=== PATIENT | female | born 1955 | race Caucasian/White ===

== ENCOUNTER 2018-09-25 21:30 | Inpatient (IN) | payer OTHER ==
[2018-09-25 22:28] LABS: Absolute Lymphocytes (CBC) 0.1 K/uL (0.7-4.9); Absolute Neutrophil 13.1 K/uL (1.8-8.0); Basophils % 0.1 % (0-1.3); Eosinophils % 0.2 % (0-4.4); Lymphocytes % 0.7 % (15.3-44.8); MPV 10.3 fL (7.6-11.3); Monocytes % 0.2 % (3.3-12.3); RBC Red Blood Cell Count 3.67 M/uL (3.86-4.86)
[2018-09-25 22:30] LABS: Protime INR 1.5
[2018-09-25] MEDS ORDERED: FAMOTIDINE 20 MG/2 ML VIAL IV ONE (22:47)
[2018-09-25] MEDS ORDERED: ONDANSETRON 4 MG/2 ML VIAL ONE (22:47)
[2018-09-25] MEDS ORDERED: NA CHLORIDE 0.9% 1,000 ML ONE (22:47)
[2018-09-25 23:00] LABS: ALT/SGPT 226 U/L (12-78); Albumin 2.1 g/dL (3.4-5.0); Alkaline Phosphatase 246 U/L (45-117); BUN Blood Urea Nitrogen 133 mg/dL (7-18); Bicarbonate 18 mmol/L (21-32); Bilirubin Direct 1.1 mg/dL (0-0.2); Bilirubin Total 1.4 mg/dL (0.2-1.0); Glucose Level 57 mg/dL (74-106); Magnesium 2.5 mg/dL (1.8-2.4); NT PRO-BNP 1977 pg/mL (<125); Potassium 4.8 mmol/L (3.5-5.1); Protein, Total 7.3 g/dL (6.4-8.2); Sodium Level 127 mmol/L (136-145); Troponin (Emerg Dept Use Only) < 0.02 ng/mL (0.0-0.045)
[2018-09-25 23:13] LABS: AST/SGOT 817 U/L (15-37)
[2018-09-25 23:30] LABS: Blood Morphology Comment NOT SEEN (NOT SEEN); Platelet Estimate ADEQ; Toxic Granulation 2+; Urine White Blood Cell Casts OK
[2018-09-26 00:26] LABS: Urine Blood 2+ (NEG); Urine Glucose NEGATIVE (NEG); Urine Protein 3+ (NEG); Urine Specific Gravity 1.025 (1.005-1.030)
[2018-09-26 01:18] LABS: Urine Amorphous Sediment 2+ /HPF (NONE SEEN); Urine Bacteria LOADED /HPF (<20); Urine Culture Reflex Order NOT NEEDED; Urine RBC <5 /HPF (NONE SEEN)
[2018-09-26] MEDS ORDERED: CEFTRIAXONE 1000 MG/VIAL ONE (01:35)
[2018-09-26] MEDS ORDERED: NA CHLORIDE 0.9% 50 ML IV ONE (01:35)
--- NOTE | 2018-09-26 01:58 | EDPHYS ---
Physician Documentation [facility] Name: Veronica Mendoza Age: 63 yrs Sex: Female : 1955 Arrival Date: 09/25/2018 Time: 21:36 Bed 27 Private MD: ED Physician Jose Quijano HPI: 09/25 22:57 This 63 yrs old Female presents to ER via EMS with complaints of vomiting, wa diarrhea. SOB. 22:57 The patient presents to the emergency department with nausea, vomiting, diarrhea. wa Onset: The symptoms/episode began/occurred 5 day(s) ago. Possible causes: unknown. The symptoms are aggravated by nothing. The symptoms are alleviated by nothing. Associated signs and symptoms: Pertinent positives: diarrhea, fever, nausea, vomiting. Severity of symptoms: At their worst the symptoms were moderate in the emergency department the symptoms are unchanged. The patient has not experienced similar symptoms in the past. The patient has not recently seen a physician. c/o weakness. N/V/D. also SOB with exertion. Chest pain. Historical: - Allergies: 21:45 No Known Allergies; mg2 - Home Meds: 21:45 carvedilol 3.125 mg oral tab 1 tab 2 times per day [Active]; metformin 500 mg Oral tab mg2 1 tab 2 times per day [Active]; Tradjenta 5 mg oral tab 1 tab once daily [Active]; ferrous sulfate 325 mg (65 mg iron) Oral tab [Active]; clonidine HCl 0.2 mg Oral tab 1 tab 3 times per day [Active]; gemfibrozil 600 mg Oral tab 1 tab 2 times per day [Active]; rosuvastatin 10 mg oral tab 1 tab once daily [Active]; aspirin 81 mg Oral chew 1 tab once daily [Active]; fluticasone 50 mcg twice a day [Active]; vit d3 5000 units od [Active]; vit b-12 1000 mcg tab 1 tab od [Active]; - PMHx: 21:45 Hypertension; Hyperlipidemia; Diabetes - NIDDM; mg2 - PSHx: 21:45 partial thyroidectomy; mg2 - Immunization history:: Flu vaccine is not up to date. - Social history:: Smoking status: Patient uses tobacco products, electronic cigars 2/day, Patient uses alcohol, but reports only rare drinking. Patient/guardian denies using street drugs, IV drugs. - Ebola Screening: : No symptoms or risks identified at this time. - Family history:: not pertinent. - Hospitalizations: : No recent hospitalization is reported. ROS: 22:59 Eyes: Negative for injury, pain, redness, and discharge, ENT: Negative for injury, wa pain, and discharge, Neck: Negative for injury, pain, and swelling, Back: Negative for injury and pain, : Negative for injury, bleeding, discharge, and swelling, MS/Extremity: Negative for injury and deformity, Skin: Negative for injury, rash, and discoloration, Neuro: Negative for headache, weakness, numbness, tingling, and seizure, Psych: Negative for depression, anxiety, suicide ideation, homicidal ideation, and hallucinations. 22:59 Constitutional: Positive for body aches, fatigue, fever, malaise. 22:59 Cardiovascular: Positive for chest pain, Negative for edema, orthopnea, palpitations. 22:59 Respiratory: Positive for shortness of breath, on exertion. Negative for cough. 23:03 All other systems are negative. wa Exam: 23:03 Constitutional: This is a well developed, well nourished patient who is awake, alert, wa and in no acute distress. Head/Face: Normocephalic, atraumatic. Eyes: Pupils equal round and reactive to light, extra-ocular motions intact. Lids and lashes normal. Conjunctiva and sclera are non-icteric and not injected. Cornea within normal limits. Periorbital areas with no swelling, redness, or edema. ENT: Nares patent. No nasal discharge, no septal abnormalities noted. Tympanic membranes are normal and external auditory canals are clear. Oropharynx with no redness, swelling, or masses, exudates, or evidence of obstruction, uvula midline. Mucous membranes moist. Neck: Trachea midline, no thyromegaly or masses palpated, and no cervical lymphadenopathy. Supple, full range of motion without nuchal rigidity, or vertebral point tenderness. No Meningismus. Chest/axilla: Normal chest wall appearance and motion. Nontender with no deformity. No lesions are appreciated. Cardiovascular: Regular rate and rhythm with a normal S1 and S2. No gallops, murmurs, or rubs. Normal PMI, no JVD. No pulse deficits. Respiratory: Lungs have equal breath sounds bilaterally, clear to auscultation and percussion. No rales, rhonchi or wheezes noted. No increased work of breathing, no retractions or nasal flaring. Back: No spinal tenderness. No costovertebral tenderness. Full range of motion. Skin: Warm, dry with normal turgor. Normal color with no rashes, no lesions, and no evidence of cellulitis. MS/ Extremity: Pulses equal, no cyanosis. Neurovascular intact. Full, normal range of motion. Neuro: Awake and alert, GCS 15, oriented to person, place, time, and situation. Cranial nerves II-XII grossly intact. Motor strength 5/5 in all extremities. Sensory grossly intact. Cerebellar exam normal. Normal gait. Psych: Awake, alert, with orientation to person, place and time. Behavior, mood, and affect are within normal limits. 23:03 Abdomen/GI: Inspection: abdomen appears normal, Bowel sounds: normal, in all quadrants, Palpation: abdomen is soft and non-tender, in all quadrants. Vital Signs: 21:38 BP 123 / 64; Pulse 72; Resp 20; Temp 97.6(O); Pulse Ox 91% on R/A; Weight 78.02 kg; mg2 Height 5 ft. 6 in. (167.64 cm); Pain 3/10; 22:45 BP 98 / 56; Pulse 71; Resp 18; Pulse Ox 94% on 2 lpm NC; mg2 09/26 00:01 BP 109 / 61; Pulse 74; Resp 18; Pulse Ox 95% on 2 lpm NC; mg2 01:07 BP 93 / 54; Pulse 75; Resp 18; Pulse Ox 92% on 2 lpm NC; mg2 02:15 BP 93 / 60; Pulse 73; Resp 18; Pulse Ox 93% on 2 lpm NC; Pain 0/10; mg2 02:58 BP 95 / 55; Pulse 76; Resp 18; Pulse Ox 94% on 2 lpm NC; Pain 0/10; mg2 09/25 21:38 Body Mass Index 27.76 (78.02 kg, 167.64 cm) mg2 MDM: 09/25 21:45 Patient medically screened. mo 23:04 Differential diagnosis: will r/o ACS. consider infectious process. will reassess. mo 09/26 01:47 Data reviewed: vital signs, nurses notes, lab test result(s), EKG, radiologic studies. mo Test interpretation: by ED physician or midlevel provider: EKG: interp by me: HR 72. nml axis. no ischemic changes. CXR: no acute process. Labs: hyponatremia. hypochloremia. hypoglycemia. severe renal insufficiency. GFR 8. leukocytosis. elevated liver enzymes. UTI. Special discussion: severe renal insufficiency. will admit for renal evaluation. UTI. cover with abx. elevated liver enzymes. intrinsic liver disease? consider gallbladder dz. will check US RUQ and CT abd/pelvis. 01:55 Response to treatment: the patient's symptoms have mildly improved after treatment. wa 01:56 Physician consultation: Giselle Kingsley MD. Admission orders: after a detailed discussion wa of the patient's condition and case, the admit orders are written by me. 02:50 ED course: 0250hrs: noted BG 44. D50 given via IV. 03:19 Test interpretation: by ED physician or midlevel provider: CT abd/pelvis: noted for R wa side multifocal pna. also R side hydronephrosis and hydroureter. . 09/25 21:48 Order name: Basic Metabolic Panel; Complete Time: 23:48 mg2 09/25 21:48 Order name: CBC with Diff; Complete Time: 23:48 mg2 09/25 21:48 Order name: LFT's; Complete Time: 23:48 mg2 09/25 21:48 Order name: Magnesium; Complete Time: 23:49 mg2 09/25 21:48 Order name: NT PRO-BNP; Complete Time: 23:49 mg2 09/25 21:48 Order name: PT-INR; Complete Time: 23:49 mg2 09/25 21:48 Order name: Troponin (emerg Dept Use Only); Complete Time: 23:49 mg2 09/25 22:35 Order name: Flu; Complete Time: 23:49 wa 09/25 23:30 Order name: CBC Smear Scan; Complete Time: 23:48 EDMS 09/25 23:50 Order name: Urine Microscopic Only; Complete Time: 01:21 wa 09/26 00:18 Order name: Urine Dipstick--Ancillary (enter results) ar5 09/26 00:27 Order name: Urine Dipstick-Ancillary EDMS 09/26 01:56 Order name: BMP wa 09/26 01:56 Order name: Basic Metabolic Panel EDIN 09/25 21:48 Order name: XRAY Chest (1 view) [facility] [place] 09/25 21:48 Order name: EKG; Complete Time: 21:49 mg2 09/25 21:49 Order name: Cardiac monitoring; Complete Time: 21:49 mg2 09/25 21:49 Order name: EKG - Nurse/Tech; Complete Time: 21:49 mg2 09/25 21:49 Order name: IV Saline Lock; Complete Time: 21:49 mg2 09/25 21:49 Order name: Labs collected and sent; Complete Time: 21:49 mg2 09/25 21:49 Order name: O2 Per Protocol; Complete Time: 21:49 mg2 09/25 21:49 Order name: O2 Sat Monitoring; Complete Time: 21:49 mg2 09/25 23:56 Order name: CT Abd/Pelvis - Without Cont mo 09/25 23:57 Order name: US Abdomen Limited mo 09/25 23:50 Order name: Urine Dipstick-Ancillary (obtain specimen); Complete Time: 00:18 mo Administered Medications: 09/25 22:42 Drug: Zofran 4 mg Route: IVP; Site: right antecubital; mg2 09/26 00:02 Follow up: Response: No adverse reaction; Marked relief of symptoms mg2 09/25 22:42 Drug: Pepcid 20 mg Route: IVP; Site: right antecubital; mg2 09/26 00:01 Follow up: Response: No adverse reaction; Marked relief of symptoms mg2 09/25 22:42 Drug: NS 0.9% 1000 ml Route: IV; Rate: 1 bolus; Site: right antecubital; mg2 09/26 00:02 Follow up: Response: No adverse reaction; IV Status: Completed infusion mg2 01:30 Drug: Rocephin - (cefTRIAXone) 2 grams Route: IVPB; Infused Over: 30 mins; Site: right mg2 antecubital; 02:23 Follow up: Response: No adverse reaction; IV Status: Completed infusion mg2 02:02 Drug: NS 0.9% 500 ml Route: IV; Rate: bolus; Site: right antecubital; mg2 03:04 Follow up: Response: No adverse reaction; IV Status: Completed infusion mg2 02:51 Drug: D50W 50 ml Route: IVP; Site: right antecubital; mg2 03:04 Follow up: Response: No adverse reaction; Blood sugar is elevated mg2 Point of Care Testing: Blood Glucose: 02:40 Blood Glucose: 44 mg/dL; mg2 03:00 Blood Glucose: 199 mg/dL; mg2 Ranges: Critical Glucose Levels:Adult <50 mg/dl or >400 mg/dl <40 mg/dl or >180 mg/dl Disposition: 09/26/18 01:58 Hospitalization ordered by Giselle Kingsley for Inpatient Admission. Preliminary diagnosis are acute vomiting and diarrhea, acute renal failure, Elelvated liver enzymes, chest pain, dyspnea, weakness. - Bed requested for Telemetry/MedSurg (Inpatient). - Status is Inpatient Admission. mg2 - Condition is Fair. - Problem is new. - Symptoms have improved. UTI on Admission? Yes Critical care time excluding procedures: :58 Critical care time: Bedside Care: 15 minutes, Consultation: 10 minutes, Family wa Intervention: 10 minutes. Total time: 35 minutes Signatures: Dispatcher [employer] EDSanjana Ortiz RN RN kl Appiah, William, MD MD wa Gardose, Michele, RN RN mg2 Corrections: (The following items were deleted from the chart) 02:33 01:58 Hospitalization Ordered by Giselle Kingsley MD for Inpatient Admission. Preliminary diagnosis is acute vomiting and diarrhea; acute renal failure; Elelvated liver enzymes; chest pain; dyspnea; weakness. Bed requested for Telemetry/MedSurg (Inpatient). Status is Inpatient Admission. Condition is Fair. Problem is new. Symptoms have improved. UTI on Admission? Yes. mo 03:19 02:33 09/26/2018 01:58 Hospitalization Ordered by Giselle Kingsley MD for Inpatient mg2 Admission. Preliminary diagnosis is acute vomiting and diarrhea; acute renal failure; Elelvated liver enzymes; chest pain; dyspnea; weakness. Bed requested for Telemetry/MedSurg (Inpatient). Status is Inpatient Admission. Condition is Fair. Problem is new. Symptoms have improved. UTI on Admission? Yes.
--- NOTE | 2018-09-26 01:58 | ER ---
Nurse's Notes [facility] Name: Veronica Mendoza Age: 63 yrs Sex: Female : 1955 Arrival Date: 09/25/2018 Time: 21:36 Bed 27 Private MD: Diagnosis: acute vomiting and diarrhea;acute renal failure;Elelvated liver enzymes;chest pain;dyspnea;weakness Presentation: 09/25 21:36 Presenting complaint: EMS states: patient is complaining of shortness of breath, chest mg2 pain, body weakness, n/v for 2 days. she also had flu-like symptoms last week. Transition of care: patient was not received from another setting of care. Onset of symptoms was September 23, 2018. Risk Assessment: Do you want to hurt yourself or someone else? Patient reports no desire to harm self or others. Initial Sepsis Screen: Does the patient meet any 2 criteria? No. Patient's initial sepsis screen is negative. Does the patient have a suspected source of infection? No. Patient's initial sepsis screen is negative. Care prior to arrival: None. 21:36 Method Of Arrival: EMS: [facility] mg2 21:36 Acuity: TOBIAS 3 mg2 Triage Assessment: 21:47 General: Appears. mg2 Historical: - Allergies: 21:45 No Known Allergies; mg2 - Home Meds: 21:45 carvedilol 3.125 mg oral tab 1 tab 2 times per day [Active]; metformin 500 mg Oral tab mg2 1 tab 2 times per day [Active]; Tradjenta 5 mg oral tab 1 tab once daily [Active]; ferrous sulfate 325 mg (65 mg iron) Oral tab [Active]; clonidine HCl 0.2 mg Oral tab 1 tab 3 times per day [Active]; gemfibrozil 600 mg Oral tab 1 tab 2 times per day [Active]; rosuvastatin 10 mg oral tab 1 tab once daily [Active]; aspirin 81 mg Oral chew 1 tab once daily [Active]; fluticasone 50 mcg twice a day [Active]; vit d3 5000 units od [Active]; vit b-12 1000 mcg tab 1 tab od [Active]; - PMHx: 21:45 Hypertension; Hyperlipidemia; Diabetes - NIDDM; mg2 - PSHx: 21:45 partial thyroidectomy; mg2 - Immunization history:: Flu vaccine is not up to date. - Social history:: Smoking status: Patient uses tobacco products, electronic cigars 2/day, Patient uses alcohol, but reports only rare drinking. Patient/guardian denies using street drugs, IV drugs. - Ebola Screening: : No symptoms or risks identified at this time. - Family history:: not pertinent. - Hospitalizations: : No recent hospitalization is reported. Screenin:46 Abuse screen: Denies threats or abuse. Denies injuries from another. Nutritional mg2 screening: No deficits noted. Tuberculosis screening: No symptoms or risk factors identified. Fall Risk IV access (20 points). Assessment: 21:47 General: Appears in no apparent distress. comfortable, Behavior is calm, cooperative. mg2 Pain: Complains of pain in chest Pain does not radiate. Pain currently is 3 out of 10 on a pain scale. Quality of pain is described as aching, Pain began gradually, 2-3 days ago. Is intermittent. Neuro: Level of Consciousness is awake, alert, obeys commands, Oriented to person, place, time, situation. Cardiovascular: Capillary refill < 3 seconds Patient's skin is warm and dry. Chest pain is described as mild, quality is sharp, is located in anterior chest wall. Respiratory: Airway is patent Respiratory effort is even, unlabored, Respiratory pattern is regular, symmetrical. GI: Reports nausea, vomiting. : No signs and/or symptoms were reported regarding the genitourinary system. EENT: No signs and/or symptoms were reported regarding the EENT system. Derm: Skin is intact, is healthy with good turgor, Skin is pink, warm \T\ dry. normal. Musculoskeletal: Circulation, motion, and sensation intact. Capillary refill < 3 seconds. 09/26 03:03 Reassessment: patient's blood sugar was low. provider informed. patient was given food. mg2 Vital Signs: 09/25 21:38 BP 123 / 64; Pulse 72; Resp 20; Temp 97.6(O); Pulse Ox 91% on R/A; Weight 78.02 kg; mg2 Height 5 ft. 6 in. (167.64 cm); Pain 3/10; 22:45 BP 98 / 56; Pulse 71; Resp 18; Pulse Ox 94% on 2 lpm NC; mg2 09/26 00:01 BP 109 / 61; Pulse 74; Resp 18; Pulse Ox 95% on 2 lpm NC; mg2 01:07 BP 93 / 54; Pulse 75; Resp 18; Pulse Ox 92% on 2 lpm NC; mg2 02:15 BP 93 / 60; Pulse 73; Resp 18; Pulse Ox 93% on 2 lpm NC; Pain 0/10; mg2 02:58 BP 95 / 55; Pulse 76; Resp 18; Pulse Ox 94% on 2 lpm NC; Pain 0/10; mg2 09/25 21:38 Body Mass Index 27.76 (78.02 kg, 167.64 cm) mg2 ED Course: 09/25 21:36 Patient arrived in ED. mg2 21:38 Triage completed. mg2 21:40 Brian Isidro, ILIANA is Primary Nurse. mg2 21:45 Jose Quijano MD is Attending Physician. wa 21:45 Arm band placed on. mg2 21:46 Patient has correct armband on for positive identification. ballast cleaning operator on. Pulse mg2 ox on. NIBP on. Door closed. Warm blanket given. 21:46 No provider procedures requiring assistance completed. Inserted saline lock: 20 gauge mg2 in right antecubital area, using aseptic technique. Blood collected. 22:23 XRAY Chest (1 view) In Process Unspecified. EDMS 02 00:[address] via stretcher. kw1 00:51 CT completed. Patient tolerated procedure well. Patient moved back from CT. kw1 01:00 CT Abd/Pelvis - Without Cont In Process Unspecified. EDMS 01:56 Giselle Kingsley MD is Hospitalizing Provider. wa 02:53 Patient admitted, IV remains in place. mg2 Administered Medications: 09/25 22:42 Drug: Zofran 4 mg Route: IVP; Site: right antecubital; mg2 09/26 00:02 Follow up: Response: No adverse reaction; Marked relief of symptoms mg2 09/25 22:42 Drug: Pepcid 20 mg Route: IVP; Site: right antecubital; mg2 09/26 00:01 Follow up: Response: No adverse reaction; Marked relief of symptoms mg2 09/25 22:42 Drug: NS 0.9% 1000 ml Route: IV; Rate: 1 bolus; Site: right antecubital; mg2 09/26 00:02 Follow up: Response: No adverse reaction; IV Status: Completed infusion mg2 01:30 Drug: Rocephin - (cefTRIAXone) 2 grams Route: IVPB; Infused Over: 30 mins; Site: right mg2 antecubital; 02:23 Follow up: Response: No adverse reaction; IV Status: Completed infusion mg2 02:02 Drug: NS 0.9% 500 ml Route: IV; Rate: bolus; Site: right antecubital; mg2 03:04 Follow up: Response: No adverse reaction; IV Status: Completed infusion mg2 02:51 Drug: D50W 50 ml Route: IVP; Site: right antecubital; mg2 03:04 Follow up: Response: No adverse reaction; Blood sugar is elevated mg2 Point of Care Testing: Blood Glucose: 02:40 Blood Glucose: 44 mg/dL; mg2 03:00 Blood Glucose: 199 mg/dL; mg2 Ranges: Outcome: 01:58 Decision to Hospitalize by Provider. ma 03:09 Admitted to Tele accompanied by tech, via stretcher, room 410, with chart, Report mg2 called to ILIANA Marcelo 03:09 Condition: stable 03:09 Instructed on the need for admit, Demonstrated understanding of instructions. 03:19 Patient left the ED. mg2 Signatures: Dispatcher [employer] EDMS Jose Quijano MD MD ma Sanjana Dugan kw1 Brian Isidro, RN RN mg2
[2018-09-26] MEDS ORDERED: NA CHLORIDE 0.9% 500 ML ONE (02:16)
[2018-09-26 02:44] LABS: Potassium 4.8 mmol/L (3.5-5.1)
[2018-09-26] MEDS ORDERED: D50W 25 GM/50 ML SYRINGE IV ONE (02:53)
[2018-09-26] MEDS: NA CHLORIDE 0.9% 1,000 ML IV SCH ×4 (04:26→13:00)
[2018-09-26] MEDS ORDERED: D50W 25 GM/50 ML SYRINGE IV PRN (07:56)
[2018-09-26] MEDS ORDERED: GLUCAGON 1 MG/VIAL IM PRN (07:56)
[2018-09-26] MEDS ORDERED: SODIUM BICARB 50 MEQ/50ML VIAL IV ONE (08:05)
[2018-09-26 08:10] LABS: Arterial Blood Carboxyhemoglob 0.8 % (0-1.5); Blood Gas Oxyhemoglobin 89.6 % (94-97); Blood O2 Saturation 91.2 % (92-98.5)
[2018-09-26] MEDS: ALBUTEROL 2.5 MG/3 ML NEB SOL NEB SCH ×3 (08:14→20:42)
[2018-09-26 08:44] LABS: Absolute Lymphocytes (CBC) 0.1 K/uL (0.7-4.9); Absolute Neutrophil 10.2 K/uL (1.8-8.0); Basophils % 0.3 % (0-1.3); Eosinophils % 0.3 % (0-4.4); Hematocrit 33.1 % (36.0-45.0); Lymphocytes % 0.8 % (15.3-44.8); MPV 10.4 fL (7.6-11.3); Monocytes % 0.2 % (3.3-12.3); RBC Red Blood Cell Count 3.36 M/uL (3.86-4.86)
[2018-09-26] MEDS ORDERED: CEFTRIAXONE 1 GM/NS 50 ML 1 GM/50 ML BAG IV SCH (09:00)
[2018-09-26 09:04] LABS: Albumin 1.8 g/dL (3.4-5.0); Bilirubin Total 1.5 mg/dL (0.2-1.0); Magnesium 2.2 mg/dL (1.8-2.4); Protein, Total 6.3 g/dL (6.4-8.2)
--- NOTE | 2018-09-26 09:11 | RAD REPORT ---
EXAM DESCRIPTION: [place]line Single View09/25/2018 10:23 pm CLINICAL HISTORY: Chest pain COMPARISON: 2013 FINDINGS: A right basilar consolidation is present. Left lung appears clear of acute infiltrate. The heart is normal size IMPRESSION: Right basilar consolidation consistent with pneumonia. This should be followed until it is clear to help exclude post obstructive process/underlying mass
[2018-09-26] MEDS: METRONIDAZOLE 500mg IVPB 500 MG/100 ML BAG IV SCH ×2 (09:16→17:28)
[2018-09-26] MEDS: HEPARIN 5000 UNIT/ML 1 ML VIAL SQ SCH ×2 (09:17→20:53)
[2018-09-26] MEDS: PIPER/TAZO/NS 2.25gm 2.25 GM/50 ML BAG IVPB SCH ×2 (10:26→17:28)
[2018-09-26] MEDS: AZITHROMYCIN IV 250 MG in NA CHLORIDE 0.9% 250 ML IVPB SCH (10:26)
--- NOTE | 2018-09-26 10:57 | RAD REPORT ---
EXAM DESCRIPTION: RAD - Abdomen Single View - 09/26/2018 8:54 am CLINICAL HISTORY: Abdominal pain FINDINGS: The bowel gas pattern is diminished. No abnormal calcification is displayed Right basilar lung consolidation is present
[2018-09-26] MEDS: ONDANSETRON 4 MG/2 ML VIAL IV PRN (11:01)
--- NOTE | 2018-09-26 11:06 | RAD REPORT ---
EXAM DESCRIPTION: US - Abdomen Exam Complete - 09/26/2018 8:55 am CLINICAL HISTORY: Abdominal pain COMPARISON: September 26 cat scan FINDINGS: The liver has an increased echotexture. A small gallstone is present. Gallbladder wall is borderline thickened. Biliary tree is normal calibe r The pancreas normal in size and echotexture The right kidney measures 13 centimeters with a normal echotexture. The left kidney measures 13 centimeters with a normal echotexture. The spleen measures 13 centimeters. The abdominal aorta and inferior vena cava appear unremarkable IMPRESSION: Increased hepatic echotexture consistent with fatty infiltration Cholelithiasis. Borderline gallbladder wall thickening
[2018-09-26] MEDS: D5 0.9 NS 1,000 ML IV SCH ×2 (11:11→20:52)
--- NOTE | 2018-09-26 11:12 | P.CNS ---
Date of Consult: 09/26/18 Chief Complaint: Nausea vomiting acute renal failure History of Present Illness: Patient is 63 years of age has been sick since last start of having vomiting diarrhea I 1st last night had some 1 with associated with some cough was clear ended up here in the hospital with acute renal failure was no evidence of pneumonia urinalysis consistent with acute renal injury no evidence of an infection abnormal liver function tests history of Allergies valsartan Adverse Reaction (Verified 09/26/18 05:25) Anaphylaxis Home Medications: Aspirin [Low Dose Aspirin EC] 1 tab PO DAILY 09/26/18 Carvedilol 1 tab PO BID 09/26/18 Cholecalciferol (Vitamin D3) [Vitamin D3] 1 tab PO DAILY 09/26/18 Cyanocobalamin (Vitamin B-12) [Vitamin B-12] 1 tab PO DAILY 09/26/18 Ferrous Sulfate 1 tab PO DAILY 09/26/18 Fluticasone [Flonase 50MCG Nasal [place]*] 1 spray IH BID 09/26/18 Gemfibrozil 1 tab PO BID 09/26/18 Linagliptin [Tradjenta] 1 tab PO DAILY 09/26/18 Metformin ER [Glucophage ER*] 1 tab PO BIDWM 09/26/18 Rosuvastatin [Crestor*] 1 tab PO BEDTIME 09/26/18 cloNIDine HCl [Clonidine HCl] 1 tab PO TID 09/26/18 - Past Medical/Surgical History Diabetic: Yes -: HTN -: DM 2 -: sleep apnea -: partial thyroidectomy - Family History Father History Unknown: Yes Mother Notes: dementia - Social History Alcohol use: Yes CD- Drugs: No Caffeine use: Yes Place of Residence: Home Review of Systems General: Weakness Respiratory: Cough, Shortness of Breath Gastrointestinal: Nausea, Vomiting Physical Examination Temp Pulse Resp BP Pulse Ox 96.7 F L 75 20 90/57 L 90 L 09/26/18 03:57 09/26/18 03:57 09/26/18 03:57 09/26/18 03:57 09/26/18 03:57 General: Alert, In no apparent distress, Oriented x3, Acute distress HEENT: Atraumatic Neck: Supple Respiratory: Clear to auscultation bilaterally, Crackles/rales (Has some crackles at the right base) Cardiovascular: No edema, Regular rate/rhythm Gastrointestinal: Normal bowel sounds, Soft and benign Laboratory Data (last 24 hrs) 09/26/18 02:10: Sodium 130 L, Potassium 4.8, BUN 134 H, Creatinine 5.20 H*, Glucose 53 L 09/25/18 22:15: PT 17.4 H, INR 1.50 09/25/18 22:15: WBC 13.3 H, Hgb 12.0, Hct 36.0, Plt Count 196 09/25/18 22:15: Sodium 127 L, Potassium 4.8, BUN 133 H, Creatinine 5.45 H*, Glucose 57 L, Magnesium 2.5 H, Total Bilirubin 1.4 H, AST 817 H*, ALT 226 H, Alkaline Phosphatase 246 H - Problems (1) Renal failure Current Visit: Yes Status: Acute Plan: Patient is 63 with nausea vomiting diarrhea some fever and chills admitted with acute renal failure evidence of urinary tract infection white count is normal urinalysis does not show nitrite does show some blood and protein urea consistent with tubular damage patient's blood gases are satisfactory in addition she has also hypotensive cultures are pending patient's pro calcitonin was significantly elevated ultrasound and CT report pending of the kidneys Qualifiers: Chronic kidney disease stage: unspecified stage (2) Pneumonia Current Visit: Yes Status: Acute Plan: Chest x-ray shows a possible right lower lobe pneumonia confirmed by the CT scan patient is on Zosyn and Zithromax daily has multiorgan failure with abnormal liver function tests I agree with fluid boluses right now nephrology consultation Qualifiers: Pneumonia type: due to unspecified organism
[2018-09-26] MEDS: INSULIN -REGULAR HUMAN 50 UNIT/0.5 ML ML SQ SCH ×3 (11:24→20:53)
[2018-09-26] MEDS ORDERED: PROMETHAZINE 25 MG/ML VIAL IV PRN (11:24)
[2018-09-26] MEDS: NOREPINEPHRINE 4 MG in D5W 250 ML IV PRN (11:44)
[2018-09-26] MEDS ORDERED: FAMOTIDINE 20 MG/2 ML VIAL IV ONE (12:00)
[2018-09-26] MEDS ORDERED: INFLUENZA VACCINE (for 3y+) 0.5 ML DOSE IMVAC ONE (13:00)
[2018-09-26] MEDS ORDERED: PNEUMOCOCCAL VACCINE 0.5 ML IMVAC ONE (13:00)
[2018-09-26] MEDS: NA CHLORIDE 0.9% 250 ML IV PRN ×2 (17:29→19:06)
[2018-09-26 17:51] LABS: Absolute Lymphocytes (CBC) 0.1 K/uL (0.7-4.9); Absolute Neutrophil 9.9 K/uL (1.8-8.0); Basophils % 0.2 % (0-1.3); Eosinophils % 0.1 % (0-4.4); Hematocrit 34.6 % (36.0-45.0); Lymphocytes % 0.7 % (15.3-44.8); MPV 10.4 fL (7.6-11.3); Monocytes % 0.4 % (3.3-12.3); RBC Red Blood Cell Count 3.48 M/uL (3.86-4.86)
[2018-09-26 18:07] LABS: Magnesium 2.1 mg/dL (1.8-2.4); Potassium 4.8 mmol/L (3.5-5.1)
[2018-09-26] MEDS ORDERED: CALCIUM GLUC 10% INJ 4.65 MEQ in NA CHLORIDE 0.9% 100 ML IV ONE (18:41)
[2018-09-26 19:42] LABS: Urine Appearance TURBID; Urine Blood 1+ (NEG); Urine Color DK YELLOW; Urine Glucose NEGATIVE (NEG); Urine Protein 2+ (NEG); Urine Specific Gravity 1.015 (1.005-1.030)
[2018-09-26 19:51] LABS: Urine Microscopic Reflex ORDER UMIC
[2018-09-26 19:56] LABS: Urine Amorphous Sediment 2+ /HPF (NONE SEEN)
[2018-09-26 19:57] LABS: Urine Bacteria >50 /HPF (<20); Urine RBC <5 /HPF (NONE SEEN)
[2018-09-26 19:58] LABS: Urine Bilirubin 1+ (NEG); Urine Culture Reflex Order NOT NEEDED
[2018-09-26] MEDS ORDERED: FAMOTIDINE 20 MG/2 ML VIAL IV SCH (21:00)
[2018-09-27] MEDS: PIPER/TAZO/NS 2.25gm 2.25 GM/50 ML BAG IVPB SCH ×3 (00:17→17:14)
--- NOTE | 2018-09-27 00:21 | P.CNS ---
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 PT transferred today to ER for blood pressure control, renal insufficiency management. ALso found to have increased LFT and cholelithiasis. and surgical consult obtained. Allergies valsartan Adverse Reaction (Verified 09/26/18 05:25) Anaphylaxis Home Medications: Aspirin [Low Dose Aspirin EC] 1 tab PO DAILY 09/26/18 Carvedilol 1 tab PO BID 09/26/18 Cholecalciferol (Vitamin D3) [Vitamin D3] 1 tab PO DAILY 09/26/18 Cyanocobalamin (Vitamin B-12) [Vitamin B-12] 1 tab PO DAILY 09/26/18 Ferrous Sulfate 1 tab PO DAILY 09/26/18 Fluticasone [Flonase 50MCG Nasal [place]*] 1 spray IH BID 09/26/18 Gemfibrozil 1 tab PO BID 09/26/18 Linagliptin [Tradjenta] 1 tab PO DAILY 09/26/18 Metformin ER [Glucophage ER*] 1 tab PO BIDWM 09/26/18 Rosuvastatin [Crestor*] 1 tab PO BEDTIME 09/26/18 cloNIDine HCl [Clonidine HCl] 1 tab PO TID 09/26/18 - Past Medical/Surgical History Diabetic: Yes -: HTN -: DM 2 -: sleep apnea -: partial thyroidectomy - Family History Father History Unknown: Yes Mother Notes: dementia - Social History Alcohol use: Yes CD- Drugs: No Caffeine use: Yes Place of Residence: Home Review of Systems General: Fever, Weakness, Malaise Eyes: Unremarkable ENT: Unremarkable Respiratory: Cough, As per HPI Cardiovascular: Edema Gastrointestinal: Nausea, Vomiting, Abdominal Pain, Diarrhea, Distention, Melena (no), Hematochezia (no) Genitourinary: Frequency Physical Examination Temp Pulse Resp BP Pulse Ox 97.3 F 73 22 H 99/59 L 96 09/26/18 20:00 09/26/18 23:30 09/26/18 23:30 09/26/18 23:30 09/26/18 23:30 General: Alert, In no apparent distress, Oriented x3, Cooperative HEENT: PERRLA, EOMI, Sclerae nonicteric Neck: Supple Respiratory: Normal air movement Cardiovascular: Edema (pitting) Gastrointestinal: No rebound, No guarding, Distended, Tenderness (mild generalized all 4 quadrants, nu murphys, no rovsing) Musculoskeletal: No erythema, No tenderness, No warmth Integumentary: No rashes, No breakdown Neurological: Normal speech Laboratory Data (last 24 hrs) 09/26/18 02:10: Sodium 130 L, Potassium 4.8, BUN 134 H, Creatinine 5.20 H*, Glucose 53 L Imagings Data: U/S reviewed Official CT report still pending Conclusions/Impression: abd pain, renal insufficiency, Pneumonia, Increased liver enzymes, cholelithiasis GI consult MRCP when clinically stable, r/o CBD stone, cholangitis IV zosyn
[2018-09-27] MEDS: METRONIDAZOLE 500mg IVPB 500 MG/100 ML BAG IV SCH ×3 (00:29→17:14)
[2018-09-27] MEDS: ALBUTEROL 2.5 MG/3 ML NEB SOL NEB SCH ×4 (01:06→20:00)
[2018-09-27] MEDS ORDERED: NA CHLORIDE 0.9% 1,000 ML IV ONE (01:27)
--- NOTE | 2018-09-27 04:49 | HP ---
Date of Admission: 09/26/2018 Chief Complaint: Vomiting, diarrhea, abdominal pain, shortness of breath. History Of Present Illness: This is a 63-year-old, very pleasant female patient who started to have multiple symptoms 1 week ago and the patient describes that she started to have fever and chills a week ago on Friday associated with abdominal pain, vomiting, diarrhea. Her last episode of vomiting and diarrhea was yesterday and she has not had any vomiting or diarrhea since she came into the hospital. Her appetite has been extremely poor for last one week. She is also having some shortness of breath associated with that and says she is coughing up some colored mucus in last few days. She is feeling very weak and tired. She did not seek any medical attention for all these symptoms until yesterday. She decided to come to emergency room and after she came into emergency room, she was admitted into the hospital to the medical floor. When I came to hospital this morning, I found out about this admission and soon as I started to review her chart, immediately went to see her and in her room, I found out that she was sitting in the chair, awake, alert , oriented, answering all the questions appropriately. I requested her immediately to be assisted to bed and requested nursing staff to check her manual blood pressure which was 82/44. She was started on IV fluid normal saline, which she was receiving but wide-open IV fluid was started immediately and further appropriate orders were given to the nursing staff including order to transfer her to ICU. Allergies: VALSARTAN CAUSING KIDNEY DAMAGE. Medications: According to office records, she is on aspirin 81 mg daily, carvedilol 3.125 mg 2 times a day, clonidine 0.2 mg 3 times a day, ferrous sulfate 325 mg every day, gemfibrozil 600 mg 2 times a day, metformin 500 mg 2 times a day, rosuvastatin 10 mg daily, Tradjenta 5 mg daily, vitamin B12 of 1000 mcg daily, vitamin D3 of 5000 units daily, Zetia 10 mg daily. Review of Systems: Constitutional: As mentioned above. GI: As mentioned above. Respiratory: As mentioned above. All other systems reviewed and negative. Past Medical History: Significant for hypertension, type 2 diabetes mellitus, mixed hyperlipidemia, thrombocytopenia, fatty liver disease. Past Surgical History: Partial thyroidectomy at age 17 years due to thyroid cyst. Family History: Not pertinent. Social History: Positive for smoking. Use of alcohol negative. Physical Examination: Vital Signs: When she first came into emergency room, temperature 97.6, pulse 72, respiratory rate 20, blood pressure was 123/64 and this morning when I saw her, her blood pressure was 82/44. Height 5 feet 6 inches, weight 172 pounds. When I saw her, she was on 5-1/2 L of oxygen per nasal cannula. GENERAL: The patient appears weaker than normal but awake, alert, oriented x3. Answering questions appropriately. HEENT: Head atraumatic, normocephalic. Conjunctivae nonerythematous. Sclerae white. Mouth, no thrush or edema noted. Ears/Nose, no mass, lesion, discharge noted. Neck: Supple. No JVD, lymph nodes, bruit, thyromegaly noted. Lungs: Presence of diminished air entry in the right lower lung field and presence of rales in the left lung base. Not using accessory muscles of respiration. Heart: Normal heart sounds, no murmur or gallop. Abdomen: Presence of tenderness in right upper quadrant and right lower quadrant. No rebound tenderness. No distention. Bowel sounds present. No guarding. No rigidity. No hepatosplenomegaly. No bruit. Extremities: No leg edema. No calf tenderness. Skin: No rash, ulcer, cellulitis. Lymphatics: No lymph node enlargement in neck, supraclavicular, infraclavicular region. Neuro: No focal neurological deficit. Chest: Unremarkable. External Genitalia: Deferred. Rectal: Deferred. Laboratory Data: Initial sodium 127 from last night, potassium 4.8, chloride 87 , bicarb 18, BUN 133, creatinine 5.45, glucose was 57, magnesium 2.5, total bilirubin 1.4, direct bilirubin 1.1, SGOT 817, SGPT 226, alkaline phosphatase 246. Troponin less than 0.02. ProBNP 1976. Repeat chemistry from middle of the night: Sodium 130, potassium 4.8, chloride 92, bicarb 16, BUN 134, creatinine 5.20, glucose 53. I did a stat blood gas on her after I saw her; pH 7.17, pCO2 of 39.9, PO2 of 80, oxygen saturation 91.2, bicarb of the blood gas was 14, and this was on a 5-1/2 L oxygen. Urinalysis: Trace esterase, 20 to 50 wbc's, bacteria loaded, 3+ protein, 2+ blood. Chest x-ray: Right basilar consolidation consistent with pneumonia. CAT scan of the abdomen and pelvis done in the emergency room showed mild right-sided hydronephrosis and hydroureter with periureteral stranding, no intraluminal stone, finding could be secondary to a passed stone. Presence of diverticulosis without diverticulitis. Presence of gallstone, small right-sided pleural effusion. After I saw her, stat abdominal ultrasound was ordered and that report came back as increased hepatic echotexture consistent with fatty infiltration, cholelithiasis, borderline gallbladder wall thickening. Impression: 1. Septic shock with multi-organ failure. 2. Pneumonia. 3. Acute renal failure. 4. Urinary tract infection. 5. Gallstones. 6. Mixed hyperlipidemia. 7. Type 2 diabetes mellitus. 8. Hypertension. Plan: Admit the patient to hospital for further evaluation and management of this problem. As soon as I noted this patient's admission and started to review her test results, I was concerned about it so immediately the patient was evaluated this morning and I was concerned about septic shock. A decision was made to transfer her to ICU for higher level of care. Stat blood work was ordered. Procalcitonin came back 62.18 this morning and this is the only procalcitonin we have for this admission. Her sodium level came up to 131 with potassium 5, chloride 94, bicarb 19, BUN 131, creatinine 5.05. Liver function tests started to show some improvement with SGOT 699, SGPT 203, alkaline phosphatase 238 and total bilirubin 1.5. When I saw her, fingerstick blood sugar was 85 at that time. After the blood gas was done, nurse was advised to give 1 amp of bicarb IV. A Ramachandran catheter was placed. Albuterol nebulizer treatment was ordered and the patient was on ceftriaxone, which was discontinued and started her on Zosyn, Zithromax and metronidazole. Blood culture x2 and urine culture were ordered. We will consult wire frame lampshade maker for pneumonia, computational sciences professor for acute renal failure and general surgeon for her abdominal pain problem. The patient will be given IV fluid per sepsis protocol. We will monitor her intake, output in ICU and if necessary consider to give her vasopressor medication for the low blood pressure problem. I did contact the patient's and talked to him two different times to give him an update regarding this. Heparin will be given for DVT prophylaxis. Initially in ICU, I did ask nursing staff to monitor her blood sugar on an hourly basis and considering her blood sugar is stable now with IV fluid D5 NS, we will monitor her blood sugar a.c. and h.s. IV Pepcid will be given and symptomatic treatment for nausea was ordered. The patient's condition is critical. Prognosis guarded. Details were discussed with family. I will see her tomorrow morning for followup. JAMES/ZAHCARY Voice ID: [id number] MTDD
[2018-09-27 05:49] LABS: Absolute Lymphocytes (CBC) 0.1 K/uL (0.7-4.9); Absolute Monocytes 0.1 K/uL (0.1-1.3); Absolute Neutrophil 9.7 K/uL (1.8-8.0); Basophils % 0.1 % (0-1.3); Eosinophils % 1.2 % (0-4.4); Hematocrit 32.5 % (36.0-45.0); Lymphocytes % 1.1 % (15.3-44.8); Monocytes % 0.7 % (3.3-12.3); RBC Red Blood Cell Count 3.29 M/uL (3.86-4.86)
[2018-09-27 06:28] LABS: Blood Morphology Comment NOT SEEN (NOT SEEN); Platelet Estimate ADEQ; Toxic Granulation 1+; Urine White Blood Cell Casts OK
[2018-09-27 06:56] LABS: Albumin 1.5 g/dL (3.4-5.0); Bilirubin Total 1.4 mg/dL (0.2-1.0); Magnesium 2.3 mg/dL (1.8-2.4); Potassium 4.3 mmol/L (3.5-5.1); Protein, Total 5.5 g/dL (6.4-8.2)
[2018-09-27] MEDS: INSULIN -REGULAR HUMAN 50 UNIT/0.5 ML ML SQ SCH ×4 (07:30→21:00)
[2018-09-27] MEDS: HEPARIN 5000 UNIT/ML 1 ML VIAL SQ SCH ×2 (09:21→20:44)
[2018-09-27] MEDS: FAMOTIDINE 20 MG/2 ML VIAL IV SCH (09:22)
[2018-09-27] MEDS: NOREPINEPHRINE 4 MG in D5W 250 ML IV PRN (09:23)
[2018-09-27] MEDS: D5 0.9 NS 1,000 ML IV SCH ×2 (09:29→17:00)
[2018-09-27] MEDS ORDERED: ALBUMIN HUMAN 25% 200 ML IV ONE (10:00)
[2018-09-27] MEDS ORDERED: ALBUMIN HUMAN 25% 200 ML IV SCH ×2 (10:00→14:00)
[2018-09-27] MEDS: AZITHROMYCIN IV 250 MG in NA CHLORIDE 0.9% 250 ML IVPB SCH (10:21)
--- NOTE | 2018-09-27 10:55 | EKG ---
Test Date: 2018-09-25 Test Time: 21:40:19 Finish Carpenter: DAYNA MEASUREMENT RESULTS: Intervals: Rate: 72 [place]: 166 QRSD: 92 QT: 410 QTc: 448 Oden: P: 53 [place]: 166 QRS: 8 T: 46 INTERPRETIVE STATEMENTS: Normal sinus rhythm Normal ECG No previous ECG available for comparison Electronically Signed On 09-27-18 10:55:04 CALCULATION CLERK by Aneesh Blakely
[2018-09-27] MEDS ORDERED: CALCIUM GLUC 10% INJ 4.65 MEQ in NA CHLORIDE 0.9% 100 ML IV ONE (11:30)
--- NOTE | 2018-09-27 16:19 | PN ---
Date of Progress Note: 09/27/2018 Subjective: The patient was seen this morning for followup. She was in ICU, lying in bed, not in di stress. Vital signs reviewed. Intake and output records reviewed. We did some extra blood work yes terday evening, results reviewed and yesterday evening, I decided to give her 2 boluses of IV fluid t o help with her blood pressure and in attempt to try to wean off vasopressor medication. We also gav e her 1 amp of calcium gluconate as her calcium level was very low. Urine output has slowly improved . She denies any shortness of breath. No nausea. No vomiting. Denies any abdominal pain and has n o complaints this morning. Overall, she feels better than yesterday and looks better than yesterday. When I saw her today, her daughter was present with her at bedside and yesterday I did communicate with her , two different times to give him updates. Objective: HEENT: Unremarkable. Lungs: Diminished air entry in the right lower half of lung espinosa. No rales. No wheezing. Heart: Sounds normal. Abdomen: Soft. Bowel sounds normal. No guarding, rigidity, tenderness, distention. Extremities: No leg edema. Laboratory Data: White count 10, hemoglobin 10.9, and platelets 158. Sodium 136, potassium 4.3, chl oride 104, bicarb 15, BUN 123, creatinine 4.60, glucose 120, calcium 6.8, SGOT 417, SGPT 146, alkalin e phosphatase 268, and albumin 1.5. Procalcitonin 41.51. Assessment: 1.Septic shock with multiorgan failure. 2.Acute renal failure. 3.Pneumonia. 4.Urinary tract infection. 5.Anemia. 6.Diabetes mellitus. 7.Hypertension. Plan: We will continue IV fluid that currently she is on. One dose of IV bicarb and IV calcium gluc dwaine were ordered this morning after I saw her. We will continue current empiric antibiotics, which is Zithromax, Zosyn, and metronidazole. Continue heparin for DVT prophylaxis. Continue oxygen nebu lizer treatment. Procalcitonin is improving. Renal function is improving very well and urine output has started to shredder picker. We will continue to monitor intake and output. Currently, she is only on 1 mcg dose of Levophed and we are hoping that we might be able to wean off today. Clear liquid diet w ill be started today. The patient really has not had a bowel movement to collect a stool specimen fo r C. diff. Urine culture result pending. We will repeat blood work tomorrow morning along with the chest x-ray. Starting tomorrow, we will consult Physical Therapy to help ambulate the patient. Toda y, we will keep her in ICU. Depending on her condition tomorrow, we will decide if she is stable for transfer out of ICU to regular floor or not. Consultation from Dr. Vaughan and Dr. Dowling is yvonne reciated. Nephrology consultation is pending. Details and plan of treatment discussed with the leodan ent and her daughter, who was at bedside. JAMES/MODL Voice ID: [id number] Report ID: [id number]
--- NOTE | 2018-09-27 22:01 | P.CNS ---
Date of Consult: 09/26/18 Reason for Consult: DIAZ Requesting Physician: Best Stoddard Chief Complaint: Nausea vomiting acute renal failure History of Present Illness: 63 yo WF HTN, ARNIE, DM presented to the ER with 5-7 days of moderate to severe, progressive malaise with associated N/V, Diarrhea, F/C, fatigue and weakness. She reports taking Advil twice daily for the symptoms with some relief. Dr. Stoddard: This is a 63-year-old, very pleasant female patient who started to have multiple symptoms 1 week ago and the patient describes that she started to have fever and chills a week ago on Friday associated with abdominal pain, vomiting, diarrhea. Her last episode of vomiting and diarrhea was yesterday and she has not had any vomiting or diarrhea since she came into the hospital. Her appetite has been extremely poor for last one week. She is also having some shortness of breath associated with that and says she is coughing up some colored mucus in last few days. She is feeling very weak and tired. She did not seek any medical attention for all these symptoms until yesterday. She decided to come to emergency room and after she came into emergency room, she was admitted into the hospital to the medical floor. When I came to hospital this morning, I found out about this admission and soon as I started to review her chart, immediately went to see her and in her room, I found out that she was sitting in the chair, awake, alert, oriented, answering all the questions appropriately. I requested her immediately to be assisted to bed and requested nursing staff to check her manual blood pressure which was 82/44. She was started on IV fluid normal saline, which she was receiving but wide-open IV fluid was started immediately and further appropriate orders were given to the nursing staff including order to transfer her to ICU. ER physician: 22:57 This 63 yrs old Female presents to ER via EMS with complaints of vomiting, wa diarrhea. SOB. 22:57 The patient presents to the emergency department with nausea, vomiting, diarrhea. wa Onset: The symptoms/episode began/occurred 5 day(s) ago. Possible causes: unknown. The symptoms are aggravated by nothing. The symptoms are alleviated by nothing. Associated signs and symptoms: Pertinent positives: diarrhea, fever, nausea, vomiting. Severity of symptoms: At their worst the symptoms were moderate in the emergency department the symptoms are unchanged. The patient has not experienced similar symptoms in the past. The patient has not recently seen a physician. c/o weakness. N/V/D. also SOB with exertion. Chest pain. Allergies valsartan Adverse Reaction (Verified 09/26/18 05:25) Anaphylaxis Home medications list reviewed: Yes Home Medications: Aspirin [Low Dose Aspirin EC] 1 tab PO DAILY 09/26/18 Carvedilol 1 tab PO BID 09/26/18 Cholecalciferol (Vitamin D3) [Vitamin D3] 1 tab PO DAILY 09/26/18 Cyanocobalamin (Vitamin B-12) [Vitamin B-12] 1 tab PO DAILY 09/26/18 Ferrous Sulfate 1 tab PO DAILY 09/26/18 Fluticasone [Flonase 50MCG Nasal [place]*] 1 spray IH BID 09/26/18 Gemfibrozil 1 tab PO BID 09/26/18 Linagliptin [Tradjenta] 1 tab PO DAILY 09/26/18 Metformin ER [Glucophage ER*] 1 tab PO BIDWM 09/26/18 Rosuvastatin [Crestor*] 1 tab PO BEDTIME 09/26/18 cloNIDine HCl [Clonidine HCl] 1 tab PO TID 09/26/18 - Past Medical/Surgical History Diabetic: Yes -: HTN -: DM 2 -: sleep apnea -: partial thyroidectomy - Family History Father History Unknown: Yes Mother Notes: dementia - Social History Alcohol use: Yes CD- Drugs: No Caffeine use: Yes Place of Residence: Home Review of Systems 10-point ROS is otherwise unremarkable General: Fever, Weakness, Malaise Respiratory: Cough, SOB with Excertion Gastrointestinal: Nausea, Vomiting, Abdominal Pain, Diarrhea Neurological: Weakness Physical Examination Temp Pulse Resp BP Pulse Ox 98.6 F 72 24 H 121/62 95 09/27/18 16:00 09/27/18 18:30 09/27/18 18:30 09/27/18 18:30 09/27/18 18:30 General: Oriented x3, Cooperative, Moderate distress, Obese, Other (DMM) HEENT: Atraumatic Neck: Supple Respiratory: Clear to auscultation bilaterally Cardiovascular: No edema, Regular rate/rhythm, No rubs Gastrointestinal: No guarding, Tenderness Musculoskeletal: No clubbing, No contractures, No warmth Integumentary: No rashes, No cyanosis Neurological: Normal speech Blood work reviewed in the chart. Na 127; K 4.8; CO2 18; BUN 137; Cr 5.45 Imagings Data: EXAM DESCRIPTION: Arline Single View09/25/2018 10:23 pm CLINICAL HISTORY: Chest pain COMPARISON: 2012 FINDINGS: A right basilar consolidation is present. Left lung appears clear of acute infiltrate. The heart is normal size IMPRESSION: Right basilar consolidation consistent with pneumonia. This should be followed until it is clear to help exclude post obstructive process/ underlying mass. EXAM DESCRIPTION: US - Abdomen Exam Complete - 09/26/2018 8:55 am CLINICAL HISTORY: Abdominal pain COMPARISON: September 26 cat scan FINDINGS: The liver has an increased echotexture. A small gallstone is present. Gallbladder wall is borderline thickened. Biliary tree is normal caliber The pancreas normal in size and echotexture The right kidney measures 13 centimeters with a normal echotexture. The left kidney measures 13 centimeters with a normal echotexture. The spleen measures 13 centimeters. The abdominal aorta and inferior vena cava appear unremarkable IMPRESSION: Increased hepatic echotexture consistent with fatty infiltration Cholelithiasis. Borderline gallbladder wall thickening Conclusions/Impression: A/ Sepsis/ Shock. RLL PNA. Acute cystitis. DIAZ in the setting of hypovolemia, hypotension and Advil suspicious for ATN. Hyponatremia. Acidosis. Hypocalcemia. HyperPO4. Acute hepatitis suspicious for shocked liver. Hypoalbuminemia. Anemia in chronic illness. Hx HTN DM II. ARNIE on CPAP. P/ Continue current POC and Medications. Agree with the ICU transfer. Continue the IVF. Will continue to bolus as needed. Agree with abx. Replete lytes. Wean pressor therapy as tolerated. Bicarb therapy prn. Ramachandran catheter. No NSAIDs. AM labs. Daily weight. Thank you kindly for the consultation.
--- NOTE | 2018-09-27 22:30 | P.PN ---
Date of Service: 09/27/18 Vital Signs Temp Pulse Resp BP Pulse Ox 98.6 F 72 24 H 121/62 95 09/27/18 16:00 09/27/18 18:30 09/27/18 18:30 09/27/18 18:30 09/27/18 18:30 Medications Albuterol Sulfate (Proventil 0.083% Neb Soln) 2.5 mg NEB [id number] [facility] Stop: 10/26/18 08:01 Last Admin: 09/27/18 20:00 Dose: 2.5 mg Calcitriol (Rocaltrol) 0.5 mcg PO DAILY [facility] Stop: 10/28/18 09:01 Calcium Acetate (Phoslo) 667 mg PO TIDWM [facility] Stop: 10/28/18 08:01 Dextrose (Dextrose 50% Syringe) 12.5 gm IV PRN PRN; Protocol PRN Reason: HYPOGLYCEMIA Stop: 10/26/18 07:57 Last Admin: 09/26/18 10:26 Dose: 25 gm Famotidine (Pepcid) 20 mg IV DAILY [facility] Stop: 10/27/18 09:01 Last Admin: 09/27/18 09:22 Dose: 20 mg Glucagon (Glucagen) 1 mg IM 1X PRN; Protocol PRN Reason: HYPOGLYCEMIA Stop: 10/26/18 07:57 Heparin Sodium (Porcine) (Heparin 5,000 Units/Ml) 5,000 unit SQ Q12HR [facility] Stop: 10/26/18 09:01 Last Admin: 09/27/18 20:44 Dose: 5,000 unit Azithromycin 250 mg/ Sodium (Chloride) 250 mls @ 250 mls/hr IVPB DAILY [facility]; Protocol Stop: 10/26/18 09:01 Last Admin: 09/27/18 10:21 Dose: 250 mls Metronidazole/Sodium Chloride (Flagyl 500mg/100 Ml Iv Premix) 500 mg in 100 mls @ 200 mls/hr IV Q8HR [facility]; Protocol Stop: 10/26/18 09:01 Last Admin: 09/27/18 17:14 Dose: 100 mls Piperacillin/Tazobactam/Sod Chloride (Zosyn 2.25 Gm/50 Ml Ivpb) 2.25 gm in 50 mls @ 100 mls/hr IVPB Q8HR [facility]; Protocol Stop: 10/26/18 09:01 Last Admin: 09/27/18 17:14 Dose: 50 mls Dextrose/Sodium Chloride (D5w Ns 1-Liter Bag) 1,000 mls @ 100 mls/hr IV .Q10H [facility] Stop: 10/26/18 11:01 Last Admin: 09/27/18 17:00 Dose: Not Given Norepinephrine Bitartrate 4 mg (/ Dextrose) 254 mls @ 0 mls/hr IV PRN PRN; Protocol PRN Reason: Hemodynamic Parameters Stop: 10/26/18 11:25 Last Admin: 09/27/18 09:23 Dose: 254 mls Sodium Chloride (Sodium Chloride) 250 mls @ 999 mls/hr IV Q15M PRN PRN Reason: HYPOTENSION Stop: 10/26/18 17:08 Last Admin: 09/26/18 19:06 Dose: 250 mls Insulin Human Regular (Novolin -R) 0 unit SQ ACHS [facility]; Protocol Stop: 10/26/18 11:31 Last Admin: 09/27/18 21:00 Dose: Not Given Ondansetron HCl (Zofran) 4 mg IV Q4H PRN PRN Reason: NAUSEA / VOMITING Stop: 10/26/18 08:27 Last Admin: 09/26/18 11:01 Dose: 4 mg Promethazine HCl (Phenergan) 12.5 mg IV Q4H PRN PRN Reason: NAUSEA / VOMITING Stop: 10/26/18 11:25 Last Admin: 09/26/18 11:44 Dose: 12.5 mg Sodium Bicarbonate (Sodium Bicarb 325 Mg) 650 mg PO TID [facility] Stop: 10/27/18 22:24 Sodium Chloride (Normal Saline Flush) 10 ml IV BID [facility] Stop: 10/26/18 09:01 Last Admin: 09/27/18 20:44 Dose: 10 ml Microbiology Results 09/25/18 22:35 Nasopharnyx Influenza Type A Antigen Screen - Final 09/25/18 22:35 Nasopharnyx Influenza Type B Antigen Screen - Final Assessment/ Plan: Nephrology Feeling a little better today. Seen in the ICU. Mild delirium. Currently on Bipap therapy. +Fatigue Improving urine output. Vitals, medications, blood work and imaging reviewed in the chart. General: Oriented x3, Cooperative, Moderate distress, Obese, Other (DMM) HEENT: Atraumatic Neck: Supple Respiratory: Clear to auscultation bilaterally Cardiovascular: No edema, Regular rate/rhythm, No rubs Gastrointestinal: No guarding, Tenderness Musculoskeletal: No clubbing, No contractures, No warmth Integumentary: No rashes, No cyanosis Neurological: Normal speech Blood work reviewed in the chart. Na 127; K 4.8; CO2 18; BUN 137; Cr 5.45 Greater than 30 min patient care. Imagings Data: EXAM DESCRIPTION: [facility] Single View09/25/2018 10:23 pm CLINICAL HISTORY: Chest pain COMPARISON: 2012 FINDINGS: A right basilar consolidation is present. Left lung appears clear of acute infiltrate. The heart is normal size IMPRESSION: Right basilar consolidation consistent with pneumonia. This should be followed until it is clear to help exclude post obstructive process/ underlying mass. EXAM DESCRIPTION: US - Abdomen Exam Complete - 09/26/2018 8:55 am CLINICAL HISTORY: Abdominal pain COMPARISON: September 26 cat scan FINDINGS: The liver has an increased echotexture. A small gallstone is present. Gallbladder wall is borderline thickened. Biliary tree is normal caliber The pancreas normal in size and echotexture The right kidney measures 13 centimeters with a normal echotexture. The left kidney measures 13 centimeters with a normal echotexture. The spleen measures 13 centimeters. The abdominal aorta and inferior vena cava appear unremarkable IMPRESSION: Increased hepatic echotexture consistent with fatty infiltration Cholelithiasis. Borderline gallbladder wall thickening Conclusions/Impression: A/ Sepsis/ Shock. RLL PNA. Acute cystitis. DIAZ in the setting of hypovolemia, hypotension and Advil suspicious for ATN. Hyponatremia. Acidosis. Hypocalcemia. HyperPO4. Acute hepatitis suspicious for shocked liver. Hypoalbuminemia. Anemia in chronic illness. Hx HTN DM II. ARNIE on CPAP. P/ Continue current POC and Medications. Continue the IVF. Boluses as ordered. Give IV Albumin. Wean pressor therapy as tolerated. Agree with abx. Replete lytes. Start oral bicarb. Start Vitamin D and Phoslo. Ramachandran catheter. No NSAIDs. AM labs. Daily weight. Check hepatitis panel. May need to consider HD if poor renal recovery.
[2018-09-28] MEDS: METRONIDAZOLE 500mg IVPB 500 MG/100 ML BAG IV SCH ×3 (01:38→17:22)
[2018-09-28] MEDS: D5 0.9 NS 1,000 ML IV SCH (01:38)
[2018-09-28] MEDS: PIPER/TAZO/NS 2.25gm 2.25 GM/50 ML BAG IVPB SCH ×3 (01:38→17:23)
[2018-09-28] MEDS: ALBUTEROL 2.5 MG/3 ML NEB SOL NEB SCH ×4 (02:00→20:27)
[2018-09-28] MEDS: SODIUM BICARB 325 MG TAB PO SCH ×4 (02:02→21:00)
[2018-09-28] MEDS: ONDANSETRON 4 MG/2 ML VIAL IV PRN (03:30)
[2018-09-28 05:33] LABS: Absolute Lymphocytes (CBC) 0.2 K/uL (0.7-4.9); Absolute Monocytes 0.1 K/uL (0.1-1.3); Absolute Neutrophil 10.6 K/uL (1.8-8.0); Basophils % 0.3 % (0-1.3); Eosinophils % 0.1 % (0-4.4); Hematocrit 33.3 % (36.0-45.0); MPV 10.1 fL (7.6-11.3); Monocytes % 1.2 % (3.3-12.3); RBC Red Blood Cell Count 3.31 M/uL (3.86-4.86)
[2018-09-28 05:49] LABS: Albumin 2.5 g/dL (3.4-5.0); Bilirubin Total 1.9 mg/dL (0.2-1.0); Magnesium 2.4 mg/dL (1.8-2.4); Potassium 4.2 mmol/L (3.5-5.1); Protein, Total 5.9 g/dL (6.4-8.2); Uric Acid 12.7 mg/dL (2.6-6.0)
[2018-09-28 05:56] LABS: Arterial Blood Carboxyhemoglob 0.8 % (0-1.5); Blood O2 Saturation 88.4 % (92-98.5)
[2018-09-28 06:05] LABS: Platelet Estimate DECR; Toxic Granulation 1+; Urine White Blood Cell Casts OK
[2018-09-28 06:06] LABS: Blood Morphology Comment NOT SEEN (NOT SEEN)
--- NOTE | 2018-09-28 06:54 | RAD REPORT ---
EXAM DESCRIPTION: RAD - Chest Single View - 09/28/2018 5:59 am CLINICAL HISTORY: Pneumonia COMPARISON: September 26 TECHNIQUE: AP portable chest image was obtained [id number] hours . FINDINGS: Lung volumes are low. Right-sided pleural and parenchymal opacification are not substantia lly different. No improvement. There is some questionable progression in the mid right lung field. No new or progressive left lung field finding. Cardiomediastinal silhouette is prominent, accentuated by rotation. PICC line remains in good positi on. No pneumothorax is present. No enlarging pleural effusion. There is pleural fluid on the right. IMPRESSION: No improvement in the right-sided pleural and parenchymal opacification. Findings may be slightly worse in the right midlung field.
[2018-09-28] MEDS: INSULIN -REGULAR HUMAN 50 UNIT/0.5 ML ML SQ SCH ×4 (07:30→21:00)
[2018-09-28] MEDS: CA ACETATE 667 MG CAP PO SCH ×3 (08:00→17:00)
[2018-09-28 08:10] LABS: Arterial Blood Carboxyhemoglob 0.7 % (0-1.5); Blood Gas Oxyhemoglobin 94.3 % (94-97); Blood O2 Saturation 95.6 % (92-98.5)
--- NOTE | 2018-09-28 08:33 | P.PN ---
Subjective Date of Service: 09/28/18 Chief Complaint: Respiratory failure Patient is improving steadily alert responsive cooperative she is off vasopressors cultures are so far negative renal function is minimally improved it appears that patient has combined metabolic acidosis and respiratory acidosis started on BiPAP with improvement in her pH Review of Systems General: Weakness, Other (Patient is barely arousable) Physical Examination - Vital Signs Temperature: 97.5 F Blood Pressure: 94/60 Pulse: 53 Respirations: 25 Pulse Ox (%): 100 - Physical Exam General: Other (Minimally responsive) Respiratory: Crackles/rales (Crackles on the right side) Cardiovascular: No edema, Regular rate/rhythm Gastrointestinal: Normal bowel sounds, Soft and benign Assessment & Plan - Problems (Diagnosis) (1) Renal failure Current Visit: Yes Status: Acute Plan: Patient's kidney function is mildly improved she does have a metabolic acidosis patient has no significant abdominal tenderness Qualifiers: Chronic kidney disease stage: unspecified stage (2) Pneumonia Current Visit: Yes Status: Acute Plan: Chest x-ray shows a progression of pneumonia on the right side so far cultures are negative hemoglobin stable continue with Zosyn and Zithromax blood pressure is still low add vitamin-C and thymine stat serum cortisol level patient's serum pro calcitonin level is improving Qualifiers: Pneumonia type: due to unspecified organism Laterality: right (3) Respiratory failure Current Visit: Yes Status: Acute Plan: Patient is acute respiratory failure she is got a combination of metabolic and respiratory acidosis blood gases improved on BiPAP continue recheck blood gases in an hr Qualifiers: Chronicity: acute
[2018-09-28] MEDS: ASCORBIC ACID 500 MG TABLET PO SCH (09:00)
[2018-09-28] MEDS: CALCITROL 0.25 MCG CAP PO SCH (09:00)
[2018-09-28] MEDS: THIAMINE 200 MG/2 ML INJ IVP SCH (09:05)
[2018-09-28] MEDS: FAMOTIDINE 20 MG/2 ML VIAL IV SCH (09:05)
[2018-09-28] MEDS: HEPARIN 5000 UNIT/ML 1 ML VIAL SQ SCH ×2 (09:05→22:07)
[2018-09-28] MEDS: AZITHROMYCIN IV 250 MG in NA CHLORIDE 0.9% 250 ML IVPB SCH (09:06)
[2018-09-28] MEDS: D5W 1,000 ML with NA BICARB 8.4% 100 MEQ IV SCH ×4 (09:06→22:32)
[2018-09-28 10:28] LABS: Arterial Blood Carboxyhemoglob 0.6 % (0-1.5); Blood Gas Oxyhemoglobin 92.7 % (94-97)
[2018-09-28 13:02] LABS: Arterial Blood Carboxyhemoglob 0.7 % (0-1.5); Blood O2 Saturation 94.7 % (92-98.5)
[2018-09-28 13:03] LABS: Blood Gas Oxyhemoglobin 93.3 % (94-97)
--- NOTE | 2018-09-28 15:30 | RAD REPORT ---
EXAM DESCRIPTION: RAD - Chest Single View - 09/26/2018 10:50 pm CLINICAL HISTORY: 63 years Female, PICC Placement COMPARISON: CT abdomen and pelvis dated September 26, 2018 FINDINGS: Appropriately paced right upper extremity PICC terminating in the distal SVC. Eight lung base opacity and silhouetting of the right hemidiaphragm and right heart border. Blunting of the costophrenic angles. No pneumothorax. Cardiac and mediastinal silhouette is unremarkable. No acute osseous abnormality. Advanced left shoulder degenerative changes. IMPRESSION: Appropriately placed right upper extremity PICC. Right lung base opacity, likely atelectasis and consolidation as previously detailed. Small left pleural effusion. Electronically signed by Gino Wu DO 09/26/2018 10:53 PM [employer] Due to temporary technical issues with the PACS/Fluency reporting system, reports are being signed by the in house radiologist as a courtesy to ensure prompt reporting. The interpreting radiologist is f ully responsible for the content of the report.
--- NOTE | 2018-09-28 16:44 | PN ---
Date of Progress Note: 09/28/2018 Diagnoses: Pneumonia, abdominal pain. History Of Present Illness: The patient is stable, still on vasopressors. They are working on her p neumonia and renal insufficiency. Review of Systems: Unable to be obtained, although there is no nausea or vomiting. No melena. No hematochezia. Physical Examination: General: The patient is on BiPAP machine, awake and alert. Abdomen: Soft and depressible. No Rivera. Still mild generalized tenderness. Extremities: Good capillary refill. Laboratory Data: Lab work shows a WBC count of 10.9, total bili of 1.9, alkaline phosphatase 284. C hest x-ray this morning interpreted by Dr. Wright as no improvement in the right-sided pleural and p arenchymal opacification, may be slightly worse in the right mid lung. Assessment: A 63-year-old patient with multiple medical problems including pneumonia, renal insuffic iency, anasarca, in ICU on vasopressor, multiorgan swelling that includes gallbladder. She has histo ry of gallstones. Right now, we do not feel any Rivera sign, but we are giving her antibiotics. We would like to get an MRCP. I understand at this moment she is in the ICU on vasopressors, but at the moment she improves, we will like to get an imaging of the common bile duct. The total bilirubin ma y be elevated just from not eating, but at the same time, we have to rule out any stone in the common bile duct that may be have to be addressed. Her family is present today, so we will discuss the pro s and cons of any surgical intervention. Obviously, they are not in favor to take her to surgery unl ess basically we have absolute proof that that is a problem, which I do not have at this moment. YAMILA/MODL Voice ID: [id number] Report ID: [id number]
--- NOTE | 2018-09-28 18:42 | RAD REPORT ---
EXAM DESCRIPTION: CT - Abdomen Pelvis Wo Contrast - 09/26/2018 3:21 am CLINICAL HISTORY: The patient is 63 years old and is Female; abd pain, elevated liver enzymes and Cr COMPARISON: None. TECHNIQUE: Axial computed tomography images of the abdomen and pelvis without intravenous contrast. Sagittal and coronal reformatted images were created and reviewed. This CT exam was performed using one or more o f the following dose reduction techniques: Automated exposure control, adjustment of the mA and/or kV according to patient size, and/or use of iterative reconstruction technique. FINDINGS: LUNG BASES: Right basilar interstitial and consolidation with air bronchogram. Near complete atelectasis of the right middle lobe with consolidation anteriorly. Mild dependent left lung base atelectasis Calcified 4 mm pulmonary nodule in the right lower lobe. PLEURAL SPACE: Small right pleural effusion. HEART: Coronary calcifications. ABDOMEN: LIVER: Punctate hepatic calcification. No intrahepatic ductal dilatation. GALLBLADDER AND BILE DUCTS: Punctate gallstone. No pericholecystic fluid. No ductal dilation. PANCREAS: Unremarkable. No ductal dilation. SPLEEN: Unremarkable. No splenomegaly. ADRENALS: Unremarkable. No mass. KIDNEYS AND URETERS: Mild right hydronephrosis and hydroureter with periureteral stranding. No intral uminal stone. Nonspecific perinephric stranding. Nonobstructing stone in the inferior pole of the right kidney. STOMACH AND BOWEL: Diverticulosis involving the ascending colon and sigmoid without peridiverticular stranding. No obstruction. No mucosal thickening. PELVIS: APPENDIX: The appendix is seen and is within normal limits. BLADDER: Unremarkable. No stones. REPRODUCTIVE: Unremarkable as visualized. ABDOMEN and PELVIS: INTRAPERITONEAL SPACE: Unremarkable. No free air. No significant fluid collection. BONE/JOINTS:Grade 1 anterolisthesis of L4 on L5 on a degenerative basis. No acute fracture. No dislocation. SOFT TISSUES: Unremarkable. VASCULATURE: Unremarkable. No abdominal aortic aneurysm. LYMPH NODES: Unremarkable. No enlarged lymph nodes. IMPRESSION: 1. Suggestion of right middle lobe collapse and right lung base consolidations concerni ng for multifocal pneumonia. Dedicated chest CT is recommended for further characterization. 2. Mild right hydronephrosis and hydroureter with periureteral stranding. No intraluminal stone. Find ing could be secondary to recently passed stone. Additional nonobstructive right renal stone. 3. Colonic diverticulosis without CT evidence of acute diverticulitis. 4. Cholelithiasis without CT evidence of cholecystitis. 5. Small right pleural effusion. 6. Evidence of prior granulomatous disease. 7. Grade 1 anterolisthesis of L4 on L5 on a degenerative basis. Electronically signed by: Gino Wu DO 09/26/2018 1:16 AM [employer] Due to temporary technical issues with the PACS/Fluency reporting system, reports are being signed by the in house radiologist as a courtesy to ensure prompt reporting. The interpreting radiologist is f ully responsible for the content of the report.
--- NOTE | 2018-09-28 21:35 | PN ---
Date of Progress Note: 09/28/2018 Subjective: The patient was seen this morning for followup. During nighttime, she had some confusio n problem and she was more weak and lethargic as nurse notified me early this morning with her deteri orating condition. Blood gas was done and she was extremely acidotic with some retention of bicarb. BiPAP was ordered and Dr. Vaughan was contacted by ICU nursing staff with this change in condition to get his recommendation. When I saw her this morning, she was lying in bed in ICU on BiPAP, sleepy , wakes up with opening of her eyes but does not communicate with me. Objective: Vital Signs: Reviewed. HEENT: Examination unremarkable. Lungs: Bilateral shallow air entry. Not in respiratory distress. Heart: Sounds normal. Abdomen: Soft. Bowel sounds normoactive. No guarding, rigidity, tenderness, distention. Extremities: No leg edema. Laboratory Data: White count 10.9, hemoglobin 11.1, platelets 130. [facility] ; pH 7.07, pCO2 of 53.1, PO2 of 76.5, saturation 88% on 32% FiO2. Her intake, output records revie fri. Sodium this morning 142, potassium 4.2. Chloride 107, bicarb 18, BUN 132, creatinine 4.81, glu cose 138, calcium 6.5, uric acid 12.7, SGOT 254, SGPT 97, alkaline phosphatase 284, Procalcitonin 30. 15. Impression: 1.Septic shock with multiple organ failure. 2.Pneumonia. 3.Urinary tract infection. 4.Acute renal failure. 5.Severe metabolic acidosis. 6.Diabetes mellitus. Plan: One amp of bicarb IV was ordered this morning and tool hardener and technical writer and editor were contacte d by ICU nursing staff this morning regarding change in condition and the patient's lab results. Dr. Vaughan recommended for the patient to continue to be on BiPAP and if her condition deteriorates th en he will consider intubation. Throughout the day today, the patient remains on BiPAP and there is slight improvement noted in terms of her ability to communicate with ICU nursing staff by speaking fe w words. Her urine output remains poor today. Her creatinine has gone up today compared to yesterda y and she is lot more acidotic and yesterday she was awake, alert, oriented. Today, there is a deter ioration in her overall condition. I did have a discussion with tool hardener, Dr. Faria and he is recommending dialysis and is hoping that it would be temporary hemodialysis to help with her severe m etabolic acidosis problem. Dr. Vaughan has agreed with dialysis as he is concerned about some fluid overload type of problem in the near future and that is my concern as well. So, Dr. Faria has com municated with the patient's and daughter and he is planning to do dialysis tomorrow after di alysis access catheter gets placed by Dr. Dowling. We will continue current antibiotics. Liver fun ction tests are improving. Procalcitonin is improving as well. JAMES/MODL Voice ID: [id number] Report ID: [id number]
[2018-09-28] MEDS ORDERED: EPOETIN ALFA 10,000 UNIT/ML VIAL IV SCH (23:45)
[2018-09-28] MEDS ORDERED: ALBUMIN HUMAN 25% 50 ML IV SCH (23:45)
[2018-09-28] MEDS ORDERED: MANNITOL 25% 12.5 GM/50 ML VIAL IV PRN (23:55)
[2018-09-28] MEDS ORDERED: HEPARIN 10,000 UNIT/10 ML VIAL IV PRN (23:55)
[2018-09-28] MEDS ORDERED: NA CHLORIDE 0.9% 1,000 ML IV PRN (23:55)
--- NOTE | 2018-09-28 23:55 | P.PN ---
Date of Service: 09/28/18 Vital Signs Temp Pulse Resp BP Pulse Ox 97.2 F 60 15 96/59 L 97 09/28/18 20:00 09/28/18 22:00 09/28/18 22:00 09/28/18 22:00 09/28/18 22:00 Medications Albuterol Sulfate (Proventil 0.083% Neb Soln) 2.5 mg NEB [id number] [facility] Stop: 10/26/18 08:01 Last Admin: 09/28/18 20:27 Dose: 2.5 mg Ascorbic Acid (Vitamin C) 500 mg PO DAILY [facility] Stop: 10/28/18 09:01 Last Admin: 09/28/18 09:00 Dose: Not Given Calcitriol (Rocaltrol) 0.5 mcg PO DAILY [facility] Stop: 10/28/18 09:01 Last Admin: 09/28/18 09:00 Dose: Not Given Calcium Acetate (Phoslo) 667 mg PO TIDWM [facility] Stop: 10/28/18 08:01 Last Admin: 09/28/18 17:00 Dose: Not Given Dextrose (Dextrose 50% Syringe) 12.5 gm IV PRN PRN; Protocol PRN Reason: HYPOGLYCEMIA Stop: 10/26/18 07:57 Last Admin: 09/26/18 10:26 Dose: 25 gm Famotidine (Pepcid) 20 mg IV DAILY [facility] Stop: 10/27/18 09:01 Last Admin: 09/28/18 09:05 Dose: 20 mg Glucagon (Glucagen) 1 mg IM 1X PRN; Protocol PRN Reason: HYPOGLYCEMIA Stop: 10/26/18 07:57 Heparin Sodium (Porcine) (Heparin 5,000 Units/Ml) 5,000 unit SQ Q12HR [facility] Stop: 10/26/18 09:01 Last Admin: 09/28/18 22:07 Dose: 5,000 unit Azithromycin 250 mg/ Sodium (Chloride) 250 mls @ 250 mls/hr IVPB DAILY [facility]; Protocol Stop: 10/26/18 09:01 Last Admin: 09/28/18 09:06 Dose: 250 mls Metronidazole/Sodium Chloride (Flagyl 500mg/100 Ml Iv Premix) 500 mg in 100 mls @ 200 mls/hr IV Q8HR [facility]; Protocol Stop: 10/26/18 09:01 Last Admin: 09/28/18 17:22 Dose: 100 mls Piperacillin/Tazobactam/Sod Chloride (Zosyn 2.25 Gm/50 Ml Ivpb) 2.25 gm in 50 mls @ 100 mls/hr IVPB Q8HR [facility]; Protocol Stop: 10/26/18 09:01 Last Admin: 09/28/18 17:23 Dose: 50 mls Norepinephrine Bitartrate 4 mg (/ Dextrose) 254 mls @ 0 mls/hr IV PRN PRN; Protocol PRN Reason: Hemodynamic Parameters Stop: 10/26/18 11:25 Last Admin: 09/27/18 09:23 Dose: 254 mls Sodium Chloride (Sodium Chloride) 250 mls @ 999 mls/hr IV Q15M PRN PRN Reason: HYPOTENSION Stop: 10/26/18 17:08 Last Admin: 09/26/18 19:06 Dose: 250 mls Sodium Bicarbonate 100 meq/ (Dextrose/Water) 1,100 mls @ 100 mls/hr IV .Q11H [facility] Stop: 10/28/18 09:01 Last Admin: 09/28/18 22:32 Dose: 1,100 mls Insulin Human Regular (Novolin -R) 0 unit SQ ACHS [facility]; Protocol Stop: 10/26/18 11:31 Last Admin: 09/28/18 21:00 Dose: Not Given Ondansetron HCl (Zofran) 4 mg IV Q4H PRN PRN Reason: NAUSEA / VOMITING Stop: 10/26/18 08:27 Last Admin: 09/28/18 03:30 Dose: 4 mg Promethazine HCl (Phenergan) 12.5 mg IV Q4H PRN PRN Reason: NAUSEA / VOMITING Stop: 10/26/18 11:25 Last Admin: 09/26/18 11:44 Dose: 12.5 mg Sodium Bicarbonate (Sodium Bicarb 325 Mg) 650 mg PO TID [facility] Stop: 10/27/18 22:24 Last Admin: 09/28/18 21:00 Dose: Not Given Sodium Chloride (Normal Saline Flush) 10 ml IV BID [facility] Stop: 10/26/18 09:01 Last Admin: 09/28/18 22:07 Dose: 10 ml Thiamine HCl (Vitamin B-1) 100 mg IVP DAILY [facility] Stop: 10/28/18 09:01 Last Admin: 09/28/18 09:05 Dose: 100 mg Microbiology Results 09/25/18 22:35 Nasopharnyx Influenza Type A Antigen Screen - Final 09/25/18 22:35 Nasopharnyx Influenza Type B Antigen Screen - Final Assessment/ Plan: Nephrology Seen and examined in the ICU. Limited IH/ ROS due to delirium. Case discussed with the family at the bedside. Currently on Bipap therapy. Vitals, medications, blood work and imaging reviewed in the chart. General: Confused, Cooperative, Mild distress, Obese HEENT: Atraumatic Neck: Supple Respiratory: Clear to auscultation bilaterally Cardiovascular: No edema, Regular rate/rhythm, No rubs Gastrointestinal: No guarding, Tenderness Musculoskeletal: No clubbing, No contractures, No warmth Integumentary: No rashes, No cyanosis Neurological: Abnormal speech Ramachandran. Blood work reviewed in the chart. Na 127; K 4.8; CO2 18; BUN 137; Cr 5.45 Greater than 30 min patient care. Imagings Data: EXAM DESCRIPTION: [facility] Single View09/25/2018 10:23 pm CLINICAL HISTORY: Chest pain COMPARISON: 2012 FINDINGS: A right basilar consolidation is present. Left lung appears clear of acute infiltrate. The heart is normal size IMPRESSION: Right basilar consolidation consistent with pneumonia. This should be followed until it is clear to help exclude post obstructive process/ underlying mass. EXAM DESCRIPTION: US - Abdomen Exam Complete - 09/26/2018 8:55 am CLINICAL HISTORY: Abdominal pain COMPARISON: September 26 cat scan FINDINGS: The liver has an increased echotexture. A small gallstone is present. Gallbladder wall is borderline thickened. Biliary tree is normal caliber The pancreas normal in size and echotexture The right kidney measures 13 centimeters with a normal echotexture. The left kidney measures 13 centimeters with a normal echotexture. The spleen measures 13 centimeters. The abdominal aorta and inferior vena cava appear unremarkable IMPRESSION: Increased hepatic echotexture consistent with fatty infiltration Cholelithiasis. Borderline gallbladder wall thickening Conclusions/Impression: A/ Sepsis/ Shock. RLL PNA. Acute cystitis. DIAZ in the setting of hypovolemia, hypotension and Advil suspicious for ATN. Uremia. Hyponatremia. Acidosis. Hypocalcemia. HyperPO4. Acute hepatitis suspicious for shocked liver. Hypoalbuminemia. Anemia in chronic illness. Hx HTN DM II. ARNIE on CPAP. P/ Continue current POC and Medications. Changed the IVF to a Bicarb gtt today. Monitor closely for hypervolemia. Pressor therapy as needed to maintain perfusion. Agree with abx. Replete lytes. Continue the Ramachandran catheter. No NSAIDs. AM labs. Daily weight. Hepatitis panel pending. Case discussed with Dr. Vaughan and Dr. Stoddard today. Will initiate dialysis due to persistent uremia and acidosis in the setting of bipap therapy. Case discussed with Dr. Dowling; plan to place the HD CVC soon.
[2018-09-29] MEDS: METRONIDAZOLE 500mg IVPB 500 MG/100 ML BAG IV SCH ×3 (00:48→16:54)
[2018-09-29] MEDS: PIPER/TAZO/NS 2.25gm 2.25 GM/50 ML BAG IVPB SCH ×3 (00:48→16:54)
[2018-09-29] MEDS: ALBUTEROL 2.5 MG/3 ML NEB SOL NEB SCH ×4 (01:00→20:00)
[2018-09-29 05:26] LABS: Absolute Lymphocytes (CBC) 0.2 K/uL (0.7-4.9); Absolute Monocytes 0.2 K/uL (0.1-1.3); Absolute Neutrophil 9.2 K/uL (1.8-8.0); Basophils % 0.1 % (0-1.3); Eosinophils % 0.2 % (0-4.4); Hematocrit 30.5 % (36.0-45.0); MPV 9.7 fL (7.6-11.3); RBC Red Blood Cell Count 3.09 M/uL (3.86-4.86)
[2018-09-29 06:26] LABS: Bilirubin Total 2.3 mg/dL (0.2-1.0); Magnesium 2.2 mg/dL (1.8-2.4); Potassium 3.2 mmol/L (3.5-5.1); Protein, Total 5.2 g/dL (6.4-8.2); Uric Acid 13.7 mg/dL (2.6-6.0)
[2018-09-29 06:27] LABS: Phosphorus 9.5 mg/dL (2.5-4.9)
[2018-09-29] MEDS: D5W 1,000 ML with NA BICARB 8.4% 100 MEQ IV SCH ×2 (07:00)
[2018-09-29] MEDS: INSULIN -REGULAR HUMAN 50 UNIT/0.5 ML ML SQ SCH ×4 (07:30→20:15)
[2018-09-29] MEDS: CALCITROL 0.25 MCG CAP PO SCH ×2 (07:47→09:33)
[2018-09-29] MEDS: CA ACETATE 667 MG CAP PO SCH ×3 (07:47→16:54)
[2018-09-29] MEDS: SODIUM BICARB 325 MG TAB PO SCH ×4 (07:47→20:14)
[2018-09-29] MEDS: ASCORBIC ACID 500 MG TABLET PO SCH ×2 (07:48→09:31)
[2018-09-29] MEDS ORDERED: KCL 20 MEQ/100 mL IVPB 20 MEQ/100 ML BAG IV SCH (08:00)
--- NOTE | 2018-09-29 08:54 | P.PN ---
Subjective Date of Service: 09/29/18 Chief Complaint: Respiratory failure and renal failure Patient is improving she is more alert responsive off the BiPAP kidney function is also improving urine output has picked up acidosis is improved she has scanning gauge in a conversation Review of Systems General: Weakness Respiratory: Shortness of Breath Physical Examination - Vital Signs Temperature: 97.5 F Blood Pressure: 99/59 Pulse: 56 Respirations: 19 Pulse Ox (%): 98 - Physical Exam General: Alert, Oriented x3 Respiratory: Clear to auscultation bilaterally Cardiovascular: No edema, Regular rate/rhythm, Normal S1 S2 Assessment & Plan - Problems (Diagnosis) (1) Renal failure Current Visit: Yes Status: Acute Plan: Patient's kidney function is improving blood pressure is stable Qualifiers: Chronic kidney disease stage: unspecified stage (2) Pneumonia Current Visit: Yes Status: Acute Plan: Continue to monitor patient on broad-spectrum antibiotics repeat chest x-ray ordered identically improving cultures negative Qualifiers: Pneumonia type: due to unspecified organism Laterality: right (3) Respiratory failure Current Visit: Yes Status: Acute Plan: Patient is acute respiratory failure she is got a combination of metabolic and respiratory acidosis blood gases improved on BiPAP continue recheck blood gases in an hr Qualifiers: Chronicity: acute
[2018-09-29] MEDS: HEPARIN 5000 UNIT/ML 1 ML VIAL SQ SCH ×2 (09:00→20:14)
[2018-09-29] MEDS: FAMOTIDINE 20 MG/2 ML VIAL IV SCH (09:31)
[2018-09-29] MEDS: THIAMINE 200 MG/2 ML INJ IVP SCH (09:31)
[2018-09-29] MEDS: AZITHROMYCIN IV 250 MG in NA CHLORIDE 0.9% 250 ML IVPB SCH (09:34)
--- NOTE | 2018-09-29 09:41 | RAD REPORT ---
EXAM DESCRIPTION: RAD - Chest Single View - 09/29/2018 9:27 am CLINICAL HISTORY: Respiratory failure Chest pain. COMPARISON: Chest Single View dated 09/28/2018; Chest Single View dated 09/26/2018; Chest Single View d ated 09/25/2018; CHEST PA AND LAT 2 VIEW dated 08/02/2013 FINDINGS: Portable technique limits examination quality. Moderate improvement in right lung aeration is seen since the comparative study. Pleuroparenchymal op acification in the right base and a small left pleural effusion persists. The heart is moderately enl arged in size. Right-sided PICC line has tip in the SVC.
[2018-09-29 10:04] LABS: Arterial Blood Carboxyhemoglob 0.9 % (0-1.5); Blood Gas Oxyhemoglobin 92.1 % (94-97); Blood O2 Saturation 93.8 % (92-98.5)
[2018-09-29] MEDS: NEPRO SHAKE 237 ML CAN PO SCH (20:15)
--- NOTE | 2018-09-29 21:40 | P.PN ---
Date of Service: 09/29/18 Vital Signs Temp Pulse Resp BP Pulse Ox 96.6 F L 57 21 H 97/60 97 09/29/18 16:00 09/29/18 19:00 09/29/18 19:00 09/29/18 19:00 09/29/18 19:00 Medications Albuterol Sulfate (Proventil 0.083% Neb Soln) 2.5 mg NEB [id number] MANUELA Stop: 10/26/18 08:01 Last Admin: 09/29/18 20:00 Dose: 2.5 mg Ascorbic Acid (Vitamin C) 500 mg PO DAILY MANUELA Stop: 10/28/18 09:01 Last Admin: 09/29/18 09:31 Dose: 500 mg Calcitriol (Rocaltrol) 0.5 mcg PO DAILY MANUELA Stop: 10/28/18 09:01 Last Admin: 09/29/18 09:33 Dose: 0.5 mcg Calcium Acetate (Phoslo) 667 mg PO TIDWM MANUELA Stop: 10/28/18 08:01 Last Admin: 09/29/18 16:54 Dose: 667 mg Dextrose (Dextrose 50% Syringe) 12.5 gm IV PRN PRN; Protocol PRN Reason: HYPOGLYCEMIA Stop: 10/26/18 07:57 Last Admin: 09/26/18 10:26 Dose: 25 gm Enteral Nutritional Formula (Nepro Shake) 240 ml PO TID MANUELA Stop: 10/29/18 21:01 Last Admin: 09/29/18 20:15 Dose: 240 ml Epoetin Otf (Procrit) 10,000 unit IV EVERY HD [facility] Stop: 10/28/18 23:46 Famotidine (Pepcid) 20 mg IV DAILY MANUELA Stop: 10/27/18 09:01 Last Admin: 09/29/18 09:31 Dose: 20 mg Glucagon (Glucagen) 1 mg IM 1X PRN; Protocol PRN Reason: HYPOGLYCEMIA Stop: 10/26/18 07:57 Heparin Sodium (Porcine) (Heparin 5,000 Units/Ml) 5,000 unit SQ Q12HR MANUELA Stop: 10/26/18 09:01 Last Admin: 09/29/18 20:14 Dose: 5,000 unit Heparin Sodium (Porcine) (Heparin 10,000 Units/10 Ml Vial) 6,000 unit IV EVERY HD PRN PRN Reason: FLUSH AFTER EACH USE Stop: 10/28/18 23:56 Azithromycin 250 mg/ Sodium (Chloride) 250 mls @ 250 mls/hr IVPB DAILY [facility]; Protocol Stop: 10/26/18 09:01 Last Admin: 09/29/18 09:34 Dose: 250 mls Metronidazole/Sodium Chloride (Flagyl 500mg/100 Ml Iv Premix) 500 mg in 100 mls @ 200 mls/hr IV Q8HR MANUELA; Protocol Stop: 10/26/18 09:01 Last Admin: 09/29/18 16:54 Dose: 100 mls Piperacillin/Tazobactam/Sod Chloride (Zosyn 2.25 Gm/50 Ml Ivpb) 2.25 gm in 50 mls @ 100 mls/hr IVPB Q8HR MANUELA; Protocol Stop: 10/26/18 09:01 Last Admin: 09/29/18 16:54 Dose: 50 mls Norepinephrine Bitartrate 4 mg (/ Dextrose) 254 mls @ 0 mls/hr IV PRN PRN; Protocol PRN Reason: Hemodynamic Parameters Stop: 10/26/18 11:25 Last Admin: 09/27/18 09:23 Dose: 254 mls Sodium Chloride (Sodium Chloride) 250 mls @ 999 mls/hr IV Q15M PRN PRN Reason: HYPOTENSION Stop: 10/26/18 17:08 Last Admin: 09/26/18 19:06 Dose: 250 mls Sodium Bicarbonate 100 meq/ (Dextrose/Water) 1,100 mls @ 100 mls/hr IV .Q11H [facility] Stop: 10/28/18 09:01 Last Admin: 09/29/18 07:00 Dose: Not Given Albumin Human (Albumin 25%) 50 mls @ 100 mls/hr IV EVERY HD [facility] Stop: 10/28/18 23:46 Insulin Human Regular (Novolin -R) 0 unit SQ ACHS [facility]; Protocol Stop: 10/26/18 11:31 Last Admin: 09/29/18 20:15 Dose: Not Given Mannitol (Mannitol 12.5 Gm/50 Ml Vial) 12.5 gm IV EVERY HD PRN PRN Reason: BP support at hemodialysis Stop: 10/28/18 23:56 Ondansetron HCl (Zofran) 4 mg IV Q4H PRN PRN Reason: NAUSEA / VOMITING Stop: 10/26/18 08:27 Last Admin: 09/28/18 03:30 Dose: 4 mg Promethazine HCl (Phenergan) 12.5 mg IV Q4H PRN PRN Reason: NAUSEA / VOMITING Stop: 10/26/18 11:25 Last Admin: 09/26/18 11:44 Dose: 12.5 mg Sodium Bicarbonate (Sodium Bicarb 325 Mg) 650 mg PO TID [facility] Stop: 10/27/18 22:24 Last Admin: 09/29/18 20:14 Dose: 650 mg Sodium Chloride (Normal Saline Flush) 10 ml IV BID [facility] Stop: 10/26/18 09:01 Last Admin: 09/29/18 20:15 Dose: 10 ml Thiamine HCl (Vitamin B-1) 100 mg IVP DAILY [facility] Stop: 10/28/18 09:01 Last Admin: 09/29/18 09:31 Dose: 100 mg Microbiology Results 09/25/18 22:35 Nasopharnyx Influenza Type A Antigen Screen - Final 09/25/18 22:35 Nasopharnyx Influenza Type B Antigen Screen - Final Assessment/ Plan: Nephrology Seen and examined in the ICU. Much more awake today. Answering questions/ Mild confusion. CPS improved. No CP. No acute events. Improving urine output. Vitals, medications, blood work and imaging reviewed in the chart. General: Confused, Cooperative, NAD, Obese HEENT: Atraumatic Neck: Supple Respiratory: Minimal wheeze Cardiovascular: Hip Edema, Regular rate/rhythm, No rubs Gastrointestinal: No guarding, Tenderness Musculoskeletal: No clubbing, No contractures, No warmth Integumentary: No rashes, No cyanosis Neurological: Abnormal speech Ramachandran. Blood work reviewed in the chart. Na 127; K 4.8; CO2 18; BUN 137; Cr 5.45 Greater than 30 min patient care. Imagings Data: EXAM DESCRIPTION: Arline Single View09/25/2018 10:23 pm CLINICAL HISTORY: Chest pain COMPARISON: 2012 FINDINGS: A right basilar consolidation is present. Left lung appears clear of acute infiltrate. The heart is normal size IMPRESSION: Right basilar consolidation consistent with pneumonia. This should be followed until it is clear to help exclude post obstructive process/ underlying mass. EXAM DESCRIPTION: US - Abdomen Exam Complete - 09/26/2018 8:55 am CLINICAL HISTORY: Abdominal pain COMPARISON: February 9 cat scan FINDINGS: The liver has an increased echotexture. A small gallstone is present. Gallbladder wall is borderline thickened. Biliary tree is normal caliber The pancreas normal in size and echotexture The right kidney measures 13 centimeters with a normal echotexture. The left kidney measures 13 centimeters with a normal echotexture. The spleen measures 13 centimeters. The abdominal aorta and inferior vena cava appear unremarkable IMPRESSION: Increased hepatic echotexture consistent with fatty infiltration Cholelithiasis. Borderline gallbladder wall thickening Conclusions/Impression: A/ Sepsis/ Shock. RLL PNA. Acute cystitis. DIAZ in the setting of hypovolemia, hypotension and Advil suspicious for ATN. Uremia. Hyponatremia. Acidosis. Hypocalcemia. HyperPO4. Acute hepatitis suspicious for shocked liver. Hypoalbuminemia. Anemia in chronic illness. Hx HTN DM II. ARNIE on CPAP. P/ Continue current POC and Medications. Continue bicarb gtt. Pressor therapy as needed to maintain perfusion. Agree with abx. Replete lytes. Continue the Ramachandran catheter. Advance diet as tolerated. No NSAIDs. AM labs. Daily weight. Hepatitis panel pending. HD not initiated today due to an improvement in the patient's condition overnight. Will continue to monitor and initiate HD as needed.
[2018-09-30] MEDS: METRONIDAZOLE 500mg IVPB 500 MG/100 ML BAG IV SCH ×3 (00:14→16:47)
[2018-09-30] MEDS: PIPER/TAZO/NS 2.25gm 2.25 GM/50 ML BAG IVPB SCH ×3 (00:14→16:47)
[2018-09-30] MEDS: D5W 1,000 ML with NA BICARB 8.4% 100 MEQ IV SCH ×2 (00:17)
--- NOTE | 2018-09-30 00:46 | PN ---
Date of Progress Note: 09/29/2018 Subjective: The patient was seen this morning for followup. Overall, her condition has improved. S he is communicating better than yesterday, and her urine output has improved. Remains on BiPAP this morning when I saw her. Objective: Vital Signs: Reviewed. Intake/output records reviewed. HEENT: Unremarkable. Lungs: Diminished air entry in the right lower lung field with some rales present overall that is be tter than before. Not in any respiratory distress. Heart: Sounds normal. Abdomen: Soft. Bowel sounds normal. No guarding, rigidity, tenderness, or distention. Extremities: No leg edema. Laboratory Data: White count 9.6, hemoglobin 10.3, and platelets 132. Sodium 144, potassium 3.2, ch loride 108, bicarb 20, BUN 136, creatinine 4.75, glucose 92, and calcium 6. SGOT 178, SGPT 85, and a lkaline phosphatase 453. Impression: 1.Pneumonia. 2.Septic shock with multiple organ failure. 3.Acute renal failure. 4.Anemia. 5.Hypertension. 6.Diabetes mellitus. Plan: The patient has responded well to BiPAP. Her blood gas from this morning is reviewed. Her pH is better. Acidosis is improving. Renal function is slightly better. Urine output is improving ve ry well in last 12 to 24 hours compared to before. So, this morning, after I evaluated her, I did as k the nurse to contact the manager learning, Dr. Faria, to see if he wants to pursue with his plan for dialysis catheter placement and hemodialysis today or considering the patient's improvement in clinic al condition, wait for another day and see as long as if she continues to show improvement, then she may not need dialysis. Nurse did communicate with Dr. Faria, and he has agreed to wait until tomneela anaya to re-evaluate her. Dr. Vaughan will continue to manage her pulmonary status. We will start he r on diet today as she is doing better today; and hopefully, she will tolerate diet including nutriti onal supplement like Nepro 1 can 3 times a day. I will see her tomorrow for followup. JAMES/MODL Voice ID: [id number] Report ID: [id number]
[2018-09-30] MEDS: ALBUTEROL 2.5 MG/3 ML NEB SOL NEB SCH ×4 (02:00→19:39)
[2018-09-30 05:07] LABS: Absolute Lymphocytes (CBC) 0.1 K/uL (0.7-4.9); Absolute Monocytes 0.2 K/uL (0.1-1.3); Eosinophils % 0.2 % (0-4.4); Hematocrit 31.9 % (36.0-45.0); Lymphocytes % 1.8 % (15.3-44.8); MPV 10.3 fL (7.6-11.3); Monocytes % 2.7 % (3.3-12.3); RBC Red Blood Cell Count 3.26 M/uL (3.86-4.86)
[2018-09-30 05:31] LABS: Magnesium 2.1 mg/dL (1.8-2.4)
[2018-09-30 05:32] LABS: Potassium 2.8 mmol/L (3.5-5.1)
[2018-09-30] MEDS: KCL 20 MEQ/100 mL IVPB 20 MEQ/100 ML BAG IV SCH ×4 (06:17→23:20)
[2018-09-30] MEDS: D5W 1,000 ML IV SCH ×2 (06:17→20:38)
[2018-09-30] MEDS: INSULIN -REGULAR HUMAN 50 UNIT/0.5 ML ML SQ SCH ×4 (07:30→20:43)
--- NOTE | 2018-09-30 08:34 | RAD REPORT ---
EXAM DESCRIPTION: Arline Single View09/30/2018 6:40 am CLINICAL HISTORY: Shortness of breath COMPARISON: September 29, 2018 FINDINGS: No change has occurred in the right basilar consolidation. Left lung appears clear. Heart is mildly enlarged. PICC line remains in place IMPRESSION: No change in a right basilar consolidation
--- NOTE | 2018-09-30 08:50 | P.PN ---
Subjective Date of Service: 09/30/18 Chief Complaint: Respiratory failure and renal failure Patient is improving he feels better renal function is also improving no new complaints Review of Systems Unremarkable Physical Examination - Vital Signs Temperature: 98.8 F Blood Pressure: 110/61 Pulse: 63 Respirations: 22 Pulse Ox (%): 97 - Physical Exam General: Alert, Oriented x3 Respiratory: Clear to auscultation bilaterally, Diminished (Diminished air entry on the right side) Cardiovascular: No edema, Regular rate/rhythm Assessment & Plan - Problems (Diagnosis) (1) Renal failure Current Visit: Yes Status: Acute Plan: Renal function improving Qualifiers: Chronic kidney disease stage: unspecified stage (2) Pneumonia Current Visit: Yes Status: Acute Plan: Chest x-ray shows possible right basilar consolidation patient's white count is normal cultures and negative as patient is hemodynamically stable consider changing to p.o. antibiotics early levofloxacin renal dose ingested Dc IV antibiotics stable to be transferred to the floor Qualifiers: Pneumonia type: due to unspecified organism Laterality: right (3) Respiratory failure Current Visit: Yes Status: Acute Plan: Patient is acute respiratory failure she is got a combination of metabolic and respiratory acidosis blood gases improved on BiPAP continue recheck blood gases in an hr Qualifiers: Chronicity: acute
[2018-09-30] MEDS: NEPRO SHAKE 237 ML CAN PO SCH ×3 (09:00→20:50)
[2018-09-30] MEDS: CA ACETATE 667 MG CAP PO SCH ×3 (09:11→16:45)
[2018-09-30] MEDS: CALCITROL 0.25 MCG CAP PO SCH (09:11)
[2018-09-30] MEDS: FAMOTIDINE 20 MG/2 ML VIAL IV SCH (09:11)
[2018-09-30] MEDS: SODIUM BICARB 325 MG TAB PO SCH ×3 (09:11→20:38)
[2018-09-30] MEDS: HEPARIN 5000 UNIT/ML 1 ML VIAL SQ SCH ×2 (09:12→20:37)
[2018-09-30] MEDS: AZITHROMYCIN IV 250 MG in NA CHLORIDE 0.9% 250 ML IVPB SCH (09:13)
--- NOTE | 2018-09-30 19:49 | PN ---
Date of Progress Note: 09/30/2018 NEPHROLOGY PROGRESS NOTE Subjective: The patient was seen and examined at bedside. She states that she is doing much better. No overnight events were noted. Objective: Vital Signs: Have remained improved. Blood pressure is also improving. General: She appears in no acute distress. Lungs: Clear to auscultation. Abdomen: Soft. Extremities: Without any evidence of edema. Laboratory Data: Showing sodium of 146, potassium of 2.8, chloride of 107, BUN of 134 and creatinine of 4.29. CBC showing stable hemoglobin and hematocrit and platelet count of 114. Current Medications: Include azithromycin 250 mg daily, calcitriol, calcium acetate with meals, Proc rit, and Zosyn 2.25 g every 8 hours. Impression: 1.Acute renal insufficiency secondary to acute tubular necrosis, currently with improving renal func tion. 2.Electrolyte abnormalities including hypernatremia and hypokalemia. The patient has been started o n D5 water. We will continue to monitor labs. 3.Acidosis related to renal failure. 4.Acute hepatitis secondary to shock liver. 5.Sepsis, currently on broad-spectrum antibiotics. 6.Thrombocytopenia. Continue to monitor. Plan: The patient was on bicarb drip, but has been discontinued and has been started on D5 water. S he is off pressors. Urine output is good. Hopefully, the hypernatremia and BUN should start trendin g down with D5 water at 75 cc an hour and potassium has been repleted already. We will follow up wit h labs and adjust as needed. Continue all other medications and avoid hypotension and nephrotoxins and we will follow up on labs. TYRONE/ZACHARY Voice ID: [id number] Report ID: [id number]
[2018-10-01] MEDS: METRONIDAZOLE 500mg IVPB 500 MG/100 ML BAG IV SCH ×3 (01:21→17:54)
[2018-10-01] MEDS: PIPER/TAZO/NS 2.25gm 2.25 GM/50 ML BAG IVPB SCH ×3 (01:21→17:53)
[2018-10-01] MEDS: ALBUTEROL 2.5 MG/3 ML NEB SOL NEB SCH ×4 (02:11→19:40)
[2018-10-01 05:18] LABS: Absolute Lymphocytes (CBC) 0.3 K/uL (0.7-4.9); Absolute Monocytes 0.3 K/uL (0.1-1.3); Absolute Neutrophil 6.6 K/uL (1.8-8.0); Basophils % 0.5 % (0-1.3); Eosinophils % 0.7 % (0-4.4); Hematocrit 30.8 % (36.0-45.0); Lymphocytes % 3.7 % (15.3-44.8); MPV 10.3 fL (7.6-11.3); Monocytes % 4.5 % (3.3-12.3); RBC Red Blood Cell Count 3.23 M/uL (3.86-4.86)
[2018-10-01 05:59] LABS: Magnesium 1.9 mg/dL (1.8-2.4)
[2018-10-01 06:01] LABS: Potassium 2.9 mmol/L (3.5-5.1)
--- NOTE | 2018-10-01 06:27 | PN ---
Date of Progress Note: 09/30/2018 Subjective: The patient was seen this morning for followup. Her mental status was much better. She was awake, alert, oriented, answering questions appropriately, feeling much better than yesterday. Intake and output records reviewed. Her urine output has improved significantly. Objective: Vital Signs: Reviewed. HEENT: Examination unremarkable. Lungs: Clear to auscultation on the left side. Right side; few rales present in the lower lung fiel ds. Not using accessory muscles of respiration. Heart: Sounds normal. Abdomen: Soft. Bowel sounds normal. No guarding, rigidity, tenderness, or distention. Extremities: No leg edema. Laboratory Data: White count 7.4, hemoglobin 10.9, and platelets 114. Sodium 146, potassium 2.8, ch loride 107, bicarb 25, BUN 134, creatinine 4.29, glucose 165, and calcium 6.3. Impression: 1.Pneumonia. 2.Septic shock with multiorgan failure. 3.Acute renal failure. 4.Hypokalemia. 5.Anemia. 6.Thrombocytopenia. Plan: We will go ahead and continue current antibiotics. Pneumonia seems to be improving well. Sep tic shock with multiple organ failure is improving reasonably. The patient has not required any vaso pressor medication for last 2 to 3 days. She is maintaining her blood pressure on her own. Renal fa ilure is improving. Urine output is improving well. We will replace potassium per order. Consideri ng improvement in her condition, there is no need for dialysis, and we will continue to follow up wit h [facility] associate and rubber washer. Physical Therapy was requested today to start working with the edmund kathleen. I will see her tomorrow for followup. Depending on her condition tomorrow, we will decide if we can transfer her out of ICU to regular room tomorrow or not. Continue current DVT prophylaxis usi ng heparin. JAMES/MODL Voice ID: [id number] Report ID: [id number]
--- NOTE | 2018-10-01 07:08 | RAD REPORT ---
EXAM DESCRIPTION: RAD - Chest Single View - 10/01/2018 7:02 am CLINICAL HISTORY: Respiratory failure COMPARISON: September 30 TECHNIQUE: AP portable chest image was obtained 0700 hours . FINDINGS: Right greater than left pleural and parenchymal opacification have not changed since prior day imaging. Right base consolidation is still evident. PICC line remains in place. Heart size is st able. Heart borders are mostly obscured by a lung base opacities. Upper lobe vasculature not outside of normal range for shallow inspiration. No pneumothorax. No acute bony abnormality seen. No acute ao rtic findings suspected. IMPRESSION: Stable chest. Right base consolidation and bilateral lung base pleural and parenchymal o pacification have not changed.
[2018-10-01] MEDS: INSULIN -REGULAR HUMAN 50 UNIT/0.5 ML ML SQ SCH ×4 (07:30→21:00)
[2018-10-01] MEDS: AZITHROMYCIN IV 250 MG in NA CHLORIDE 0.9% 250 ML IVPB SCH (08:40)
[2018-10-01] MEDS: CA ACETATE 667 MG CAP PO SCH ×4 (08:41→17:55)
[2018-10-01] MEDS: CALCITROL 0.25 MCG CAP PO SCH (08:41)
[2018-10-01] MEDS: D5W 1,000 ML IV SCH (08:41)
[2018-10-01] MEDS: SODIUM BICARB 325 MG TAB PO SCH ×3 (08:42→22:02)
[2018-10-01] MEDS: HEPARIN 5000 UNIT/ML 1 ML VIAL SQ SCH ×2 (08:42→22:03)
[2018-10-01] MEDS: NEPRO SHAKE 237 ML CAN PO SCH ×3 (08:42→22:03)
[2018-10-01] MEDS: FAMOTIDINE 20 MG/2 ML VIAL IV SCH (08:42)
[2018-10-01] MEDS: KCL 20 MEQ/100 mL IVPB 20 MEQ/100 ML BAG IV SCH ×2 (16:16→17:54)
[2018-10-01] MEDS ORDERED: SPIRONOLACTONE 100 MG TAB PO ONE (18:00)
--- NOTE | 2018-10-01 21:05 | PN ---
Date of Progress Note: 10/01/2018 Subjective: The patient was seen this morning for followup. No new complaints, problems reported by patient. She is feeling much better, back to her normal usual self. Denies any shortness of breath . Tolerating diet very well. Yesterday, she did well with physical therapy. Intake and output mickey rds reviewed. Urine output is improving very well. Objective: Vital signs: Reviewed. HEENT: Unremarkable. Lungs: Clear to auscultation except very minimum right basal rales. Not in any respiratory distress . Heart: Sounds normal. Abdomen: Soft. Bowel sounds normoactive. No guarding, rigidity, tenderness, distention. Extremities: No leg edema. Laboratory Data: White count 7.3, hemoglobin 10.6, platelets 111. Sodium 147, potassium 2.9, chlori de 109, bicarb 26, BUN 125, creatinine 3.67, glucose 158, magnesium 1.9. Impression: 1.Pneumonia. 2.Septic shock with multiorgan failure. 3.Acute renal failure. 4.Anemia. 5.Diabetes mellitus. 6.Hypokalemia. Plan: We will go ahead and continue current antibiotics. The patient is tolerating diet very well. We will remove Ramachandran catheter today. Physical Therapy to continue to work with the patient. The pa rogelio is hemodynamically stable and medically stable for transfer out of ICU to medical floor. Replace potass ium per order. JAMES/MODL Voice ID: [id number] Report ID: [id number]
--- NOTE | 2018-10-01 22:59 | P.PN ---
Date of Service: 10/01/18 Vital Signs Temp Pulse Resp BP Pulse Ox 96.5 F L 70 20 151/70 H 90 L 10/01/18 20:00 10/01/18 20:00 10/01/18 20:00 10/01/18 20:00 10/01/18 20:00 Medications Albuterol Sulfate (Proventil 0.083% Neb Soln) 2.5 mg NEB [id number] MANUELA Stop: 10/26/18 08:01 Last Admin: 10/01/18 19:40 Dose: 2.5 mg Calcitriol (Rocaltrol) 0.5 mcg PO DAILY MANUELA Stop: 10/28/18 09:01 Last Admin: 10/01/18 08:41 Dose: 0.5 mcg Calcium Acetate (Phoslo) 1,334 mg PO TIDWM MANUELA Stop: 10/31/18 18:01 Last Admin: 10/01/18 17:55 Dose: 1,334 mg Cholecalciferol (Vitamin D 5,000 Iu Cap) 5,000 unit PO DAILY MANUELA Stop: 11/01/18 09:01 Dextrose (Dextrose 50% Syringe) 12.5 gm IV PRN PRN; Protocol PRN Reason: HYPOGLYCEMIA Stop: 10/26/18 07:57 Last Admin: 09/26/18 10:26 Dose: 25 gm Enteral Nutritional Formula (Nepro Shake) 240 ml PO TID MANUELA Stop: 10/29/18 21:01 Last Admin: 10/01/18 22:03 Dose: 237 ml Epoetin Otf (Procrit) 10,000 unit IV EVERY HD [facility] Stop: 10/28/18 23:46 Famotidine (Pepcid) 20 mg IV DAILY MANUELA Stop: 10/27/18 09:01 Last Admin: 10/01/18 08:42 Dose: 20 mg Glucagon (Glucagen) 1 mg IM 1X PRN; Protocol PRN Reason: HYPOGLYCEMIA Stop: 10/26/18 07:57 Heparin Sodium (Porcine) (Heparin 5,000 Units/Ml) 5,000 unit SQ Q12HR MANUELA Stop: 10/26/18 09:01 Last Admin: 10/01/18 22:03 Dose: 5,000 unit Heparin Sodium (Porcine) (Heparin 1,000 Units/Ml) 6,000 unit IV EVERY HD PRN PRN Reason: FLUSH AFTER EACH USE Stop: 10/31/18 14:48 Azithromycin 250 mg/ Sodium (Chloride) 250 mls @ 250 mls/hr IVPB DAILY MANUELA; Protocol Stop: 10/26/18 09:01 Last Admin: 10/01/18 08:40 Dose: 250 mls Metronidazole/Sodium Chloride (Flagyl 500mg/100 Ml Iv Premix) 500 mg in 100 mls @ 200 mls/hr IV Q8HR MANUELA; Protocol Stop: 10/26/18 09:01 Last Admin: 10/01/18 17:54 Dose: 100 mls Piperacillin/Tazobactam/Sod Chloride (Zosyn 2.25 Gm/50 Ml Ivpb) 2.25 gm in 50 mls @ 100 mls/hr IVPB Q8HR MANUELA; Protocol Stop: 10/26/18 09:01 Last Admin: 10/01/18 17:53 Dose: 50 mls Norepinephrine Bitartrate 4 mg (/ Dextrose) 254 mls @ 0 mls/hr IV PRN PRN; Protocol PRN Reason: Hemodynamic Parameters Stop: 10/26/18 11:25 Last Admin: 09/27/18 09:23 Dose: 254 mls Sodium Chloride (Sodium Chloride) 250 mls @ 999 mls/hr IV Q15M PRN PRN Reason: HYPOTENSION Stop: 10/26/18 17:08 Last Admin: 09/26/18 19:06 Dose: 250 mls Albumin Human (Albumin 25%) 50 mls @ 100 mls/hr IV EVERY HD MANUELA Stop: 10/28/18 23:46 Dextrose/Water (Dextrose In Water (1-Liter)) 1,000 mls @ 75 mls/hr IV .[id number] MANUELA Stop: 10/30/18 07:01 Last Admin: 10/01/18 08:41 Dose: 1,000 mls Insulin Human Regular (Novolin -R) 0 unit SQ ACHS MANUELA; Protocol Stop: 10/26/18 11:31 Last Admin: 10/01/18 21:00 Dose: Not Given Mannitol (Mannitol 12.5 Gm/50 Ml Vial) 12.5 gm IV EVERY HD PRN PRN Reason: BP support at hemodialysis Stop: 10/28/18 23:56 Ondansetron HCl (Zofran) 4 mg IV Q4H PRN PRN Reason: NAUSEA / VOMITING Stop: 10/26/18 08:27 Last Admin: 09/28/18 03:30 Dose: 4 mg Promethazine HCl (Phenergan) 12.5 mg IV Q4H PRN PRN Reason: NAUSEA / VOMITING Stop: 10/26/18 11:25 Last Admin: 09/26/18 11:44 Dose: 12.5 mg Sodium Bicarbonate (Sodium Bicarb 325 Mg) 650 mg PO TID MANUELA Stop: 10/27/18 22:24 Last Admin: 10/01/18 22:02 Dose: 650 mg Sodium Chloride (Normal Saline Flush) 10 ml IV BID MANUELA Stop: 10/26/18 09:01 Last Admin: 10/01/18 22:05 Dose: 10 ml Microbiology Results 09/25/18 22:35 Nasopharnyx Influenza Type A Antigen Screen - Final 09/25/18 22:35 Nasopharnyx Influenza Type B Antigen Screen - Final Assessment/ Plan: Nephrology Seen and examined in the ICU. Much more awake today. Answering questions/ Mild confusion. CPS improved. No CP. No acute events. Improving urine output. Vitals, medications, blood work and imaging reviewed in the chart. General: Confused, Cooperative, NAD, Obese HEENT: Atraumatic Neck: Supple Respiratory: Minimal wheeze Cardiovascular: Hip Edema, Regular rate/rhythm, No rubs Gastrointestinal: No guarding, Tenderness Musculoskeletal: No clubbing, No contractures, No warmth Integumentary: No rashes, No cyanosis Neurological: Abnormal speech Ramachandran. Blood work reviewed in the chart. Na 127; K 4.8; CO2 18; BUN 137; Cr 5.45 Greater than 30 min patient care. Imagings Data: [facility]AM [facility] 10:23 pm CLINICAL HISTORY: Chest pain COMPARISON: 2012 FINDINGS: A right basilar consolidation is present. Left lung appears clear of acute infiltrate. The heart is normal size IMPRESSION: Right basilar consolidation consistent with pneumonia. This should be followed until it is clear to help exclude post obstructive process/ underlying mass. EXAM DESCRIPTION: US - Abdomen Exam Complete - 09/26/2018 8:55 am CLINICAL HISTORY: Abdominal pain COMPARISON: September 26 cat scan FINDINGS: The liver has an increased echotexture. A small gallstone is present. Gallbladder wall is borderline thickened. Biliary tree is normal caliber The pancreas normal in size and echotexture The right kidney measures 13 centimeters with a normal echotexture. The left kidney measures 13 centimeters with a normal echotexture. The spleen measures 13 centimeters. The abdominal aorta and inferior vena cava appear unremarkable IMPRESSION: Increased hepatic echotexture consistent with fatty infiltration Cholelithiasis. Borderline gallbladder wall thickening Conclusions/Impression: A/ Sepsis/ Shock. RLL PNA. Acute cystitis. DIAZ in the setting of hypovolemia, hypotension and Advil suspicious for ATN. Uremia. Hyponatremia/ Hypernatremia. Acidosis. Hypocalcemia. HyperPO4. Acute hepatitis suspicious for shocked liver. Hypoalbuminemia. Anemia in chronic illness. Hx HTN DM II. ARNIE on CPAP. P/ Continue current POC and Medications. Continue D5W and bicarb tabs. Give a dose of spironolactone. Increase Phoslo. Start cholecalciferol. Agree with abx. Replete lytes per protocol Advance diet as tolerated; low sodium. No NSAIDs. AM labs. Daily weight. She is requesting to see a certified alcohol drug counselor.
[2018-10-01] MEDS ORDERED: POTASSIUM CL SA 10 MEQ TAB PO ONE (23:16)
[2018-10-02] MEDS: METRONIDAZOLE 500mg IVPB 500 MG/100 ML BAG IV SCH ×3 (00:36→16:33)
[2018-10-02] MEDS: PIPER/TAZO/NS 2.25gm 2.25 GM/50 ML BAG IVPB SCH ×3 (00:45→16:33)
[2018-10-02] MEDS: D5W 1,000 ML IV SCH ×3 (00:47→21:50)
[2018-10-02] MEDS: ALBUTEROL 2.5 MG/3 ML NEB SOL NEB SCH ×4 (01:47→19:40)
[2018-10-02 02:56] LABS: Urine Appearance CLEAR; Urine Blood NEGATIVE (NEG); Urine Color DK YELLOW; Urine Glucose NEGATIVE (NEG); Urine Protein TRACE (NEG); Urine Specific Gravity 1.015 (1.005-1.030); Urine Urobilinogen 0.2 mg/dL (0.2-1.0)
[2018-10-02 03:57] LABS: Urine Bilirubin NEGATIVE (NEG)
[2018-10-02 04:10] LABS: Urine Bacteria <20 /HPF (<20); Urine Culture Reflex Order NOT NEEDED; Urine RBC <5 /HPF (NONE SEEN); Urine Yeast PRESENT (NONE SEEN)
[2018-10-02 04:55] LABS: Absolute Lymphocytes (CBC) 0.2 K/uL (0.7-4.9); Absolute Monocytes 0.3 K/uL (0.1-1.3); Absolute Neutrophil 6.7 K/uL (1.8-8.0); Basophils % 0.2 % (0-1.3); Eosinophils % 0.7 % (0-4.4); Hematocrit 29.5 % (36.0-45.0); Lymphocytes % 3.3 % (15.3-44.8); MPV 10.7 fL (7.6-11.3); Monocytes % 4.1 % (3.3-12.3); RBC Red Blood Cell Count 3.06 M/uL (3.86-4.86)
[2018-10-02 05:19] LABS: Blood Morphology Comment NOT SEEN (NOT SEEN); Platelet Estimate DECR
[2018-10-02 05:27] VITALS: BMI 29.6
[2018-10-02 05:38] LABS: Albumin 1.9 g/dL (3.4-5.0); Phosphorus 3.3 mg/dL (2.5-4.9); Potassium 3.1 mmol/L (3.5-5.1); Protein, Total 5.3 g/dL (6.4-8.2); Uric Acid 8.6 mg/dL (2.6-6.0)
[2018-10-02 05:39] LABS: Bilirubin Total 5.3 mg/dL (0.2-1.0)
[2018-10-02] MEDS ORDERED: POTASSIUM 25 MEQ EFFERV TAB PO ONE ×2 (05:49→13:05)
[2018-10-02] MEDS: INSULIN -REGULAR HUMAN 50 UNIT/0.5 ML ML SQ SCH ×4 (07:30→21:00)
[2018-10-02] MEDS ORDERED: CA ACETATE 667 MG CAP PO SCH (08:00)
--- NOTE | 2018-10-02 08:57 | RAD REPORT ---
EXAM DESCRIPTION: US - Abdomen Exam Limited - 10/02/2018 8:44 am CLINICAL HISTORY: Abnormal liver function studies COMPARISON: CT abdomen September 26 FINDINGS: Gallbladder size is normal. No gallstones or measurable quantity of sludge. The CT study d id show a punctate 2 millimeter sized gallstone. That stone was not identifiable on this study. Gallb ladder wall is thickened. This is accentuated by a nonfasting state. Common bile duct is normal with no common duct stone identified. Liver is enlarged at 24 cm maximum dimension. Liver echogenicity ind icates a mild diffuse fatty infiltration. There is subtle nodular contour to the liver capsule. No fo suma liver lesions are identifiable. A small amount of ascites is seen adjacent to the liver capsule. Doppler evaluation shows normal velocity and flow direction of the portal vein. No portal vein thromb us. Partially evaluated right kidney shows a mild dilatation of the pelvis matching the September 26 study. IMPRESSION: Increased liver parenchymal echogenicity and subtle nodular contour to the liver capsule indicating fatty infiltration and diffuse hepatic parenchymal disease. No focal liver lesion. Hepatomegaly to 24 cm noted. Gallbladder wall thickening. No stones or sludge seen. The punctate stone seen on the CT study is not evident at sonography.
[2018-10-02] MEDS: NEPRO SHAKE 237 ML CAN PO SCH ×3 (09:00→20:21)
[2018-10-02] MEDS: CALCITROL 0.25 MCG CAP PO SCH (10:03)
[2018-10-02] MEDS: VITAMIN D 5,000 UNIT CAP PO SCH (10:03)
[2018-10-02] MEDS: HEPARIN 5000 UNIT/ML 1 ML VIAL SQ SCH ×2 (10:05→20:22)
[2018-10-02] MEDS: FAMOTIDINE 20 MG/2 ML VIAL IV SCH (10:05)
[2018-10-02] MEDS: SODIUM BICARB 325 MG TAB PO SCH ×2 (10:05→14:49)
[2018-10-02] MEDS: CA ACETATE 667 MG CAP PO SCH ×3 (10:05→16:33)
[2018-10-02] MEDS: AZITHROMYCIN IV 250 MG in NA CHLORIDE 0.9% 250 ML IVPB SCH (10:07)
--- NOTE | 2018-10-02 12:19 | P.PN ---
Subjective Date of Service: 10/02/18 Chief Complaint: Renal failure Patient is doing well no new complaints ambulating chest x-ray still abnormal she has some haziness on the right side Review of Systems Unremarkable General: Weakness Physical Examination - Vital Signs Temperature: 97.4 F Blood Pressure: 149/75 Pulse: 69 Respirations: 18 Pulse Ox (%): 91 - Physical Exam General: Alert, Oriented x3 Neck: Supple Respiratory: Clear to auscultation bilaterally, Normal air movement Cardiovascular: No edema, Regular rate/rhythm Assessment And Plan - Current Problems (Diagnosis) (1) Renal failure Current Visit: Yes Status: Acute Plan: Kidney function managed by Nephrology she is now hypernatremic renal function and creatinine have improved Qualifiers: Chronic kidney disease stage: unspecified stage (2) Pneumonia Current Visit: Yes Status: Acute Plan: Patient is doing better she does have some haziness on the right side continue with Zosyn white count is normal cultures are all negative I have added doxycycline for atypical coverage Dc IV Zithromax vital signs are stable room- air oxygenation satisfactory cultures all negative I have ordered bilateral decubitus of the chest and plant changer to p.o. Augmentin tomorrow Qualifiers: Pneumonia type: due to unspecified organism Laterality: right (3) Respiratory failure Current Visit: Yes Status: Acute Plan: Patient is acute respiratory failure she is got a combination of metabolic and respiratory acidosis blood gases improved on BiPAP continue recheck blood gases in an hr Qualifiers: Chronicity: acute
--- NOTE | 2018-10-02 16:07 | RAD REPORT ---
EXAM DESCRIPTION: RAD - Chest Lateral Decubitus - 10/02/2018 2:36 pm CLINICAL HISTORY: Pleural effusion COMPARISON: October 01 TECHNIQUE: Right and left lateral decubitus films were obtained. FINDINGS: No layering left pleural effusion. There is layering of the right pleural effusion. Lung parenchyma unchanged. No pneumothorax. IMPRESSION: Layering right pleural effusion.
[2018-10-02] MEDS ORDERED: POTASSIUM CL SA 10 MEQ TAB PO ONE ×2 (16:42→21:30)
[2018-10-02] MEDS ORDERED: D5W 1,000 ML IV SCH (17:00)
[2018-10-02] MEDS ORDERED: D5W 250 ML IV SCH (17:00)
--- NOTE | 2018-10-02 18:43 | P.PN ---
Date of Service: 10/02/18 Subjective: Patient seen and examined at bedside. No family at bedside. Chart reviewed and case discussed with nursing staff. No new complaints. She states that she is feeling much better. Denies any shortness of breath, states that she is tolerating a diet well. Working really well with physical therapy. Urine output normal, states having multiple bowel movements though not diarrhea. No discoloration or blood of the stool noted. Objective: Vital signs: Reviewed. Afebrile overnight HEENT: Unremarkable. Lungs: Clear to auscultation except very minimum right basal rales. Not in any respiratory distress. Heart: Sounds normal. Abdomen: Soft. Bowel sounds normoactive. No guarding, rigidity, tenderness, distention. Extremities: No leg edema. Laboratory Data: White count 7.3, hemoglobin 10, platelets 116. Assessment and plan 1. Pneumonia. 2. Septic shock with multiorgan failure. 3. Acute renal failure. 4. Anemia. 5. Diabetes mellitus. 6. Hypokalemia. Plan: Continue current antibiotics. Patient is doing well. Continue to work with physical therapy. Continue to monitor on the floor
[2018-10-02 19:45] LABS: HBsAG Nonreactive (Nonreactive)
[2018-10-02] MEDS: DOXYCYCLINE 100 MG CAP PO SCH (20:22)
[2018-10-02 21:19] LABS: Potassium 3.7 mmol/L (3.5-5.1)
--- NOTE | 2018-10-02 21:37 | P.PN ---
Date of Service: 10/02/18 Vital Signs Temp Pulse Resp BP Pulse Ox 97.7 F 57 18 140/80 91 10/02/18 16:00 10/02/18 16:00 10/02/18 16:00 10/02/18 18:45 10/02/18 16:00 Medications Albuterol Sulfate (Proventil 0.083% Neb Soln) 2.5 mg NEB [id number] MANUELA Stop: 10/26/18 08:01 Last Admin: 10/02/18 19:40 Dose: 2.5 mg Calcitriol (Rocaltrol) 0.5 mcg PO DAILY MANEULA Stop: 10/28/18 09:01 Last Admin: 10/02/18 10:03 Dose: 0.5 mcg Calcium Acetate (Phoslo) 1,334 mg PO TIDWM MANUELA Stop: 10/31/18 18:01 Last Admin: 10/02/18 16:33 Dose: 1,334 mg Cholecalciferol (Vitamin D 5,000 Iu Cap) 5,000 unit PO DAILY MANUELA Stop: 11/01/18 09:01 Last Admin: 10/02/18 10:03 Dose: 5,000 unit Dextrose (Dextrose 50% Syringe) 12.5 gm IV PRN PRN; Protocol PRN Reason: HYPOGLYCEMIA Stop: 10/26/18 07:57 Last Admin: 09/26/18 10:26 Dose: 25 gm Doxycycline Monohydrate (Vibramycin) 100 mg PO BID MANUELA; Protocol Stop: 11/01/18 21:01 Last Admin: 10/02/18 20:22 Dose: 100 mg Enteral Nutritional Formula (Nepro Shake) 240 ml PO TID MANUELA Stop: 10/29/18 21:01 Last Admin: 10/02/18 20:21 Dose: 240 ml Epoetin Otf (Procrit) 10,000 unit IV EVERY HD MANUELA Stop: 10/28/18 23:46 Famotidine (Pepcid) 20 mg IV DAILY [facility] Stop: 10/27/18 09:01 Last Admin: 10/02/18 10:05 Dose: 20 mg Glucagon (Glucagen) 1 mg IM 1X PRN; Protocol PRN Reason: HYPOGLYCEMIA Stop: 10/26/18 07:57 Heparin Sodium (Porcine) (Heparin 5,000 Units/Ml) 5,000 unit SQ Q12HR MANUELA Stop: 10/26/18 09:01 Last Admin: 10/02/18 20:22 Dose: 5,000 unit Heparin Sodium (Porcine) (Heparin 1,000 Units/Ml) 6,000 unit IV EVERY HD PRN PRN Reason: FLUSH AFTER EACH USE Stop: 10/31/18 14:48 Metronidazole/Sodium Chloride (Flagyl 500mg/100 Ml Iv Premix) 500 mg in 100 mls @ 200 mls/hr IV Q8HR [facility]; Protocol Stop: 10/26/18 09:01 Last Admin: 10/02/18 16:33 Dose: 100 mls Piperacillin/Tazobactam/Sod Chloride (Zosyn 2.25 Gm/50 Ml Ivpb) 2.25 gm in 50 mls @ 100 mls/hr IVPB Q8HR MANUELA; Protocol Stop: 10/26/18 09:01 Last Admin: 10/02/18 16:33 Dose: 50 mls Norepinephrine Bitartrate 4 mg (/ Dextrose) 254 mls @ 0 mls/hr IV PRN PRN; Protocol PRN Reason: Hemodynamic Parameters Stop: 10/26/18 11:25 Last Admin: 09/27/18 09:23 Dose: 254 mls Sodium Chloride (Sodium Chloride) 250 mls @ 999 mls/hr IV Q15M PRN PRN Reason: HYPOTENSION Stop: 10/26/18 17:08 Last Admin: 09/26/18 19:06 Dose: 250 mls Albumin Human (Albumin 25%) 50 mls @ 100 mls/hr IV EVERY HD [facility] Stop: 10/28/18 23:46 Dextrose/Water (Dextrose In Water (1-Liter)) 1,000 mls @ 130 mls/hr IV .Q7H42M [facility] Stop: 11/01/18 22:01 Insulin Human Regular (Novolin -R) 0 unit SQ ACHS [facility]; Protocol Stop: 10/26/18 11:31 Last Admin: 10/02/18 21:00 Dose: Not Given Mannitol (Mannitol 12.5 Gm/50 Ml Vial) 12.5 gm IV EVERY HD PRN PRN Reason: BP support at hemodialysis Stop: 10/28/18 23:56 Metolazone (Zaroxolyn) 10 mg PO 1X ONE Stop: 10/03/18 16:46 Ondansetron HCl (Zofran) 4 mg IV Q4H PRN PRN Reason: NAUSEA / VOMITING Stop: 10/26/18 08:27 Last Admin: 09/28/18 03:30 Dose: 4 mg Potassium Chloride (Klor-Con 10 Meq Tab) 40 meq PO 1X ONE Stop: 10/02/18 21:31 Sodium Chloride (Normal Saline Flush) 10 ml IV BID MANUELA Stop: 10/26/18 09:01 Last Admin: 10/02/18 20:23 Dose: 10 ml Spironolactone (Aldactone) 100 mg PO 1X ONE Stop: 10/03/18 16:46 Spironolactone (Aldactone) 100 mg PO BID MANUELA Stop: 11/02/18 09:01 Microbiology Results 09/25/18 22:35 Nasopharnyx Influenza Type A Antigen Screen - Final 09/25/18 22:35 Nasopharnyx Influenza Type B Antigen Screen - Final Assessment/ Plan: Nephrology Doing well and feeling better. CPS stable without CP or SOB. No acute events overnight. Vitals, medications, blood work and imaging reviewed in the chart. General: Cooperative, NAD, Obese HEENT: Atraumatic Neck: Supple Respiratory: CTA Cardiovascular: +++ Edema, Regular rate/rhythm, No rubs Gastrointestinal: No guarding, Tenderness Musculoskeletal: No clubbing, No contractures, No warmth Integumentary: No rashes, No cyanosis Neurological: Normal speech Blood work reviewed in the chart. Na 127; K 4.8; CO2 18; BUN 137; Cr 5.45 Greater than 30 min patient care. Imagings Data: EXAM DESCRIPTION: [facility] Single View09/25/2018 10:23 pm CLINICAL HISTORY: Chest pain COMPARISON: 2012 FINDINGS: A right basilar consolidation is present. Left lung appears clear of acute infiltrate. The heart is normal size IMPRESSION: Right basilar consolidation consistent with pneumonia. This should be followed until it is clear to help exclude post obstructive process/ underlying mass. EXAM DESCRIPTION: US - Abdomen Exam Complete - 09/26/2018 8:55 am CLINICAL HISTORY: Abdominal pain COMPARISON: September 26 cat scan FINDINGS: The liver has an increased echotexture. A small gallstone is present. Gallbladder wall is borderline thickened. Biliary tree is normal caliber The pancreas normal in size and echotexture The right kidney measures 13 centimeters with a normal echotexture. The left kidney measures 13 centimeters with a normal echotexture. The spleen measures 13 centimeters. The abdominal aorta and inferior vena cava appear unremarkable IMPRESSION: Increased hepatic echotexture consistent with fatty infiltration Cholelithiasis. Borderline gallbladder wall thickening Conclusions/Impression: A/ Sepsis/ Shock. RLL PNA. Acute cystitis. DIAZ in the setting of hypovolemia, hypotension and Advil suspicious for ATN. Uremia. Hyponatremia/ Hypernatremia. Hypervolemia. Acidosis. Hypocalcemia. HyperPO4. Acute hepatitis suspicious for shocked liver. Hypoalbuminemia. Anemia in chronic illness. Hx HTN DM II. ARNIE on CPAP. P/ Continue current POC and Medications. Restart D5W. Give metolozone and spironolactone. Aggressive potassium replacement today. Recheck BMP at 20:00. Agree with abx. Advance diet as tolerated; low sodium. No NSAIDs. AM labs. Daily weight.
[2018-10-03] MEDS: METRONIDAZOLE 500mg IVPB 500 MG/100 ML BAG IV SCH ×3 (00:10→17:08)
[2018-10-03] MEDS: PIPER/TAZO/NS 2.25gm 2.25 GM/50 ML BAG IVPB SCH ×3 (00:10→17:08)
[2018-10-03] MEDS: D5W 1,000 ML IV SCH ×5 (00:11→21:35)
[2018-10-03] MEDS: ALBUTEROL 2.5 MG/3 ML NEB SOL NEB SCH ×4 (01:16→19:47)
[2018-10-03 04:40] LABS: Absolute Lymphocytes (CBC) 0.7 K/uL (0.7-4.9); Absolute Monocytes 0.4 K/uL (0.1-1.3); Absolute Neutrophil 6.9 K/uL (1.8-8.0); Basophils % 0.2 % (0-1.3); Eosinophils % 0.6 % (0-4.4); Hematocrit 26.1 % (36.0-45.0); Lymphocytes % 8.5 % (15.3-44.8); MPV 11.1 fL (7.6-11.3); Monocytes % 4.8 % (3.3-12.3); RBC Red Blood Cell Count 2.71 M/uL (3.86-4.86)
[2018-10-03 05:10] LABS: Blood Morphology Comment NOT SEEN (NOT SEEN); Platelet Estimate DECR; Urine White Blood Cell Casts OK
[2018-10-03 05:37] LABS: Protein, Total 4.9 g/dL (6.4-8.2)
[2018-10-03 05:38] LABS: Magnesium 1.3 mg/dL (1.8-2.4)
[2018-10-03] MEDS ORDERED: Magnesium Sulfate 2gm IVPB 2 G/50 ML BAG IV ONE ×3 (06:00→09:00)
[2018-10-03] MEDS: INSULIN -REGULAR HUMAN 50 UNIT/0.5 ML ML SQ SCH ×4 (07:30→21:00)
[2018-10-03] MEDS: NEPRO SHAKE 237 ML CAN PO SCH ×3 (09:00→21:00)
[2018-10-03] MEDS: SPIRONOLACTONE 100 MG TAB PO SCH ×2 (09:12→21:33)
[2018-10-03] MEDS: VITAMIN D 5,000 UNIT CAP PO SCH (09:12)
[2018-10-03] MEDS: DOXYCYCLINE 100 MG CAP PO SCH ×2 (09:12→21:33)
[2018-10-03] MEDS: HEPARIN 5000 UNIT/ML 1 ML VIAL SQ SCH ×2 (09:13→21:33)
[2018-10-03] MEDS: CALCITROL 0.25 MCG CAP PO SCH (09:13)
[2018-10-03] MEDS: FAMOTIDINE 20 MG/2 ML VIAL IV SCH (09:13)
[2018-10-03] MEDS ORDERED: GLUCAGON 1 MG/VIAL IM PRN (09:41)
[2018-10-03] MEDS ORDERED: D50W 25 GM/50 ML SYRINGE IV PRN (09:41)
[2018-10-03] MEDS ORDERED: INSULIN GLARGINE 100 UNITS/ML SQ ONE (10:00)
[2018-10-03] MEDS: cloNIDine HCl 0.1 MG TAB PO SCH ×3 (10:27→21:32)
[2018-10-03] MEDS: METOLAZONE 5 MG TABLET PO SCH (12:25)
--- NOTE | 2018-10-03 13:59 | P.PN ---
Date of Service: 10/03/18 doing well today. alert. says she feels better today. was on bipap. lungs are clear. le edema is not worse. vs stable. reviewed lungs cta cvs rrr abd soft/nt ext edema/stable a/p: patient overall improved clinically. still with hypernatremia. ivf adjusted. d5w at 75 ccs/hr. monitor bmp...has cmp already ordrered for tomorrow morning.
--- NOTE | 2018-10-03 14:28 | PN ---
Date of Progress Note: 10/03/2018 Subjective: The patient was seen this morning for followup. She was lying in bed, not in distress. Has some cough with occasional clear mucus as she describes. Denies any shortness of breath. Denie s any abdominal pain, nausea, vomiting. She has a good appetite. Yesterday, she ambulated well with the physical therapy. Today, she got out of bed, but physical therapy has not worked with her yet t marisa. Intake and output records reviewed. Objective: Vital signs: Reviewed. HEENT Examination: Unremarkable. Lungs: Bilateral good equal air entry. Clear to auscultation. No rhonchi. No rales. Diminished a ir entry in the lung base on the right side. Not using any accessory muscles of respiration. Heart: Sounds normal. Abdomen: Soft. Bowel sounds normal. No guarding, rigidity, tenderness, distention. Extremities: Bilateral leg edema about grade 1. Laboratory Data: White count 8, hemoglobin 8.9, and a platelet count of 117. Sodium 152, potassium 4, chloride 114, bicarb 32, BUN 87, creatinine 1.99, glucose 166, magnesium 1.3, total bilirubin 5 an d yesterday it was 5.3. SGOT 343, SGPT 170, alkaline phosphatase 162, albumin 2. Impression: 1.Pneumonia. 2.Septic shock with multiorgan failure. 3.Acute renal failure. 4.Abnormal liver function test. 5.Generalized weakness. 6.Anemia. Plan: We will go ahead and continue current antibiotics. The patient is on doxycycline, Zosyn and F lagyl. We will continue that. She is getting IV fluid D5W, we will continue that. Rigger Helper has started her on spironolactone. Her potassium is normal today. Renal function is improving on a day -to-day basis. Her generalized weakness has significantly improved. She does not have any focal iris rological deficit. Her mental status is back to normal. Her bilirubin has gone up, yesterday was 5. 3. Limited right upper quadrant abdominal ultrasound was done, which was unremarkable within normal common bile duct. So at this point, we will continue to follow up on the blood work and expect that as her condition improves bilirubin should continue to improve. Yesterday, patient's contact ed me and he raised the question about if the patient had a stroke when she came into the hospital an d I explained it to him that there is no evidence hopefully. Also, explained to him that depending o n her condition over next few days, decision will be made if she needs to go to care home facil ity for short-term or not. Rigger Helper is addressing her electrolyte abnormality as well as renal f ailure problem. We will continue antihypertensive medication per order and I will see her tomorrow f or followup. JAMES/MODL Voice ID: [id number] Report ID: [id number]
[2018-10-03] MEDS ORDERED: METOLAZONE 5 MG TABLET PO ONE (16:45)
[2018-10-03] MEDS ORDERED: SPIRONOLACTONE 100 MG TAB PO ONE (16:45)
[2018-10-03] MEDS: INSULIN GLARGINE 100 UNITS/ML SQ SCH (21:34)
[2018-10-04] MEDS: PIPER/TAZO/NS 2.25gm 2.25 GM/50 ML BAG IVPB SCH ×3 (01:47→17:19)
[2018-10-04] MEDS: METRONIDAZOLE 500mg IVPB 500 MG/100 ML BAG IV SCH ×3 (01:47→17:05)
[2018-10-04] MEDS: ALBUTEROL 2.5 MG/3 ML NEB SOL NEB SCH ×4 (01:50→19:40)
[2018-10-04] MEDS: D5W 1,000 ML IV SCH ×5 (03:20→16:36)
[2018-10-04 05:26] LABS: Absolute Lymphocytes (CBC) 1.1 K/uL (0.7-4.9); Absolute Monocytes 0.4 K/uL (0.1-1.3); Absolute Neutrophil 6.6 K/uL (1.8-8.0); Basophils % 0.7 % (0-1.3); Eosinophils % 0.9 % (0-4.4); Hematocrit 25.5 % (36.0-45.0); Lymphocytes % 13.4 % (15.3-44.8); MPV 11.3 fL (7.6-11.3); Monocytes % 4.5 % (3.3-12.3); RBC Red Blood Cell Count 2.64 M/uL (3.86-4.86)
[2018-10-04 05:53] LABS: Albumin 2.1 g/dL (3.4-5.0); Potassium 3.4 mmol/L (3.5-5.1)
[2018-10-04 05:56] LABS: Magnesium 1.4 mg/dL (1.8-2.4)
[2018-10-04] MEDS: INSULIN -REGULAR HUMAN 50 UNIT/0.5 ML ML SQ SCH ×4 (07:30→21:00)
[2018-10-04] MEDS: NEPRO SHAKE 237 ML CAN PO SCH ×3 (09:00→21:00)
[2018-10-04] MEDS: FAMOTIDINE 20 MG/2 ML VIAL IV SCH (09:24)
[2018-10-04] MEDS: CALCITROL 0.25 MCG CAP PO SCH (09:24)
[2018-10-04] MEDS: DOXYCYCLINE 100 MG CAP PO SCH ×2 (09:25→21:44)
[2018-10-04] MEDS: cloNIDine HCl 0.1 MG TAB PO SCH ×3 (09:25→21:45)
[2018-10-04] MEDS: VITAMIN D 5,000 UNIT CAP PO SCH (09:25)
[2018-10-04] MEDS: SPIRONOLACTONE 100 MG TAB PO SCH ×2 (09:26→21:45)
[2018-10-04] MEDS: HEPARIN 5000 UNIT/ML 1 ML VIAL SQ SCH ×2 (09:26→21:46)
[2018-10-04] MEDS: METOLAZONE 5 MG TABLET PO SCH (12:00)
--- NOTE | 2018-10-04 12:47 | PN ---
Date of Progress Note: 10/04/2018 Subjective: The patient was seen this morning for followup. She was sitting at bedside. Denied any complaints. Her cough that she reported yesterday is much better today. Denies any shortness of br eath. No abdominal pain. No nausea or vomiting. She ambulated well with physical therapy yesterday and her overall generalized weakness that she had in the beginning has significantly gotten better. Objective: Vital Signs: Reviewed. HEENT: Unremarkable. Lungs: Clear to auscultation. No rhonchi. No rales. Heart: Heart sounds normal. Abdomen: Soft. Bowel sounds normal. No guarding, rigidity, tenderness, or distention. Extremities: Leg edema remains unchanged from yesterday. Laboratory Data: White count 8.2, hemoglobin 8.7, platelets 135. Sodium 148, potassium 3.4, chlorid e 107, bicarb 33, BUN 66, creatinine 1.56, glucose 134, magnesium 1.4, total bilirubin 3, SGOT 209, S GPT 137, alkaline phosphatase 1404. Impression: 1.Pneumonia. 2.Septic shock with multi organ failure, improved. 3.Acute renal failure, improving. 4.Hypokalemia. 5.Hypomagnesemia. 6.Anemia. 7.Generalized weakness, improving. Plan: We will go ahead and continue current antihypertensive medication. Continue current diabetes management with insulin. I have informed the patient that she was taking metformin at home prior to this admission, but upon discharge from the hospital, she will not be taking metformin and will consi soham to restart it at appropriate time depending on her renal function on an outpatient basis. She gallegos s never taken insulin injection herself, so I have advised her that she should go ahead and learn it while she is here in the hospital, and to take her insulin injection as advised. I have also informe d nursing staff to help her with that. Nursing staff will educate her about the insulin. We will re place electrolytes per protocol. Reduce IV fluid. Continue current antibiotics. JAMES/MODL Voice ID: [id number] Report ID: [id number]
[2018-10-04] MEDS ORDERED: POTASSIUM CL SA 10 MEQ TAB PO ONE (14:00)
[2018-10-04] MEDS ORDERED: Magnesium Sulfate 2gm IVPB 2 G/50 ML BAG IV ONE (15:00)
[2018-10-04] MEDS ORDERED: D5W 1,000 ML IV SCH (21:00)
[2018-10-04] MEDS: INSULIN GLARGINE 100 UNITS/ML SQ SCH (21:46)
[2018-10-05 00:29] LABS: Magnesium 1.5 mg/dL (1.8-2.4); Potassium 3.3 mmol/L (3.5-5.1)
[2018-10-05] MEDS ORDERED: Magnesium Sulfate 2gm IVPB 2 G/50 ML BAG IV ONE (00:55)
[2018-10-05] MEDS: PIPER/TAZO/NS 2.25gm 2.25 GM/50 ML BAG IVPB SCH ×3 (01:08→17:07)
[2018-10-05] MEDS: KCL 20 MEQ/100 mL IVPB 20 MEQ/100 ML BAG IV SCH ×2 (01:12→04:46)
[2018-10-05] MEDS: ALBUTEROL 2.5 MG/3 ML NEB SOL NEB SCH ×4 (01:15→20:00)
[2018-10-05 05:41] LABS: Absolute Lymphocytes (CBC) 1.3 K/uL (0.7-4.9); Absolute Monocytes 0.4 K/uL (0.1-1.3); Absolute Neutrophil 5.9 K/uL (1.8-8.0); Basophils % 0.9 % (0-1.3); Eosinophils % 0.9 % (0-4.4); Hematocrit 26.7 % (36.0-45.0); Lymphocytes % 16.4 % (15.3-44.8); MPV 11.6 fL (7.6-11.3); Monocytes % 4.7 % (3.3-12.3); RBC Red Blood Cell Count 2.75 M/uL (3.86-4.86)
[2018-10-05 05:53] LABS: Magnesium 1.9 mg/dL (1.8-2.4); Potassium 3.6 mmol/L (3.5-5.1)
[2018-10-05 06:45] LABS: Blood Morphology Comment NOT SEEN (NOT SEEN); Platelet Estimate ADEQ; Urine White Blood Cell Casts OK
[2018-10-05] MEDS: INSULIN -REGULAR HUMAN 50 UNIT/0.5 ML ML SQ SCH ×4 (07:30→21:00)
[2018-10-05] MEDS ORDERED: POTASSIUM CL SA 10 MEQ TAB PO ONE ×2 (09:00)
[2018-10-05] MEDS: NEPRO SHAKE 237 ML CAN PO SCH ×3 (09:00→21:24)
[2018-10-05] MEDS: FAMOTIDINE 20 MG/2 ML VIAL IV SCH (09:12)
[2018-10-05] MEDS: HEPARIN 5000 UNIT/ML 1 ML VIAL SQ SCH ×2 (09:12→21:24)
[2018-10-05] MEDS: cloNIDine HCl 0.1 MG TAB PO SCH ×3 (09:13→21:23)
[2018-10-05] MEDS: SPIRONOLACTONE 100 MG TAB PO SCH ×2 (09:13→21:22)
[2018-10-05] MEDS: CALCITROL 0.25 MCG CAP PO SCH (09:13)
[2018-10-05] MEDS: VITAMIN D 5,000 UNIT CAP PO SCH (09:14)
[2018-10-05] MEDS: DOXYCYCLINE 100 MG CAP PO SCH ×2 (09:14→21:23)
[2018-10-05] MEDS: INSULIN GLARGINE 100 UNITS/ML SQ SCH (21:22)
--- NOTE | 2018-10-05 22:06 | P.PN ---
Date of Service: 10/05/18 Vital Signs Temp Pulse Resp BP Pulse Ox 97.8 F 53 20 163/66 H 94 10/05/18 16:00 10/05/18 21:23 10/05/18 16:00 10/05/18 21:23 10/05/18 16:00 Medications Albuterol Sulfate (Proventil 0.083% Neb Soln) 2.5 mg NEB [id number] [facility] Stop: 10/26/18 08:01 Last Admin: 10/05/18 14:05 Dose: 2.5 mg Calcitriol (Rocaltrol) 0.5 mcg PO DAILY [facility] Stop: 10/28/18 09:01 Last Admin: 10/05/18 09:13 Dose: 0.5 mcg Cholecalciferol (Vitamin D 5,000 Iu Cap) 5,000 unit PO DAILY [facility] Stop: 11/01/18 09:01 Last Admin: 10/05/18 09:14 Dose: 5,000 unit Clonidine HCl (Catapres) 0.2 mg PO TID [facility] Stop: 11/02/18 10:01 Last Admin: 10/05/18 21:23 Dose: 0.2 mg Dextrose (Dextrose 50% Syringe) 12.5 gm IV PRN PRN; Protocol PRN Reason: HYPOGLYCEMIA Stop: 10/26/18 07:57 Last Admin: 09/26/18 10:26 Dose: 25 gm Doxycycline Monohydrate (Vibramycin) 100 mg PO BID [facility]; Protocol Stop: 11/01/18 21:01 Last Admin: 10/05/18 21:23 Dose: 100 mg Enteral Nutritional Formula (Nepro Shake) 240 ml PO TID [facility] Stop: 10/29/18 21:01 Last Admin: 10/05/18 21:24 Dose: 240 ml Famotidine (Pepcid) 20 mg IV DAILY [facility] Stop: 10/27/18 09:01 Last Admin: 10/05/18 09:12 Dose: 20 mg Glucagon (Glucagen) 1 mg IM 1X PRN; Protocol PRN Reason: HYPOGLYCEMIA Stop: 10/26/18 07:57 Heparin Sodium (Porcine) (Heparin 5,000 Units/Ml) 5,000 unit SQ Q12HR [facility] Stop: 10/26/18 09:01 Last Admin: 10/05/18 21:24 Dose: 5,000 unit Piperacillin/Tazobactam/Sod Chloride (Zosyn 2.25 Gm/50 Ml Ivpb) 2.25 gm in 50 mls @ 100 mls/hr IVPB Q8HR [facility]; Protocol Stop: 10/26/18 09:01 Last Admin: 10/05/18 17:07 Dose: 50 mls Insulin Glargine (Lantus) 10 units SQ BEDTIME [facility] Stop: 11/02/18 21:01 Last Admin: 10/05/18 21:22 Dose: 10 units Insulin Human Regular (Novolin -R) 0 unit SQ ACHS [facility]; Protocol Stop: 10/26/18 11:31 Last Admin: 10/05/18 21:00 Dose: Not Given Ondansetron HCl (Zofran) 4 mg IV Q4H PRN PRN Reason: NAUSEA / VOMITING Stop: 10/26/18 08:27 Last Admin: 09/28/18 03:30 Dose: 4 mg Ramipril (Altace) 2.5 mg PO BEDTIME [facility] Stop: 11/04/18 22:16 Sodium Chloride (Normal Saline Flush) 10 ml IV BID [facility] Stop: 10/26/18 09:01 Last Admin: 10/05/18 21:25 Dose: 10 ml Spironolactone (Aldactone) 100 mg PO BID [facility] Stop: 11/02/18 09:01 Last Admin: 10/05/18 21:22 Dose: 100 mg Microbiology Results 09/25/18 22:35 Nasopharnyx Influenza Type A Antigen Screen - Final 09/25/18 22:35 Nasopharnyx Influenza Type B Antigen Screen - Final Assessment/ Plan: Nephrology Doing well and feeling better. CPS stable without CP or SOB. No acute events overnight. Vitals, medications, blood work and imaging reviewed in the chart. General: Cooperative, NAD, Obese HEENT: Atraumatic Neck: Supple Respiratory: CTA Cardiovascular: + Edema, Regular rate/rhythm, No rubs Gastrointestinal: No guarding, Tenderness Musculoskeletal: No clubbing, No contractures, No warmth Integumentary: No rashes, No cyanosis Neurological: Normal speech Blood work reviewed in the chart. Na 127; K 4.8; CO2 18; BUN 137; Cr 5.45 Greater than 30 min patient care. Imagings Data: EXAM DESCRIPTION: [facility] Single View09/25/2018 10:23 pm CLINICAL HISTORY: Chest pain COMPARISON: 2012 FINDINGS: A right basilar consolidation is present. Left lung appears clear of acute infiltrate. The heart is normal size IMPRESSION: Right basilar consolidation consistent with pneumonia. This should be followed until it is clear to help exclude post obstructive process/ underlying mass. EXAM DESCRIPTION: US - Abdomen Exam Complete - 09/26/2018 8:55 am CLINICAL HISTORY: Abdominal pain COMPARISON: September 26 cat scan FINDINGS: The liver has an increased echotexture. A small gallstone is present. Gallbladder wall is borderline thickened. Biliary tree is normal caliber The pancreas normal in size and echotexture The right kidney measures 13 centimeters with a normal echotexture. The left kidney measures 13 centimeters with a normal echotexture. The spleen measures 13 centimeters. The abdominal aorta and inferior vena cava appear unremarkable IMPRESSION: Increased hepatic echotexture consistent with fatty infiltration Cholelithiasis. Borderline gallbladder wall thickening Conclusions/Impression: A/ Sepsis/ Shock. RLL PNA. Acute cystitis. DIAZ in the setting of hypovolemia, hypotension and Advil suspicious for ATN. Uremia. Hyponatremia/ Hypernatremia. Hypervolemia. Acidosis. Hypocalcemia. HyperPO4. Acute hepatitis suspicious for shocked liver. Hypoalbuminemia. Anemia in chronic illness. HTN DM II. ARNIE on CPAP. P/ Continue current POC and Medications. Start Ramipril qhs. Metolazone as needed. Potassium replacement as needed. Agree with abx. Low sodium diet. No NSAIDs. AM labs. Daily weight. PT as tolerated.
[2018-10-05] MEDS: RAMIPRIL 2.5 MG CAP PO SCH (22:15)
--- NOTE | 2018-10-06 00:36 | PN ---
Date of Progress Note: 10/05/2018 Subjective: Patient was seen this morning for followup. No new complaints or problems reported by h er. She was sitting at bedside. Her was with her. Denied any complaints except some cough. No shortness of breath. No nausea or vomiting. No abdominal pain. Objective: Vital Signs: Reviewed. HEENT Examination: Unremarkable. Lungs: Clear to auscultation. No rhonchi or rales. Heart: Sounds normal. Abdomen: Soft. Bowel sounds normal. No guarding, rigidity, tenderness, or distention. Extremities: Trace leg edema. Overall better today than last 2 days. Laboratory Data: White count 7.7, hemoglobin 9, platelets 153. Sodium 144, potassium 3.6, chloride 103, bicarb 34, BUN 48, creatinine 1.31, glucose 139, magnesium 1.9. Impression: 1.Acute renal failure, improved. 2.Anemia. 3.Hypertension. 4.Diabetes mellitus. 5.Pneumonia. Plan: We will go ahead and discontinue IV fluid. Yesterday evening, dose was reduced and we will di scontinue IV fluid and continue current antibiotics. Ambulation was encouraged with physical therapy , and we will go ahead and repeat blood work tomorrow. The patient's was advised to check wi th the pharmacy to see what particular type of glucometer will be approved by her insurance and the p atient will let me know with this detail tomorrow so we can call prescription in, and I have advised her to check her blood sugar before breakfast and before dinner. Our plan is to send her home with tiffany junior to start with. The way her condition is improving, she will not need to go to any facility fo r any therapy. She will be well enough to go home. Possible discharge to go home day after tomorrow. Continue current antihypertensive medications and continue spironolactone. JAMES/MODL Voice ID: [id number] Report ID: [id number]
[2018-10-06] MEDS: PIPER/TAZO/NS 2.25gm 2.25 GM/50 ML BAG IVPB SCH ×3 (00:44→16:07)
[2018-10-06] MEDS: ALBUTEROL 2.5 MG/3 ML NEB SOL NEB SCH ×4 (02:00→20:00)
[2018-10-06 05:00] LABS: Absolute Lymphocytes (CBC) 1.1 K/uL (0.7-4.9); Absolute Monocytes 0.4 K/uL (0.1-1.3); Absolute Neutrophil 5.6 K/uL (1.8-8.0); Basophils % 1.5 % (0-1.3); Eosinophils % 0.4 % (0-4.4); Hematocrit 26.6 % (36.0-45.0); Lymphocytes % 14.8 % (15.3-44.8); MPV 11.7 fL (7.6-11.3); RBC Red Blood Cell Count 2.72 M/uL (3.86-4.86)
[2018-10-06 05:47] LABS: Albumin 2.3 g/dL (3.4-5.0); Bilirubin Total 2.2 mg/dL (0.2-1.0); Potassium 3.2 mmol/L (3.5-5.1); Protein, Total 6.9 g/dL (6.4-8.2)
[2018-10-06 05:48] LABS: Magnesium 1.3 mg/dL (1.8-2.4)
[2018-10-06] MEDS ORDERED: Magnesium Sulfate 2gm IVPB 2 G/50 ML BAG IV ONE ×2 (07:00→18:00)
[2018-10-06] MEDS ORDERED: POTASSIUM CL SA 10 MEQ TAB PO ONE ×3 (07:00→21:00)
[2018-10-06] MEDS: INSULIN -REGULAR HUMAN 50 UNIT/0.5 ML ML SQ SCH ×4 (07:30→21:00)
[2018-10-06] MEDS: SPIRONOLACTONE 100 MG TAB PO SCH (08:56)
[2018-10-06] MEDS: DOXYCYCLINE 100 MG CAP PO SCH ×2 (08:57→21:15)
[2018-10-06] MEDS: CALCITROL 0.25 MCG CAP PO SCH (08:57)
[2018-10-06] MEDS: cloNIDine HCl 0.1 MG TAB PO SCH ×3 (08:58→21:16)
[2018-10-06] MEDS: VITAMIN D 5,000 UNIT CAP PO SCH (08:58)
[2018-10-06] MEDS: FAMOTIDINE 20 MG/2 ML VIAL IV SCH (08:59)
[2018-10-06] MEDS: HEPARIN 5000 UNIT/ML 1 ML VIAL SQ SCH ×2 (08:59→21:14)
[2018-10-06] MEDS: NEPRO SHAKE 237 ML CAN PO SCH ×3 (09:00→21:17)
[2018-10-06 10:13] VITALS: O2SAT 94
--- NOTE | 2018-10-06 11:24 | RAD REPORT ---
EXAM DESCRIPTION: Arline Pa And Lat (2 Views)10/06/2018 11:17 am CLINICAL HISTORY: Cough COMPARISON: October 02 FINDINGS: The right pleural effusion has decreased in size and appears relatively small. Right middle lobe consolidation suspected Left lung appears clear. Central venous catheter remains in place The heart is normal size
[2018-10-06 16:30] LABS: Magnesium 1.5 mg/dL (1.8-2.4); Potassium 3.1 mmol/L (3.5-5.1)
[2018-10-06] MEDS ORDERED: POTASSIUM 25 MEQ EFFERV TAB PO ONE (17:00)
--- NOTE | 2018-10-06 20:23 | P.PN ---
Date of Service: 10/06/18 Vital Signs Temp Pulse Resp BP Pulse Ox 97.8 F 62 20 134/62 96 10/06/18 16:00 10/06/18 16:00 10/06/18 16:00 10/06/18 16:00 10/06/18 16:00 Medications Albuterol Sulfate (Proventil 0.083% Neb Soln) 2.5 mg NEB [id number] [facility] Stop: 10/26/18 08:01 Last Admin: 10/06/18 13:20 Dose: 2.5 mg Amiloride HCl (Midamor) 10 mg PO 1X ONE Stop: 10/07/18 19:01 Amiloride HCl (Midamor) 10 mg PO BIDL [facility] Stop: 11/06/18 09:01 Calcitriol (Rocaltrol) 0.5 mcg PO DAILY [facility] Stop: 10/28/18 09:01 Last Admin: 10/06/18 08:57 Dose: 0.5 mcg Cholecalciferol (Vitamin D 5,000 Iu Cap) 5,000 unit PO DAILY [facility] Stop: 11/01/18 09:01 Last Admin: 10/06/18 08:58 Dose: 5,000 unit Clonidine HCl (Catapres) 0.2 mg PO TID [facility] Stop: 11/02/18 10:01 Last Admin: 10/06/18 15:05 Dose: 0.2 mg Dextrose (Dextrose 50% Syringe) 12.5 gm IV PRN PRN; Protocol PRN Reason: HYPOGLYCEMIA Stop: 10/26/18 07:57 Last Admin: 09/26/18 10:26 Dose: 25 gm Doxycycline Monohydrate (Vibramycin) 100 mg PO BID [facility]; Protocol Stop: 11/01/18 21:01 Last Admin: 10/06/18 08:57 Dose: 100 mg Enteral Nutritional Formula (Nepro Shake) 240 ml PO TID [facility] Stop: 10/29/18 21:01 Last Admin: 10/06/18 15:06 Dose: 240 ml Famotidine (Pepcid) 20 mg IV DAILY [facility] Stop: 10/27/18 09:01 Last Admin: 10/06/18 08:59 Dose: 20 mg Glucagon (Glucagen) 1 mg IM 1X PRN; Protocol PRN Reason: HYPOGLYCEMIA Stop: 10/26/18 07:57 Heparin Sodium (Porcine) (Heparin 5,000 Units/Ml) 5,000 unit SQ Q12HR [facility] Stop: 10/26/18 09:01 Last Admin: 10/06/18 08:59 Dose: 5,000 unit Piperacillin/Tazobactam/Sod Chloride (Zosyn 2.25 Gm/50 Ml Ivpb) 2.25 gm in 50 mls @ 100 mls/hr IVPB Q8HR [facility]; Protocol Stop: 10/26/18 09:01 Last Admin: 10/06/18 16:07 Dose: 50 mls Insulin Glargine (Lantus) 10 units SQ BEDTIME [facility] Stop: 11/02/18 21:01 Last Admin: 10/05/18 21:22 Dose: 10 units Insulin Human Regular (Novolin -R) 0 unit SQ ACHS [facility]; Protocol Stop: 10/26/18 11:31 Last Admin: 10/06/18 17:00 Dose: 6 unit Ondansetron HCl (Zofran) 4 mg IV Q4H PRN PRN Reason: NAUSEA / VOMITING Stop: 10/26/18 08:27 Last Admin: 09/28/18 03:30 Dose: 4 mg Potassium Chloride (Klor-Con 10 Meq Tab) 40 meq PO 1X [facility] Stop: 10/06/18 21:01 Ramipril (Altace) 2.5 mg PO BEDTIME [facility] Stop: 11/04/18 22:16 Last Admin: 10/05/18 22:15 Dose: 2.5 mg Sodium Chloride (Normal Saline Flush) 10 ml IV BID [facility] Stop: 10/26/18 09:01 Last Admin: 10/06/18 08:59 Dose: 10 ml Microbiology Results 09/25/18 22:35 Nasopharnyx Influenza Type A Antigen Screen - Final 09/25/18 22:35 Nasopharnyx Influenza Type B Antigen Screen - Final Assessment/ Plan: Nephrology Doing well and feeling better. CPS stable without CP or SOB. No acute events overnight. Hoping to go home soon. Vitals, medications, blood work and imaging reviewed in the chart. General: Cooperative, NAD, Obese HEENT: Atraumatic Neck: Supple Respiratory: CTA Cardiovascular: + Edema, Regular rate/rhythm, No rubs Gastrointestinal: No guarding, Tenderness Musculoskeletal: No clubbing, No contractures, No warmth Integumentary: No rashes, No cyanosis Neurological: Normal speech Blood work reviewed in the chart. Na 127; K 4.8; CO2 18; BUN 137; Cr 5.45 Greater than 30 min patient care. Imagings Data: EXAM DESCRIPTION: [facility] Single View09/25/2018 10:23 pm CLINICAL HISTORY: Chest pain COMPARISON: 2012 FINDINGS: A right basilar consolidation is present. Left lung appears clear of acute infiltrate. The heart is normal size IMPRESSION: Right basilar consolidation consistent with pneumonia. This should be followed until it is clear to help exclude post obstructive process/ underlying mass. EXAM DESCRIPTION: US - Abdomen Exam Complete - 09/26/2018 8:55 am CLINICAL HISTORY: Abdominal pain COMPARISON: September 26 cat scan FINDINGS: The liver has an increased echotexture. A small gallstone is present. Gallbladder wall is borderline thickened. Biliary tree is normal caliber The pancreas normal in size and echotexture The right kidney measures 13 centimeters with a normal echotexture. The left kidney measures 13 centimeters with a normal echotexture. The spleen measures 13 centimeters. The abdominal aorta and inferior vena cava appear unremarkable IMPRESSION: Increased hepatic echotexture consistent with fatty infiltration Cholelithiasis. Borderline gallbladder wall thickening Conclusions/Impression: A/ Sepsis/ Shock. RLL PNA. Acute cystitis. DIAZ in the setting of hypovolemia, hypotension and Advil suspicious for ATN. Uremia. Hyponatremia/ Hypernatremia. Hypervolemia. Acidosis. Hypocalcemia. HyperPO4. Acute hepatitis suspicious for shocked liver. Hypoalbuminemia. Anemia in chronic illness. HTN DM II. ARNIE on CPAP. P/ Continue current POC and Medications. Discontinue spironolactone. Start Amiloride. Metolazone as needed. Potassium replacement as ordered. Agree with abx. Low sodium diet. DC renal diet. No NSAIDs. AM labs. Daily weight. PT as tolerated.
[2018-10-06] MEDS: RAMIPRIL 2.5 MG CAP PO SCH (21:00)
[2018-10-06] MEDS: INSULIN GLARGINE 100 UNITS/ML SQ SCH (21:15)
--- NOTE | 2018-10-06 23:10 | PN ---
Date of Progress Note: 10/06/2018 Subjective: The patient was seen this morning for followup. She was sitting at bedside. Denied any complaints. No shortness of breath, nausea, vomiting. No abdominal pain. Ambulating well. Has a good appetite. Denies any constipation or diarrhea. Cough is better. Objective: Vital Signs: Reviewed. HEENT: Examination unremarkable. Lungs: Clear to auscultation. No rhonchi. No rales. Heart: Sounds normal. Abdomen: Soft. Bowel sounds normal. No guarding, rigidity, tenderness, or distention. Extremities: Trace leg edema, better than before. Laboratory Data: White count 7.2, hemoglobin 9.1, platelets 177. Sodium 144, potassium 3.2, chloride 104, bicarb 33, BUN 42, creatinine 1.19, glucose 72, magnesium 1.3, total bilirubin 2.2, SGOT 121, SGPT 100, alkaline phosphatase 1555. Impression: 1. Pneumonia, improving. 2. Septic shock, resolved. 3. Acute renal failure, improving. 4. Hypokalemia. 5. Hypomagnesemia. 6. Anemia. Plan: We will go ahead and continue current medications. Replace electrolyte per protocol. Continue current antibiotics. We will get a chest x-ray done today. Ambulation was encouraged. I will see her tomorrow for followup. Depending on her blood work and her condition, we will decide if she is ready for discharge tomorrow or not. JAMES/MODL Voice ID: [id number] Report ID: [id number] MTDD
[2018-10-06 23:27] LABS: Potassium 3.7 mmol/L (3.5-5.1)
[2018-10-07] MEDS: PIPER/TAZO/NS 2.25gm 2.25 GM/50 ML BAG IVPB SCH ×3 (00:22→16:38)
[2018-10-07] MEDS ORDERED: KCL 20 MEQ/100 mL IVPB 20 MEQ/100 ML BAG IV SCH (01:00)
[2018-10-07] MEDS: ALBUTEROL 2.5 MG/3 ML NEB SOL NEB SCH ×3 (02:00→14:30)
[2018-10-07 04:48] LABS: Urine Appearance CLEAR; Urine Bilirubin NEGATIVE (NEG); Urine Blood NEGATIVE (NEG); Urine Color YELLOW; Urine Glucose NEGATIVE (NEG); Urine Protein NEGATIVE (NEG); Urine Urobilinogen 0.2 mg/dL (0.2-1.0); Urine pH 7.5 (5.0-7.0)
[2018-10-07 05:13] LABS: Urine Bacteria <20 /HPF (<20); Urine Culture Reflex Order NOT NEEDED; Urine RBC <5 /HPF (NONE SEEN); Urine Yeast FEW (NONE SEEN)
[2018-10-07 05:54] LABS: Magnesium 1.8 mg/dL (1.8-2.4); Potassium 3.6 mmol/L (3.5-5.1); Uric Acid 4.6 mg/dL (2.6-6.0)
[2018-10-07] MEDS: INSULIN -REGULAR HUMAN 50 UNIT/0.5 ML ML SQ SCH ×3 (07:30→16:21)
[2018-10-07] MEDS ORDERED: POTASSIUM 25 MEQ EFFERV TAB PO ONE (09:00)
[2018-10-07] MEDS ORDERED: MAGNESIUM SULFATE 1 gm IVPB 1 GM/100 ML BAG IV ONE (09:00)
[2018-10-07] MEDS: NEPRO SHAKE 237 ML CAN PO SCH ×2 (09:00→14:00)
[2018-10-07] MEDS: DOXYCYCLINE 100 MG CAP PO SCH (09:12)
[2018-10-07] MEDS: CALCITROL 0.25 MCG CAP PO SCH (09:12)
[2018-10-07] MEDS: VITAMIN D 5,000 UNIT CAP PO SCH (09:13)
[2018-10-07] MEDS: FAMOTIDINE 20 MG/2 ML VIAL IV SCH (09:16)
[2018-10-07] MEDS: AMILORIDE HCL 5 MG TABLET PO SCH ×2 (09:16→16:39)
[2018-10-07] MEDS: HEPARIN 5000 UNIT/ML 1 ML VIAL SQ SCH (09:16)
[2018-10-07] MEDS: cloNIDine HCl 0.1 MG TAB PO SCH ×2 (10:08→14:57)
--- NOTE | 2018-10-07 10:35 | RAD REPORT ---
EXAM DESCRIPTION: CT - Thorax Wo Con - 10/07/2018 9:00 am CLINICAL HISTORY: Pneumonia/septic shock COMPARISON: October 06, 2018 chest x-ray TECHNIQUE: Computed axial tomography of the chest was obtained. Contrast was not requested. All CT scans are performed using dose optimization technique as appropriate and may include automated exposure control or mA/KV adjustment according to patient size. FINDINGS: The evaluation of mediastinum, [place] and vessels is limited secondary to lack of IV contras t administration. 8 centimeter right middle lobe consolidation has more of the appearance of atelectasis and pneumonia. Right basilar atelectasis is seen. Mild ground-glass opacities within the upper lobes. . No mediastinal or hilar lymphadenopathy is seen. A a small right pleural effusion. A pericardial effusion is not seen. Coronary arterial calcifications IMPRESSION: Right middle lobe atelectasis. Mild right basilar atelectasis Mild ground-glass opacities within the upper lobes indicative of an alveolitis Small right pleural effusion
[2018-10-07 16:40] VITALS: BP 161/70; TEMP 97.4
[2018-10-07] MEDS: INSULIN GLARGINE 100 UNITS/ML SQ SCH (17:47)
[2018-10-07] MEDS ORDERED: POTASSIUM CL SA 10 MEQ TAB PO ONE (18:00)
[2018-10-07] MEDS ORDERED: AMILORIDE HCL 5 MG TABLET PO ONE (19:00)
--- NOTE | 2018-10-07 20:24 | P.PN ---
Date of Service: 10/07/18 Vital Signs Temp Pulse Resp BP Pulse Ox 97.4 F 55 16 161/70 H 96 10/07/18 16:00 10/07/18 16:00 10/07/18 16:00 10/07/18 16:00 10/07/18 16:00 Microbiology Results 09/25/18 22:35 Nasopharnyx Influenza Type A Antigen Screen - Final 09/25/18 22:35 Nasopharnyx Influenza Type B Antigen Screen - Final Assessment/ Plan: Nephrology Doing well and feeling better. CPS stable without CP or SOB. No acute events overnight. Wants to go home. Good urine output. Vitals, medications, blood work and imaging reviewed in the chart. General: Cooperative, NAD, Obese HEENT: Atraumatic Neck: Supple Respiratory: CTA Cardiovascular: + Edema, Regular rate/rhythm, No rubs Gastrointestinal: No guarding, Tenderness Musculoskeletal: No clubbing, No contractures, No warmth Integumentary: No rashes, No cyanosis Neurological: Normal speech Blood work reviewed in the chart. Na 127; K 4.8; CO2 18; BUN 137; Cr 5.45 Greater than 30 min patient care. Imagings Data: EXAM DESCRIPTION: [facility] Single View09/25/2018 10:23 pm CLINICAL HISTORY: Chest pain COMPARISON: 2012 FINDINGS: A right basilar consolidation is present. Left lung appears clear of acute infiltrate. The heart is normal size IMPRESSION: Right basilar consolidation consistent with pneumonia. This should be followed until it is clear to help exclude post obstructive process/ underlying mass. EXAM DESCRIPTION: US - Abdomen Exam Complete - 09/26/2018 8:55 am CLINICAL HISTORY: Abdominal pain COMPARISON: September 26 cat scan FINDINGS: The liver has an increased echotexture. A small gallstone is present. Gallbladder wall is borderline thickened. Biliary tree is normal caliber The pancreas normal in size and echotexture The right kidney measures 13 centimeters with a normal echotexture. The left kidney measures 13 centimeters with a normal echotexture. The spleen measures 13 centimeters. The abdominal aorta and inferior vena cava appear unremarkable IMPRESSION: Increased hepatic echotexture consistent with fatty infiltration Cholelithiasis. Borderline gallbladder wall thickening Conclusions/Impression: A/ Sepsis/ Shock. RLL PNA. Acute cystitis. DIAZ in the setting of hypovolemia, hypotension and Advil suspicious for ATN. Uremia. Hyponatremia/ Hypernatremia. Hypervolemia. Acidosis. Hypocalcemia. HyperPO4. Hypomagnesemia. Acute hepatitis suspicious for shocked liver. Hypoalbuminemia. Anemia in chronic illness. HTN DM II. ARNIE on CPAP. P/ Continue current POC and Medications. Amiloride 10mg bid. Potassium replacement as ordered. Magnesium replacement as ordered. Agree with abx. Low sodium diet. No NSAIDs. AM labs. Daily weight. PT as tolerated. Plan for discharge today. Case discussed with Dr. Stoddard. Follow up with Dr. Stoddard in one week and Dr. Faria in two weeks.
== END 2018-10-07 18:22 | disposition home or self-care (01) | DRG 871 ==
LOC: ER 21:30 → ERHOLD 09-26 02:26 → 4TH 09-26 03:10 → 3RD-ICU 09-26 08:55 → 2ND 10-01 16:45
PROVIDERS: ADMIT Internal Medicine; ATTEND Internal Medicine
PROC: 02HV33Z Insertion of Infusion Device into Superior Vena Cava, Percutaneous Approach (ICD-10-PCS; principal; 2018-09-26)
PROC: B548ZZA Ultrasonography of Superior Vena Cava, Guidance (ICD-10-PCS; 2018-09-26)
DX: A41.9 Sepsis, unspecified organism (principal); J18.9 Pneumonia, unspecified organism; R65.21 Severe sepsis with septic shock; J96.00 Acute respiratory failure, unspecified whether with hypoxia or hypercapnia; N17.0 Acute kidney failure with tubular necrosis; K72.00 Acute and subacute hepatic failure without coma; N17.9 Acute kidney failure, unspecified; J90 Pleural effusion, not elsewhere classified; N30.00 Acute cystitis without hematuria; E87.1 Hypo-osmolality and hyponatremia; B17.9 Acute viral hepatitis, unspecified; E87.4 Mixed disorder of acid-base balance; F17.290 Nicotine dependence, other tobacco product, uncomplicated; E11.9 Type 2 diabetes mellitus without complications; I10 Essential (primary) hypertension; D69.6 Thrombocytopenia, unspecified; K76.0 Fatty (change of) liver, not elsewhere classified; K80.20 Calculus of gallbladder without cholecystitis without obstruction; E78.2 Mixed hyperlipidemia; G47.33 Obstructive sleep apnea (adult) (pediatric); E86.1 Hypovolemia; E83.51 Hypocalcemia; E88.09 Other disorders of plasma-protein metabolism, not elsewhere classified; D63.8 Anemia in other chronic diseases classified elsewhere; R41.0 Disorientation, unspecified
CPT/HCPCS: 36415; 71045; 71046; 71250; 74018; 74176; 76700; 76705; 80048; 80053; 80076; 81001; 81003; 81015; 82043; 82435; 82533; 82570; 82805; 82962; 82977; 83605; 83690; 83735; 83880; 84100; 84132; 84145; 84300; 84484; 84550; 85025; 85610; 86317; 86704; 86803; 87040; 87045; 87046; 87086; 87088; 87340; 87493; 87804; 90670; 93005; 94660; 96361; 96365; 96375; 97116; 97163; 97530; 99285; G0008; G0009; J0456; J0610; J0696; J1644; J2405; J2550; J3411; J3475; J7030; J7060; P9047; Q2035

== ENCOUNTER 2022-02-20 16:37 | Observation (INO) | payer OTHER ==
--- NOTE | 2022-02-20 20:17 | RAD REPORT ---
EXAM DESCRIPTION: RAD - Chest Single View - 02/20/2022 8:09 pm CLINICAL HISTORY: edema Chest pain. COMPARISON: Chest Pa And Lat (2 Views) dated 10/06/2018; Chest Single View dated 10/01/2018; Chest Sin gle View dated 09/30/2018; Chest Single View dated 09/29/2018 FINDINGS: Portable technique limits examination quality. The lungs are grossly clear. The heart is upper limit of normal in size. No displaced fractures. IMPRESSION: No acute intrathoracic process suspected.
--- NOTE | 2022-02-20 21:14 | RAD REPORT ---
EXAM DESCRIPTION: US - Extrem Venous W Compress Gregg - 02/20/2022 9:09 pm CLINICAL HISTORY: SWELLING Bilateral leg edema and swelling. COMPARISON: No comparisons TECHNIQUE: Real-time sonographic interrogation of the left and right lower extremity deep venous sys tems was performed. FINDINGS: Normal compressibility, flow augmentation, phasic flow and spontaneous flow is identified in both the left and right lower extremity deep venous systems. IMPRESSION: No sonographic evidence of left or right lower extremity deep venous thrombosis.
[2022-02-20 22:11] LABS: Absolute Lymphocytes (CBC) 0.7 K/uL (0.7-4.9); Hematocrit 33.5 % (36.0-45.0); Lymphocytes % 14.5 % (15.3-44.8); MCV 102.6 fL (80-100); RBC Red Blood Cell Count 3.26 M/uL (3.86-4.86)
[2022-02-20 22:27] LABS: Albumin 3.6 g/dL (3.4-5.0); Bilirubin Direct 0.1 mg/dL (0-0.2); Bilirubin Total 0.3 mg/dL (0.2-1.0); Magnesium 2.1 mg/dL (1.8-2.4); Potassium 3.4 mmol/L (3.5-5.1); Protein, Total 7.3 g/dL (6.4-8.2); Troponin High Sensitivity 17.9 pg/mL (<58.9)
[2022-02-20 22:32] LABS: Protime INR 1.08
[2022-02-21] MEDS ORDERED: NA CHLORIDE 0.9% 1,000 ML ONE (00:04)
[2022-02-21 00:44] LABS: Urine Blood 3+ (Negative); Urine Glucose Negative (Negative); Urine Protein 3+ (Negative); Urine Specific Gravity 1.025 (1.005-1.030); Urine pH 6.5 (5.0-7.0)
[2022-02-21 01:31] LABS: Urine Bacteria LOADED /HPF (<20)
[2022-02-21 01:32] LABS: Urine RBC NONE SEEN /HPF (NONE SEEN); Urine Urothelial Cells <5 /HPF (NONE SEEN)
--- NOTE | 2022-02-21 01:36 | ER ---
Nurse's Notes [facility] [place] Name: Veronica Mendoza Age: 66 yrs Sex: Female : 1955 Arrival Date: 02/20/2022 Time: 16:38 Bed 12 Private MD: Diagnosis: Weakness;UTI/ Urinary tract infection, site not specified Presentation: 02/20 16:41 Chief complaint: Patient states: Fatigue and cough that began 4 days ago, generalized ld1 weakness. 16:41 Method Of Arrival: EMS: [facility] ss 16:57 Chief complaint:. Coronavirus screen: Client presents with at least one sign or symptom ld1 that may indicate coronavirus-19. Standard/surgical mask placed on the client. Ebola Screen: No symptoms or risks identified at this time. No acute neurological deficit is noted. Initial Sepsis Screen: Does the patient meet any 2 criteria? No. Patient's initial sepsis screen is negative. Does the patient have a suspected source of infection? No. Patient's initial sepsis screen is negative. Risk Assessment: Do you want to hurt yourself or someone else? Patient reports no desire to harm self or others. Onset of symptoms was February 20, 2022. 16:57 Acuity: TOBIAS 3 ld1 Triage Assessment: 16:57 General: Appears in no apparent distress. comfortable, Behavior is calm, cooperative, ld1 appropriate for age. Pain: Denies pain. EENT: No signs and/or symptoms were reported regarding the EENT system. Neuro: Level of Consciousness is awake, alert, obeys commands, Oriented to person, place, time, situation. Cardiovascular: Capillary refill < 3 seconds Patient's skin is warm and dry. Respiratory: Reports cough that is Airway is patent Respiratory effort is even, unlabored. GI: Abdomen is round non-distended. : No signs and/or symptoms were reported regarding the genitourinary system. Derm: No signs and/or symptoms reported regarding the dermatologic system. Musculoskeletal: No signs and/or symptoms reported regarding the musculoskeletal system. Historical: - Allergies: 16:57 No Known Allergies; ld1 - PMHx: 16:57 Diabetes - NIDDM; Hyperlipidemia; Hypertension; ld1 - PSHx: 16:57 None; ld1 - Immunization history:: Adult Immunizations up to date, Client reports receiving the 2nd dose of the Covid vaccine. - Social history:: Smoking status: Patient reports the use of cigarette tobacco products, smokes one-half pack cigarettes per day, Patient/guardian denies using alcohol. Screenin:20 Abuse screen: Denies threats or abuse. Denies injuries from another. Nutritional lp1 screening: No deficits noted. Tuberculosis screening: No symptoms or risk factors identified. Fall Risk None identified. Assessment: 22:00 General: Appears in no apparent distress. Behavior is calm, cooperative. Pain: Denies lp1 pain. Neuro: Level of Consciousness is awake, alert, obeys commands, Reports weakness generalized. Cardiovascular: Patient's skin is warm and dry. Respiratory: Respiratory effort is even, unlabored, Breath sounds are clear bilaterally. GI: No signs and/or symptoms were reported involving the gastrointestinal system. : No signs and/or symptoms were reported regarding the genitourinary system. EENT: No signs and/or symptoms were reported regarding the EENT system. Derm: Skin is intact, Skin is dry, Skin is normal. Musculoskeletal: Circulation, motion, and sensation intact. 23:15 Reassessment: Patient appears in no apparent distress at this time. Patient and/or lp1 family updated on plan of care and expected duration. Pain level reassessed. Patient aware of pending lab results. 02/21 01:45 Reassessment: Patient appears in no apparent distress at this time. Patient and/or lp1 family updated on plan of care and expected duration. Pain level reassessed. Patient is alert, oriented x 3, equal unlabored respirations, skin warm/dry/pink. Aware of pending admission. Vital Signs: 02/20 16:57 BP 133 / 71; Pulse 64; Resp 18; Temp 97.6(TE); Pulse Ox 95% on R/A; Weight 73.94 kg; ld1 Height 5 ft. 4 in. (162.56 cm); Pain 0/10; 22:00 BP 146 / 60; Pulse 60; Resp 16; Pulse Ox 96% on R/A; Pain 0/10; lp1 23:00 BP 140 / 66; Pulse 59; Resp 17; Pulse Ox 97% on R/A; lp1 02/21 00:00 BP 139 / 55; Pulse 56; Resp 16; Pulse Ox 97% on R/A; lp1 01:15 BP 157 / 63; Pulse 67; Resp 16; Pulse Ox 95% on R/A; lp1 02:00 BP 136 / 64; Pulse 55; Resp 16; Pulse Ox 95% on R/A; lp1 07 16:57 Body Mass Index 27.98 (73.94 kg, 162.56 cm) ld1 ED Course: 02/20 16:38 Patient arrived in ED. as 16:57 Arm band placed on right wrist. ld1 16:59 Triage completed. ld1 17:07 COVID-19 SARS RT PCR (Document "Date of Onset" if Symptomatic) Sent. ld1 18:41 Rex Hector PA is PHCP. cp 18:41 Fredrick Zendejas MD is Attending Physician. cp 19:27 Marcello Saravia MD is Attending Physician. cp 20:11 XRAY Chest (1 view) In Process Unspecified. EDMS 21:10 US Extremity Venous W Compression Gregg In Process Unspecified. EDMS 21:45 Inserted saline lock: 20 gauge in right antecubital area, using aseptic technique. lp1 Blood collected. 21:46 Patient has correct armband on for positive identification. Client placed on continuous lp1 cardiac and pulse oximetry monitoring. NIBP monitoring applied. 22:19 Moon Henderson, RN is Primary Nurse. lp1 23:33 US Abdomen Limited In Process Unspecified. EDMS 07/07 00:30 Straight cath inserted, using sterile technique, 16 Fr. Specimen obtained. lp1 01:35 Tien Stoddard MD is Hospitalizing Provider. cp 02:54 No provider procedures requiring assistance completed. Patient admitted, IV remains in lp1 place. Administered Medications: 00:08 Drug: NS 0.9% 500 ml Route: IV; Rate: calculated rate; Site: right antecubital; lp1 02:56 Follow up: IV Status: Infusion continued upon admission lp1 02:56 Drug: Rocephin - (cefTRIAXone) 1 grams Route: IVPB; Infused Over: 30 mins; Site: right lp1 antecubital; 02:56 Follow up: IV Status: Completed infusion lp1 Medication: 02/20 21:46 VIS not applicable for this client. lp1 Outcome: 02/21 01:36 Decision to Hospitalize by Provider. cp 02:55 Condition: stable lp1 02:55 Instructed on the need for admit. 03:01 Admitted to Med/surg room 205, with chart, Report called to ILIANA Zaldivar lp1 03:19 Patient left the ED. lp1 Signatures: Dispatcher [employer] EDMS Amy Dowling Shelby, RN RN Moon Henderson, RN RN lp1 Rex Hector PA PA cp Dibbern, Lauren, RN RN ld1 Corrections: (The following items were deleted from the chart) 02/20 16:59 16:41 Chief complaint: Patient states: Fatigue and cough that began 4 days ago ld1 02/21 02:55 01:30 Reassessment: Patient appears in no apparent distress at this time. Patient lp1 and/or family updated on plan of care and expected duration. Pain level reassessed. Patient is alert, oriented x 3, equal unlabored respirations, skin warm/dry/pink. Aware of pending admission lp1
--- NOTE | 2022-02-21 01:36 | EDPHYS ---
Physician Documentation [facility] Name: Veronica Mendoza Age: 66 yrs Sex: Female : 1955 Arrival Date: 02/20/2022 Time: 16:38 Bed 12 Private MD: ED Physician Marcello Saravia HPI: 02/20 20:00 This 66 yrs old Female presents to ER via EMS with complaints of Weakness. cp 20:00 The patient presents to the emergency department with weakness of the right leg and cp left leg. Onset: The symptoms/episode began/occurred gradually. Associated signs and symptoms: Pertinent positives: swelling of lower legs, Pertinent negatives: altered mental status, fever, headache, neck stiffness, paresthesias, syncope. Severity of symptoms: in the emergency department the symptoms are unchanged despite home interventions. Patient's baseline: Neuro: alert and fully oriented, Motor: no deficits, Ambulation: walks without assistance, Speech: normal. Current symptoms: weakness and swelling of legs. Historical: - Allergies: 16:57 No Known Allergies; ld1 - PMHx: 16:57 Diabetes - NIDDM; Hyperlipidemia; Hypertension; ld1 - PSHx: 16:57 None; ld1 - Immunization history:: Adult Immunizations up to date, Client reports receiving the 2nd dose of the Covid vaccine. - Social history:: Smoking status: Patient reports the use of cigarette tobacco products, smokes one-half pack cigarettes per day, Patient/guardian denies using alcohol. ROS: 20:05 Constitutional: Negative for body aches, chills, fever, poor PO intake. cp 20:05 Eyes: Negative for injury, pain, redness, and discharge. cp 20:05 Cardiovascular: Positive for edema, Negative for chest pain, palpitations. 20:05 Respiratory: Negative for cough, shortness of breath, wheezing. 20:05 Abdomen/GI: Negative for abdominal pain, nausea, vomiting, and diarrhea. 20:05 Back: Negative for pain at rest, pain with movement. 20:05 : Negative for hematuria, burning with urination. 20:05 Neuro: Positive for weakness, of the right leg and left leg, Negative for altered mental status, headache, numbness, syncope. 20:05 All other systems are negative. cp Exam: 20:10 Constitutional: The patient appears in no acute distress, alert, awake, cp non-diaphoretic, non-toxic, well developed, well nourished. 20:10 Head/Face: Normocephalic, atraumatic. cp 20:10 Eyes: Periorbital structures: appear normal, Conjunctiva: normal, no exudate, no injection, Sclera: no appreciated abnormality, Lids and lashes: appear normal, bilaterally. 20:10 ENT: External ear(s): are unremarkable, Nose: is normal, Mouth: Lips: moist, Oral mucosa: pink and intact, moist, Posterior pharynx: Airway: no evidence of obstruction, patent. 20:10 Neck: ROM/movement: is normal, is supple, without pain, no range of motions limitations. 20:10 Chest/axilla: Inspection: normal, Palpation: is normal, no crepitus, no tenderness. 20:10 Cardiovascular: Rate: normal, Rhythm: regular, Edema: ankle edema, that is mild, JVD: is not appreciated. 20:10 Respiratory: the patient does not display signs of respiratory distress, Respirations: normal, no use of accessory muscles, no retractions, labored breathing, is not present, Breath sounds: are clear throughout, no decreased breath sounds, no stridor, no wheezing. 20:10 Abdomen/GI: Inspection: abdomen appears normal, Bowel sounds: active, all quadrants, Palpation: abdomen is soft and non-tender, in all quadrants. 20:10 Back: pain, is absent, ROM is normal. 20:10 Skin: cellulitis, is not appreciated, no rash present. 20:10 Neuro: Orientation: to person, place \\T\\ time. Mentation: is normal, Motor: moves all fours, strength is 4/5 in the right leg and left leg, Sensation: is normal. 21:47 ECG was reviewed by the Attending Physician. cp Vital Signs: 16:57 BP 133 / 71; Pulse 64; Resp 18; Temp 97.6(TE); Pulse Ox 95% on R/A; Weight 73.94 kg; ld1 Height 5 ft. 4 in. (162.56 cm); Pain 0/10; 22:00 BP 146 / 60; Pulse 60; Resp 16; Pulse Ox 96% on R/A; Pain 0/10; lp1 23:00 BP 140 / 66; Pulse 59; Resp 17; Pulse Ox 97% on R/A; lp1 02/21 00:00 BP 139 / 55; Pulse 56; Resp 16; Pulse Ox 97% on R/A; lp1 01:15 BP 157 / 63; Pulse 67; Resp 16; Pulse Ox 95% on R/A; lp1 02:00 BP 136 / 64; Pulse 55; Resp 16; Pulse Ox 95% on R/A; lp1 02/20 16:57 Body Mass Index 27.98 (73.94 kg, 162.56 cm) ld1 MDM: 02/20 21:39 Patient medically screened. cp 02/21 01:35 Data reviewed: vital signs, nurses notes, lab test result(s), EKG, radiologic studies, cp plain films, ultrasound. 01:35 Test interpretation: by ED physician or midlevel provider: ECG, plain radiologic cp studies. Response to treatment: the patient's symptoms have mildly improved after treatment, and as a result, I will admit patient. Admission orders: after a detailed discussion of the patient's condition and case, the admit orders are written by me. 02/20 17:01 Order name: COVID-19 SARS RT PCR (Document "Date of Onset" if Symptomatic); Complete ld1 Time: 22:36 02/20 19:52 Order name: Basic Metabolic Panel; Complete Time: 22:36 cp 02/20 22:36 Interpretation: Normal except: K 3.4; GLUC 153; BUN 29; GFR 60. cp 02/20 19:52 Order name: CBC with Diff; Complete Time: 22:36 cp 02/20 22:37 Interpretation: Normal except: RBC 3.26; HGB 11.0; HCT 33.5; MCV 102.6; PLT 117; STEVIE% cp 75.5; LYM% 14.5. 02/20 19:52 Order name: LFT's; Complete Time: 22:36 cp 02/20 22:37 Interpretation: Normal except: AST 233; ALT 89; GLOB 3.7; A/G 1.0. cp 02/20 19:52 Order name: Magnesium; Complete Time: 22:36 cp 02/20 19:52 Order name: NT PRO-BNP; Complete Time: 22:36 cp 02/20 19:52 Order name: PT-INR; Complete Time: 22:36 cp 02/20 19:52 Order name: Troponin HS; Complete Time: 22:36 cp 02/20 22:53 Order name: Urine Microscopic Only; Complete Time: 01:34 cp 02/21 01:34 Interpretation: Normal except: UWBC 20-50; UBACT LOADED. cp 02/21 00:44 Order name: Urine Dipstick-Ancillary; Complete Time: 00:54 EDMS 02/21 00:54 Interpretation: Normal except: UBLD 3+; UPROT 3+; UESTR 1+. cp 02/21 01:35 Order name: Urine Culture EDMS 02/21 01:42 Order name: Blood Culture Adult (2) cp 02/21 01:42 Order name: Lactate; Complete Time: 04:32 cp 02/21 01:42 Order name: Procalcitonin; Complete Time: 04:32 cp 02/20 19:52 Order name: XRAY Chest (1 view); Complete Time: 22:36 cp 02/20 19:52 Order name: EKG; Complete Time: 19:53 cp 02/20 19:52 Order name: Cardiac monitoring; Complete Time: 21:45 cp 02/20 19:52 Order name: EKG - Nurse/Tech; Complete Time: 21:45 cp 02/20 19:52 Order name: IV Saline Lock; Complete Time: 21:45 cp 02/20 19:52 Order name: US Extremity Venous W Compression Gregg; Complete Time: 22:36 cp 02/20 22:53 Order name: US Abdomen Limited cp 02/21 02:01 Order name: NPO EDMS 02/21 02:01 Order name: Basic Metabolic Panel EDMS 02/21 02:01 Order name: Basic Metabolic Panel; Complete Time: 04:32 EDMS 02/21 02:01 Order name: Basic Metabolic Panel EDMS 02/21 02:01 Order name: CBC with Automated Diff EDMS 02/21 02:01 Order name: CBC with Automated Diff; Complete Time: 04:32 EDMS 02/21 02:01 Order name: CBC with Automated Diff EDMS 02/20 19:52 Order name: Labs collected and sent; Complete Time: 21:45 cp 02/20 19:52 Order name: O2 Per Protocol; Complete Time: 21:45 cp 02/20 19:52 Order name: O2 Sat Monitoring; Complete Time: 21:45 cp 02/20 22:53 Order name: Urine Dipstick-Ancillary (obtain specimen); Complete Time: 00:47 cp EC 21:47 Rate is 55 beats/min. Rhythm is regular. [place] interval is normal. QRS interval is normal. cp QT interval is normal. Interpreted by me. Reviewed by me. Administered Medications: 02/21 00:08 Drug: NS 0.9% 500 ml Route: IV; Rate: calculated rate; Site: right antecubital; lp1 02:56 Follow up: IV Status: Infusion continued upon admission lp1 02:56 Drug: Rocephin - (cefTRIAXone) 1 grams Route: IVPB; Infused Over: 30 mins; Site: right lp1 antecubital; 02:56 Follow up: IV Status: Completed infusion lp1 Disposition: 04:40 Co-signature as Attending Physician, Marcello Saravia MD. rn Disposition Summary: 02/21/22 01:36 Hospitalization Ordered Hospitalization Status: Inpatient Admission cp Provider: Tien Stoddard cp Location: Telemetry/MedSur (Inpatient) cp Condition: Stable cp Problem: new cp Symptoms: have improved cp Bed/Room Type: Standard cp Room Assignment: 205(02/21/22 02:41) cg Diagnosis - Weakness cp - UTI/ Urinary tract infection, site not specified cp Forms: - Medication Reconciliation Form cp - SBAR form cp Signatures: Dispatcher [employer] EDMarcello Montelongo MD MD rn Pena, Laura RN RN lp1 Rex Hector PA PA cp Alee Peck RN RN cg Ariana Colby RN RN ld1 Corrections: (The following items were deleted from the chart) 02:41 01:36 cp cg
[2022-02-21] MEDS ORDERED: ACETAMINOPHEN 500 MG TAB PO PRN (01:55)
[2022-02-21] MEDS ORDERED: ONDANSETRON 4 MG/2 ML VIAL IV PRN (01:55)
[2022-02-21] MEDS ORDERED: D50W 25 GM/50 ML SYRINGE IV PRN (01:59)
[2022-02-21] MEDS ORDERED: GLUCAGON 1 MG/VIAL IM PRN (01:59)
[2022-02-21] MEDS ORDERED: D10W 125 ML IV PRN (02:15)
[2022-02-21] MEDS ORDERED: CEFTRIAXONE 1000 MG/VIAL ONE (02:54)
[2022-02-21] MEDS ORDERED: NA CHLORIDE 0.9% 50 ML ONE (02:55)
[2022-02-21 03:39] VITALS: BMI 28.0
[2022-02-21 03:51] LABS: Absolute Lymphocytes (CBC) 0.7 K/uL (0.7-4.9); Hematocrit 31.1 % (36.0-45.0); Lymphocytes % 15.3 % (15.3-44.8); MCV 101.3 fL (80-100); MPV 11.2 fL (7.6-11.3); RBC Red Blood Cell Count 3.07 M/uL (3.86-4.86)
[2022-02-21 04:12] VITALS: O2SAT 95
[2022-02-21] MEDS: INSULIN -REGULAR HUMAN 50 UNIT/0.5 ML ML SQ SCH ×4 (07:30→21:00)
[2022-02-21] MEDS ORDERED: HOME MED 1 EA UNK (Clonidine Hcl [Catapres*] 0.2 MG Tablet) PO SCH (09:00)
[2022-02-21] MEDS ORDERED: POTASSIUM 25 MEQ EFFERV TAB PO ONE ×2 (09:00→18:30)
[2022-02-21] MEDS: ramipriL 5 MG CAP PO SCH (09:00)
[2022-02-21] MEDS: carvediloL 6.25 MG TAB PO SCH ×2 (09:05→21:06)
[2022-02-21] MEDS: gemfibroziL 600 MG TAB PO SCH ×2 (09:05→21:06)
[2022-02-21] MEDS: cloNIDine HCL 0.1 MG TAB PO SCH ×3 (09:05→21:03)
[2022-02-21] MEDS: ASPIRIN 81 MG CHEWABLE TABLET PO SCH (09:05)
[2022-02-21] MEDS: ENOXAPARIN 40 MG/0.4 ML SQ SCH (09:07)
[2022-02-21] MEDS: CEFTRIAXONE 1,000 MG in NA CHLORIDE 0.9% 50 ML IVPB SCH ×2 (09:07→21:02)
--- NOTE | 2022-02-21 13:52 | EKG ---
Test Date: 2022-02-20 Test Time: 21:45:14 Program Arranger: MARTELL MEASUREMENT RESULTS: Intervals: Rate: 55 MN: 168 QRSD: 80 QT: 490 QTc: 468 Ely: P: 49 MN: 168 QRS: 29 T: 35 INTERPRETIVE STATEMENTS: Sinus bradycardia Nonspecific T wave abnormality Abnormal ECG Compared to ECG 09/25/2018 21:40:19 T-wave abnormality now present Sinus rhythm no longer present Electronically Signed On 02-21-22 13:50:32 CDT by River Bales
--- NOTE | 2022-02-21 14:03 | RAD REPORT ---
EXAM DESCRIPTION: US - Abdomen Exam Limited - 02/21/2022 12:16 am CLINICAL HISTORY: 66 years, Female, elevated liver enzymes COMPARISON: None. TECHNIQUE: Utilizing a curved array transducer, real-time ultrasound evaluation of the abdominal vis cera was performed. Color Doppler imaging was used to assess vascular flow. FINDINGS: The liver is increased in size measuring 18.1 cm. Increased echo pattern was identified. No focal areas of increased or decreased echogenicity was seen. The portal flow is hetopedal with no signs of vein thrombosis. The gallbladder demonstrate to be within normal limits. No gallbladder stones were seen. No peric holecystic fluid and or wall thickening was identified. There is negative ultrasonographic Rivera sig n. The common bile duct measures 3.7 mm. No intra or extrahepatic biliary duct dilatation was ident ified. The pancreas head in the mid body demonstrate to be unremarkable with no focal lesions. The right kidney demonstrate to be unremarkable. There is no free fluid within the upper abdomen. IMPRESSION: Enlarged, fatty liver. Otherwise unremarkable right upper quadrant ultrasound. Electronically signed by: David Ambriz MD 02/20/2022 11:51 PM CDT Due to temporary technical issues with the PACS/Fluency reporting system, reports are being signed by the in house radiologist without review as a courtesy to ensure prompt reporting. The interpreting r adiologist is fully responsible for the content of the report.
--- NOTE | 2022-02-21 14:19 | ECHO ---
HEIGHT: 5 ft 4 in WEIGHT: 163 lb 12.8 oz DATE OF STUDY: 02/21/[address]: Best Stoddard MD 2-DIMENSIONAL: YES M.MODE: YES DOPPLER: YES COLOR FLOW: YES TDS: YES PORTABLE: YES DEFINITY: NO BUBBLE STUDY: NO DIAGNOSIS: HYPERTENSION/LEG EDEMA CARDIAC HISTORY: CATHERIZATION: SURGERY: PROSTHETIC VALVE: PACEMAKER: MEASUREMENTS (cm) DIASTOLIC (NORMALS) SYSTOLIC (NORMALS) IVSd 1.2 (0.6-1.2) LA Diam 3.7 (1.9-4.0) LVEF 60-65% LVIDd 4.3 (3.5-5.7) LVIDs 2.3 (2.0-3.5) %FS 47% LVPWd 1.3 (0.6-1.2) Ao Diam 3.0 (2.0-3.7) 2 DIMENSIONAL ASSESSMENT: RIGHT ATRIUM: NORMAL LEFT ATRIUM: NORMAL RIGHT VENTRICLE: NORMAL LEFT VENTRICLE: NORMAL TRICUSPID VALVE: NORMAL MITRAL VALVE: NORMAL PULMONIC VALVE: NORMAL AORTIC VALVE: NORMAL PERICARDIAL EFFUSION: NONE AORTIC ROOT: NORMAL LEFT VENTRICULAR WALL MOTION: NORMAL. DOPPLER/COLOR FLOW: MILD TRICUSPID REGURGITATION. COMMENTS: NORMAL LEFT VENTRICULAR EJECTION FRACTION 60-65%. NORMAL WALL MOTION. MILD TRICUSPID REGURGITATION. TECHNOLOGIST: KG MORFIN
[2022-02-21] MEDS ORDERED: INSULIN GLARGINE 100 UNIT/ML SQ SCH (21:00)
[2022-02-21] MEDS ORDERED: HOME MED 1 EA UNK (Insulin Detemir [Levemir Flextouch] 100 UNIT/ML Insuln.Pen) SQ SCH (21:00)
[2022-02-21] MEDS ORDERED: ROSUVASTATIN 10 MG TAB PO SCH (21:00)
--- NOTE | 2022-02-22 04:52 | HP ---
Date of Admission: 02/21/2022 Chief Complaint: Feeling weak and leg swelling. History Of Present Illness: This is a 66-year-old very pleasant female patient, who came into emerge ncy room with 5 days history of feeling weak and swelling of her legs. No fever or chills. No short ness of breath. No paroxysmal nocturnal dyspnea or orthopnea. No redness of skin. Denies any urina ry complaints. After she came into emergency room, she was evaluated and admitted to hospital. She was also diagnosed in the ER as having urinary tract infection. Allergies: NO KNOWN ALLERGIES. Medications: Aspirin 81 mg daily, carvedilol 6.25 mg 2 times a day, vitamin D3 5000 units daily, renata nidine 0.2 mg 3 times a day, ferrous fumarate 1 tablet by mouth daily, gemfibrozil 600 mg 2 times a d ay, Levemir insulin 15 units subcutaneous injection daily at bedtime, ramipril 10 mg daily, and vitam in B12 1000 mcg daily. Review of Systems: Constitutional: As mentioned above. Cardiovascular: As mentioned above. All other systems reviewed and negative. Past Medical History: Significant for type 2 diabetes mellitus, hypertension, mixed hyperlipidemia, known alcoholic fatty liver disease, gallstones, anemia, and thrombocytopenia. Past Surgical History: Cataract surgery and partial thyroidectomy for thyroid cyst on the right side . Family History: Father , details unknown. Mother, alive and well . Social History: Prior history of smoking, not at present time. Use of alcohol, rarely, 1 drink of a lcohol. Physical Examination: Vital Signs: This morning, temperature 97.6, pulse 64, respiratory rate 16, blood pressure 151/68, o xygen saturation 93%. Height 5 feet 4 inches, weight 163 pounds. General: Awake, alert, oriented, not in distress. HEENT: Head atraumatic, normocephalic. Conjunctivae nonerythematous. Sclerae white. Mouth, no thr ush or edema noted. Ears/Nose, no mass, lesion, discharge noted. Neck: Supple. No JVD, lymph nodes, bruit, thyromegaly noted. Lungs: Bilateral good equal air entry. Clear to auscultation. No rhonchi. No rales. Heart: Normal heart sounds, no murmur or gallop. Abdomen: Soft, bowel sounds normal. No guarding, rigidity, tenderness, mass, hepatosplenomegaly, dis tention, or bruit noted. Extremities: Bilateral grade 1 pedal edema. Skin: No rash, ulcer, cellulitis. Lymphatics: No lymph node enlargement in neck, supraclavicular, infraclavicular region. Neuro: No focal neurological deficit. Chest: Unremarkable. External Genitalia: Deferred. Rectal: Deferred. Laboratory Data: Yesterday, white count 5, hemoglobin 11, platelets 117. Today, white count 4.8, he moglobin 10.5, platelets 108. Yesterday, sodium 139, potassium 3.4, chloride 103, bicarb 28, BUN 29, creatinine 1.02, glucose 153. Liver function tests shows AST 233, ALT 89, alkaline phosphatase 105, total bilirubin normal at 0.3. Procalcitonin 0.10. ProBNP 83. This morning, sodium 140, potassium 3, chloride 106, bicarb 27, BUN 27, creatinine 0.84, glucose 92. Urinalysis, 1+ esterase, 20-50 wbc , bacterial load. COVID-19 test negative. Chest x-ray, no acute cardiopulmonary changes. Venous Do ppler of lower extremity was unremarkable. Impression: 1.Urinary tract infection. 2.Leg edema. 3.Generalized weakness. 4.Anemia, chronic. 5.Thrombocytopenia. 6.Type 2 diabetes mellitus. 7.Hypertension. 8.Hyperlipidemia, mixed. 9.Nonalcoholic fatty liver disease. Plan: Admit the patient to hospital for further evaluation and management of this problem. The leodan ent is appropriate for inpatient and is expected to spend 2 midnights in hospital. Home medications will be continued per order. We will go ahead and get an echo with Doppler on her to evaluate left v entricular ejection fraction. Continue empiric antibiotic, which is ceftriaxone. Follow up on cultu re results and I will see her tomorrow morning for followup. Details and plan of treatment discussed with her. We will monitor blood pressure and adjust antihypertensive medication as it becomes neces jalen. Diabetes will be managed with sliding scale insulin per order. Plan of treatment discussed wi th the patient. I will see her in the morning for followup. JAMES/MODL Voice ID: [id number]
[2022-02-22 05:05] LABS: Hematocrit 28.2 % (36.0-45.0); Lymphocytes % 17.2 % (15.3-44.8); MCV 102.7 fL (80-100); MPV 11.7 fL (7.6-11.3); RBC Red Blood Cell Count 2.75 M/uL (3.86-4.86)
[2022-02-22 05:27] LABS: Potassium 3.3 mmol/L (3.5-5.1)
[2022-02-22] MEDS ORDERED: POTASSIUM 25 MEQ EFFERV TAB PO ONE (05:47)
[2022-02-22 06:03] VITALS: BP 116/65; TEMP 97.3
[2022-02-22] MEDS: INSULIN -REGULAR HUMAN 50 UNIT/0.5 ML ML SQ SCH (07:30)
[2022-02-22] MEDS: gemfibroziL 600 MG TAB PO SCH (07:52)
[2022-02-22] MEDS: carvediloL 6.25 MG TAB PO SCH (07:53)
[2022-02-22] MEDS: ASPIRIN 81 MG CHEWABLE TABLET PO SCH (07:53)
[2022-02-22] MEDS: cloNIDine HCL 0.1 MG TAB PO SCH (07:53)
[2022-02-22] MEDS: ENOXAPARIN 40 MG/0.4 ML SQ SCH (07:56)
[2022-02-22] MEDS: ramipriL 5 MG CAP PO SCH (07:56)
[2022-02-22] MEDS: CEFTRIAXONE 1,000 MG in NA CHLORIDE 0.9% 50 ML IVPB SCH (07:57)
--- NOTE | 2022-02-22 12:58 | DS ---
Date of Discharge: 02/22/2022 Disposition: Discharged to go home. Physical Examination: HEENT: Examination unremarkable. Lungs: Clear to auscultation. No wheezing. No rales. Heart: Sounds normal. Abdomen: Soft. Bowel sounds normal. No guarding, rigidity, tenderness, distention. Extremities: Trace leg edema overall better today than yesterday. Laboratory Data: Labs today; white count 5.7, hemoglobin 9.6, platelets 80. Yesterday; white count 4.8, hemoglobin 10.5, platelets 108 and day before yesterday white count 5, hemoglobin 11, platelets 117. Today sodium 140, potassium 3.3, chloride 105, bicarb 27, BUN 26, creatinine 0.79, glucose 113. Upon admission; sodium 139, potassium 3.4, chloride 103, bicarb 28, BUN 29, creatinine 1.02, glucos e 153, procalcitonin 0.10, AST 233, ALT 89, alkaline phosphatase 105, total bilirubin 0.3. Blood cul ture remains negative. Urine culture pending. Ultrasound of abdomen limited to right upper quadrant shows evidence of enlarged fatty liver, otherwise unremarkable right upper quadrant ultrasound. Ech ocardiogram shows ejection fraction 60% to 65%, mild tricuspid regurgitation. Hospital Course: A 66-year-old very pleasant female patient admitted to the hospital after she came into emergency room complaining of feeling weak and leg swelling. Please see dictated H and P for mo re information. The patient was evaluated in the emergency room and was admitted to the hospital wit h urinary tract infection and leg edema and generalized weakness. Her weakness has improved. Leg sw elling has improved. She received empiric antibiotic, ceftriaxone for urinary tract infection. Bloo d culture has remained negative. Urine culture is still pending. This morning when I saw her, the p atient reports that she is ready to go home. She feels better and really does not feel like she need s to stay in the hospital anymore. Medically, she is stable for discharge. I did inform her that I do not have urine culture results back, but I will follow up on it and depending on the urine culture results if we need to change antibiotics then we will contact her. In rare occasion, if she needs I V antibiotic then she may have to come back to the hospitals which she understands that. She has yvonne ointment to see me next week. She will keep that appointment. Meanwhile, we will send her home with following discharge medications and instructions. The patient had a venous Doppler of both lower ex tremities which was negative for DVT and a chest x-ray did not show any acute cardiopulmonary changes . Final Diagnoses: 1.Urinary tract infection. 2.Leg edema. 3.Generalized weakness. 4.Anemia, chronic. 5.Thrombocytopenia. 6.Type 2 diabetes mellitus. 7.Hypertension. 8.Mixed hyperlipidemia. 9.Known alcoholic fatty liver disease. Discharge Medications/instructions: 1.Continue all prior home medications. 2.Take Cipro 500 mg 2 times a day for 1 week. 3.Follow up at my office next week. JAMES/MODL Voice ID: [id number] Report ID: [id number]
--- OUTSIDE RECORDS SUMMARY | 2022-03-06 15:58 | XMS REPORT | Clinical Summary ---
:1955 Author Organization [facility] MD Akers [facility] Address [address] [place] [address] Care Team Providers Name Role Phone Shahrzad Galan Unavailable Brayan Mckeon NP Unavailable Unavailable MD Olivier Unavailable Lianna Stoddard MD Primary Care Provider Allergies No known active allergies Medications Medication Sig Dispensed Refills Start Date End Date Status aspirin 81 mg chewable Chew 81 mg daily. 0 Active tablet cloNIDine HCl Take 0.2 mg by 0 A ctive (CATAPRES) 0.2 mg mouth 3 (three) tablet times a day. cholecalciferol, Take 1 capsule by 0 Active vitamin D3, (VITAMIN mouth daily. D3) 5,000 units tab tablet CYANOCOBALAMIN/COBAMAM Take 1,000 mg by 0 Active ELOISA (B12 SUBLINGUAL) mouth daily. docusate sodium Take 100 mg by 0 Active (COLACE) 100 mg mouth twice daily. capsule PSYLLIUM SEED, WITH Take 1 tablet by 0 Active DEXTROSE, (FIBER ORAL) mouth daily. LACTOBACILLUS Take 1 tablet by 0 Active ACIDOPHILUS (PROBIOTIC mouth daily. ORAL) gemfibrozil (LOPID) twice daily. 0 10/28/2017 Active 600 mg tablet TRADJENTA 5 mg tab daily. 3 10/22/2017 Active ferrous sulfate 325 mg 3 (three) times a 5 8 Active (65 mg as elemental) day. tablet rosuvastatin (CRESTOR) Take 10 mg by 0 Active 10 mg tablet mouth at bedtime. nystatin (MYCOSTATIN) Apply topically to 60 g 2 8 Active 100,000 units/g affected area(s) powderIndications: twice daily. Candidiasis of skin Additional Information Patient not taking. Reported on 03/18/2018 carvedilol (COREG) 3.125 mg tablet twice daily. 3 Active metFORMIN (GLUCOPHAGE) 500 mg tablet 1 tablet twice daily. 3 03/04/2018 Active Active Problems Problem Noted Date Candidiasis of skin 03/14/2016 Social History Tobacco Use Types Packs/Day Years Used Date Never Assessed Sex Assigned at Date Recorded Not on file Last Filed Vital Signs Not on file Plan of Treatment Health Maintenance Due Date Last Done Comments COVID-19 Vaccination (#1) 01/17/1956 Results Not on fileafter 02/20/2021 Insurance Payer Benefit Plan / Subscriber ID Effective Dates Phone Addre ss Type Group AETNA MANAGED AETNA O [id number] 2000-Present PO HUMA X [id number] [facility] [place] [address] (Home) [place] [address] Veronica Mendoza Personal/Family Self 1955 [address] [facility] (Home) [place] [address] Veronica Mendoza Personal/Family Self 1955 [address] [facility] (Home) [place] [address] Care Teams Director Of Channel Marketing Relationship Specialty Start Date End Date Best Stoddard MD PCP - General Internal Medicine 11/17/[address] [place] [address] [place] [address] Andrew Galan PA Physician Ed Educational Aide 10/25/15 [address] [place] [address] Treasure Mckeon, GREGORIO Nurse Practitioner 10/25/15 Ashley Aguayo MD Physician Breast Surgery 02/26/16 [address] [place] [address] (work)
--- OUTSIDE RECORDS SUMMARY | 2022-03-06 15:58 | XMS REPORT | Continuity of Care Document ---
:1955 Author Organization [facility] [place] [facility] t Address [address] [place] [address] Care Team Providers Name Role Phone FANG Lianna Primary Care Physician Unavailable SYSTEM, NOT IN Attending Clinician Unavailable SUDHAKAR DENG Attending Clinician Unavailable Sudhakar Deng MD Attending Clinician Doctor Unassigned, Name Attending Clinician Unavailable 1, Lab Attending Clinician Unavailable SUDHAKAR DENG Admitting Clinician Unavailable Sudhakar Deng MD Admitting Clinician Payers Payer Name Policy Type Policy Number Effective Date Expiration Date S [place] MEDICARE PART A \T\ [id number] 2019 B 00:00:00 [place] [id number] 2019 BENEFITS 00:00:00 Problems Condition Condition Condition Status Onset Resolution Last Treating Co mments Source Name Details Category Date Date Treatment Clinician Date Candidiasi Candidiasi Disease Active U nivers s of skin s of skin 03-14 ity of 00:00: [place] 00 [facility] Allergies, Adverse Reactions, Alerts Allergy Allergy Status Severity Reaction(s) Onset Inactive Treating Comm ents Source Name Type Date Date Clinician NO KNOWN Drug Active Univers ALLERGIE Class ity of S [facility] Social History Social Habit Start Date Stop Date Quantity Comments Source [facility] At [birth year] [facility] [place] [facility]00 MD [facility] Medications Ordered Filled Start Stop Current Ordering Indication Dosage Frequency Signature Comments Components Source Medication Medication Date Date Medication? Clinician (SIG) Name Name PSYLLIUM Yes 1{tbl} Take 1 Unive rs SEED, WITH 8- tablet by ity of DEXTROSE, 14:22: mouth [place] (FIBER 19 daily. ORAL) [facility] LACTOBACILL Yes 1{tbl} Take 1 Un heather US 8- tablet by ity of ACIDOPHILUS 14:22: mouth [place] (PROBIOTIC 19 daily. ORAL) [facility] rosuvastati Yes 10mg Take 10 mg Univers n (CRESTOR) 8- by mouth ity of 10 mg 14:22: at [place] tablet 19 bedtime. MD Nancy whitman [facility] aspirin 81 Yes 81mg Chew 81 mg U nivers mg chewable 8 daily. ity of tablet 14:22: [place] 19 [facility] cloNIDine Yes .2mg Take 0.2 Univ ers HCl 8- mg by ity of (CATAPRES) 14:22: [place] 3 [place] 0.2 mg 19 (three) MD tablet times a Anderso day. [facility] cholecalcif Yes 1{capsu Take 1 U nivers puja, 8- le} capsule by ity of vitamin D3, 14:22: mouth [place] (VITAMIN 19 daily. D3) 5,000 Anderso units tab n tablet [facility] CYANOCOBALA Yes 1000mg Take 1,000 Univers MIN/COBAMAM 8-01 mg by ity of ELOISA (B12 14:22: mouth [place] SUBLINGUAL) 19 daily. MD Nancy whitamn [facility] docusate Yes 100mg Take 100 Univ ers sodium 8-01 mg by ity of (COLACE) 14:22: mouth [place] 100 mg 19 twice MD capsule daily. [facility] nystatin Yes Candidiasis Apply U nivers (MYCOSTATIN 8 of skin topically ity of ) 100,000 00:00: to [place] units/g 00 affected MD powder area(s) Anderso twice n daily. [facility] [place] carvedilol Yes twice Univer s (COREG) 7-18 daily. ity of 3.125 mg 00:00: [place] tablet 00 [facility] metFORMIN 2018-0 Yes 1{tbl} 1 tablet Un heather (GLUCOPHAGE 7-18 twice ity of ) 500 mg 00:00: daily. tablet 00 [facility] ferrous Yes 3 (three) Unive rs sulfate 325 3-17 times a ity o f mg (65 mg 00:00: day. as 00 elemental) Nancy whitman [facility] gemfibrozil Yes twice Unive rs (LOPID) 600 3-13 daily. ity of mg tablet 00:00: MD Nancy whitman [facility] TRADJENTA 5 Yes daily. Univ ers mg tab 3-07 ity of 00:00: MD Nancy whitman [facility] Procedures This patient has no known procedures. Plan of Care Planned Activity Planned Date Details Comments Source Future Scheduled 2022-02-20 COVID-19 Vaccination [facility] [place] Test 03:42:18 (#1) [code = COVID-19 And yousifon Cancer Vaccination (#1)] Center Encounters Start End Encounter Admission Attending Care Care Encounter Source Date/Time Date/Time Type Type Clinicians Facility Department ID 2020-06-08 Outpatient SYSTEM, [facility] [id number] 09:56:52 PROVIDER Wilber whitman 2019-09-14 2019-09-14 Outpatient Demetria DENG [facility] [id number] [facility] 06:43:00 09:06:00 ELIF monahan [facility] 2019-09-14 2019-09-14 [facility] [id number] 06:43:00 09:06:00 Encounter Elif Oquendo [id number] [place] [id number] Surgical [id number] [place] 071 2019-09-14 2019-09-14 Orders Doctor SHELLEY [id number] 00:00:00 00:00:00 Only Unassigned, SHARMAINE [id number] [place] [facility] [id number] 2019-09-02 2019-09-02 [facility] [id number] [facility] 16:30:00 16:30:00 ELIF monahan [facility] 2019-09-02 2019-09-02 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
== END 2022-02-22 08:19 | disposition home or self-care (01) ==
LOC: ER 16:37 → INTOOBSV 02-21 01:54 → ERHOLD 02-21 01:54 → 2ND 02-21 02:44
PROVIDERS: ADMIT Internal Medicine; ATTEND Internal Medicine
DX: N39.0 Urinary tract infection, site not specified (principal); R53.1 Weakness; R60.0 Localized edema; D64.9 Anemia, unspecified; D69.6 Thrombocytopenia, unspecified; E11.9 Type 2 diabetes mellitus without complications; I10 Essential (primary) hypertension; E78.2 Mixed hyperlipidemia; K76.0 Fatty (change of) liver, not elsewhere classified; I07.1 Rheumatic tricuspid insufficiency; Z79.82 Long term (current) use of aspirin; Z79.4 Long term (current) use of insulin; Z87.891 Personal history of nicotine dependence; Z20.822 Contact with and (suspected) exposure to COVID-19
CPT/HCPCS: 36415; 51702; 71045; 76705; 80048; 80076; 81003; 81015; 82947; 83605; 83735; 83880; 84132; 84145; 84484; 85025; 85610; 87040; 87077; 87086; 87088; 87186; 93005; 93306; 93970; 96361; 96374; 99285; G0378; J1650; J1815; U0003

== ENCOUNTER 2022-07-27 08:49 | Observation (INO) | payer OTHER ==
--- OUTSIDE RECORDS SUMMARY | 2022-07-27 08:53 | XMS REPORT | Clinical Summary ---
:1955 Author Organization [facility] MD Akers [facility] Address [address] [place] [address] Care Team Providers Name Role Phone Andrew Galan Unavailable Treasure Mckeon NP Unavailable Unavailable Ashley Aguayo MD Unavailable Best Stoddard MD Primary Care Provider Allergies No [...] (MYCOSTATIN) Apply topically to 60 g 2 08/01/201 8 Active 100,000 units/g affected area(s) powderIndications: twice daily. Candidiasis of skin Additional Information Patient not taking. Reported on 03/18/2018 carvedilol (COREG) 3.125 mg tablet twice daily. 3 Active metFORMIN (GLUCOPHAGE) 500 mg tablet 1 tablet twice daily. 3 03/04/2018 Active Active Problems Problem Noted Date Candidiasis of skin 03/14/2016 Social History Tobacco Use Types Packs/Day Years Used Date Smoking Tobacco: Never Assessed Sex Assigned at Date Recorded Not on file Last Filed Vital Signs Not on file Plan of Treatment Health Maintenance Due Date Last Done Comments COVID-19 Vaccination (#1) 01/17/1956 Results Not on fileafter 07/27/2021 Insurance Payer Benefit Plan / Subscriber ID Effective Dates Phone Addre ss Type Group AETNA MANAGED AETNA O [id number] 2000-Present PO HUMA X [id number] [facility] [place] [address] (Home) [place] [address] Veronica Mendoza Personal/Family Self 1955 [address] [facility] (Home) [place] [address] Veronica Mendoza Personal/Family Self 1955 [address] 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
--- OUTSIDE RECORDS SUMMARY | 2022-07-27 08:53 | XMS REPORT | Continuity of Care Document ---
:1955 Author Organization [facility] t Address [address] [place] [address] Care Team Providers Name Role Phone Best Stoddard MD Primary Care Physician SYSTEM, PROVIDER NOT IN Attending Clinician Unavailable Elif Deng MD Attending Clinician ELIF DENG Attending Clinician Unavailable Doctor Unassigned, [place] Attending Clinician Unavailable 1, Adc Lab Attending Clinician Unavailable Elif Deng MD Admitting Clinician ELIF DENG Admitting Clinician Unavailable Payers Payer Name Policy Type Policy Number Effective Date Expiration Date S [facility] MEDICARE PART A \T\ [id number] 2019 B 00:00:00 VAN [place]YNE [id number] 2019 BENEFITS 00:00:00 Problems Condition Condition Condition Status Onset Resolution Last Treating Co mments Source Name Details Category Date Date Treatment Clinician Date Candidiasi Candidiasi Disease Active U nivers s of skin s of skin 03-14 ity of 00:00: [place] 00 [facility] Allergies, Adverse Reactions, Alerts Allergy Allergy Status Severity Reaction(s) Onset Inactive Treating Comm ents Source Name Type Date Date Clinician NO KNOWN Drug Active Univers ALLERGIE Class ity of S [place] [facility] Social History Social Habit Start Date Stop Date Quantity Comments Source Sex Assigned At [address] [facility] [place] 00:00:00 00:00:00 [facility] Medications Ordered Filled Start Stop Current Ordering Indication Dosage Frequency Signature Comments Components Source Medication Medication Date Date Medication? Clinician (SIG) Name Name PSYLLIUM Yes 1{tbl} Take 1 Unive rs SEED, WITH 8-01 tablet by ity of DEXTROSE, 14:22: mouth [place] (FIBER 19 daily. ORAL) [facility] LACTOBACILL Yes 1{tbl} Take 1 Un heather US 8-01 tablet by ity of ACIDOPHILUS 14:22: mouth [place] (PROBIOTIC 19 daily. ORAL) [facility] rosuvastati Yes 10mg Take 10 mg Univers n (CRESTOR) 8-01 by mouth ity of 10 mg 14:22: at [place] tablet 19 bedtime. [facility] PSYLLIUM Yes 1{tbl} Take 1 Unive rs SEED, WITH 8-01 tablet by ity of DEXTROSE, 14:22: mouth [place] (FIBER 19 daily. ORAL) [facility] LACTOBACILL Yes 1{tbl} Take 1 Un heather US 8-01 tablet by ity of ACIDOPHILUS 14:22: mouth [place] (PROBIOTIC 19 daily. ORAL) [facility] rosuvastati Yes 10mg Take 10 mg Univers n (CRESTOR) 8-01 by mouth ity of 10 mg 14:22: at [place] tablet 19 bedtime. MD Nancy whitman [facility] aspirin 81 Yes 81mg Chew 81 mg U nivers mg chewable 8-01 daily. ity of tablet 14:22: [place] 19 MD Cruz [facility] aspirin 81 0 Yes 81mg Chew 81 mg U nivers mg chewable 8-01 daily. ity of tablet 14:22: [place] 19 [facility] cloNIDine Yes .2mg Take 0.2 Univ ers HCl 8-01 mg by ity of (CATAPRES) 14:22: [place] 3 [place] 0.2 mg 19 (three) tablet times a [facility]. [facility] cholecalcif Yes 1{capsu Take 1 U nivers puja, 8-01 le} capsule by ity of vitamin D3, 14:22: mouth [place] (VITAMIN 19 daily. D3) 5,000 Anderso units tab n tablet [facility] CYANOCOBALA Yes 1000mg Take 1,000 Univers MIN/COBAMAM 8-01 mg by ity of ELOISA (B12 14:22: mouth [place] SUBLINGUAL) 19 daily. MD Nancy whitman [facility] docusate Yes 100mg Take 100 Univ ers sodium 8-01 mg by ity of (COLACE) 14:22: mouth [place] 100 mg 19 twice MD capsule daily. [facility] cloNIDine Yes .2mg Take 0.2 Univ ers HCl 8-01 mg by ity of (CATAPRES) 14:22: mouth 3 [place] 0.2 mg 19 (three) MD tablet times a Anderso day. [facility] cholecalcif Yes 1{capsu Take 1 U nivers puja, 8-01 le} capsule by ity of vitamin D3, 14:22: mouth [place] (VITAMIN 19 daily. D3) 5,000 Anderso units tab n tablet [facility] CYANOCOBALA Yes 1000mg Take 1,000 Univers MIN/COBAMAM 8-01 mg by ity of ELOISA (B12 14:22: mouth [place] SUBLINGUAL) 19 daily. MD Nancy whitman [facility] docusate Yes 100mg Take 100 Univ ers sodium 8-01 mg by ity of (COLACE) 14:22: mouth [place] 100 mg 19 twice MD capsule daily. [facility] nystatin Yes Candidiasis Apply U nivers (MYCOSTATIN 8-01 of skin topically ity of ) 100,000 00:00: to [place] units/g 00 affected MD powder area(s) Anderso twice n daily. [facility] nystatin Yes Candidiasis Apply U nivers (MYCOSTATIN 8-01 of skin topically ity of ) 100,000 00:00: to [place] units/g 00 affected MD powder area(s) Anderso twice n daily. [facility] carvedilol Yes twice Univer s (COREG) 7-18 daily. ity of 3.125 mg 00:00: [place] tablet 00 [facility] metFORMIN Yes 1{tbl} 1 tablet Un heather (GLUCOPHAGE 7-18 twice ity of ) 500 mg 00:00: daily. [place] tablet 00 MD Nancy whitman [facility] carvedilol 2017-0 Yes twice Univer s (COREG) 7-18 daily. ity of 3.125 mg 00:00: [place] tablet 00 MD Nancy whitman [facility] metFORMIN 2017-0 Yes 1{tbl} 1 tablet Un heather (GLUCOPHAGE 7-18 twice ity of ) 500 mg 00:00: daily. [place] tablet 00 MD Nancy whitman [facility] ferrous 2018-0 Yes 3 (three) Unive rs sulfate 325 3-17 times a ity o f mg (65 mg 00:00: day. as elemental) [facility] ferrous 2018-0 Yes 3 (three) Unive rs sulfate 325 3-17 times a ity o f mg (65 mg 00:00: day. elemental) [facility] gemfibrozil 2017-0 Yes twice Unive rs (LOPID) 600 3-13 daily. ity of mg tablet 00:00: MD Nancy whitman [facility] gemfibrozil 0 Yes twice Unive rs (LOPID) 600 3-13 daily. ity of mg tablet 00:00: MD Nancy whitman [facility] TRADJENTA 5 2018-0 Yes daily. Univ ers mg tab 3-07 ity of 00:00: MD Nancy whitman [facility] TRADJENTA 5 2018-0 Yes daily. Univ ers mg tab 3-07 ity of 00:00: MD Cruz [facility] Procedures This patient has no known procedures. Plan of Care Planned Activity Planned Date Details Comments Source Future Scheduled 2022-02-20 COVID-19 Vaccination [facility] [place] Test 03:42:18 (#1) [code = COVID-19 And jaylen Cancer Vaccination (#1)] Center Future Scheduled 2022-02-20 COVID-19 Vaccination [facility] [place] Test 03:42:18 (#1) [code = NHAN-19 And jaylen Cancer Vaccination (#1)] Center Encounters Start End Encounter Admission Attending Care Care Encounter Source Date/Time Date/Time Type Type Clinicians Facility Department ID 2020-06-08 Outpatient SYSTEM, [facility] DEVIKA [id number] 09:56:52 PROVIDER Wilber whitman 2019-09-14 2019-09-14 [facility] [id number] 06:43:00 09:06:00 Encounter Elif Lazarus Oquendo [id number] [place] [id number] [facility] [id number] [place] 071 2019-09-14 2019-09-14 [facility] [id number] [facility] 06:43:00 09:06:00 ELIF shanice [facility] 2019-09-14 2019-09-14 Orders Doctor SHELLEY [id number] 00:00:00 00:00:00 Only Unassigned, SHARMAINE [id number] [place] [id number] 2019-09-02 2019-09-02 Outpatient Demetria DENG [facility] [id number] Univers 16:30:00 16:30:00 ELIF monahan [facility] 2019-09-02 2019-09-02 Singing Telegram Performer 1, Adc Lab [facility] [id number] 15:30:20 16:23:19 Visit Jere [id number] [place] [id number] [place] [id number] Results This patient has no known results.
[2022-07-27 09:47] LABS: Absolute Lymphocytes (CBC) 0.8 K/uL (0.7-4.9); Lymphocytes % 13.4 % (15.3-44.8); MCV 106.5 fL (80-100); MPV 9.5 fL (7.6-11.3); RBC Red Blood Cell Count 1.45 M/uL (3.86-4.86)
[2022-07-27 09:51] LABS: Protime INR 1.02
[2022-07-27] MEDS ORDERED: NA CHLORIDE 0.9% 1,000 ML ONE (09:55)
[2022-07-27 10:02] LABS: ALT/SGPT 15 U/L (13-56); AST/SGOT 20 U/L (15-37); Albumin 3.6 g/dL (3.4-5.0); Alkaline Phosphatase 68 U/L (45-117); BUN Blood Urea Nitrogen 69 mg/dL (7-18); Bicarbonate 22 mmol/L (21-32); Glomerular Filtration Rate 30 ml/min (=/>90); Glucose Level 145 mg/dL (74-106); Hematocrit 15.4 % (36.0-45.0); Potassium 3.9 mmol/L (3.5-5.1); Protein, Total 7.1 g/dL (6.4-8.2); Sodium Level 137 mmol/L (136-145)
[2022-07-27 10:04] LABS: Bilirubin Total < 0.1 mg/dL (0.2-1.0)
[2022-07-27] MEDS ORDERED: PANTOPRAZOLE 40 MG INJ ONE ×2 (10:32→20:32)
[2022-07-27] MEDS ORDERED: NA CHLORIDE 0.9% 250 ML ONE ×4 (10:53→20:32)
[2022-07-27] MEDS ORDERED: PANTOPRAZOLE INJ 80 MG in NA CHLORIDE 0.9% 250 ML IV SCH (11:00)
[2022-07-27 11:02] LABS: SARS-CoV-2 Antigen Rapid Res Negative (Negative)
[2022-07-27 11:05] LABS: Anisocytosis 1+; Blood Morphology Comment NOTED (NOT SEEN); Macrocytosis 1+; Platelet Estimate ADEQ; Platelets, Giant 1+; White Blood Cell Scan OK (OK)
--- NOTE | 2022-07-27 12:38 | EDPHYS ---
Physician Documentation [facility] Name: Veronica Mendoza Age: 67 yrs Sex: Female : 1955 Arrival Date: 07/27/2022 Time: 08:52 Bed 8 Private MD: Tien Stoddard C ED Physician Emanuel Flores HPI: 07/27 11:41 This 67 yrs old Female presents to ER via Ambulatory with complaints of Abnormal Lab rt Results. 11:44 Onset: The symptoms/episode began/occurred gradually. Severity of symptoms: At their rt worst the symptoms were severe. The patient has experienced similar episodes in the past. Patient with a history of chronic anemia presents to the ED at the request of her primary care physician for anemia to 5.9. This represents an acute loss. Patient does have a chronic anemia. She denies any melena, source of bleeding. She states that she feels weak and mildly dizzy but denies other acute complaints at this time. Symptoms are severe in severity, no aggravating or alleviating factors.. Historical: - Allergies: 09:20 No Known Allergies; iw - PMHx: 09:20 Diabetes - NIDDM; Hyperlipidemia; Hypertension; iw - Immunization history:: Adult Immunizations unknown. - Family history:: not pertinent. - Social history:: Smoking status: unknown. ROS: 11:44 Eyes: Negative for injury, pain, redness, and discharge, ENT: Negative for injury, rt pain, and discharge, Neck: Negative for injury, pain, and swelling, Cardiovascular: Negative for chest pain, palpitations, and edema, Respiratory: Negative for shortness of breath, cough, wheezing, and pleuritic chest pain, Abdomen/GI: Negative for abdominal pain, nausea, vomiting, diarrhea, and constipation, Back: Negative for injury and pain, MS/Extremity: Negative for injury and deformity, Skin: Negative for injury, rash, and discoloration, Neuro: Negative for headache, weakness, numbness, tingling, and seizure, Psych: Negative for depression, anxiety, suicide ideation, homicidal ideation, and hallucinations. 11:44 Constitutional: Positive for Which weakness, fatigue. Exam: 11:44 Constitutional: This is a well developed, well nourished patient who is awake, alert, rt and in no acute distress. Head/Face: Normocephalic, atraumatic. ENT: Nares patent. No nasal discharge, no septal abnormalities noted. Tympanic membranes are normal and external auditory canals are clear. Oropharynx with no redness, swelling, or masses, exudates, or evidence of obstruction, uvula midline. Mucous membranes moist. Neck: Trachea midline, no thyromegaly or masses palpated, and no cervical lymphadenopathy. Supple, full range of motion without nuchal rigidity, or vertebral point tenderness. No Meningismus. Chest/axilla: Normal chest wall appearance and motion. Nontender with no deformity. No lesions are appreciated. Cardiovascular: Regular rate and rhythm with a normal S1 and S2. No gallops, murmurs, or rubs. Normal PMI, no JVD. No pulse deficits. Respiratory: Lungs have equal breath sounds bilaterally, clear to auscultation and percussion. No rales, rhonchi or wheezes noted. No increased work of breathing, no retractions or nasal flaring. Abdomen/GI: Soft, non-tender, with normal bowel sounds. No distension or tympany. No guarding or rebound. No evidence of tenderness throughout. MS/ Extremity: Pulses equal, no cyanosis. Neurovascular intact. Full, normal range of motion. Neuro: Awake and alert, GCS 15, oriented to person, place, time, and situation. Cranial nerves II-XII grossly intact. Motor strength 5/5 in all extremities. Sensory grossly intact. Cerebellar exam normal. Normal gait. Psych: Awake, alert, with orientation to person, place and time. Behavior, mood, and affect are within normal limits. 11:44 Eyes: Conjunctiva: pale, bilaterally. 11:44 Skin: pale no bruising. Vital Signs: 09:00 BP 87 / 50; Pulse 62; Resp 17; Pulse Ox 93% on R/A; jl7 09:18 BP 89 / 49; Pulse 72; Resp 16; Temp 97.5; Pulse Ox 97% on R/A; Weight 65.77 kg; Height iw 5 ft. 5 in. (165.10 cm); Pain 0/10; 09:45 BP 74 / 46; Pulse 65; Resp 15; Pulse Ox 100% ; jl7 10:00 BP 80 / 44; Pulse 65; Resp 17; Pulse Ox 100% ; jl7 10:45 BP 76 / 43; Pulse 62; Resp 15; Pulse Ox 100% ; jl7 11:30 BP 81 / 48; Pulse 63; Resp 16; Pulse Ox 100% ; jl7 12:23 BP 81 / 47; Pulse 63; Resp 16; Pulse Ox 100% ; jl7 13:00 BP 85 / 45; Pulse 62; Resp 18; Pulse Ox 100% ; 3 13:30 BP 81 / 46; Pulse 62; Resp 18; Pulse Ox 100% ; kb3 15:00 BP 84 / 49; Pulse 65; Resp 18; Pulse Ox 100% ; kb3 16:00 BP 88 / 52; Pulse 62; Resp 18; Pulse Ox 100% ; kb3 17:00 BP 105 / 57; Pulse 66; Resp 16; Pulse Ox 100% ; kb3 18:00 BP 98 / 52; Pulse 63; Resp 16; Pulse Ox 100% ; kb3 22:40 BP 100 / 52; Pulse 75; Resp 17 S; Temp 98.2(TE); Pulse Ox 98% on R/A; as6 07/28 04:56 BP 98 / 52; Pulse 60; Resp 19; Pulse Ox 94% on R/A; kd3 07/27 09:18 Body Mass Index 24.13 (65.77 kg, 165.10 cm) iw MDM: 07/27 09:30 Patient medically screened. rt 11:46 Differential Diagnosis Anemia, blood loss, coagulopathy. Data reviewed: vital signs, rt nurses notes, old medical records, lab test result(s). ED course: Presents to the ED with generalized weakness and a significant anemia. She will be transfused. Patient with hypotension, volume responsive. She will be admitted to Dr. Stoddard service for further care.. 07/27 08:53 Order name: CBC with Diff; Complete Time: 11:42 rt 07/27 08:53 Order name: CMP; Complete Time: 11:42 rt 12 08:53 Order name: PT-INR; Complete Time: 09:56 rt 12 08:53 Order name: Ptt, Activated; Complete Time: 09:56 rt 07/27 08:53 Order name: Type And Screen rt 12 09:44 Order name: Bb Add On eb 07/27 10:00 Order name: ABO/RH no charge; Complete Time: 11:42 EDMS 07/27 10:18 Order name: Packed RBC Leukored EDMS 07/27 10:22 Order name: SARS RAPID; Complete Time: 11:42 eb 07/27 11:06 Order name: CBC Smear Scan; Complete Time: 11:42 EDMS 07/27 22:37 Order name: CBC with Diff kl 07/27 22:37 Order name: CMP kl 07/27 23:13 Order name: CBC with Automated Diff; Complete Time: 23:59 EDMS 07/27 23:15 Order name: Comprehensive Metabolic Panel; Complete Time: 23:59 EDMS 07/27 09:51 Order name: Labs - recollect needed: recollect t\T\S tube/ hemolyzed; Complete Time: 10:05eb 07/28 04:37 Order name: CBC with Automated Diff EDMS 07/28 04:47 Order name: Comprehensive Metabolic Panel EDMS Administered Medications: 10:00 Drug: NS 0.9% 1000 ml Route: IV; Rate: 1 bolus; Site: right antecubital; jl7 11:15 Follow up: Response: No adverse reaction; IV Status: Completed infusion; IV Intake: jl7 1000ml 10:45 Drug: ProTONIX (pantoprazole) 80 mg Route: IVP; Site: right antecubital; jl7 12:31 Follow up: Response: No adverse reaction jl7 11:30 Drug: ProTONIX (pantoprazole) 8 mg/hr Route: IV; Rate: 25 ml/hr; Site: right jl7 antecubital; 12:31 Follow up: IV Status: Infusion continued upon admission jl7 22:46 Follow up: Response: No adverse reaction; IV Status: Completed infusion; IV Intake: as6 250ml Disposition Summary: 07/27/22 12:37 Hospitalization Ordered Hospitalization Status: Inpatient Admission rt Provider: Tien Stoddard rt Condition: Critical rt Problem: an acute exacerbation rt Symptoms: have improved rt Bed/Room Type: Standard rt Location: [facility] ER HOLD(07/27/22 19:54) cg Room Assignment: ERHOLD-(07/27/22 19:54) cg Diagnosis - Anemia, unspecified rt - Hypotension, unspecified rt Forms: - Medication Reconciliation Form rt - SBAR form rt Critical care time excluding procedures: 11:46 Critical care time: Bedside Care: 30 minutes, Consultation: 10 minutes. Total time: 40 rt minutes Signatures: Dispatcher [employer] EDMS Fredrick Zendejas MD MD kdr Williams, Irene, RN RN iw Garcia, Cindy, RN RN Mukund Hendrix RN RN jl7 Lesly Castillo Ryan, MD MD rt Cole Velarde RN as6 Corrections: (The following items were deleted from the chart) 12:37 Intensive Care Unit rt cg 12:37 rt cg
--- NOTE | 2022-07-27 12:38 | ER ---
Nurse's Notes [facility] Name: Veronica Mendoza Age: 67 yrs Sex: Female : 1955 Arrival Date: 07/27/2022 Time: 08:52 Bed 8 Private MD: Tien Stoddard C Diagnosis: Anemia, unspecified;Hypotension, unspecified Presentation: 07/27 09:18 Chief complaint: Patient states: had blood work done Friday and my hemoglobin was very iw low , was sent by Dr. Stoddard. Coronavirus screen: At this time, the client does not indicate any symptoms associated with coronavirus-19. Ebola Screen: Patient negative for fever greater than or equal to 101.5 degrees Fahrenheit, and additional compatible Ebola Virus Disease symptoms Patient denies exposure to infectious person. Patient denies travel to an Ebola-affected area in the 21 days before illness onset. No symptoms or risks identified at this time. Initial Sepsis Screen: Does the patient meet any 2 criteria? No. Patient's initial sepsis screen is negative. Does the patient have a suspected source of infection? No. Patient's initial sepsis screen is negative. Risk Assessment: Do you want to hurt yourself or someone else? Patient reports no desire to harm self or others. Onset of symptoms was July 27, 2022. 09:18 Method Of Arrival: Ambulatory iw 09:18 Acuity: TOBIAS 3 iw Triage Assessment: 19:41 General: Appears in no apparent distress. Behavior is calm, cooperative. as6 Historical: - Allergies: 09:20 No Known Allergies; iw - PMHx: 09:20 Diabetes - NIDDM; Hyperlipidemia; Hypertension; iw - Immunization history:: Adult Immunizations unknown. - Family history:: not pertinent. - Social history:: Smoking status: unknown. Screenin:50 Abuse screen: Denies threats or abuse. Denies injuries from another. Nutritional jl7 screening: No deficits noted. Tuberculosis screening: No symptoms or risk factors identified. Fall Risk IV access (20 points). Total [place] Fall Scale indicates No Risk (0-24 pts). Assessment: 09:50 Reassessment: Dr. Flores notified of BP 74/46, VO to administer 1 L NS bolus while jl7 we wait for PRBCs. 12:00 General: Received care of pt from Mukund BARRIENTOS, AAO x4, denies pain, SOB. Updated kb3 regarding awaiting blood products to be ready. When available, 3 units of PRBCs are ordered to be administered. Pt states understanding with no questions. Blood transfusion consent reviewed and signed. . 12:00 Pain: Denies pain. Cardiovascular: Denies chest pain, lightheadedness, nausea, kb3 shortness of breath, Heart tones present Patient's skin is warm and dry. Rhythm is sinus rhythm. Respiratory: No deficits noted. Breath sounds are clear bilaterally. 19:25 Reassessment: Patient appears in no apparent distress at this time. Patient and/or as6 family updated on plan of care and expected duration. Pain level reassessed. Patient is alert, oriented x 3, equal unlabored respirations, skin warm/dry/pink. General: 3rd unit of blood started. see paper charting for vitals . 22:40 General: transfusion complete . as6 Vital Signs: 09:00 BP 87 / 50; Pulse 62; Resp 17; Pulse Ox 93% on R/A; jl7 09:18 BP 89 / 49; Pulse 72; Resp 16; Temp 97.5; Pulse Ox 97% on R/A; Weight 65.77 kg; Height iw 5 ft. 5 in. (165.10 cm); Pain 0/10; 09:45 BP 74 / 46; Pulse 65; Resp 15; Pulse Ox 100% ; jl7 10:00 BP 80 / 44; Pulse 65; Resp 17; Pulse Ox 100% ; jl7 10:45 BP 76 / 43; Pulse 62; Resp 15; Pulse Ox 100% ; jl7 11:30 BP 81 / 48; Pulse 63; Resp 16; Pulse Ox 100% ; jl7 12:23 BP 81 / 47; Pulse 63; Resp 16; Pulse Ox 100% ; jl7 13:00 BP 85 / 45; Pulse 62; Resp 18; Pulse Ox 100% ; kb3 13:30 BP 81 / 46; Pulse 62; Resp 18; Pulse Ox 100% ; kb3 15:00 BP 84 / 49; Pulse 65; Resp 18; Pulse Ox 100% ; kb3 16:00 BP 88 / 52; Pulse 62; Resp 18; Pulse Ox 100% ; kb3 17:00 BP 105 / 57; Pulse 66; Resp 16; Pulse Ox 100% ; kb3 18:00 BP 98 / 52; Pulse 63; Resp 16; Pulse Ox 100% ; kb3 22:40 BP 100 / 52; Pulse 75; Resp 17 S; Temp 98.2(TE); Pulse Ox 98% on R/A; as6 07/28 04:56 BP 98 / 52; Pulse 60; Resp 19; Pulse Ox 94% on R/A; kd3 07/27 09:18 Body Mass Index 24.13 (65.77 kg, 165.10 cm) iw ED Course: 07/27 08:52 Patient arrived in ED. am2 08:52 Emanuel Flores MD is Attending Physician. rt 08:53 Tien Stoddard MD is Private Physician. am2 09:20 Triage completed. iw 09:20 Arm band placed on. iw 09:40 CBC with Diff Sent. mm9 09:40 PT-INR Sent. mm9 09:40 CMP Sent. mm9 09:40 Ptt, Activated Sent. mm9 09:40 Type And Screen Sent. mm9 09:40 Initial lab(s) drawn, by me, sent to lab. T\T\S collected, blood band applied to patient. mm9 Inserted saline lock: 20 gauge in right antecubital area, using aseptic technique. Blood collected. 09:41 Patient has correct armband on for positive identification. Placed in gown. Bed in low mm9 position. Call light in reach. Side rails up X 1. Adult w/ patient. Warm blanket given. Pillow given. campus monitor on. Pulse ox on. NIBP on. 09:48 Mukund Garcia, RN is Primary Nurse. jl7 10:00 Lab(s) recollected, by me, sent to lab. T\T\S collected, blood band applied to patient. jl7 12:00 No provider procedures requiring assistance completed. kb3 12:00 Inserted saline lock: 22 gauge in right hand, using aseptic technique. ,using aseptic kb3 technique. inserted by previous RN. 12:31 Bb Add On Sent. jl7 12:36 Tien Stoddard MD is Hospitalizing Provider. rt 22:46 Patient admitted, IV remains in place. as6 Administered Medications: 10:00 Drug: NS 0.9% 1000 ml Route: IV; Rate: 1 bolus; Site: right antecubital; jl7 11:15 Follow up: Response: No adverse reaction; IV Status: Completed infusion; IV Intake: jl7 1000ml 10:45 Drug: ProTONIX (pantoprazole) 80 mg Route: IVP; Site: right antecubital; jl7 12:31 Follow up: Response: No adverse reaction jl7 11:30 Drug: ProTONIX (pantoprazole) 8 mg/hr Route: IV; Rate: 25 ml/hr; Site: right jl7 antecubital; 12:31 Follow up: IV Status: Infusion continued upon admission jl7 22:46 Follow up: Response: No adverse reaction; IV Status: Completed infusion; IV Intake: as6 250ml Medication: 09:50 VIS not applicable for this client. jl7 Intake: 11:15 IV: 1000ml; Total: 1000ml. jl7 22:46 IV: 250ml; Total: 1250ml. as6 Output: 13:50 Urine: 400ml (Voided); Total: 400ml. kb3 Outcome: 12:37 Decision to Hospitalize by Provider. rt 22:46 Admitted to ER Hold. Please see [facility] for further documentation. as6 22:46 Condition: stable 22:46 Instructed on the need for admit. 12 10:45 Patient left the ED. bp Signatures: Vernoica Ashton, RN RN iw Mukund Garcia RN RN jl7 Janeth Armendariz am2 Kameron Culp RN RN Cole Bird RN RN as6 Amira Mason RN RN kd3 Florinda Vogt, ILIANA RN peg3 Savannah Dowling mmEmanuel Erwin MD MD rt Zev Matias rs5 Corrections: (The following items were deleted from the chart) 07/27 12:23 09:42 BP 87 / 50; Pulse 62bpm; Resp 17bpm; Pulse Ox 93% RA; rs5 jl7 12:32 12:23 BP 81 / 48; Pulse 63bpm; Resp 16bpm; Pulse Ox 100%; jl7 jl7
--- NOTE | 2022-07-27 13:32 | HP ---
Date of Admission: 07/27/2022 Chief Complaint: Anemia and feeling tired. History Of Present Illness: This is a 67-year-old very pleasant female patient, who had her routine outpatient blood work done yesterday and this morning we noted that her hemoglobin on this blood work from yesterday was 5.9 and the patient was contacted this morning and she was advised to come to [facility] for further evaluation and management of this problem. I did call ER physician to alert them regarding this and after the patient came to the emergency room, further evaluation was done and now we are admitting the patient to the hospital. I saw her in the emergency room this morning and she reports that in last 2 weeks or so, she is having increasing feeling of tiredness. Denies any ch est pain or shortness of breath. Denies any blood in stool. No change in bowel habits. No black co lored stool. No abdominal pain. No nausea. No vomiting. No hematemesis. No blood in urine. No e vidence of any bleeding anywhere. Allergies: NO KNOWN ALLERGIES. Medications: Aspirin 81 mg daily, carvedilol 6.25 mg 2 times a day, vitamin D3 5000 units daily, renata nidine 0.1 mg 3 times a day as needed for systolic blood pressure more than 150, ferrous fumarate 324 mg daily, gemfibrozil 600 mg , Levemir insulin 15 units subcutaneous injection at bedtime, ramipril 10 mg daily, rosuvastatin 10 mg daily, vitamin B12 1000 mcg daily. Review of Systems: Constitutional: As mentioned above. All other systems reviewed and negative. Past Medical History: Significant for type 2 diabetes mellitus, hypertension, mixed hyperlipidemia, known alcoholic fatty liver disease, gallstones, prior history of anemia and thrombocytopenia. Past Surgical History: Cataract surgery and partial thyroidectomy due to right-sided thyroid cyst. Family History: Father , details unknown. Social History: Prior history of smoking, not at present time. Use of alcohol alcohol 1 drink. Physical Examination: Vital Signs: Height 65 inches, weight pounds, temperature , pulse , r espiratory rate , blood pressure when she first came into emergency room, her systolic bloo d pressure was 70. When I saw her, her systolic blood pressure was 80 and she was getting IV fluid. Her oxygen saturation was 99%. General: Awake, alert, oriented, not in distress. HEENT: Head atraumatic, normocephalic. Conjunctivae pale. Sclerae white. Mouth, no thrush or fernando a noted. Ears/Nose, no mass, lesion, discharge noted. Neck: Supple. No JVD, lymph nodes, bruit, thyromegaly noted. Lungs: Bilateral good equal air entry. Clear to auscultation. No rhonchi. No rales. Heart: Normal heart sounds, no murmur or gallop. Abdomen: Soft, bowel sounds normal. No guarding, rigidity, tenderness, mass, hepatosplenomegaly, dis tention, or bruit noted. Extremities: No leg edema. No calf tenderness. Skin: No rash, ulcer, cellulitis. Lymphatics: No lymph node enlargement in neck, supraclavicular, infraclavicular region. Neuro: No focal neurological deficit. Chest: Unremarkable. External Genitalia: Deferred. Rectal: Deferred. Laboratory Data: On April 01, 2022; her hemoglobin was 11.8. Yesterday, outpatient blood work show ed that WBC count 9.6, hemoglobin 5.9, platelets 205. Hemoglobin A1c 4.3. Liver function tests norm al. Sodium 138, potassium 4, chloride 103, bicarb 20, BUN 75, creatinine 1.83, glucose 100. Today; white count 5.8, hemoglobin 5.2, platelets 188. Sodium 137, potassium 3.9, chloride 113, bicarb 22, BUN 69, creatinine 1.84, glucose 145. Liver function tests normal. COVID-19 test pending. Impression: 1.Acute blood loss anemia. 2.Likely upper gastrointestinal bleeding. 3.Acute kidney injury secondary to above. 4.Type 2 diabetes mellitus. 5.Hypertension. 6.Mixed hyperlipidemia. 7.Known alcoholic fatty liver disease. Plan: We will admit the patient to hospital for further evaluation and management of this problem. The patient is appropriate for inpatient and is expected to spend 2 midnights in hospital. After she arrived into emergency room, IV fluid was started and her systolic blood pressure has gone up from 7 0 systolic to 80 systolic by the time I saw her. The patient is not in any distress and once we are able to stabilize her blood pressure, we should be able to admit her to regular floor, but if that do es not happen, then we may have to admit her to ICU. Three units of PRBC blood transfusion was order ed and we will go ahead and follow up on H and H that is hemoglobin and hematocrit after 3 units of b lood transfusion completed. 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 IV Protonix drip will be started. For hypertension, we will monitor her blood pressure and she will receive antihypertensive medications once her blood pressure goes up, but at this point, we katina l just need to continue to monitor it. For diabetes, we will manage it with sliding scale insulin. For her hyperlipidemia, we will continue her outpatient therapy and statin therapy per order. DVT pr ophylaxis will be given using SCD and we will not use Lovenox considering our concerns about GI bleed ing. Code status discussed with the patient today and she is full code. Plan of treatment discussed with her. I will see her tomorrow for followup. JAMES/MODL Voice ID: [id number]
[2022-07-27] MEDS ORDERED: NA CHLORIDE 0.9% 1,000 ML IV SCH (22:00)
[2022-07-27 22:54] LABS: Absolute Lymphocytes (CBC) 0.9 K/uL (0.7-4.9); Lymphocytes % 17.6 % (15.3-44.8); MCV 97.3 fL (80-100); MPV 9.7 fL (7.6-11.3); RBC Red Blood Cell Count 2.78 M/uL (3.86-4.86)
[2022-07-27 23:15] LABS: Bilirubin Total 0.4 mg/dL (0.2-1.0); Potassium 3.9 mmol/L (3.5-5.1); Protein, Total 6.1 g/dL (6.4-8.2)
[2022-07-28 00:16] VITALS: BMI 24.1
[2022-07-28] MEDS ORDERED: NA CHLORIDE 0.9% 1,000 ML ONE (01:33)
[2022-07-28 04:30] LABS: Absolute Lymphocytes (CBC) 0.7 K/uL (0.7-4.9); Hematocrit 28.1 % (36.0-45.0); Lymphocytes % 14.4 % (15.3-44.8); MCV 97.2 fL (80-100); MPV 9.8 fL (7.6-11.3); RBC Red Blood Cell Count 2.89 M/uL (3.86-4.86)
[2022-07-28 04:45] VITALS: TEMP 98.1
[2022-07-28 04:47] LABS: Bilirubin Total 0.4 mg/dL (0.2-1.0); Potassium 3.6 mmol/L (3.5-5.1); Protein, Total 6.2 g/dL (6.4-8.2)
[2022-07-28 10:31] VITALS: BP 104/59
[2022-07-28 11:06] VITALS: O2SAT 94
--- NOTE | 2022-07-28 18:30 | DS ---
Date of Discharge: 07/28/2022 Disposition: Discharged to go home. Physical Examination: Vital Signs: Today this morning temperature 98.1, pulse 60, respiratory rate 17, blood pressure 101/ 59, oxygen saturation 97% on room air. HEENT: Unremarkable. Lungs: Clear to auscultation. Heart: Sounds normal. Abdomen: Soft. Bowel sounds normal. No guarding, rigidity, tenderness, distention. Extremities: No leg edema. Laboratory Data: Yesterday upon admission, white count 5.8, hemoglobin 5.2, platelets 188. Last nig ht after blood transfusion hemoglobin came up to 9.2. This morning white count 5.1, hemoglobin 9.6, platelets 131. Yesterday, sodium 137, potassium 3.9, chloride 113, bicarb 22, BUN 69, creatinine 1.8 4, glucose 145. Liver function tests unremarkable. This morning sodium 141, potassium 3.6, chloride 115, bicarb 20, BUN 42, creatinine 1.29, glucose 93. Liver function tests unremarkable. Discharge Medications And Instructions: Continue all prior home medication except following changes: 1.Stop aspirin, carvedilol, clonidine, and ramipril. 2.Change Levemir insulin dose to 5 units daily at bedtime as the patient reports that she was taking only 10 units daily at bedtime. 3.Follow up at my office tomorrow. She already has scheduled appointment. 4.Follow up with Dr. Farr tomorrow morning and the patient was advised to call his office at 8 o'c lock tomorrow morning to schedule the EGD for tomorrow and she will remain n.p.o. after midnight preethi gonzalez in order for her to get this EGD tomorrow at Dr. Farr's office. 5.Pantoprazole 40 mg daily before breakfast. 6.Do not take any Aleve, Motrin, ibuprofen, naproxen, etc. Hospital Course: A 67-year-old female patient who was admitted to the hospital with complaints of fe eling tired and anemia problem. Please see dictated H and P for more information. After patient was evaluated, she was admitted to the hospital and 3 units of packed red cell blood transfusion was giv en. Initially, her blood pressure was low, but she really did not show any signs or symptoms from th is low blood pressure. No evidence of any hypoxia or any shortness of breath. Mental status was nor mal. She was given IV fluid and 3 units of PRBC blood transfusion and after that the hemoglobin cecilia ined stable. She does not have any blood in stool or black stool. What we believe is that she has c hronic GI blood loss anemia and GI consultation was requested, but Dr. Farr has not had a chance to set and the patient wants to go home. Medically, she is stable for discharge, so I did call Dr. Good att and discussed details with him and reported that the patient's COVID test was negative done yeste rday when she came into ER, so he will do EGD tomorrow at his office and he has advised the patient t o call his office around 8 o'clock tomorrow morning. The patient was given all these appropriate inf ormation. Final Diagnoses: 1.Anemia due to chronic gastrointestinal blood loss. 2.Probable upper gastrointestinal bleeding. 3.Acute kidney injury secondary to above. 4.Type 2 diabetes mellitus. 5.Hypertension. 6.Mixed hyperlipidemia. 7.Non-alcoholic fatty liver disease. JAMES/MODL Voice ID: [id number] Report ID: [id number]
== END 2022-07-28 10:45 | disposition home health service (06) ==
LOC: ER 08:49 → ERHOLD 14:13 → INTOOBSV 14:13
PROVIDERS: ADMIT Internal Medicine; ATTEND Internal Medicine
PROC: 30233N1 Transfusion of Nonautologous Red Blood Cells into Peripheral Vein, Percutaneous Approach (ICD-10-PCS; principal; 2022-07-27)
DX: D62 Acute posthemorrhagic anemia (principal); K92.2 Gastrointestinal hemorrhage, unspecified; N17.9 Acute kidney failure, unspecified; E11.9 Type 2 diabetes mellitus without complications; I10 Essential (primary) hypertension; E78.2 Mixed hyperlipidemia; K76.0 Fatty (change of) liver, not elsewhere classified; Z20.822 Contact with and (suspected) exposure to COVID-19
CPT/HCPCS: 36430; 85025 ×3; 36415; 86900; 86850; 85610; 86901; 85730; 80053 ×3; 87811; C9113 ×3; P9016 ×3; J7050 ×5; J7030 ×2; 96361; 96365; 99285; G0378

== ENCOUNTER 2023-02-07 13:47 | Emergency (ER) | payer OTHER ==
[2023-02-07] MEDS ORDERED: NA CHLORIDE 0.9% 2,000 ML ONE (14:01)
--- NOTE | 2023-02-07 14:54 | RAD REPORT ---
EXAM DESCRIPTION: RAD - Chest Single View - 02/07/2023 2:43 pm CLINICAL HISTORY: hypotension Chest pain. COMPARISON: Chest Single View dated 02/20/2022; Chest Pa And Lat (2 Views) dated 10/06/2018; Chest Sing le View dated 10/01/2018; Chest Single View dated 09/30/2018 FINDINGS: Portable technique limits examination quality. The lungs are grossly clear. The heart is normal in size. No displaced fractures. IMPRESSION: No acute intrathoracic process suspected.
[2023-02-07 14:59] LABS: Absolute Lymphocytes (CBC) 0.5 K/uL (0.7-4.9); Hematocrit 27.3 % (36.0-45.0); Lymphocytes % 4.6 % (15.3-44.8); MCV 93.6 fL (80-100); MPV 8.9 fL (7.6-11.3); RBC Red Blood Cell Count 2.92 M/uL (3.86-4.86)
--- OUTSIDE RECORDS SUMMARY | 2023-02-07 14:59 | XMS REPORT | Clinical Summary ---
:1955 Author Organization [facility] MD [facility] Address [address] [place] [address] Care Team Providers Name Role Phone Andrew Galan Unavailable Treasure Mckeon APRN,DATA SECURITY ANALYST Unavailable [phone] Ashley Aguayo MD Unavailable Best Stoddard MD [...] Vaccination (#1) 01/17/1956 Results Not on fileafter 02/07/2022 Insurance Payer Benefit Plan / Subscriber ID Effective Dates Phone Addre ss Type Group AETNA MANAGED AETNA O [id number] 2000-Present [id number] [place] [address] Care Teams Cardiovascular Sonographer Relationship Specialty Start Date End Date Best Stoddard MD PCP - General Internal Medicine 11/17/[address] [place] [phone] Andrew Galan PA Physician [employer] Farm[employer] 10/25/15 [address] [place] [address] Treasure Mckeon, TABLE CUT OFF SAW OPERATOR,DATA SECURITY ANALYST Nurse Practitioner 10/25/[address] [place] [id number] Ashley Aguayo MD Physician Breast Surgery 02/26/[address] [place] [address] [phone]
--- OUTSIDE RECORDS SUMMARY | 2023-02-07 15:00 | XMS REPORT | Continuity of Care Document ---
:1955 Author Organization [facility] t Address [address] [place] [address] Care Team Providers Name Role Phone Best Stoddard MD Primary Care Physician SYSTEM, PROVIDER NOT IN Attending Clinician Unavailable Ajit Carbajal Attending Clinician Unavailable Elif Deng MD Attending Clinician ELIF DENG Attending Clinician Unavailable Doctor Unassigned, [place] Attending Clinician Unavailable 1, [facility] Attending Clinician Unavailable Ajit Carbajal Admitting Clinician Unavailable Physician, No Primary or Family Admitting Clinician UnavailElif Zhao MD Admitting Clinician ELIF DENG Admitting Clinician Unavailable Payers Payer Name Policy Type Policy Number Effective Date Expiration Date S omar MEDICARE PART A \\T\\ [id number] 2019 B 00:00:00 CONTINENTAL [id number] 2019 BENEFITS 00:00:00 Problems Condition Condition Condition Status Onset Resolution Last Treating Co mments Source Name Details Category Date Date Treatment Clinician Date Candidiasi Candidiasi Disease Active U nivers s of skin s of skin 03-14 ity of 00:00: [place] 00 MD Nancy whitman [facility] Allergies, Adverse Reactions, Alerts Allergy Allergy Status Severity Reaction(s) Onset Inactive Treating Comm ents Source Name Type Date Date Clinician No Known DA Active U [facility] Allergie 2-15 Malik s 00:00: [facility] [address] NO KNOWN Drug Active Univers ALLERGIE Class ity of S [facility] Social History Social Habit Start Date Stop Date Quantity Comments Source Sex Assigned At [birth year] [facility] [place] 00:00:00 00:00:00 MD [facility] Medications Ordered Filled Start Stop Current Ordering Indication Dosage Frequency Signature Comments Components Source Medication Medication Date Date Medication? Clinician (SIG) Name Name PSYLLIUM Yes 1{tbl} Take 1 Unive rs SEED, WITH 8- tablet by ity of DEXTROSE, 14:22: mouth [place] (FIBER 19 daily. ORAL) [facility] LACTOBACILL Yes 1{tbl} Take 1 Un heather US 8- tablet by ity of ACIDOPHILUS 14:22: mouth [place] (PROBIOTIC 19 daily. ORAL) [facility] rosuvastati Yes 10mg Take 10 mg Univers n (CRESTOR) 8- by mouth ity of 10 mg 14:22: at [place] tablet 19 bedtime. MD Nancy whitman [facility] aspirin 81 Yes 81mg Chew 81 mg U nivers mg chewable 8- daily. ity of tablet 14:22: [place] 19 MD Nancy whitman [facility] cloNIDine Yes .2mg Take 0.2 Univ ers HCl 8- mg by ity of (CATAPRES) 14:22: [place] 0.2 [place] 19 (three) tablet times a Anderso day. [facility] cholecalcif Yes 1{capsu Take 1 U nivers puja, 8- le} capsule by ity of vitamin D3, 14:22: mouth [place] (VITAMIN 19 daily. D3) 5,000 [place] units tab n tablet [facility] CYANOCOBALA Yes 1000mg Take 1,000 Univers MIN/COBAMAM 8-01 mg by ity of ELOISA (B12 14:22: mouth [place] SUBLINGUAL) 19 daily. [facility] docusate Yes 100mg Take 100 Univ ers sodium 8-01 mg by ity of (COLACE) 14:22: mouth [place] 100 mg 19 twice MD capsule daily. [facility] LACTOBACILL Yes 1{tbl} Take 1 Un heather US 8-01 tablet by ity of ACIDOPHILUS 14:22: mouth [place] (PROBIOTIC 19 daily. ORAL) [facility] rosuvastati Yes 10mg Take 10 mg Univers n (CRESTOR) 8-01 by mouth ity of 10 mg 14:22: at [place] tablet 19 bedtime. MD Cruz [facility] aspirin 81 Yes 81mg Chew 81 mg U nivers mg chewable 8- daily. ity of tablet 14:22: [place] 19 [facility] cloNIDine Yes .2mg Take 0.2 Univ ers HCl 8-01 mg by ity of (CATAPRES) 14:22: [place] 0[place] 19 (three) MD tablet times a [place]o day. [facility] cholecalcif Yes 1{capsu Take 1 U nivers puja, 8- le} capsule by ity of vitamin D3, 14:22: mouth [place] (VITAMIN 19 daily. D3) 5,000 [place] units tab n tablet [facility] CYANOCOBALA Yes 1000mg Take 1,000 Univers MIN/COBAMAM 8-01 mg by ity of ELOISA (B12 14:22: mouth [place] SUBLINGUAL) 19 daily. MD Nancy whitman [facility] docusate Yes 100mg Take 100 Univ ers sodium 8-01 mg by ity of (COLACE) 14:22: mouth [place] 100 mg 19 twice MD capsule daily. [facility] PSYLLIUM Yes 1{tbl} Take 1 Unive rs SEED, WITH 8-01 tablet by ity of DEXTROSE, 14:22: mouth [place] (FIBER 19 daily. ORAL) [facility] LACTOBACILL Yes 1{tbl} Take 1 Un heather US 8-01 tablet by ity of ACIDOPHILUS 14:22: mouth [place] (PROBIOTIC 19 daily. ORAL) [facility]mg Take 10 mg Univers n (CRESTOR) 8-01 by mouth ity of 10 mg 14:22: at [place] tablet 19 bedtime. MD Nancy whitman [facility] aspirin 81 Yes 81mg Chew 81 mg U nivers mg chewable 8-01 daily. ity of tablet 14:22: [place] 19 [facility] cloNIDine Yes .2mg Take 0.2 Univ ers HCl 8-01 mg by ity of (CATAPRES) 14:22: [place] 0.2 mg 19 (three) tablet times a Anderso . [facility] cholecalcif Yes 1{capsu Take 1 U nivers puja, 8- le} capsule by ity of vitamin D3, 14:22: mouth [place] (VITAMIN 19 daily. D3) 5,000 [place] units tab n tablet [facility] CYANOCOBALA Yes 1000mg Take 1,000 Univers MIN/COBAMAM 8-01 mg by ity of ELOISA (B12 14:22: mouth [place] SUBLINGUAL) 19 daily. [facility] docus[facility] Yes 100mg Take 100 Univ ers sodium 8-01 mg by ity of (COLACE) 14:22: mouth [place] 100 mg 19 twice MD capsule daily. [facility] PSYLLIUM Yes 1{tbl} Take 1 Unive rs SEED, WITH 8-01 tablet by ity of DEXTROSE, 14:22: mouth [place] (FIBER 19 daily. MD PETERS) [facility] aspirin 81 Yes 81mg Chew 81 mg U nivers mg chewable 8-01 daily. ity of tablet 14:22: [place] 19 [facility] LACT[facility] Yes 1{tbl} Take 1 Un heather US 8-01 tablet by ity of ACIDOPHILUS 14:22: mouth [place] (PROBIOTIC 19 daily. ORAL) [facility] rosuvastati Yes 10mg Take 10 mg Univers n (CRESTOR) 8-01 by mouth ity of 10 mg 14:22: at [place] tablet 19 bedtime. MD Cruz [facility] aspirin 81 Yes 81mg Chew 81 mg U nivers mg chewable 8-01 daily. ity of tablet 14:22: [place] 19 [facility] Yes .2mg Take 0.2 Univ ers HCl 8-01 mg by ity of (CATAPRES) 14:22: [place] 0.2 mg 19 (three) MD tablet times a Anderso day. [facility] cloNIDine Yes .2mg Take 0.2 Univ ers HCl 8-01 mg by ity of (CATAPRES) 14:22: [place] 0.2 mg 19 (three) MD tablet times a [place]o day. [facility] cholecalcif Yes 1{capsu Take 1 U nivers puja, 8-01 le} capsule by ity of vitamin D3, 14:22: mouth [place] (VITAMIN 19 daily. D3) 5,000 [place] units tab n tablet [facility] CYANOCOBALA Yes 1000mg Take 1,000 Univers MIN/COBAMAM 8-01 mg by ity of ELOISA (B12 14:22: mouth [place] SUBLINGUAL) 19 daily. MD Nancy whitman [facility] docusate Yes 100mg Take 100 Univ ers sodium 8-01 mg by ity of (COLACE) 14:22: mouth [place] 100 mg 19 twice MD capsule daily. [facility] PSYLLIUM Yes 1{tbl} Take 1 Unive rs SEED, WITH 8-01 tablet by ity of DEXTROSE, 14:22: mouth [place] (FIBER 19 daily. ORAL) [facility] LACTOBACILL Yes 1{tbl} Take 1 Un heather US 8-01 tablet by ity of ACIDOPHILUS 14:22: mouth [place] (PROBIOTIC 19 daily. ORAL) [facility] rosuvastati Yes 10mg Take 10 mg Univers n (CRESTOR) 8-01 by mouth ity of 10 mg 14:22: at [place] tablet 19 bedtime. [facility] cholecalcif Yes 1{capsu Take 1 U nivers puja, 8-01 le} capsule by ity of vitamin D3, 14:22: mouth [place] (VITAMIN 19 daily. D3) 5,000 [place] units tab n tablet [facility] aspirin 81 Yes 81mg Chew 81 mg U nivers mg chewable 8-01 daily. ity of tablet 14:22: [place] 19 MD Cruz [facility] cloNIDine Yes .2mg Take 0.2 Univ ers HCl 8-01 mg by ity of (CATAPRES) 14:22: [place] 0.2 mg 19 (three) MD tablet times a day. [facility] cholecalcif Yes 1{capsu Take 1 U nivers puja, 8-01 le} capsule by ity of vitamin D3, 14:22: mouth [place] (VITAMIN 19 daily. D3) 5,000 [place] units tab n tablet [facility] CYANOCOBALA Yes 1000mg Take 1,000 Univers MIN/COBAMAM 8-01 mg by ity of ELOISA (B12 14:22: mouth [place] SUBLINGUAL) 19 daily. MD Nancy whitman [facility] docusate Yes 100mg Take 100 Univ ers sodium 8-01 mg by ity of (COLACE) 14:22: mouth [place] 100 mg 19 twice MD capsule daily. [facility] PSYLLIUM Yes 1{tbl} Take 1 Unive rs SEED, WITH 8-01 tablet by ity of DEXTROSE, 14:22: mouth [place] (FIBER 19 daily. ORAL) [facility] CYANOCOBALA Yes 1000mg Take 1,000 Univers MIN/COBAMAM 8-01 mg by ity of ELOISA (B12 14:22: mouth [place] SUBLINGUAL) 19 daily. MD Nancy whitman [facility] LACTOBACILL Yes 1{tbl} Take 1 Un heather US 8-01 tablet by ity of ACIDOPHILUS 14:22: mouth [place] (PROBIOTIC 19 daily. ORAL) [facility] rosuvastati Yes 10mg Take 10 mg Univers n (CRESTOR) 8-01 by mouth ity of 10 mg 14:22: at [place] tablet 19 bedtime. MD Cruz [facility] aspirin 81 Yes 81mg Chew 81 mg U nivers mg chewable 8-01 daily. ity of tablet 14:22: [place] 19 MD Cruz [facility] docusate Yes 100mg Take 100 Univ ers sodium 8-01 mg by ity of (COLACE) 14:22: mouth [place] 100 mg 19 twice MD capsule daily. [facility] cloNIDine Yes .2mg Take 0.2 Univ ers HCl 8-01 mg by ity of (CATAPRES) 14:22: [place] 0.2 mg 19 (three) MD tablet times a Anderso day. [facility] cholecalcif Yes 1{capsu Take 1 U nivers puja, 8-01 le} capsule by ity of vitamin D3, 14:22: mouth [place] (VITAMIN 19 daily. D3) 5,000 [place] units tab n tablet [facility] CYANOCOBALA Yes 1000mg Take 1,000 Univers MIN/COBAMAM 8-01 mg by ity of ELOISA (B12 14:22: mouth [place] SUBLINGUAL) 19 daily. [facility] docusate Yes 100mg Take 100 Univ ers sodium 8-01 mg by ity of (COLACE) 14:22: mouth [place] 100 mg 19 twice MD capsule daily. [facility] PSYLLIUM Yes 1{tbl} Take 1 Unive rs SEED, WITH 8-01 tablet by ity of DEXTROSE, 14:22: mouth [place] (FIBER 19 daily. ORAL) [facility] LACTOBACILL Yes 1{tbl} Take 1 Un heather US 8-01 tablet by ity of ACIDOPHILUS 14:22: mouth [place] (PROBIOTIC 19 daily. ORAL) [facility] rosuvastati Yes 10mg Take 10 mg Univers n (CRESTOR) 8-01 by mouth ity of 10 mg 14:22: at [place] tablet 19 bedtime. [facility] PSYLLIUM Yes 1{tbl} Take 1 Unive rs SEED, WITH 8-01 tablet by ity of DEXTROSE, 14:22: mouth [place] (FIBER 19 daily. ORAL) [facility] nystatin Yes Candidiasis Apply U nivers (MYCOSTATIN 8-01 of skin topically ity of ) 100,000 00:00: to [place] units/g 00 affected MD powder area(s) Anderso twice n daily. [facility] nystatin Yes Candidiasis Apply U nivers (MYCOSTATIN 8-01 of skin topically ity of ) 100,000 00:00: to [place] units/g 00 affected MD powder area(s) Anderso twice n daily. [facility] nystatin Yes Candidiasis Apply U nivers (MYCOSTATIN 8-01 of skin topically ity of ) 100,000 00:00: to [place] units/g 00 affected MD powder area(s) Anderso twice n daily. [facility] nystatin Yes Candidiasis Apply U nivers (MYCOSTATIN 8-01 of skin topically ity of ) 100,000 00:00: to [place] units/g 00 affected MD powder area(s) Anderso twice n daily. [facility] nystatin Yes Candidiasis Apply U nivers (MYCOSTATIN 8-01 of skin topically ity of ) 100,000 00:00: to [place] units/g 00 affected MD powder area(s) Anderso twice n daily. [facility] nystatin Yes Candidiasis Apply U nivers (MYCOSTATIN 8-01 of skin topically ity of ) 100,000 00:00: to [place] units/g 00 affected MD powder area(s) Anderso twice n daily. [facility] nystatin Yes Candidiasis Apply U nivers (MYCOSTATIN 8-01 of skin topically ity of ) 100,000 00:00: to [place] units/g 00 affected MD powder area(s) Anderso twice n daily. [facility] carvedilol Yes twice Univer s (COREG) 7-18 daily. ity of 3.125 mg 00:00: [place] tablet 00 [facility] metFORMIN 2017-0 Yes 1{tbl} 1 tablet Un heather (GLUCOPHAGE 7-18 twice ity of ) 500 mg 00:00: daily. [place] tablet 00 [facility] carvedilol 2017- Yes twice Univer s (COREG) 7-18 daily. ity of 3.125 mg 00:00: [place] tablet 00 [facility] metFORMIN 2017-0 Yes 1{tbl} 1 tablet Un heather (GLUCOPHAGE 7-18 twice ity of ) 500 mg 00:00: daily. [place] tablet 00 [facility] carvedilol 2017- Yes twice Univer s (COREG) 7-18 daily. ity of 3.125 mg 00:00: [place] tablet 00 [facility] metFORMIN 2017-0 Yes 1{tbl} 1 tablet Un heather (GLUCOPHAGE 7-18 twice ity of ) 500 mg 00:00: daily. [place] tablet 00 [facility] carvedilol 2017-0 Yes twice Univer s (COREG) 7-18 daily. ity of 3.125 mg 00:00: [place] tablet 00 [facility] metFORMIN 2017-0 Yes 1{tbl} 1 tablet Un heather (GLUCOPHAGE 7-18 twice ity of ) 500 mg 00:00: daily. [place] tablet 00 [facility] carvedilol 2017-0 Yes twice Univer s (COREG) 7-18 daily. ity of 3.125 mg 00:00: [place] tablet 00 [facility] metFORMIN 2017-0 Yes 1{tbl} 1 tablet Un heather (GLUCOPHAGE 7-18 twice ity of ) 500 mg 00:00: daily. [place] tablet 00 [facility] carvedilol 2017-0 Yes twice Univer s (COREG) 7-18 daily. ity of 3.125 mg 00:00: [place] tablet 00 [facility] metFORMIN 2017-0 Yes 1{tbl} 1 tablet Un heather (GLUCOPHAGE 7-18 twice ity of ) 500 mg 00:00: daily. [place] tablet 00 [facility] carvedilol 2017-0 Yes twice Univer s (COREG) 7-18 daily. ity of 3.125 mg 00:00: [place] tablet 00 [facility] metFORMIN 2017-0 Yes 1{tbl} 1 tablet Un heather (GLUCOPHAGE 7-18 twice ity of ) 500 mg 00:00: daily. [place] tablet 00 [facility] ferrous 2017-0 Yes 3 (three) Unive rs sulfate 325 3-17 times a ity o f mg (65 mg 00:00: day. elemental) [facility] ferrous 2018-0 Yes 3 (three) Unive rs sulfate 325 3-17 times a ity o f mg (65 mg 00:00: day. elemental) [facility] ferrous 2018-0 Yes 3 (three) Unive rs sulfate 325 3-17 times a ity o f mg (65 mg 00:00: day. elemental) Anderso tablet [facility] ferrous 2018-0 Yes 3 (three) Unive rs sulfate 325 3-17 times a ity o f mg (65 mg 00:00: day. elemental) [facility]-0 Yes 3 (three) Unive rs sulfate 325 3-17 times a ity o f mg (65 mg 00:00: day. elemental) [place] tablet n [facility] ferrous 2018-0 Yes 3 (three) Unive rs sulfate 325 3-17 times a ity o f mg (65 mg 00:00: day. elemental) [place] tablet n [facility] ferrous 2018-0 Yes 3 (three) Unive rs sulfate 325 3-17 times a ity o f mg (65 mg 00:00: day. elemental) Anderso tablet [facility] gemfibrozil 2018-0 Yes twice Unive rs (LOPID) 600 3-13 daily. ity of mg tablet 00:00: [facility] gemfibrozil 2018-0 Yes twice Unive rs (LOPID) 600 3-13 daily. ity of mg tablet 00:00: [facility] gemfibrozil 2018-0 Yes twice Unive rs (LOPID) 600 3-13 daily. ity of mg tablet 00:00: [facility] gemfibrozil 2018-0 Yes twice Unive rs (LOPID) 600 3-13 daily. ity of mg tablet 00:00: [facility] gemfibrozil 2018-0 Yes twice Unive rs (LOPID) 600 3-13 daily. ity of mg tablet 00:00: [facility] gemfibrozil 2018-0 Yes twice Unive rs (LOPID) 600 3-13 daily. ity of mg tablet 00:00: [facility] gemfibrozil 2018-0 Yes twice Unive rs (LOPID) 600 3-13 daily. ity of mg tablet 00:00: [place] 00 MD Nancy whitman [facility] 2018-0 Yes daily. Univ ers mg tab 3-07 ity of 00:00: [place] 00 MD Nancy whitman [facility] 2018-0 Yes daily. Univ ers mg tab 3-07 ity of 00:00: [place] 00 MD Nancy whitman [facility] 2018-0 Yes daily. Univ ers mg tab 3-07 ity of 00:00: [place] 00 [facility] 2018-0 Yes daily. Univ ers mg tab 3-07 ity of 00:00: [place] 00 [facility] 2018-0 Yes daily. Univ ers mg tab 3-07 ity of 00:00: [place] [address] [facility] 2018-0 Yes daily. Univ ers mg tab 3-07 ity of 00:00: [place] 00 MD Nancy whitman [facility] 2018-0 Yes daily. Univ ers mg tab 3-07 ity of 00:00: [place] 00 [facility] Procedures Procedure Date / Time Performed Performing Clinician [facility] e [id number] 2023-01-02 00:00:00 [facility] [id number] 2022-12-31 00:00:00 [facility] [id number] 2022-12-31 00:00:00 [facility] [id number] 2022-12-31 00:00:00 [facility] [id number] 2022-10-15 00:00:00 [facility] [id number] 2022-10-15 00:00:00 [facility] [id number] 2022-10-15 00:00:00 [facility] [id number] 2022-10-15 00:00:00 [facility] [id number] 2022-10-15 00:00:00 [facility] Plan of Care Planned Activity Planned Date Details Comments Source Future Scheduled 2022-02-20 COVID-19 Vaccination [facility] [place] Test 03:42:18 (#1) [code = COVID-19 [facility] (#1[facility] Center Future Scheduled 2022-02-20 COVID-19 Vaccination [facility] [place] Test 03:42:18 (#1) [code = COVID-19 [facility] Vaccination (#1)] Center Future Scheduled 2022-02-20 COVID-19 Vaccination [facility] [place] Test 03:42:18 (#1) [code = COVID-19 [facility] Vaccination (#1)] Center Future Scheduled 2022-02-20 COVID-19 Vaccination [facility] [place] Test 03:42:18 (#1) [code = COVID-19 [facility] Vaccination (#1)] Center Future Scheduled 2022-02-20 COVID-19 Vaccination [facility] [place] Test 03:42:18 (#1) [code = COVID-19 MD [facility] Vaccination (#1)] Center Future Scheduled 2022-02-20 COVID-19 Vaccination [facility] [place] Test 03:42:18 (#1) [code = COVID-19 [facility] Vaccination (#1)] Center Future Scheduled 2022-02-20 COVID-19 Vaccination [facility] [place] Test 03:42:18 (#1) [code = COVID-19 MD [facility] Vaccination (#1)] Center Encounters Start End Encounter Admission Attending Care Care Encounter Source Date/Time Date/Time Type Type Clinicians Facility Department ID 2020-06-08 Outpatient SYSTEM, [facility] [id number] 09:56:52 PROVIDER Wilber whitman 2022-12-31 2023-01-04 Inpatient Ajit Levin [facility] MEDI.01 [id number] [facility] 16:43:00 15:56:00 70 [facility] 2022-12-31 2022-12-31 Outpatient Ajit Carbajal [facility] REF [id number] [facility] 16:50:00 16:50:00 82 [facility] 2022-12-17 2022-12-17 Outpatient Ajit Levin [facility] 3DAY [id number] [facility] 08:00:00 09:00:00 47 [facility] are [facility] 2022-10-15 2022-10-15 Inpatient Ajit Levin [facility] DAYS [id number] [facility] 01:27:00 17:00:00 66 [facility] are [facility] 2022-10-02 2022-10-02 Outpatient Ajit Levin [facility] 3DAY [id number] [facility] 08:00:00 09:00:00 03 [facility] are [facility] 2019-09-14 2019-09-14 [facility] [id number] 06:43:00 09:06:00 Encounter Elif Marsnancy Oquendo [id number] [place] [id number] [facility] [id number] [place] [id number] 2019-09-14 2019-09-14 Outpatient [facility] [id number] [facility] 06:43:00 09:06:00 ELIF [facility] 2019-09-14 2019-09-14 Orders Doctor SHELLEY [id number] 00:00:00 00:00:00 Only Unassigned, SHARMAINE [id number] [facility] [id number] 2019-09-02 2019-09-02 [facility] [id number] [facility] 16:30:00 16:30:00 ELIF shanice [facility] 2019-09-02 2019-09-02 General Internist And Physician Leader 1, Adc Lab [facility] [id number] 15:30:20 16:23:19 Visit Jere [id number] [place] [id number] [place] [id number] Results Test Description Test Time Test Comments Results Result Comments Source GLUBED 2023-01-04 11:48:00 Test Item Value Reference Range Interpretation Comme nts GLUBED (test code = GLUBED) 112 MG/DL 70-105 H [id number] 07:44:00 Test Item Value Reference Range Interpretation Comments GLUBED (test code = GLUBED) 98 MG/DL 70-105 N [id number] 17:36:00 Test Item Value Reference Range Interpretation Comments SURGICAL (test code = SR) RUN DATE: 01/03/23 [facility] - LAB PAGE 1 RUN TIME: 8766 Specimen Inquiry RUN USER: INTERFACE LUZMA ENT: EDUARDO HAZEL LOC: PMaría9 POD C U #: [id number] AGE/SX: 67/F ROOM: [facility] RE12/31/22REG DR: Ajit Carbajal MD : 53 BED: 1 DIS: STATUS: ADM IN TLOC: SPEC #: [id number] RECD: 01/01/23 STATUS: BASILIA REQ #: [id number] KEMI: 12/31/[address]: Ajit Carbajal MD ENTERED: 01/01/23 SP TYPE: SURGICAL OTHR DR: Chanell Primary or Family PhysicianORDERED: [id number], ANATOMIC SPEC HISTOLOGY: TISSUE ID BLK PCS FANTA LEV / PROCEDURE DISPOSITION ____ ___ ___ ___ ___ SIGCOL A 7 1 TISSUES: A. SIGMOID COLON - Sigmoid FINAL DIAGNOSIS LARGE INTESTINE, SIGMOID, SEGMENTAL RESECTION: - Tubular adenoma, with low grade dysplasia. - Diverticulosis, - Focus of fibrosis within the muscularis propria, suggestive of healed diverticulosis. - Subserosal fibrosis. - Negative for malignancy. GROSS DESCRIPTION The specimen is received in formalin and labeled with the patient's name, medical recordnumber, and "sigmoid." The specimen consists of bowel segment that measures 22.5 cm inlength and 2.7 cm in diameter, with both patent ends. Also received are two mucosal ringsmeasuring each 1.6 x 1.3 cm and 1.7 x 1.3 cm. The bowel segment serosal surface is briceno,roughened and dull, and the specimen is opened longitudinally to reveal a briceno mucosa with apolypoid lesion that measures 0.8 x 0.8 x 0.7 cm, on a stalk that measuresapproximately 1 cm, located 10.5 cm from the nearest margin and 12 cm away from theposterior margin. Also identified on the mucosal surface are 10 diverticula. [employer] In[employer] sections are submitted as follows: A1: Both ends; A2-3: Diverticula x2;A4-5: Polyp bisected; A6-7: Uninvolved mucosa; and A7: Mucosal rings x2. XZ/ml Technical component performed at [facility] [facility], [facility], [address] Immunohistochemistry: This test was developed and its performancecharacteristics determined by this laboratory. It has not been approved nordoes it need approval by the [place] FDA. Appropriate positive and negative controlsare reviewed and judged to be acceptable. This laboratory is certified underthe Clinical Laboratory Improvement Amendments (CLIA-88) as qualified toperform high complexity clinical laboratory testing. CONTINUED ON NEXT PAGE RUN DATE: 01/03/23 [facility] - LAB PAGE 2 RUN TIME: 1735 Specimen Inquiry RUN USER: INTERFACE SPEC #: [id number] PATIENT: EDUARDO HAZEL ANN #[id number] (Continued) ------- MICROSCOPIC DESCRIPTION Unless gross only, the diagnosis is based upon microscopic examination. CLINICAL INFORMATION Diverticulitis Signed SIGNATURE ON FILE Héctor Coelho P 01/03/23 1736 END OF REPORT [id number] 16:21:00 Test Item Value Reference Range Interpretation Comments GLUBED (test code = GLUBED) 129 MG/DL 70-105 H [id number] 12:06:00 Test Item Value Reference Range Interpretation Comments GLUBED (test code = GLUBED) 108 MG/DL 70-105 H [id number] 07:22:00 Test Item Value Reference Range Interpretation Comments GLUBED (test code = GLUBED) 96 MG/DL 70-105 N BASIC METABOLIC [id number] 06:19:00 Test Item Value Reference Range Interpretation Comments SODIUM (test code 139 mmol/L 136-145 N = NA) POTASSIUM (test 4.1 mmol/L 3.5-5.1 N code = K) CHLORIDE (test 106 mmol/l 98-107 N code = CL) CARBON DIOXIDE 19 mmol/L 20-31 L (test code = CO2) GLUCOSE (test code 77 ng/dL 74-106 N = GLU) BLOOD UREA 20 mg/dL 9-23 N NITROGEN (test code = BUN) GLOMERULAR >=60 max >60 The Glomerular FILTRATION RATE estimate mL/min Filtratio n Rate is a (test code = GFR) calculated parameterbased on serum Creatinin e, patient age and sex. GFR valuesless than 60 mL/min/1.73 square meters are robert cative ofChronic Kidne y Disease. Values less than 15 mL/min/1.73squa re meters indicate Kidney failure. The calculation for GFR is based on the CK D-EPI (2020) calculat ion. This formulais race indifferent and is the recommended formula for GFR by the National Kidney Foundation for Adults.The GFR will not calculate i f the sex is unknown or if thepatient's ag e is <18 years. CREATININE (test 0.90 mg/dL 0.55-1.02 N code = CREAT) CALCIUM (test code 9.2 mg/dL 8.7-10.4 N = CA) [id number] 06:19:00 Test Item Value Reference Range Interpretation Comments MAGNESIUM (test code = MAG) 1.8 mg/dL 1.6-2.6 N CBC W/AUTO [id number] 06:07:00 Test Item Value Reference Range Interpretation Comments WHITE BLOOD CELL (test code = 7.6 x10 3/uL 4.8-10.8 N WBC) RED BLOOD CELL (test code = 2.84 x10 6/uL 4.20-5.40 L RBC) HEMOGLOBIN (test code = HGB) 9.6 g/dL 12.0-16.0 L HEMATOCRIT (test code = HCT) 28.9 % 37.0-47.0 L MEAN CELL VOLUME (test code = 101.8 fL 81.0-99.0 H MCV) MEAN CELL HGB (test code = MCH) 33.8 pg 27-31 H MEAN CELL HGB CONCENTRATION 33.2 G/DL 33-36.5 N (test code = MCHC) RED CELL DISTRIBUTION WIDTH 13.7 % 12.9-16.9 N (test code = RDW) PLATELET COUNT (test code = 128 x10 3/uL 150-440 L PLT) MEAN PLATELET VOLUME (test code 12.5 fL 8.9-12.4 H = MPV) NEUTROPHIL % (test code = NT%) 84.4 % 42.2-75.2 H LYMPHOCYTE % (test code = LY%) 8.0 % 20.5-51.1 L MONOCYTE % (test code = MO%) 5.6 % 1.7-9.3 N EOSINOPHIL % (test code = EO%) 0.9 % 0.0-7.0 N BASOPHIL % (test code = BA%) 0.1 % 0-2.5 N NEUTROPHIL # (test code = NT#) 6.43 x10 3/uL 1.80-7.70 N LYMPHOCYTE # (test code = LY#) 0.61 x10 3/uL 1.00-4.80 L MONOCYTE # (test code = MO#) 0.43 x10 3/uL 0.00-0.80 N EOSINOPHIL # (test code = EO#) 0.07 x10 3/uL 0.00-0.45 N BASOPHIL # (test code = BA#) 0.01 x10 3/uL 0.0-0.20 N [id number] 21:24:00 Test Item Value Reference Range Interpretation Comments GLUBED (test code = GLUBED) 107 MG/DL 70-105 H [id number] 17:34:00 Test Item Value Reference Range Interpretation Comments GLUBED (test code = GLUBED) 112 MG/DL 70-105 H [id number] 11:47:00 Test Item Value Reference Range Interpretation Comments GLUBED (test code = GLUBED) 110 MG/DL 70-105 H [id number] 07:51:00 Test Item Value Reference Range Interpretation Comments GLUBED (test code = GLUBED) 102 MG/DL 70-105 N BASIC METABOLIC [id number] 04:48:00 Test Item Value Reference Range Interpretation Comments SODIUM (test code 139 mmol/L 136-145 N = NA) POTASSIUM (test 3.9 mmol/L 3.5-5.1 N code = K) CHLORIDE (test 109 mmol/l 98-107 H code = CL) CARBON DIOXIDE 20 mmol/L 20-31 N (test code = CO2) GLUCOSE (test code 91 ng/dL 74-106 N = GLU) BLOOD UREA 19 mg/dL 9-23 N NITROGEN (test code = BUN) GLOMERULAR >=60 max >60 The Glomerular FILTRATION RATE estimate mL/min Filtratio n Rate is a (test code = GFR) calculated parameterbased on serum Creatinin e, patient age and sex. GFR valuesless than 60 mL/min/1.73 square meters are robert cative ofChronic Kidne y Disease. Values less than 15 mL/min/1.73squa re meters indicate Kidney failure. The calculation for GFR is based on the CK D-EPI (2020) calculat ion. This formulais race indifferent and is the recommended formula for GFR by the National Kidney Foundation for Adults.The GFR will not calculate i f the sex is unknown or if thepatient's ag e is <18 years. CREATININE (test 1.00 mg/dL 0.55-1.02 N code = CREAT) CALCIUM (test code 8.7 mg/dL 8.7-10.4 N = CA) [id number] 04:48:00 Test Item Value Reference Range Interpretation Comments MAGNESIUM (test code = MAG) 2.0 mg/dL 1.6-2.6 N CBC W/AUTO [id number] 04:47:00 Test Item Value Reference Range Interpretation Comments WHITE BLOOD CELL (test code = 5.5 x10 3/uL 4.8-10.8 N WBC) RED BLOOD CELL (test code = 2.83 x10 6/uL 4.20-5.40 L RBC) HEMOGLOBIN (test code = HGB) 9.5 g/dL 12.0-16.0 L HEMATOCRIT (test code = HCT) 28.6 % 37.0-47.0 L MEAN CELL VOLUME (test code = 101.1 fL 81.0-99.0 H MCV) MEAN CELL HGB (test code = MCH) 33.6 pg 27-31 H MEAN CELL HGB CONCENTRATION 33.2 G/DL 33-36.5 N (test code = MCHC) RED CELL DISTRIBUTION WIDTH 13.8 % 12.9-16.9 N (test code = RDW) PLATELET COUNT (test code = 96 x10 3/uL 150-440 L PLT) MEAN PLATELET VOLUME (test code 11.7 fL 8.9-12.4 N = MPV) NEUTROPHIL % (test code = NT%) 80.2 % 42.2-75.2 H LYMPHOCYTE % (test code = LY%) 11.2 % 20.5-51.1 L MONOCYTE % (test code = MO%) 7.3 % 1.7-9.3 N EOSINOPHIL % (test code = EO%) 0.4 % 0.0-7.0 N BASOPHIL % (test code = BA%) 0.0 % 0-2.5 N NEUTROPHIL # (test code = NT#) 4.39 x10 3/uL 1.80-7.70 N LYMPHOCYTE # (test code = LY#) 0.61 x10 3/uL 1.00-4.80 L MONOCYTE # (test code = MO#) 0.40 x10 3/uL 0.00-0.80 N EOSINOPHIL # (test code = EO#) 0.02 x10 3/uL 0.00-0.45 N BASOPHIL # (test code = BA#) 0.00 x10 3/uL 0.0-0.20 N [id number] 20:14:00 Test Item Value Reference Range Interpretation Comments GLUBED (test code = GLUBED) 101 MG/DL 70-105 N [id number] 16:44:00 Test Item Value Reference Range Interpretation Comments GLUBED (test code = GLUBED) 116 MG/DL 70-105 H [id number] 12:07:00 Test Item Value Reference Range Interpretation Comments GLUBED (test code = GLUBED) 112 MG/DL 70-105 H [id number] 07:47:00 Test Item Value Reference Range Interpretation Comments GLUBED (test code = GLUBED) 129 MG/DL 70-105 H CBC W/MANUAL [id number] 06:11:00 Test Item Value Reference Range Interpretation Comments WHITE BLOOD CELL (test code = 5.2 x10 3/uL 4.8-10.8 N WBC) RED BLOOD CELL (test code = 3.38 x10 6/uL 4.20-5.40 L RBC) HEMOGLOBIN (test code = HGB) 11.2 g/dL 12.0-16.0 L HEMATOCRIT (test code = HCT) 33.5 % 37.0-47.0 L MEAN CELL VOLUME (test code = 99.1 fL 81.0-99.0 H MCV) MEAN CELL HGB (test code = MCH) 33.1 pg 27-31 H MEAN CELL HGB CONCENTRATION 33.4 G/DL 33-36.5 N (test code = MCHC) RED CELL DISTRIBUTION WIDTH 13.4 % 12.9-16.9 N (test code = RDW) PLATELET COUNT (test code = 126 x10 3/uL 150-440 L PLT) MEAN PLATELET VOLUME (test code 11.6 fL 8.9-12.4 N = MPV) NEUTROPHIL % (test code = NT%) 84.7 % 42.2-75.2 H LYMPHOCYTE % (test code = LY%) 8.2 % 20.5-51.1 L MONOCYTE % (test code = MO%) 6.5 % 1.7-9.3 N EOSINOPHIL % (test code = EO%) 0.2 % 0.0-7.0 N BASOPHIL % (test code = BA%) 0.2 % 0-2.5 N NEUTROPHIL # (test code = NT#) 4.44 x10 3/uL 1.80-7.70 N LYMPHOCYTE # (test code = LY#) 0.43 x10 3/uL 1.00-4.80 L MONOCYTE # (test code = MO#) 0.34 x10 3/uL 0.00-0.80 N EOSINOPHIL # (test code = EO#) 0.01 x10 3/uL 0.00-0.45 N BASOPHIL # (test code = BA#) 0.01 x10 3/uL 0.0-0.20 N TOTAL CELLS COUNTED (test code 100 #CELLS = TCC) SEGMENTED NEUTROPHILS (test 91 % 49-71 H code = SEG) LYMPHOCYTE (test code = LYMPH) 7 % 20-40 L MONOCYTE (test code = MON) 1 % 3-8 L MYELOCYTE (test code = MYELO) 1 % 0-0 H RBC MORPHOLOGY COMMENT (test Normal NORMAL code = MOC) PLATELET ESTIMATE (test code = ADEQUATE ADEQUATE PLTEST) PLATELET MORPHOLOGY (test code NORMAL NORMAL = PLTMORPH) BASIC METABOLIC [id number] 05:17:00 Test Item Value Reference Range Interpretation Comments SODIUM (test code 144 mmol/L 136-145 N = NA) POTASSIUM (test 3.7 mmol/L 3.5-5.1 N code = K) CHLORIDE (test 112 mmol/l 98-107 H code = CL) CARBON DIOXIDE 18 mmol/L 20-31 L (test code = CO2) GLUCOSE (test code 98 ng/dL 74-106 N = GLU) BLOOD UREA 17 mg/dL 9-23 N NITROGEN (test code = BUN) GLOMERULAR >=60 max >60 The Glomerular FILTRATION RATE estimate mL/min Filtratio n Rate is a (test code = GFR) calculated parameterbased on serum Creatinin e, patient age and sex. GFR valuesless than 60 mL/min/1.73 square meters are robert cative ofChronic Kidne y Disease. Values less than 15 mL/min/1.73squa re meters indicate Kidney failure. The calculation for GFR is based on the CK D-EPI (2020) calculat ion. This formulais race indifferent and is the recommended formula for GFR by the National Kidney Foundation for Adults.The GFR will not calculate i f the sex is unknown or if thepatient's ag e is <18 years. CREATININE (test 1.00 mg/dL 0.55-1.02 N code = CREAT) CALCIUM (test code 8.1 mg/dL 8.7-10.4 L = CA) [id number] 05:17:00 Test Item Value Reference Range Interpretation Comments MAGNESIUM (test code = MAG) 1.5 mg/dL 1.6-2.6 L [id number] 22:42:00 Test Item Value Reference Range Interpretation Comments GLUBED (test code = GLUBED) 123 MG/DL 70-105 H [id number] 17:26:00 Test Item Value Reference Range Interpretation Comments GLUBED (test code = GLUBED) 135 MG/DL 70-105 H CBC W/AUTO [id number] 15:51:00 Test Item Value Reference Range Interpretation Comments WHITE BLOOD CELL (test code = 6.7 x10 3/uL 4.8-10.8 N WBC) RED BLOOD CELL (test code = 3.24 x10 6/uL 4.20-5.40 L RBC) HEMOGLOBIN (test code = HGB) 11.0 g/dL 12.0-16.0 L HEMATOCRIT (test code = HCT) 33.0 % 37.0-47.0 L MEAN CELL VOLUME (test code = 101.9 fL 81.0-99.0 H MCV) MEAN CELL HGB (test code = MCH) 34.0 pg 27-31 H MEAN CELL HGB CONCENTRATION 33.3 G/DL 33-36.5 N (test code = MCHC) RED CELL DISTRIBUTION WIDTH 13.4 % 12.9-16.9 N (test code = RDW) PLATELET COUNT (test code = 107 x10 3/uL 150-440 L PLT) MEAN PLATELET VOLUME (test code 11.9 fL 8.9-12.4 N = MPV) NEUTROPHIL % (test code = NT%) 86.8 % 42.2-75.2 H LYMPHOCYTE % (test code = LY%) 7.6 % 20.5-51.1 L MONOCYTE % (test code = MO%) 5.1 % 1.7-9.3 N EOSINOPHIL % (test code = EO%) 0.1 % 0.0-7.0 N BASOPHIL % (test code = BA%) 0.1 % 0-2.5 N NEUTROPHIL # (test code = NT#) 5.80 x10 3/uL 1.80-7.70 N LYMPHOCYTE # (test code = LY#) 0.51 x10 3/uL 1.00-4.80 L MONOCYTE # (test code = MO#) 0.34 x10 3/uL 0.00-0.80 N EOSINOPHIL # (test code = EO#) 0.01 x10 3/uL 0.00-0.45 N BASOPHIL # (test code = BA#) 0.01 x10 3/uL 0.0-0.20 N BASIC METABOLIC [id number] 07:50:00 Test Item Value Reference Range Interpretation Comments SODIUM (test code = 142 mmol/L 136-145 N NA) POTASSIUM (test code 3.7 mmol/L 3.5-5.1 N = K) CHLORIDE (test code 107 mmol/l 98-107 N = CL) CARBON DIOXIDE (test 21 mmol/L 20-31 N code = CO2) GLUCOSE (test code = 124 ng/dL 74-106 H GLU) BLOOD UREA NITROGEN 25 mg/dL 9-23 H (test code = BUN) GLOMERULAR 49 mL/min >60 L The Glomerular FILTRATION RATE Filtration R ate is a (test code = GFR) calculated parameterbased on serum Creatinine, pat ient age and sex. GFR va luesless than 60 mL/min/ 1.73 square meters a re indicative ofCh ronic Kidney Disease. Values less than 15 mL/min/1.73squa re meters indicate Kidney failure. The calculation for GFR is based on the CK D-EPI (2020) calculat ion. This formulais race indifferent and is the recommended for syeda for GFRby the [facility] on for Adults.The GFR will not calculate if th e sex is unknown or if thepatient's ag e is <18 years. CREATININE (test 1.20 mg/dL 0.55-1.02 H code = CREAT) CALCIUM (test code = 9.6 mg/dL 8.7-10.4 N CA) CBC W/O [id number] 07:31:00 Test Item Value Reference Range Interpretation Comments WHITE BLOOD CELL (test code = 4.6 x10 3/uL 4.8-10.8 L WBC) RED BLOOD CELL (test code = 3.46 x10 6/uL 4.20-5.40 L RBC) HEMOGLOBIN (test code = HGB) 11.8 g/dL 12.0-16.0 L HEMATOCRIT (test code = HCT) 34.1 % 37.0-47.0 L MEAN CELL VOLUME (test code = 98.6 fL 81.0-99.0 N MCV) MEAN CELL HGB (test code = MCH) 34.1 pg 27-31 H MEAN CELL HGB CONCENTRATION 34.6 G/DL 33-36.5 N (test code = MCHC) RED CELL DISTRIBUTION WIDTH 13.6 % 12.9-16.9 N (test code = RDW) PLATELET COUNT (test code = 116 x10 3/uL 150-440 L PLT) [id number] 06:30:00 Test Item Value Reference Range Interpretation Comments GLUBED (test code = GLUBED) 132 MG/DL 70-105 H COMPREHENSIVE METABOLIC [id number] 14:43:00 Test Item Value Reference Range Interpretation Comments SODIUM (test code = 142 mmol/L 136-145 N NA) POTASSIUM (test code 4.1 mmol/L 3.5-5.1 N = K) CHLORIDE (test code 108 mmol/l 98-107 H = CL) CARBON DIOXIDE (test 23 mmol/L 20-31 N code = CO2) GLUCOSE (test code = 103 ng/dL 74-106 N GLU) BLOOD UREA NITROGEN 37 mg/dL 9-23 H (test code = BUN) GLOMERULAR 38 mL/min >60 L The Glomerular FILTRATION RATE Filtration R ate is a (test code = GFR) calculated parameterbased on serum Creatinine, pat ient age and sex. GFR va luesless than 60 mL/min/ 1.73 square meters a re indicative ofCh ronic Kidney Disease. Values less than 15 mL/min/1.73squa re meters indicate Kidney failure. The calculation for GFR is based on the CK D-EPI (2020) calculat ion. This formulais race indifferent and is the recommended for syeda for GFRby the [facility] on for Adults.The GFR will not calculate if th e sex is unknown or if thepatient's ag e is <18 years. CREATININE (test 1.50 mg/dL 0.55-1.02 H code = CREAT) TOTAL PROTEIN (test 7.0 mg/dL 5.7-8.2 N code = PROT) ALBUMIN (test code = 4.7 mg/dL 3.2-4.8 N ALB) CALCIUM (test code = 9.9 mg/dL 8.7-10.4 N CA) BILIRUBIN TOTAL 0.7 mg/mL 0.3-1.2 N (test code = BILT) SGOT/AST (test code 28 I/U <34 N = AST) SGPT/ALT (test code 19 U/L 10-49 N = ALT) ALKALINE PHOSPHATASE 108.0 U/L 46-116 N (test code = ALKP) PROTHROMBIN [id number] 14:27:00 Test Item Value Reference Range Interpretation Comments PROTHROMBIN TIME 11.3 SECONDS 10.3-12.9 N PATIENT (test code = PTP) INTERNATIONAL 0.96 INR UNIT 0.9-1.11 N The INR is us eful only NORMAL RATIO (test for monit oring code = INR) anticoagulant therapy.It may be unreliable in t he initial phase o f antigoagulation and in unstable patien ts. Indication for Anticoagulation Recommended INR 1. Prevention of v enous thomboembolism 2.0-3.0in high- risk patients; treat ment of venousthrombosi s and pulmonary embol ism aftera course o f heparin; preven tion of systemicembolis m in a variety of cond itions, including atria l fibrillation an d prothetic tissu e heart valves, 2. Pros thetic mechanical hear t valves; 2.5-3.5recurren t systemic emboli sm. THROMBOPLASTIN TIME [id number] 14:27:00 Test Item Value Reference Range Interpretation Comments THROMBOPLASTIN TIME 40.6 SECONDS 23.8-34.8 H INTERPRE TATIVE PARTIAL (test code = DATA: erapeutic PTT) range: Unfractionated heparin:55 - 80 seconds Argatroban:1.5 to 3 times the basel ine PTT CBC W/AUTO [id number] 14:19:00 Test Item Value Reference Range Interpretation Comments WHITE BLOOD CELL (test code = 6.6 x10 3/uL 4.8-10.8 N WBC) RED BLOOD CELL (test code = 3.41 x10 6/uL 4.20-5.40 L RBC) HEMOGLOBIN (test code = HGB) 11.1 g/dL 12.0-16.0 L HEMATOCRIT (test code = HCT) 33.2 % 37.0-47.0 L MEAN CELL VOLUME (test code = 97.4 fL 81.0-99.0 N MCV) MEAN CELL HGB (test code = MCH) 32.6 pg 27-31 H MEAN CELL HGB CONCENTRATION 33.4 G/DL 33-36.5 N (test code = MCHC) RED CELL DISTRIBUTION WIDTH 12.9 % 12.9-16.9 N (test code = RDW) PLATELET COUNT (test code = 142 x10 3/uL 150-440 L PLT) MEAN PLATELET VOLUME (test code 11.4 fL 8.9-12.4 N = MPV) NEUTROPHIL % (test code = NT%) 74.7 % 42.2-75.2 N LYMPHOCYTE % (test code = LY%) 15.1 % 20.5-51.1 L MONOCYTE % (test code = MO%) 7.9 % 1.7-9.3 N EOSINOPHIL % (test code = EO%) 1.5 % 0.0-7.0 N BASOPHIL % (test code = BA%) 0.3 % 0-2.5 N NEUTROPHIL # (test code = NT#) 4.94 x10 3/uL 1.80-7.70 N LYMPHOCYTE # (test code = LY#) 1.00 x10 3/uL 1.00-4.80 N MONOCYTE # (test code = MO#) 0.52 x10 3/uL 0.00-0.80 N EOSINOPHIL # (test code = EO#) 0.10 x10 3/uL 0.00-0.45 N BASOPHIL # (test code = BA#) 0.02 x10 3/uL 0.0-0.20 N [id number] 18:24:00 Test Item Value Reference Range Interpretation Comments SURGICAL (test code = SR) RUN DATE: 10/21/22 [facility] - LAB PAGE 1 RUN TIME: 1823 Specimen Inquiry RUN USER: INTERFACE LUZMA ENT: EDUARDO HAZEL LOC: [facility] U #: [id number] AGE/SX: 67/F ROOM: [facility] RE10/15/22REG DR: Ajit Carbajal MD : 53 BED: 01 DIS: 10/15/22 STATUS: DIS IN TLOC: SPEC #: [id number] RECD: 10/15/22 STATUS: BASILIA RE #: [id number] KEMI: 10/15/22-[address] [facility] DR: Ajit Carbajal MD ENTERED: 10/15/22 SP TYPE: SURGICAL OTHR DR: No Primary or Family PhysicianORDERED: [id number]/2, [id number], ANATOMIC SPEC HISTOLOGY: TISSUE ID BLK PCS FANTA LEV / PROCEDURE DISPOSITION ____ ___ ___ ___ ___ YAIR A 1 3 YAIR B 1 3 PELWCS C 1 5 TISSUES: A. POLYP - Rectum Polyp x3 B. POLYP - Sigmoid Polyp C. PELVIC FLUID WASHING (CYTOSPIN,CELL BLOCK) - PELVIC WASHING FINAL DIAGNOSIS A. RECTUM, POLYPECTOMIES X3:- Three hyperplastic polyps. B. COLON, SIGMOID, POLYPECTOMY:- Hyperplastic polyp. C. PELVIC WASHINGS, CYTOSPIN:- Red blood cells, scattered inflammatory cells, and benign mesothelial cells. - Negative for malignancy. GROSS DESCRIPTION A. The specimen is received in formalin and labeled with the patient's name, medicalrecord number, and "rectum polyps x3." It consists of three fragments of briceno-pale softtissue ranging in size from 0.1 x 0.1 x 0.1 up to 0.3 x 0.1 x 0.1 cm. The specimen isfiltered and submitted entirely in a single cassette. B. The specimen is received in formalin and labeled with the patient's name, medicalrecord number, and "sigmoid polyp." It consists of multiple fragments of briceno soft tissueranging in size from less than 0.1 x less than 0.1 x less than 0.1 up to 0.3 x 0.2 x 0.1 cmin greatest dimension, aggregating to 1.5 x 0.6 x 0.1 cm. The specimen is filtered andsubmitted entirely in cassette B. C. The specimen is received and labeled with the patient's name, medical record number,and "pelvic washings." The specimen consists of 33 mL of briceno cloudy fluid, [facility] including cytospin x2. XZ/ml CONTINUED ON NEXT PAGE RUN DATE: 10/21/22 [facility] - LAB PAGE 2 RUN TIME: 1823 Specimen Inquiry RUN USER: INTERFACE SPEC #: [id number] PATIENT: EDUARDO HAZEL ANN #[id number] (Continued) ------- GROSS DESCRIPTION (Continued) Technical component performed at [facility] [facility], [facility], [address] Immunohistochemistry: This test was developed and its performancecharacteristics determined by this laboratory. It has not been approved nordoes it need approval by the [place] FDA. Appropriate positive and negative controlsare reviewed and judged to be acceptable. This laboratory is certified underthe Clinical Laboratory Improvement Amendments (CLIA-88) as qualified toperform high complexity clinical laboratory testing. MICROSCOPIC DESCRIPTION Unless gross only, the diagnosis is based upon microscopic examination. CLINICAL INFORMATION sigmoid And Colon Polyp - Signed SIGNATURE ON FILE Timothy Johnson 10/21/22 1824 END OF REPORT [id number] 12:15:00 Test Item Value Reference Range Interpretation Comments GLUBED (test code = GLUBED) 173 MG/DL 70-105 H [id number] 06:31:00 Test Item Value Reference Range Interpretation Comments GLUBED (test code = GLUBED) 159 MG/DL 70-105 H COMPREHENSIVE METABOLIC [id number] 14:09:00 Test Item Value Reference Range Interpretation Comments SODIUM (test code 142 mmol/L 136-145 N = NA) POTASSIUM (test 4.4 mmol/L 3.5-5.1 N code = K) CHLORIDE (test 108 code = CL) CARBON DIOXIDE 26 mmol/L 20-31 N (test code = CO2) GLUCOSE (test code 110 ng/dL 74-106 H = GLU) BLOOD UREA 21 mg/dL 9-23 N NITROGEN (test code = BUN) GLOMERULAR >=60 max >60 The Glomerular FILTRATION RATE estimate mL/min Filtratio n Rate is a (test code = GFR) calculated parameterbased on serum Creatinin e, patient age and sex. GFR valuesless than 60 mL/min/1.73 square meters are robert cative ofChronic Kidne y Disease. Values less than 15 mL/min/1.73squa re meters indicate Kidney failure. The calculation for GFR is based on the CK D-EPI (2020) calculat ion. This formulais race indifferent and is the recommended formula for GFR by the National Kidney Foundation for Adults.The GFR will not calculate i f the sex is unknown or if thepatient's ag e is <18 years. CREATININE (test 0.80 mg/dL 0.55-1.02 N code = CREAT) TOTAL PROTEIN 7.0 mg/dL 5.7-8.2 N (test code = PROT) ALBUMIN (test code 5.0 mg/dL 3.2-4.8 H = ALB) CALCIUM (test code 9.2 mg/dL 8.7-10.4 N = CA) BILIRUBIN TOTAL 0.8 mg/mL 0.3-1.2 N (test code = BILT) SGOT/AST (test 38 I/U <34 H code = AST) SGPT/ALT (test 19 U/L 10-49 N code = ALT) ALKALINE 86.0 U/L 46-116 N PHOSPHATASE (test code = ALKP) PROTHROMBIN [id number] 13:49:00 Test Item Value Reference Range Interpretation Comments PROTHROMBIN TIME 11.8 SECONDS 10.3-12.9 N PATIENT (test code = PTP) INTERNATIONAL 1.00 INR UNIT 0.9-1.11 N The INR is us eful only NORMAL RATIO (test for monit oring code = INR) anticoagulant therapy.It may be unreliable in t he initial phase o f antigoagulation and in unstable patien ts. Indication for Anticoagulation Recommended INR 1. Prevention of v enous thomboembolism 2.0-3.0in high- risk patients; treat ment of venousthrombosi s and pulmonary embol ism aftera course o f heparin; preven tion of systemicembolis m in a variety of cond itions, including atria l fibrillation an d prothetic tissu e heart valves, 2. Pros thetic mechanical hear t valves; 2.5-3.5recurren t systemic emboli sm. THROMBOPLASTIN TIME [id number] 13:49:00 Test Item Value Reference Range Interpretation Comments THROMBOPLASTIN TIME 37.3 SECONDS 23.8-34.8 H INTERPRE TATIVE PARTIAL (test code = : erapeutic PTT) range: Unfractionated heparin:55 - 80 seconds Argatroban:1.5 to 3 times the basel ine PTT CBC W/AUTO [id number] 13:43:00 Test Item Value Reference Range Interpretation Comments WHITE BLOOD CELL (test code = 7.0 x10 3/uL 4.8-10.8 N WBC) RED BLOOD CELL (test code = 4.12 x10 6/uL 4.20-5.40 L RBC) HEMOGLOBIN (test code = HGB) 13.5 g/dL 12.0-16.0 N HEMATOCRIT (test code = HCT) 40.3 % 37.0-47.0 N MEAN CELL VOLUME (test code = 97.8 fL 81.0-99.0 N MCV) MEAN CELL HGB (test code = MCH) 32.8 pg 27-31 H MEAN CELL HGB CONCENTRATION 33.5 G/DL 33-36.5 N (test code = MCHC) RED CELL DISTRIBUTION WIDTH 13.3 % 12.9-16.9 N (test code = RDW) PLATELET COUNT (test code = 137 x10 3/uL 150-440 L PLT) MEAN PLATELET VOLUME (test code 11.7 fL 8.9-12.4 N = MPV) NEUTROPHIL % (test code = NT%) 71.5 % 42.2-75.2 N LYMPHOCYTE % (test code = LY%) 17.4 % 20.5-51.1 L MONOCYTE % (test code = MO%) 8.5 % 1.7-9.3 N EOSINOPHIL % (test code = EO%) 1.9 % 0.0-7.0 N BASOPHIL % (test code = BA%) 0.3 % 0-2.5 N NEUTROPHIL # (test code = NT#) 4.98 x10 3/uL 1.80-7.70 N LYMPHOCYTE # (test code = LY#) 1.21 x10 3/uL 1.00-4.80 N MONOCYTE # (test code = MO#) 0.59 x10 3/uL 0.00-0.80 N EOSINOPHIL # (test code = EO#) 0.13 x10 3/uL 0.00-0.45 N BASOPHIL # (test code = BA#) 0.02 x10 3/uL 0.0-0.20 N Notes Date/Time Note Provider Source 2023-01-04 12:10:00-00:00 [facility] ([facility]) Internal Med. Progress Note REPORT #: [id number] REPORT STATUS: Signed DATE: 01/04/23 TIME: 1210 PATIENT: EDUARDO HAZEL UNIT #: [id number] ROOM #: [id number] BED: 1 : 54 AGE: 67 SEX: F ATTEND: Ajit Carbajal MD ADM AUTHOR: Mario Alberto Mccrary MD ATTENTION *EDITS and/or ADDENDA must be made in Patient Ke eper for this note. * * Edits and ammendments created in [facility] are not visible * * in Patient Keeper or the legal medical record (HPF). * -- ASSESSMENT AND PLAN -- PROBLEMS: 1: Diverticulitis large intestine A/P: s/p robotic-assisted laparoscopic low anter ior resection and diverting loop ileostomy. Continue postoperative care per Dr. Carbajal Pain control - Scheduled poTylenol. Celebrex prn Tramadol prn Soft diet 2: Nausea A/P: Zofran prn 3: Chronic obstructive pulmonary disease A/P: Duoneb q6h prn 4: Obstructive sleep apnea A/P: CPAP hs 5: Hypertension A/P: Lisinopril 40 mg daily, carvedilol 6.25 mg b.i.d., clonidine 0.1 mg b.i.d. 6: Diabetes mellitus A/P: Farxiga 5 mg p.o. daily. 7: Hypercholesterolemia A/P: Gemfibrozil 600 mg p.o. b.i.d. 8: Deep breathing exercise to prevent atelectasi s. 9: Postoperative anemia A/P: POA. No obvious bleeding. Monitor Hgb trend - holding 10: Thrombocytopenia A/P: POA. Monitor trend - better 11: DVT prophylaxis A/P: Lovenox -- SUBJECTIVE -- PATIENT NARRATIVE: tolerating PO nausea better -- OBJECTIVE -- VITALS (01/03 12:10 - 01/04 12:10): Temperature C: 36.8 (36.6 - 36.8) Temperature source: Oral Pulse Rate 64 (61 - 66) Respiratory rate: 18 (17 - 20) BP: 124/69 (117/69 - 146/71) I/Os (01/03 07:00 - 01/04 07:00): Net 1,650.00 Intake 1,800.00 Output 150 -EXAM- GENERAL: alert and cooperative, appears comforta ble. In no distress. HEAD: Normocephalic, atraumatic. EYES: PERRL, EOM intact, conjunctiva and sclera clear, without nystagmus, lids normal. EARS: normal canals, grossly normal hearing. NOSE: No deformity, no discharge, no inflammatio n, no lesions. MOUTH: Oropharynx without deformities or lesions , normal mucosa. NECK: No masses, no thyromegaly, no abnormal cer vical nodes, trachea midline. CHEST: Grossly normal appearance. LUNGS: Clear bilaterally with normal respiratory effort. HEART: Regular rate and rhythm, normal S1, S2, no murmurs, no rubs, no gallops, no clicks. ABDOMEN: Soft, minimally tender, incisions clean and dry. ileostomy functioning MUSCULOSKELETAL: No deformity, no scoliosis note d of thoracic or lumbar spine, joint ROM grossly normal EXTREMITIES: No clubbing, no cyanosis, no edema. Right arm PICC NEUROLOGICAL: No focal deficits, cranial nerves II-XII grossly intact, normal sensation, normal coordination, normal m uscle strength, normal tone. PULSES: Pulses normal in all extremities. SKIN: Intact without significant lesions, or constantino hes. LYMPH NODES: No significant node adenopathy. PSYCHIATRIC: Alert and oriented to time, person, place. Normal mood and affect, intact judgment and insight. REASON KEITH CONTINUED: to facilitate nursing care -- DATA -- MEDICATIONS HEPARIN SODIUM,PORCINE 5000 UNIT SUBQ Q8HR CELECOXIB 200 MG PO Q12H PRN RINGERS, LACTATED 1000 ML IV .[id number] carvediloL 6.25 MG PO BID MEALS DAPAGLIFLOZIN PROPANEDIOL 5 MG PO QAM PANTOPRAZOLE 40 MG PO DAILY ONDANSETRON HCL/PF 4 MG IV Q8H PRN lisinopriL 40 MG PO DAILY INSULIN LISPRO 0 UNITS SUBQ AC HS traMADol HCL 50 MG PO Q4H PRN ROSUVASTATIN CALCIUM 10 MG PO BEDTIME cloNIDine HCL 0.1 MG PO BID gemfibroziL 600 MG PO BID IPRATROPIUM/ALBUTEROL SULFATE 3 ML NEB RTQ4H PRN DEXTROSE 50%-WATER 25 ML IV ASDIR PRN GLUCAGON 1 MG IM ASDIR PRN IPRATROPIUM/ALBUTEROL SULFATE 3 ML NEB RTQ6H hydrALAZINE HCL 5 MG IV Q2H PRN LABS GLU BED (01/04/23 11:37) GLUBED 112 H GLU BED (01/04/23 07:33) GLUBED 98 GLU BED (01/03/23 16:10) GLUBED 129 H -- ATTESTATION -- TIME SPENT ON PATIENT CARE: - Direct 35 minutes - Coordination of Care - Discharge Planning - > 50% of time spent on Counseling/Care [facility] CARE ACTIVITIES / CARE COORDINATION: - I have seen and examined this patient - I have reviewed the progress in the clinical course since the last examination - I have discussed the luzma ent's condition with other members of the care team Signed in PatientKeeper by Mario Alberto Mccrary MD o n 01/04/23 at 12:11 at 1211 ATTENTION *EDITS and/or ADDENDA must be made in Patient [facility] for this note. * * Edits and ammendments created in [employer] are not visible * * in Patient Keeper or the legal medical record ([facility]). * RPT #: [id number] END OF REPORT 2023-01-04 08:00:00-00:00 [facility] ([facility]) General Surg. Clinical Note REPORT #: [id number] REPORT STATUS: Signed DATE: 01/04/23 TIME: 08 PATIENT: EDUARDO HAZEL UNIT #: [id number] ROOM #: [id number] BED: 1 : 54 AGE: 67 SEX: F ATTEND: Ajit Carbajal MD ADM AUTHOR: Codi Jacob DO ATTENTION *EDITS and/or ADDENDA must be made in Patient [facility] for this note. * * Edits and ammendments created in [facility] are not visible * * in Patient Keeper or the legal medical record ([facility]). * -- NOTATION -- NOTATION: She is doing better today. She states th at she has had no nausea overnight and is tolerating breakfast. She reports a headache and she thinks it's from not getting her morning coffee. She is ambulating wi thout difficulty and reports that her pain is controlled. VSS Abdomen: mildly distended, nontender, no rebound , no guarding, ileostomy pink and viable with bilious output in bag A/P 67 yo F POD#4 from low anterior resection and di verting loop ileostomy 1. HH and outpatient IVF are setup for the patie nt 2. She can be discharged aft er lunch today if she continues to tolerate without nausea/emesis. Codi Jacob DO Signed in PatientKeeper by Codi Jacob DO on 01/04/23 at 08:03 Electronically Signed by Codi Jacob DO on 0 01/04/23 at 0803 ATTENTION *EDITS and/or ADDENDA must be made in Patient Ke eper for this note. * * Edits and ammendments created in [facility] are not visible * * in Patient Keeper or the legal medical record ([facility]). * [facility] #: [id number] END OF REPORT 2023-01-03 16:25:00-00:00 [facility] ([facility]) Internal Med. Progress Note REPORT #: [id number] REPORT STATUS: Signed DATE: 01/03/23 TIME: 1625 PATIENT: EDUARDO HAZEL UNIT #: [id number] ROOM #: [facility]28 BED: 1 : 54 AGE: 67 SEX: F ATTEND: Ajit Carbajal MD ADM AUTHOR: Bertin Ashton APRN ATTENTION *EDITS and/or ADDENDA must be made in Patient Ke eper for this note. * * Edits and ammendments created in [facility] are not visible * * in Patient Keeper or the legal medical record ([facility]). * -- CO-SIGNATURE -- COMMENTS: Patient seen and examined at bedside Plan of care discussed with patient, all questions answered to her satisfaction Agree with the findings as detailed by Bertin oh APRN Plans for the acute medical problems are enumera brisa below Total time spent coordinating care > 35 mins Signed in PatientKeeper by MARIO ALBERTO MCCRARY MD 01/03/23 at 21:29 -- ASSESSMENT AND PLAN -- PROBLEMS: 1: Diverticulitis large intestine A/P: s/p robotic-assisted laparoscopic low anter ior resection and diverting loop ileostomy. Continue postoperative care per Dr. Carbajal Pain control - Scheduled poTylenol. Celebrex prn Tramadol prn Soft diet 2: Nausea A/P: Zofran prn 3: Chronic obstructive pulmonary disease A/P: Duoneb q6h prn 4: Obstructive sleep apnea A/P: CPAP hs 5: Hypertension A/P: Lisinopril 40 mg daily, carvedilol 6.25 mg b.i.d., clonidine 0.1 mg b.i.d. 6: Diabetes mellitus A/P: Farxiga 5 mg p.o. daily. 7: Hypercholesterolemia A/P: Gemfibrozil 600 mg p.o. b.i.d. 8: Deep breathing exercise to prevent atelectasi s. 9: Postoperative anemia A/P: POA. No obvious bleeding. Monitor Hgb trend - holding 10: Thrombocytopenia A/P: POA. Monitor trend - better 11: DVT prophylaxis A/P: Lovenox -- SUBJECTIVE -- PATIENT NARRATIVE: Hgb is holding Home health being arranged. Patient didn't tolerate advancing diet. Discharge canceled. -- OBJECTIVE -- VITALS (01/02 16:25 - 01/03 16:25): Temperature C: 36.8 (36.7 - 37.3) Temperature source: Oral Pulse Rate 65 (62 - 74) Respiratory rate: 20 (16 - 20) BP: 117/70 (106/60 - 138/76) I/Os (01/02 07:00 - 01/03 07:00): Net 640.00 Intake 1,140.00 Output 500 -EXAM- GENERAL: alert and cooperative, appears comforta ble. In no distress. HEAD: Normocephalic, atraumatic. EYES: PERRL, EOM intact, conjunctiva and sclera clear, without nystagmus, lids normal. EARS: normal canals, grossly normal hearing. NOSE: No deformity, no discharge, no inflammatio n, no lesions. MOUTH: Oropharynx without deformities or lesions , normal mucosa. NECK: No masses, no thyromegaly, no abnormal cer vical nodes, trachea midline. CHEST: Grossly normal appearance. BREAST: deferred LUNGS: Clear bilaterally with normal respiratory effort. HEART: Regular rate and rhythm, normal S1, S2, n o murmurs, no rubs, no gallops, no clicks. ABDOMEN: Soft, minimally tender, incisions clean and dry. ileostomy functioning MUSCULOSKELETAL: No deformity, no scoliosis note d of thoracic or lumbar spine, joint ROM grossly normal EXTREMITIES: No clubbing, no cyanosis, no edema. Right arm PICC NEUROLOGICAL: No focal deficits, cranial nerves II-XII grossly intact, normal sensation, normal coordination, normal m uscle strength, normal tone. PULSES: Pulses normal in all extremities. RECTAL: deferred GENITOURINARY: deferred SKIN: Intact without significant lesions, or constantino hes. LYMPH NODES: No significant node adenopathy. PSYCHIATRIC: Alert and oriented to time, person, place. Normal mood and affect, intact judgment and insight. -- DATA -- MEDICATIONS HEPARIN SODIUM,PORCINE 5000 UNIT SUBQ Q8HR CELECOXIB 200 MG PO Q12H PRN RINGERS, LACTATED 1000 ML IV .[id number] carvediloL 6.25 MG PO BID MEALS DAPAGLIFLOZIN PROPANEDIOL 5 MG PO QAM ACETAMINOPHEN 650 MG PO Q6HR PANTOPRAZOLE 40 MG PO DAILY ONDANSETRON HCL/PF 4 MG IV Q8H PRN lisinopriL 40 MG PO DAILY INSULIN LISPRO 0 UNITS SUBQ AC HS traMADol HCL 50 MG PO Q4H PRN ROSUVASTATIN CALCIUM 10 MG PO BEDTIME cloNIDine HCL 0.1 MG PO BID gemfibroziL 600 MG PO BID IPRATROPIUM/ALBUTEROL SULFATE 3 ML NEB RTQ4H PRN DEXTROSE 50%-WATER 25 ML IV ASDIR PRN GLUCAGON 1 MG IM ASDIR PRN IPRATROPIUM/ALBUTEROL SULFATE 3 ML NEB RTQ6H hydrALAZINE HCL 5 MG IV Q2H PRN LABS GLU BED (01/03/23 16:10) GLUBED 129 H GLU BED (01/03/23 11:55) GLUBED 108 H GLU BED (01/03/23 07:11) GLUBED 96 CBC W/AUTO DIFF (01/03/23 02:53) WHITE BLOOD CELL 7.6 RED BLOOD CELL 2.84 L HEMOGLOBIN 9.6L L HEMATOCRIT 28.9L L MEAN CELL VOLUME 101.8 H MEAN CELL HGB 33.8 H MEAN CELL HGB CONCENTRATION 33.2 RED CELL DISTRIBUTION WIDTH 13.7 PLATELET COUNT 128L L MEAN PLATELET VOLUME 12.5 H NEUTROPHIL % 84.4 H LYMPHOCYTE % 8.0 L MONOCYTE % 5.6 EOSINOPHIL % 0.9 BASOPHIL % 0.1 NEUTROPHIL # 6.43 LYMPHOCYTE # 0.61 L MONOCYTE # 0.43 EOSINOPHIL # 0.07 BASOPHIL # 0.01 MAG (01/03/23 02:53) MAGNESIUM 1.8 BASIC METABOLIC PANEL (01/03/23 02:53) SODIUM 139 POTASSIUM 4.1 CHLORIDE 106 CARBON DIOXIDE 19L L GLUCOSE 77 BLOOD UREA NITROGEN 20 GLOMERULAR FILTRATION RATE >=60 max estimate CREATININE 0.90 CALCIUM 9.2 GLU BED (01/02/23 21:13) GLUBED 107 H GLU BED (01/02/23 17:22) GLUBED 112 H Signed in PatientKeeper by Bertin Ashton APRN 01/03/23 at 16:36 Cosigned by MARIO ALBERTO MCCRARY MD on 01/03/23 at 2 1:29 Electronically Signed by Bertin Ashton on 0 01/03/23 at 2128 at 2128 ATTENTION *EDITS and/or ADDENDA must be made in Patient Ke eper for this note. * * Edits and ammendments created in [facility] are not visible * * in Patient Keeper or the legal medical record ([facility]). * [facility] #: [id number] END OF REPORT 2023-01-03 12:34:00-00:00 [facility] ([facility]) Med Order Sheet REPORT #: [id number] REPORT STATUS: Signed DATE: 01/03/23 TIME: 1234 PATIENT: EDUARDO HAZEL UNIT #: [id number] ROOM #: [id number] BED: 1 : 54 AGE: 67 SEX: F ATTEND: Ajit Carbajal MD ADM AUTHOR: Bertin Ashton APRN ATTENTION *EDITS and/or ADDENDA must be made in Patient Ke eper for this note. * * Edits and ammendments created in [facility] are not visible * * in Patient Keeper or the legal medical record ([facility]). * Discharge Medication Reconciliation DISCHARGE MEDICATION LIST Aspirin EC Tab (Ecotrin Tab) Dose: 81 MG PO DAILY CARVEdilol Tab (Coreg Tab) Dose: 6.25 MG PO BID MEALS cloNIDine Tab (Catapres Tab) Dose: 0.1 MG PO BID cyanocobalamin (vit B-12) sublingual tablet Dose: 1000 MCG PO DAILY Dapaglifozin Tab (Farxiga Tab) Dose: 5 MG PO QAM EZFE 200 capsule (polysaccharide iron complex) Dose: TAKES 65MG DAILY Oral - TAKES 65MG DAILY Fiber Laxative (methylcellulose) tablet (methylc ellulose (laxative)) Dose: TAKES BID Oral - TAKES BID Gemfibrozil Tab (Lopid Tab) Dose: 600 MG PO BID lisinopril tablet Dose: 40 MG PO DAILY omega-3 fatty acids capsule Dose: 1000 MG PO BID Pantoprazole DR Tab (Protonix Tab) Dose: 40 MG PO DAILY PROBIOTICS Dose: PO - TAKES DAILY Rosuvastatin Tab (Crestor Tab) Dose: 10 MG PO DAILY Contraindicated Drug Combination: rosuvastatin 10 mg tablet and gemfibroziL 600 mg tablet may interact based on the potentia l interaction between ROSUVASTATIN (<= 10 MG) and GEMFIBROZIL. Override Reason: Patient being monitored Acetaminophen Tab (Tylenol Tab) Dose: 650MG PO Q6HR PRN pain scale 1-3 traMADol Tab (Ultram Tab) Dose: 50MG PO q6h PRN pain scale 4-6, Disp: 24 tablet, Refills: 0 STOPPED HOME MEDICATIONS Dc'd: Altace cap (ramipril) 10 MG PO DAILY STOPPED HOSPITAL MEDICATIONS Dc'd: Albuterol/Ipratrop Neb Soln (Duoneb Neb So ln) 3ML Neb RTQ4H PRN wheezing / shortness of breathDc'd: Albuterol/Ip ratrop Neb Soln (Duoneb Neb Soln) 3ML Neb [id number]'d: Celecoxib Cap (CeleBREX Cap) 200MG PO Q12H PRN pain scale 4-6Dc'd: Dextrose 50% 50 ml Syringe ( D50W 50 ml Syringe) 25ML IV ASDIR PRN hypoglycemiaDc'd: Glucagon Inj (Glucag on Inj) 1MG IM ASDIR PRN hypoglycemia if no iv/enteralDc'd: Heparin Inj ( Heparin Inj) 5000UNIT SubQ Q8HRDc'd: hydrALAZINE Inj (Apresoline Inj) 5MG I V Q2H PRN sbp greater than 150Dc'd: Insulin (Lispro) Inj (HumaLOG Inj) 0 UN ITS SubQ AC HSDc'd: Lactated Ringers 1000mL (LR 1000mL) 1000ML 75 MLS/HR IV Dc'd: Ondansetron Inj (Zofran Inj) 4MG IV Q8H NC N nausea and vomiting Electronically Signed by Bertin Ashton on 0 01/03/23 at 1234 ATTENTION *EDITS and/or ADDENDA must be made in Patient Ke eper for this note. * * Edits and ammendments created in [facility] are not visible * * in Patient Keeper or the legal medical record ([facility]). * [facility] #: [id number] END OF REPORT 2023-01-03 10:13:00-00:00 [facility] ([facility]) Internal Med. D/C Summary REPORT #: [id number] REPORT STATUS: Signed DATE: 01/03/23 TIME: 1013 PATIENT: EDUARDO HAZEL UNIT #: [id number] ROOM #: P.[id number] BED: 1 : 54 AGE: 67 SEX: F ATTEND: Ajit Carbajal MD ADM AUTHOR: Bertin Ashton APRN ATTENTION *EDITS and/or ADDENDA must be made in Patient Ke eper for this note. * * Edits and ammendments created in [employer] are not visible * * in Patient Keeper or the legal medical record ([facility]). * -- CO-SIGNATURE -- COMMENTS: Patient seen and examined Plan of care discussed with Dr. Drummond Patient's questions answered to her satisfaction Agree with the findings as detailed by Bertin oh APRN Discharge plans are enumerated below Total time spent coordinating discharge care > 3 5 mins Signed in PatientKeeper by MARIO ALBERTO MCCRARY MD 01/03/23 at 21:26 -- PROBLEMS/PROCEDURES -- ADMISSION DATE: 12/31/22 ADMITTING DIAGNOSES: - Chronic obstructive pulmonary disease - Deep breathing exercise to prevent atelectasi s. - Diabetes mellitus - Diverticulitis large intestine - Hypercholesterolemia - Hypertension - Hypokalemia - Hypomagnesemia - Obstructive sleep apnea - Postoperative anemia - Thrombocytopenia DISCHARGE DATE: 01/03/23 DISCHARGE DIAGNOSES: - Chronic obstructive pulmonary disease - Deep breathing exercise to prevent atelectasi s. 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 Carbajal. Patient had an u ncomplicated postoperative course. Doing well POD#3. Patient is ambulating independently, and pain is controlled with oral analgesics. Bowel function has returned, and patient is tolerating a soft diet. Case Management was cons ulted for home health arrangements. Discussed with Dr. Drummond. Ok for d ischarge. -- DISCHARGE MEDICATIONS -- ALLERGIES: No Known Allergies (UNKNOWN - Allergy) DISCHARGE MEDICATIONS: Acetaminophen Tab (Tylenol Tab) 650MG PO Q6HR NC N pain scale 1-3 Aspirin EC Tab (Ecotrin Tab) 81 MG PO DAILY CARVEdilol Tab (Coreg Tab) 6.25 MG PO BID MEALS cloNIDine Tab (Catapres Tab) 0.1 MG PO BID cyanocobalamin (vit B-12) sublingual tablet 1000 MCG PO DAILY Dapaglifozin Tab (Farxiga Tab) 5 MG PO QAM EZFE 200 capsule (polysaccharide iron complex) T AKES 65MG DAILY Oral (TAKES 65MG DAILY) Fiber Laxative (methylcellulose) tablet (methylcellulose (laxative)) TAKES BID Oral (TAKES BID) Gemfibrozil Tab (Lopid Tab) 600 MG PO BID lisinopril tablet 40 MG PO DAILY omega-3 fatty acids capsule 1000 MG PO BID Pantoprazole DR Tab (Protonix Tab) 40 MG PO FILOMENA Y PROBIOTICS PO PROBIOTICS (TAKES DAILY) Rosuvastatin Tab (Crestor Tab) 10 MG PO DAILY traMADol Tab (Ultram Tab) 50MG PO q6h PRN pain s junior 4-6, Disp: 24 tablet, Refills: 0 -- DISCHARGE INSTRUCTIONS -- ADMISSION ORDERS: Discharge Follow Up Details: Consulting provider 1:: AJIT CARBAJAL MD Consulting provider 1:: . Consult phone:: [phone] Consult follow up timeframe:: In 1-2 weeks Consult special instructions:: Patient to call f or follow up appointment. PK DISCHARGE ORDERS: DC Parameters and Instructions Details: Discharge to:: Home Health wPlan of Care Case Management Follow Up: Home Health arranged Notify attending when discharge parameter met:: No Diet:: Soft Activity:: Do not Submerge Incision, No Lifting, No Strenuous Activity, Shower Only Additional Discharge Routines:: PCP Follow-Up, C onsultant Follow-Up PCP follow up timeframe:: In 1-2 weeks PCP special instructions:: Patient to call for f ollow up appointment. Notify PCP of Signs/Symptoms:: Increased tendern ess/pain, Moderate/large bleeding, Pus-like discharge, Red line from woun d, Temp. 101 or greater Wound/dressing care:: Keep wound clean and dry Details: DC Order - No eCQM ADDTIONAL DISCHARGE INSTRUCTIONS: Emergency Instructions: The patient was instruct ed to present to the nearest Emergency Department or call 911 should their sy mptoms return or worsen.; -- OBJECTIVE -- VITALS (01/02 10:13 - 01/03 10:13): Temperature C: 36.7 (36.4 - 37.3) Temperature source: Oral Pulse Rate 65 (65 - 75) Respiratory rate: 18 (16 - 20) BP: 131/76 (106/59 - 138/76) I/Os (01/02 07:00 - 01/03 07:00): Net 640.00 Intake 1,140.00 Output 500 -EXAM- GENERAL: alert and cooperative, appears comforta ble. In no distress. HEAD: Normocephalic, atraumatic. EYES: PERRL, EOM intact, conjunctiva and sclera clear, without nystagmus, lids normal. EARS: normal canals, grossly normal hearing. NOSE: No deformity, no discharge, no inflammatio n, no lesions. MOUTH: Oropharynx without deformities or lesions , normal mucosa. NECK: No masses, no thyromegaly, no abnormal cer vical nodes, trachea midline. CHEST: Grossly normal appearance. BREAST: deferred LUNGS: Clear bilaterally with normal respiratory effort. HEART: Regular rate and rhythm, normal S1, S2, n o murmurs, no rubs, no gallops, no clicks. ABDOMEN: Soft, minimally tender, incisions clean and dry. ileostomy functioning MUSCULOSKELETAL: No deformity, no scoliosis note d of thoracic or lumbar spine, joint ROM grossly normal EXTREMITIES: No clubbing, no cyanosis, no edema. Right arm PICC NEUROLOGICAL: No focal deficits, cranial nerves II-XII grossly intact, normal sensation, normal coordination, normal m uscle strength, normal tone. PULSES: Pulses normal in all extremities. RECTAL: deferred GENITOURINARY: deferred SKIN: Intact without significant lesions, or constantino hes. LYMPH NODES: No significant node adenopathy. PSYCHIATRIC: Alert and oriented to time, person, place. Normal mood and affect, intact judgment and insight. -- DATA -- LABS GLU BED (01/03/23 07:11) GLUBED 96 CBC W/AUTO DIFF (01/03/23 02:53) WHITE BLOOD CELL 7.6 RED BLOOD CELL 2.84 L HEMOGLOBIN 9.6L L HEMATOCRIT 28.9L L MEAN CELL VOLUME 101.8 H MEAN CELL HGB 33.8 H MEAN CELL HGB CONCENTRATION 33.2 RED CELL DISTRIBUTION WIDTH 13.7 PLATELET COUNT 128L L MEAN PLATELET VOLUME 12.5 H NEUTROPHIL % 84.4 H LYMPHOCYTE % 8.0 L MONOCYTE % 5.6 EOSINOPHIL % 0.9 BASOPHIL % 0.1 NEUTROPHIL # 6.43 LYMPHOCYTE # 0.61 L MONOCYTE # 0.43 EOSINOPHIL # 0.07 BASOPHIL # 0.01 MAG (01/03/23 02:53) MAGNESIUM 1.8 BASIC METABOLIC PANEL (01/03/23 02:53) SODIUM 139 POTASSIUM 4.1 CHLORIDE 106 CARBON DIOXIDE 19L L GLUCOSE 77 BLOOD UREA NITROGEN 20 GLOMERULAR FILTRATION RATE >=60 max estimate CREATININE 0.90 CALCIUM 9.2 GLU BED (01/02/23 21:13) GLUBED 107 H GLU BED (01/02/23 17:22) GLUBED 112 H GLU BED (01/02/23 11:35) GLUBED 110 H Signed in PatientKeeper by Bertin Ashton APRN o n 01/03/23 at 12:34 Cosigned by MARIO ALBERTO MCCRARY MD on 01/03/23 at 2 1:26 Electronically Signed by Bertin Ashton on 0 01/03/23 at 2125 at 2125 ATTENTION *EDITS and/or ADDENDA must be made in Patient Nilson fernández for this note. * * Edits and ammendments created in [employer] are not visible * * in Patient Keeper or the legal medical record ([facility]). * RPT #: [id number] END OF REPORT 2023-01-03 07:19:00-00:00 [facility] ([facility]) Surgical Post Op Progress Note REPORT #: [id number] REPORT STATUS: Signed DATE: 01/03/23 TIME: 718 PATIENT: EDUARDO HAZEL UNIT #: [id number] ROOM #: P.0928 BED: 1 : 54 AGE: 67 SEX: F ATTEND: Ajit Carbajal MD ADM AUTHOR: Gagandeep Drummond MD ATTENTION *EDITS and/or ADDENDA must be made in Patient Nilson fernández for this note. * * Edits and ammendments created in [facility] are not visible * * in Patient Keeper or the legal medical record ([facility]). * -- ASSESSMENT AND PLAN -- GENERAL ASSESSMENT: Regular diet DC planning Possible DC later today -- SUBJECTIVE -- HOSPITAL DAY: 4 POST-OP DAY: 3 CHIEF COMPLAINT: s/p LAR and DLI HPI: DOING WELL, NO ABD PAIN, NO NAUSEA OR VOMITING, TOLERATING FULLS, PASSING GAS AND STOOL IN THE ILEOSTOMY. -- OBJECTIVE -- VITALS (01/02 07:20 - 01/03 07:20): Temperature C: 36.7 (36.4 - 37.3) Temperature source: Oral Pulse Rate 65 (65 - 79) Respiratory rate: 18 (16 - 20) BP: 131/76 (106/59 - 138/76) I/Os (01/02 07:00 - 01/03 07:00): Net 640.00 Intake 1,140.00 Output 500 ADDITIONAL V/S: AAO X3 Abd- soft, NT, ND, ileostomy healthy and draning stool and air. Incision sites- C/D/I -- DATA -- MEDICATIONS HEPARIN SODIUM,PORCINE 5000 UNIT SUBQ Q8HR CELECOXIB 200 MG PO Q12H PRN RINGERS, LACTATED 1000 ML IV .[id number] carvediloL 6.25 MG PO BID MEALS DAPAGLIFLOZIN PROPANEDIOL 5 MG PO QAM ACETAMINOPHEN 650 MG PO Q6HR PANTOPRAZOLE 40 MG PO DAILY ONDANSETRON HCL/PF 4 MG IV Q8H PRN lisinopriL 40 MG PO DAILY INSULIN LISPRO 0 UNITS SUBQ AC HS traMADol HCL 50 MG PO Q4H PRN ROSUVASTATIN CALCIUM 10 MG PO BEDTIME cloNIDine HCL 0.1 MG PO BID gemfibroziL 600 MG PO BID IPRATROPIUM/ALBUTEROL SULFATE 3 ML NEB RTQ4H PRN DEXTROSE 50%-WATER 25 ML IV ASDIR PRN GLUCAGON 1 MG IM ASDIR PRN IPRATROPIUM/ALBUTEROL SULFATE 3 ML NEB RTQ6H hydrALAZINE HCL 5 MG IV Q2H PRN LABS CBC W/AUTO DIFF (01/03/23 02:53) WHITE BLOOD CELL 7.6 RED BLOOD CELL 2.84 L HEMOGLOBIN 9.6L L HEMATOCRIT 28.9L L MEAN CELL VOLUME 101.8 H MEAN CELL HGB 33.8 H MEAN CELL HGB CONCENTRATION 33.2 RED CELL DISTRIBUTION WIDTH 13.7 PLATELET COUNT 128L L MEAN PLATELET VOLUME 12.5 H NEUTROPHIL % 84.4 H LYMPHOCYTE % 8.0 L MONOCYTE % 5.6 EOSINOPHIL % 0.9 BASOPHIL % 0.1 NEUTROPHIL # 6.43 LYMPHOCYTE # 0.61 L MONOCYTE # 0.43 EOSINOPHIL # 0.07 BASOPHIL # 0.01 MAG (01/03/23 02:53) MAGNESIUM 1.8 BASIC METABOLIC PANEL (01/03/23 02:53) SODIUM 139 POTASSIUM 4.1 CHLORIDE 106 CARBON DIOXIDE 19L L GLUCOSE 77 BLOOD UREA NITROGEN 20 GLOMERULAR FILTRATION RATE >=60 max estimate CREATININE 0.90 CALCIUM 9.2 GLU BED (01/02/23 21:13) GLUBED 107 H GLU BED (01/02/23 17:22) GLUBED 112 H GLU BED (01/02/23 11:35) GLUBED 110 H GLU BED (01/02/23 07:40) GLUBED 102 Signed in PatientKeeper by Gagandeep Drummond MD on 12/16 05/10 at 11:19 Electronically Signed by Gagandeep Drummond MD on at 1119 ATTENTION *EDITS and/or ADDENDA must be made in Patient Ke eper for this note. * * Edits and ammendments created in [facility] are not visible * * in Patient Keeper or the legal medical record (HPF). * RPT #: [id number] END OF REPORT 2023-01-02 15:07:00-00:00 [facility] ([facility]) Internal Med. Progress Note REPORT #: [id number] REPORT STATUS: Signed DATE: 01/02/23 TIME: 1506 PATIENT: EDUARDO HAZEL UNIT #: [id number] ROOM #: P.0928 BED: 1 : 54 AGE: 67 SEX: F ATTEND: Ajit Carbajal MD ADM AUTHOR: Bertin Ashton APRN ATTENTION *EDITS and/or ADDENDA must be made in Patient Ke eper for this note. * * Edits and ammendments created in [facility] are not visible * * in Patient Keeper or the legal medical record (HPF). 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 Continue postoperative care per Dr. Carbajal Pain control - Scheduled poTylenol. Celebrex prn Tramadol prn Clear liquid diet until more ileostomy output Continue IV hydration until tolerating oral inta ke well. 2: Chronic obstructive pulmonary disease A/P: Duoneb q6h prn 3: Obstructive sleep apnea A/P: CPAP hs 4: Hypertension A/P: Lisinopril 40 mg daily, carvedilol 6.25 mg b.i.d., clonidine 0.1 mg b.i.d. 5: Diabetes mellitus A/P: Farxiga 5 mg p.o. daily. 6: Hypercholesterolemia A/P: Gemfibrozil 600 mg p.o. b.i.d. 7: Deep breathing exercise to prevent atelectasi s. 8: Postoperative anemia A/P: POA. No obvious bleeding. Monitor Hgb trend 9: Thrombocytopenia A/P: POA. Monitor trend. 10: DVT prophylaxis A/P: Lovenox -- SUBJECTIVE -- PATIENT NARRATIVE: Doing ok. Pain is controlled. Tolerating clear liquids. Small amount of ileostomy output Hgb Plts decreased. No obvious bleeding. -- OBJECTIVE -- VITALS (01/01 15:08 - 01/02 15:08): Temperature C: 36.4 (36.4 - 37.3) Temperature source: Oral Pulse Rate 75 (69 - 80) Respiratory rate: 20 (17 - 20) BP: 113/68 (97/58 - 127/68) I/Os (01/01 07:00 - 01/02 07:00): Net 520.00 Intake 2,870.00 Output 2,350 -EXAM- GENERAL: alert and cooperative, appears comforta ble. In no distress. HEAD: Normocephalic, atraumatic. EYES: PERRL, EOM intact, conjunctiva and sclera clear, without nystagmus, lids normal. EARS: normal canals, grossly normal hearing. NOSE: No deformity, no discharge, no inflammatio n, no lesions. MOUTH: Oropharynx without deformities or lesions , normal mucosa. NECK: No masses, no thyromegaly, no abnormal cer vical nodes, trachea midline. CHEST: Grossly normal appearance. BREAST: deferred LUNGS: Clear bilaterally with normal respiratory effort. HEART: Regular rate and rhythm, normal S1, S2, n o murmurs, no rubs, no gallops, no clicks. ABDOMEN: Soft, minimally tender, incisions clean and dry. ileostomy with small amount of liquid in appliance. MUSCULOSKELETAL: No deformity, no scoliosis note d of thoracic or lumbar spine, joint ROM grossly normal EXTREMITIES: No clubbing, no cyanosis, no edema. Right arm PICC NEUROLOGICAL: No focal deficits, cranial nerves II-XII grossly intact, normal sensation, normal coordination, normal muscle strength, normal tone. PULSES: Pulses normal in all extremities. RECTAL: deferred GENITOURINARY: deferred SKIN: Intact without significant lesions, or constantino hes. LYMPH NODES: No significant node adenopathy. PSYCHIATRIC: Alert and oriented to time, person, place. Normal mood and affect, intact judgment and insight. -- DATA -- MEDICATIONS HEPARIN SODIUM,PORCINE 5000 UNIT SUBQ Q8HR CELECOXIB 200 MG PO Q12H PRN RINGERS, LACTATED 1000 ML IV .[id number] carvediloL 6.25 MG PO BID MEALS DAPAGLIFLOZIN PROPANEDIOL 5 MG PO QAM ACETAMINOPHEN 650 MG PO Q6HR PANTOPRAZOLE 40 MG PO DAILY ONDANSETRON HCL/PF 4 MG IV Q8H PRN lisinopriL 40 MG PO DAILY INSULIN LISPRO 0 UNITS SUBQ AC HS traMADol HCL 50 MG PO Q4H PRN ROSUVASTATIN CALCIUM 10 MG PO BEDTIME cloNIDine HCL 0.1 MG PO BID gemfibroziL 600 MG PO BID IPRATROPIUM/ALBUTEROL SULFATE 3 ML NEB RTQ4H PRN HYDROmorphone HCL 0.2 MG IV Q3H PRN DEXTROSE 50%-WATER 25 ML IV ASDIR PRN GLUCAGON 1 MG IM ASDIR PRN IPRATROPIUM/ALBUTEROL SULFATE 3 ML NEB RTQ6H hydrALAZINE HCL 5 MG IV Q2H PRN LABS GLU BED (01/02/23 11:35) GLUBED 110 H GLU BED (01/02/23 07:40) GLUBED 102 BASIC METABOLIC PANEL (01/02/23 04:03) SODIUM 139 POTASSIUM 3.9 CHLORIDE 109H H CARBON DIOXIDE 20 GLUCOSE 91 BLOOD UREA NITROGEN 19 GLOMERULAR FILTRATION RATE >=60 max estimate CREATININE 1.00 CALCIUM 8.7 MAG (01/02/23 04:03) MAGNESIUM 2.0 CBC W/AUTO DIFF (01/02/23 04:03) WHITE BLOOD CELL 5.5 RED BLOOD CELL 2.83 L HEMOGLOBIN 9.5D L D L HEMATOCRIT 28.6L L MEAN CELL VOLUME 101.1 H MEAN CELL HGB 33.6 H MEAN CELL HGB CONCENTRATION 33.2 RED CELL DISTRIBUTION WIDTH 13.8 PLATELET COUNT 96L L MEAN PLATELET VOLUME 11.7 NEUTROPHIL % 80.2 H LYMPHOCYTE % 11.2 L MONOCYTE % 7.3 EOSINOPHIL % 0.4 BASOPHIL % 0.0 NEUTROPHIL # 4.39 LYMPHOCYTE # 0.61 L MONOCYTE # 0.40 EOSINOPHIL # 0.02 BASOPHIL # 0.00 GLU BED (01/01/23 20:04) GLUBED 101 GLU BED (01/01/23 16:33) GLUBED 116 H Signed in PatientKeeper by Bertin Ashton APRN 01/02/23 at 15:14 Cosigned by MARIO ALBERTO MCCRARY MD on 01/03/23 at 0 0:08 Electronically Signed by Bertin Ashton on 0 01/03/23 at 0008 at 0008 ATTENTION *EDITS and/or ADDENDA must be made in Patient Ke eper for this note. * * Edits and ammendments created in [facility] are not visible * * in Patient Keeper or the legal medical record (HPF). * RPT #: [id number] END OF REPORT 2023-01-02 08:13:00-00:00 [facility] ([facility]) Surgical Post Op Progress Note REPORT #: [id number] REPORT STATUS: Signed DATE: 01/02/23 TIME: 812 PATIENT: EDUARDO HAZEL UNIT #: [id number] ROOM #: P.0923 BED: 1 : 54 AGE: 67 SEX: F ATTEND: Ajit Carbajal MD ADM AUTHOR: Gagandeep Drummond MD ATTENTION *EDITS and/or ADDENDA must be made in Patient Ke eper for this note. * * Edits and ammendments created in [employer] are not visible * * in Patient Keeper or the legal medical record (HPF). * -- ASSESSMENT AND PLAN -- GENERAL ASSESSMENT: Doing well Out of bed ambulation DVT prophylaxis Continue clear liquid diet for now, will wait fo r more output in the ostomy bag, would like to see gas in the bag before adv ancing diet. -- SUBJECTIVE -- HOSPITAL DAY: 3 POST-OP DAY: 2 CHIEF COMPLAINT: Status post LAR with diverting loop ileostomy HPI: Doing well, mild abdominal pain, controlled with pain medications, no nausea, no vomiting, tolerating clear liquid diet, start ed to drain a small amount of bilious fluid in the ostomy bag, no gas. -- OBJECTIVE -- VITALS (01/01 08:13 - 01/02 08:13): Temperature C: 36.6 (36.6 - 37.3) Temperature source: Oral Pulse Rate 79 (69 - 89) Respiratory rate: 20 (17 - 20) BP: 118/67 (97/58 - 127/69) I/Os (01/01 07:00 - 01/02 07:00): Net 520.00 Intake 2,870.00 Output 2,350 ADDITIONAL V/S: Alert awake O x3 Abdomen-soft, reasonable pos toperative discomfort, slightly distended, incision sites clean dry intact, osto my healthy and pink and has small amount of bilious fluid, no gas. -- DATA -- MEDICATIONS HEPARIN SODIUM,PORCINE 5000 UNIT SUBQ Q8HR CELECOXIB 200 MG PO Q12H PRN RINGERS, LACTATED 1000 ML IV .[id number] carvediloL 6.25 MG PO BID MEALS DAPAGLIFLOZIN PROPANEDIOL 5 MG PO QAM ACETAMINOPHEN 650 MG PO Q6HR PANTOPRAZOLE 40 MG PO DAILY ONDANSETRON HCL/PF 4 MG IV Q8H PRN lisinopriL 40 MG PO DAILY INSULIN LISPRO 0 UNITS SUBQ AC HS traMADol HCL 50 MG PO Q4H PRN ROSUVASTATIN CALCIUM 10 MG PO BEDTIME cloNIDine HCL 0.1 MG PO BID gemfibroziL 600 MG PO BID IPRATROPIUM/ALBUTEROL SULFATE 3 ML NEB RTQ4H PRN HYDROmorphone HCL 0.2 MG IV Q3H PRN DEXTROSE 50%-WATER 25 ML IV ASDIR PRN GLUCAGON 1 MG IM ASDIR PRN IPRATROPIUM/ALBUTEROL SULFATE 3 ML NEB RTQ6H hydrALAZINE HCL 5 MG IV Q2H PRN LABS GLU BED (01/02/23 07:40) GLUBED 102 BASIC METABOLIC PANEL (01/02/23 04:03) SODIUM 139 POTASSIUM 3.9 CHLORIDE 109H H CARBON DIOXIDE 20 GLUCOSE 91 BLOOD UREA NITROGEN 19 GLOMERULAR FILTRATION RATE >=60 max estimate CREATININE 1.00 CALCIUM 8.7 MAG (01/02/23 04:03) MAGNESIUM 2.0 CBC W/AUTO DIFF (01/02/23 04:03) WHITE BLOOD CELL 5.5 RED BLOOD CELL 2.83 L HEMOGLOBIN 9.5D L D L HEMATOCRIT 28.6L L MEAN CELL VOLUME 101.1 H MEAN CELL HGB 33.6 H MEAN CELL HGB CONCENTRATION 33.2 RED CELL DISTRIBUTION WIDTH 13.8 PLATELET COUNT 96L L MEAN PLATELET VOLUME 11.7 NEUTROPHIL % 80.2 H LYMPHOCYTE % 11.2 L MONOCYTE % 7.3 EOSINOPHIL % 0.4 BASOPHIL % 0.0 NEUTROPHIL # 4.39 LYMPHOCYTE # 0.61 L MONOCYTE # 0.40 EOSINOPHIL # 0.02 BASOPHIL # 0.00 GLU BED (01/01/23 20:04) GLUBED 101 GLU BED (01/01/23 16:33) GLUBED 116 H GLU BED (01/01/23 11:56) GLUBED 112 H Signed in PatientKeeper by Gagandeep Drummond MD on 12/16 04/09 at 14:33 Electronically Signed by Gagandeep Drummond MD on at 1433 ATTENTION *EDITS and/or ADDENDA must be made in Patient Ke eper for this note. * * Edits and ammendments created in [facility] are not visible * * in Patient Keeper or the legal medical record (HPF). * RPT #: [id number] END OF REPORT 2023-01-01 10:10:00-00:00 [facility] ([facility]) Internal Med. Progress Note REPORT #: [id number] REPORT STATUS: Signed DATE: 01/01/23 TIME: 1010 PATIENT: EDUARDO HAZEL UNIT #: [id number] ROOM #: P.0923 BED: 1 : 54 AGE: 67 SEX: F ATTEND: Ajit Carbajal MD ADM AUTHOR: Bertin Ashton APRN ATTENTION *EDITS and/or ADDENDA must be made in Patient Ke eper for this note. * * Edits and ammendments created in [facility] are not visible * * in Patient Keeper or the legal medical record (HPF). * -- CO-SIGNATURE -- COMMENTS: Patient seen and examined at bedside Plan of care discussed with patient, all questions answered to her satisfaction Agree with the findings as detailed by Bertin oh APRN Plans for the acute medical problems are enumera brisa below Total time spent coordinating care > 35 mins Signed in PatientKeeper by MARIO ALBERTO MCCRARY MD 01/01/23 at 22:50 -- ASSESSMENT AND PLAN -- PROBLEMS: 1: Diverticulitis large intestine A/P: s/p robotic-assisted laparoscopic low anter ior resection and diverting loop ileostomy. Continue postoperative care per Dr. Carbajal Pain control - Scheduled poTylenol and IV [place] l. Tramadol prn Clear liquid diet Continue IV hydration until tolerating oral inta ke well. 2: Chronic obstructive pulmonary disease A/P: Duoneb q6h prn 3: Obstructive sleep apnea A/P: CPAP hs 4: Hypertension A/P: Lisinopril 40 mg daily, carvedilol 6.25 mg b.i.d., clonidine 0.1 mg b.i.d. 5: Diabetes mellitus A/P: Farxiga 5 mg p.o. daily. 6: Hypercholesterolemia A/P: Gemfibrozil 600 mg p.o. b.i.d. 7: Hypomagnesemia A/P: Replete Mag Sulfate 2 gm IV x 1 8: Hypokalemia A/P: Replete KCl 40 meq po x 1 9: Deep breathing exercise to prevent atelectasi s. 10: DVT prophylaxis A/P: Lovenox -- SUBJECTIVE -- PATIENT NARRATIVE: Doing well POD#1 Pain is controlled. Tolerating clear liquids Await bowel function -- OBJECTIVE -- VITALS (12/31 10:10 - 01/01 10:10): Temperature C: 36.8 (36.4 - 37.0) Temperature source: Oral Pulse Rate 79 (74 - 82) Respiratory rate: 18 (14 - 18) BP: 120/72 (110/72 - 121/78) I/Os (12/31 07:00 - 01/01 07:00): Net 445.00 Intake 1,375.00 Output 930 -EXAM- GENERAL: alert and cooperative, appears comforta ble. In no distress. HEAD: Normocephalic, atraumatic. EYES: PERRL, EOM intact, conjunctiva and sclera clear, without nystagmus, lids normal. EARS: normal canals, grossly normal hearing. NOSE: No deformity, no discharge, no inflammatio n, no lesions. MOUTH: Oropharynx without deformities or lesions , normal mucosa.. NECK: No masses, no thyromegaly, no abnormal cer vical nodes, trachea midline. CHEST: Grossly normal appearance. BREAST: deferred LUNGS: Clear bilaterally with normal respiratory effort. HEART: Regular rate and rhythm, normal S1, S2, n o murmurs, no rubs, no gallops, no clicks. ABDOMEN: Soft, appropriately tender, incisions c lean and dry. ileostomy stoma pink with no gas in appliance. MUSCULOSKELETAL: No deformity, no scoliosis note d of thoracic or lumbar spine, joint ROM grossly normal EXTREMITIES: No clubbing, no cyanosis, no edema . NEUROLOGICAL: No focal deficits, cranial nerves II-XII grossly intact, normal sensation, normal coordination, normal m uscle strength, normal tone. PULSES: Pulses normal in all extremities. RECTAL: Normal rectal tone, no masses. GENITOURINARY: Normal external genitalia. SKIN: Intact without significant lesions, or constantino hes. LYMPH NODES: No significant node adenopathy. PSYCHIATRIC: Alert and oriented to time, person, place. Normal mood and affect, intact judgment and insight. -- DATA -- MEDICATIONS MAGNESIUM SULFATE 2 GM IV ONCE cloNIDine HCL 0.1 MG PO BID gemfibroziL 600 MG PO BID IPRATROPIUM/ALBUTEROL SULFATE 3 ML NEB RTQ6H hydrALAZINE HCL 5 MG IV Q2H PRN HEPARIN SODIUM,PORCINE 5000 UNIT SUBQ Q8HR CELECOXIB 200 MG PO Q12H PRN RINGERS, LACTATED 1000 ML IV .[id number] carvediloL 6.25 MG PO BID MEALS DAPAGLIFLOZIN PROPANEDIOL 5 MG PO QAM ACETAMINOPHEN 650 MG PO Q6HR PANTOPRAZOLE 40 MG PO DAILY ONDANSETRON HCL/PF 4 MG IV Q8H PRN lisinopriL 40 MG PO DAILY INSULIN LISPRO 0 UNITS SUBQ AC HS traMADol HCL 50 MG PO Q4H PRN ROSUVASTATIN CALCIUM 10 MG PO BEDTIME IPRATROPIUM/ALBUTEROL SULFATE 3 ML NEB RTQ4H PRN HYDROmorphone HCL 0.2 MG IV Q3H PRN DEXTROSE 50%-WATER 25 ML IV ASDIR PRN GLUCAGON 1 MG IM ASDIR PRN LABS GLU BED (01/01/23 07:34) GLUBED 129 H MAG (01/01/23 03:24) MAGNESIUM 1.5 L BASIC METABOLIC PANEL (01/01/23 03:24) SODIUM 144 POTASSIUM 3.7 CHLORIDE 112H H CARBON DIOXIDE 18L L GLUCOSE 98 BLOOD UREA NITROGEN 17 GLOMERULAR FILTRATION RATE >=60 max estimate CREATININE 1.00 CALCIUM 8.1 D L CBC W/MANUAL DIFF (01/01/23 03:24) WHITE BLOOD CELL 5.2 RED BLOOD CELL 3.38 L HEMOGLOBIN 11.2L L HEMATOCRIT 33.5L L MEAN CELL VOLUME 99.1 H MEAN CELL HGB 33.1 H MEAN CELL HGB CONCENTRATION 33.4 RED CELL DISTRIBUTION WIDTH 13.4 PLATELET COUNT 126L L MEAN PLATELET VOLUME 11.6 NEUTROPHIL % 84.7 H LYMPHOCYTE % 8.2 L MONOCYTE % 6.5 EOSINOPHIL % 0.2 BASOPHIL % 0.2 NEUTROPHIL # 4.44 LYMPHOCYTE # 0.43 L MONOCYTE # 0.34 EOSINOPHIL # 0.01 BASOPHIL # 0.01 TOTAL CELLS COUNTED 100 SEGMENTED NEUTROPHILS 91 H LYMPHOCYTE 7 L MONOCYTE 1 L MYELOCYTE 1 H RBC MORPHOLOGY COMMENT Normal PLATELET ESTIMATE ADEQUATE PLATELET MORPHOLOGY NORMAL GLU BED (12/31/22 22:31) GLUBED 123 H GLU BED (12/31/22 17:15) GLUBED 135 H CBC W/AUTO DIFF (12/31/22 15:34) WHITE BLOOD CELL 6.7 RED BLOOD CELL 3.24 L HEMOGLOBIN 11.0L L HEMATOCRIT 33.0L L MEAN CELL VOLUME 101.9 H MEAN CELL HGB 34.0 H MEAN CELL HGB CONCENTRATION 33.3 RED CELL DISTRIBUTION WIDTH 13.4 PLATELET COUNT 107L L MEAN PLATELET VOLUME 11.9 NEUTROPHIL % 86.8 H LYMPHOCYTE % 7.6 L MONOCYTE % 5.1 EOSINOPHIL % 0.1 BASOPHIL % 0.1 NEUTROPHIL # 5.80 LYMPHOCYTE # 0.51 L MONOCYTE # 0.34 EOSINOPHIL # 0.01 BASOPHIL # 0.01 Signed in PatientKeeper by Bertin Ashton APRN 01/01/23 at 10:20 Cosigned by MARIO ALBERTO MCCRARY MD on 01/01/23 at 2 2:50 Electronically Signed by Bertin Ashton on 0 01/01/23 at 2250 at 2250 ATTENTION *EDITS and/or ADDENDA must be made in Patient Nilson nikki for this note. * * Edits and ammendments created in [facility] are not visible * * in Patient Keeper or the legal medical record ([facility]). * RPT #: [id number] END OF REPORT 2023-01-01 08:13:00-00:00 [facility] ([facility]) Surgical Post Op Progress Note REPORT #: [id number] REPORT STATUS: Signed DATE: 01/01/23 TIME: 812 PATIENT: EDUARDO HAZEL UNIT #: [id number] ROOM #: P.0923 BED: 1 : 54 AGE: 67 SEX: F ATTEND: Ajit Carbajal MD ADM AUTHOR: Gagandeep Drummond MD ATTENTION *EDITS and/or ADDENDA must be made in Patient Nilson fernández for this note. * * Edits and ammendments created in [facility] are not visible * * in Patient Keeper or the legal medical record ([facility]). * -- ASSESSMENT AND PLAN -- GENERAL ASSESSMENT: Will wait for bowel function before advancing di et Continue clears DC Keith catheter Out of bed ambulation Management of medical comorbidities per medical team -- SUBJECTIVE -- HOSPITAL DAY: 2 POST-OP DAY: 1 CHIEF COMPLAINT: Status post low anterior resection and diverting loop ileostomy HPI: Complains of only mild abdominal discomfort, no nausea, no vomiting, not passing any gas or bowel movements in the ileost gretchen. Denies any chest pain or shortness of breath. -- OBJECTIVE -- VITALS (12/31 08:13 - 01/01 08:13): Temperature C: 36.8 (36.4 - 37.0) Temperature source: Oral Pulse Rate 79 (74 - 82) Respiratory rate: 18 (14 - 18) BP: 120/72 (110/72 - 121/78) I/Os (12/31 07:00 - 01/01 07:00): Net 445.00 Intake 1,375.00 Output 930 ADDITIONAL V/S: Afebrile hemodynamically stable Both lungs clear to auscultation Abdomen-soft, reasonable pos toperative tenderness, slightly distended, sluggish bowel sounds, incision sites clean dry a nd intact, ileostomy healthy and pink, not draining any fluid or gas. -- DATA -- MEDICATIONS POTASSIUM CHLORIDE 40 MEQ PO ONCE MAGNESIUM SULFATE 2 GM IV ONCE cloNIDine HCL 0.1 MG PO BID gemfibroziL 600 MG PO BID IPRATROPIUM/ALBUTEROL SULFATE 3 ML NEB RTQ6H hydrALAZINE HCL 5 MG IV Q2H PRN HEPARIN SODIUM,PORCINE 5000 UNIT SUBQ Q8HR CELECOXIB 200 MG PO Q12H PRN RINGERS, LACTATED 1000 ML IV .[id number] carvediloL 6.25 MG PO BID MEALS DAPAGLIFLOZIN PROPANEDIOL 5 MG PO QAM ACETAMINOPHEN 650 MG PO Q6HR PANTOPRAZOLE 40 MG PO DAILY ONDANSETRON HCL/PF 4 MG IV Q8H PRN lisinopriL 40 MG PO DAILY INSULIN LISPRO 0 UNITS SUBQ AC HS traMADol HCL 50 MG PO Q4H PRN ROSUVASTATIN CALCIUM 10 MG PO BEDTIME IPRATROPIUM/ALBUTEROL SULFATE 3 ML NEB RTQ4H PRN HYDROmorphone HCL 0.2 MG IV Q3H PRN DEXTROSE 50%-WATER 25 ML IV ASDIR PRN GLUCAGON 1 MG IM ASDIR PRN LABS GLU BED (01/01/23 07:34) GLUBED 129 H MAG (01/01/23 03:24) MAGNESIUM 1.5 L BASIC METABOLIC PANEL (01/01/23 03:24) SODIUM 144 POTASSIUM 3.7 CHLORIDE 112H H CARBON DIOXIDE 18L L GLUCOSE 98 BLOOD UREA NITROGEN 17 GLOMERULAR FILTRATION RATE >=60 max estimate CREATININE 1.00 CALCIUM 8.1 D L CBC W/MANUAL DIFF (01/01/23 03:24) WHITE BLOOD CELL 5.2 RED BLOOD CELL 3.38 L HEMOGLOBIN 11.2L L HEMATOCRIT 33.5L L MEAN CELL VOLUME 99.1 H MEAN CELL HGB 33.1 H MEAN CELL HGB CONCENTRATION 33.4 RED CELL DISTRIBUTION WIDTH 13.4 PLATELET COUNT 126L L MEAN PLATELET VOLUME 11.6 NEUTROPHIL % 84.7 H LYMPHOCYTE % 8.2 L MONOCYTE % 6.5 EOSINOPHIL % 0.2 BASOPHIL % 0.2 NEUTROPHIL # 4.44 LYMPHOCYTE # 0.43 L MONOCYTE # 0.34 EOSINOPHIL # 0.01 BASOPHIL # 0.01 TOTAL CELLS COUNTED 100 SEGMENTED NEUTROPHILS 91 H LYMPHOCYTE 7 L MONOCYTE 1 L MYELOCYTE 1 H RBC MORPHOLOGY COMMENT Normal PLATELET ESTIMATE ADEQUATE PLATELET MORPHOLOGY NORMAL GLU BED (12/31/22 22:31) GLUBED 123 H GLU BED (12/31/22 17:15) GLUBED 135 H CBC W/AUTO DIFF (12/31/22 15:34) WHITE BLOOD CELL 6.7 RED BLOOD CELL 3.24 L HEMOGLOBIN 11.0L L HEMATOCRIT 33.0L L MEAN CELL VOLUME 101.9 H MEAN CELL HGB 34.0 H MEAN CELL HGB CONCENTRATION 33.3 RED CELL DISTRIBUTION WIDTH 13.4 PLATELET COUNT 107L L MEAN PLATELET VOLUME 11.9 NEUTROPHIL % 86.8 H LYMPHOCYTE % 7.6 L MONOCYTE % 5.1 EOSINOPHIL % 0.1 BASOPHIL % 0.1 NEUTROPHIL # 5.80 LYMPHOCYTE # 0.51 L MONOCYTE # 0.34 EOSINOPHIL # 0.01 BASOPHIL # 0.01 Signed in PatientKeeper by Gagandeep Drummond MD on 12/16 03/09 at 11:16 Electronically Signed by Gagandeep Drummond MD on at 1116 ATTENTION *EDITS and/or ADDENDA must be made in Patient Ke eper for this note. * * Edits and ammendments created in [employer] are not visible * * in Patient Keeper or the legal medical record (HPF). * [facility] #: [id number] END OF REPORT 2022-12-31 21:16:00-00:00 [id number] [facility] [address] [place] [address] PATIENT NAME: EDUARDO HAZEL ADMIT DATE: ACCOUNT NO: [id number] ROOM NO: P.0928 AGE: 67 REPORT TYPE: OPERATIVE REPORT SEX: F ADMITTING PHYSICIAN:Ajit Carbajal MD ATTENDING PHYSICIAN:Ajit Carbajal MD OPERATION DATE: 12/31/2022 PREOPERATIVE DIAGNOSES: 1. Adenomatous polyp, not amenable to en doscopic removal of the sigmoid colon. 2. Sigmoid diverticulitis. POSTOPERATIVE DIAGNOSES: 1. Adenomatous polyp, not amenable to en doscopic removal of the sigmoid colon. 2. Sigmoid diverticulitis. 3. Abnormal intraabdominal adhesions and pelvic adhesions. PROCEDURES: These are all staged planned procedu res. 1. Laparoscopic-assisted ana maria otic low anterior resection with primary colorectal anastomosis. 2. Laparoscopic splenic flexure takedown. 3. Laparoscopic lysis of pelvic adhesions. 4. Laparoscopic diverting loop ileostomy. COLORECTAL SURGEON: Ajit Carbajal MD FRUIT AND VEGETABLE INSPECTOR: Marilyn Wiley. ADDITIONAL SQL SERVER DBA: Dr. Trejo ANESTHESIA: General endotracheal anesthesia. SPECIMEN: Low anterior resection. COMPLICATIONS: None. CONDITION: Stable. INDICATIONS AND FINDINGS: The patient pr esents with a complex history. She had a polypoid lesion of the sigmoid colon. Initiall y, we tried to attempt endoscopic removal under robotic conditions. How ever, due to the anatomy revealing severe diverticular disease, this was not possible. Therefore, we planned a staged procedure with an actual resect ion. Laparoscopic-assisted robotic approach w as performed. Upon entering, there was noted to be a lot of abnormal adhesions, especially involving the omentum that required splenic flexure cece edown to allow a tension-free anastomosis. However, this took more than twice as long because of the unusual adhesions at this level. Also, in the sigmoid area, there were a l ot of postinflammatory PATIENT NAME: EDUARDO HAZEL [id number] adhesions distorting the anatomy significantly. This required lysis of adhesions, especially from the gynecologic struc tures of the pelvis mainly including the left tube and ovary, which was encased and displaced the sigmoid colon. Once all of that was released, we were ab le to resect the specimen, extracted transrectally. We were able to perform a primary end-to-end colorectal anastomosis; however, the tissues wer e extremely edematous and thickened within the areas, it was not felt that this was safe to allow stool to pass through and therefore a diverting loop ileo stomy was required. The procedure was extremely difficult and length y in nature Surgical first officer and flight instructor, Dr. Wiley, was required to complete the procedure safely. Additional assist were Dr. Trejo. In total, the patient had a low anterior resection, laparoscopic lysis of pelvic adhesion s, laparoscopic splenic flexure takedown, and laparoscopic diverting loo p ileostomy. It should be noted that there were a couple areas of deserosa lization of the left colon. This was secondary to dense adhesions and this w as not iatrogenic. Both of these areas were closed with suture enterorrhaph y using 3-0 Vicryl sutures. The dense adhesions were very abnormal and they secondary to the post- inflammatory disease of the sigmoid colon. DESCRIPTION OF PROCEDURE: e patient was taken to the operating room and after induction of anesthesia, felicity leela in modified lithotomy position. She was prepped and draped in sterile fashion. Laparoscopic acce ss was gained with a 5 mm optical entry port. We put a 12 mm port in the right lower quadrant, 8 mm port in the umbilicus, 8 mm port in the right upper q uadrant and, two in the left side. First, lysis of adhesions as above were pe rformed. Next, we placed the patient in a more neutral position and performed a splenic flexure takedown. This took 2-3 times longer than typical because the omentum was thick in this area. The tissues were very friable. Bleeding wa s encountered very easily and we had to control bleeding throughout the proced ure. We did not have significant blood loss. The tissue planes were v sharri weak and inflammatory. There were two areas of deserosalization, which was secondary to the dense adhesions and not iatrogenic. Both of those were able to be primarily closed with 3-0 Vicryl suture. Next, we redocked the pa tient in steep Trendelenburg for the lysis of pelvic adhesions. There were ex tremely dense adhesions involving the left tube and ovary to the sigmoid and rectosigmoid completely displacing and this area. It was a very tedious and careful in its nature as the tissue planes were oblit erated. There was bleeding encountered as well, not significant, but enough to make the proc edure much more difficult as we had to continuously to control the bleeding. Once all o f that was complete, we were then able to take the lateral inner sigmoid down . We were able to go down, takedown of the lateral reflection of the rectum and the anterior reflection fully mobilizing the rectum. We then transected at the upper third of the rectum, took down the mesent sharri and then transected proximal to the level of the sigmoid disease at all, so this was where the ta ttoo jluis was indicating the patient has a polyp. Norris wound retractor was placed and the specimen was removed. Next the anvil to the 29 stapler secure d it in the left colon. We then closed the rectal cuff with a firing of the stapler, which was the green load. We noticed that the tissues were very fernando atous, very thickened, and these were all secondary to post- inflammatory r esponse of the diverticular disease. We performed a primary end- to-end abdoulaye stomosis. The anastomosis was tension free and viable. No bubbles or leak s during insufflation test; however, due to the very edematous and abnormal-appearing tissues, we thought it was not safe to allow stool to pass through and to allow for additional PATIENT NAME: EDUARDO HAZEL ANN 9870 healing; therefore, we mobilized the ileocolic area for a laparoscopic ileostomy. Once we mobilized the, a den we marked with distal and proximal with sutures. We then brought it up to the ileostomy site where we placed our 12 mm port on the right side. Pneumop eritoneum was released. Ports were removed. The ileostomy was then matured wit h 3-0 Vicryl sutures. All ports were closed with 4-0 Monocryl and Dermabon d. The patient tolerated the procedure well and was extubated and cece en to recovery room in good condition. Dictated By: Ajit Carbajal MD Date Dictated: 12/31/2022 21:16:20 Date Transcribed: 12/31/2022 23:43:41 [facility]/WEI Receipt ID: [id number] Authenticated and Edited by Ajit Carbajal MD On 9:20:43 AM Electronically Signed by Ajit Carbajal MD on 12/17 12/08 at 0923 PATIENT NAME: EDUARDO HAZEL [id number] 2022-12-31 20:03:00-00:00 [facility] ([facility]) Med Order Sheet REPORT #: [id number] REPORT STATUS: Signed DATE: 12/31/22 TIME: 2002 PATIENT: EDUARDO HAZEL UNIT #: [id number] ROOM #: P.0923 BED: 1 : 54 AGE: 67 SEX: F ATTEND: Ajit Carbajal MD ADM AUTHOR: Mario Alberto Mccrary MD ATTENTION *EDITS and/or ADDENDA must be made in Patient Ke eper for this note. * * Edits and ammendments created in [facility] are not visible * * in Patient Keeper or the legal medical record ([facility]). * Admission Medication Reconciliation -- CONTINUED / CHANGED HOME MEDICATIONS -- Home: Altace cap (ramipril) 10 MG PO DAILY Hosp: Ramipril Cap (NF) (Altace Cap (NF)) 10 MG PO DAILY Home: CARVEdilol Tab (Coreg Tab) 6.25 MG PO BID MEALS Hosp: CARVEdilol Tab (Coreg Tab) 6.25 MG PO BID MEALS Home: cloNIDine Tab (Catapres Tab) 0.1 MG PO BID Hosp: cloNIDine Tab (Catapres Tab) 0.1 MG PO BID Home: Dapaglifozin Tab (Farxiga Tab) 5 MG PO QAM Hosp: Dapaglifozin Tab (Farxiga Tab) 5 MG PO QAM Home: Gemfibrozil Tab (Lopid Tab) Oral BID Hosp: Gemfibrozil Tab (Lopid Tab) 600 MG Oral BI D Home: Pantoprazole DR Tab (Protonix Tab) 40 MG P O DAILY Hosp: Pantoprazole DR Tab (Protonix Tab) 40 MG P O DAILY Home: Rosuvastatin Tab (Crestor Tab) 10 MG PO DA TRISTEN Hosp: Rosuvastatin Tab (Crestor Tab) 10 MG PO DA TRISTEN Contraindicated Drug Combination: rosuvastatin 10 mg tablet and gemfibroziL 600 mg tablet may interact based on the potentia l interaction between ROSUVASTATIN (<= 10 MG) and GEMFIBROZIL. Override Reason: Patient being monitored -- STOPPED HOME MEDICATIONS -- Home: Aspirin EC Tab (Ecotrin Tab) 81 MG PO FILOMENA Y Home: cyanocobalamin (vit B-12) sublingual table t 1000 MCG PO DAILY Home: EZFE 200 capsule (polysaccharide iron comp april) Oral (TAKES 65MG DAILY) Home: Fiber Laxative (methylcellulose) tablet (m ethylcellulose (laxative)) Oral (TAKES BID) Home: Lisinopril Tab (Prinivil Tab) PO DAILY Home: omega-3 fatty acids capsule 1000 MG PO BID Home: PROBIOTICS (TAKES DAILY) at 2003 ATTENTION *EDITS and/or ADDENDA must be made in Patient Ke eper for this note. * * Edits and ammendments created in [facility] are not visible * * in Patient Keeper or the legal medical record (HPF). * [facility] #: [id number] END OF REPORT 2022-12-31 20:02:00-00:00 [id number] [facility] [address] [place] [address] PATIENT NAME: EDUARDO HAZEL ADMIT DATE: ACCOUNT NO: [id number] ROOM NO: [facility]23 AGE: 67 REPORT TYPE: CONSULTATION SEX: F ADMITTING PHYSICIAN:Ajit Carbajal MD ATTENDING PHYSICIAN:Ajit Carbajal MD CONSULTATION DATE: REASON FOR CONSULTATION: Postoperative medical m anagement. Thank you for this consult. The patient was exam ined and chart reviewed HISTORY OF PRESENT ILLNESS: Briefly, the patient is a pleasant 67-year-old female who has a history of diverticulitis, unde rgone robotic-assisted laparoscopic low anterior resection with Dr. Nely rosa. The patient tolerated the procedure well. I was asked postoperativ jyoti to help participate in her medical care, hence my involvement. PAST MEDICAL HISTORY: 1. Obstructive sleep apnea. 2. Cigarette use. 3. Hypertension. 4. CAD. 5. Hyperlipidemia. 6. Chronic kidney disease. 7. Diabetes mellitus. 8. COPD. PAST SURGICAL HISTORY: Partial thyroidectomy, bi lateral cataracts. ALLERGIES: NO KNOWN DRUG ALLERGIES. MEDICATIONS: See MAR. REVIEW OF SYSTEMS: Denies fever, cough, cold, ch est pain, palpitations, PND, orthopnea, abdominal pain, diarrhea, constipatio n, polyuria, polydipsia, polyphagia, heat or cold intolerance, bl eeding tendencies, hearing impairment, vision impairment, loss of consciousness, skin r kem, depression, prior to admission. PHYSICAL EXAMINATION: GENERAL: The patient is drowsy, but arousable. VITAL SIGNS: Blood pressure 126/61, pulse 76, RR 20, O2 sat 97%, temperature 97.5. HEENT: Normocephalic. Beecher conjunctivae. Anicter ic sclerae. Septum midline. Moist buccal mucosa. NECK: Supple. No thyromegaly. CHEST: Symmetric expansion. LUNGS: Clear breath sounds. PATIENT NAME: EDUARDO HAZEL [id number] CARDIOVASCULAR: S1, S2. ABDOMEN: Soft and nontender. Incisions are clean , dry and intact. Appropriately tender around the incision sites. EXTREMITIES: No clubbing, cyanosis. IMPRESSION: 1. Diverticulitis, status post robotic-assisted laparoscopic low anterior resection. Continue postoperative care as per Dr María Carbajal. 2. Chronic obstructive pulmonary disease. We katina l give DuoNeb nebulizations q.6 p.r.n. 3. Obstructive sleep apnea. Continue with CPAP t herapy. 4. Hypertension. Altace 10 mg tablet daily, carv edilol 6.2 mg b.i.d., clonidine 0.1 mg b.i.d. 5. Diabetes mellitus. Farxiga 5 mg tablet p.o. d aily. 6. Hypercholesterolemia. Gemfibrozil 600 mg p.o. b.i.d. 7. Gastroesophageal reflux disease, Protonix 40 mg tablet daily. 8. Deep breathing exercise to prevent atelectasi s. 9. Sequential compression device boots for deep venous thrombosis. Dictated By: Mario Alberto Mccrary MD Date Dictated: 12/31/2022 20:02:19 Date Transcribed: 12/31/2022 22:07:28 [facility]VIN Receipt ID: [id number] Authenticated by Mario Alberto Mccrary MD On 01/01/2023 11:21:26 PM at 1121 PATIENT NAME: EDUARDO HAZEL [id number] 2022-10-29 08:09:00-00:00 [id number] [facility] [address] [place] [address] [place] [address] PATIENT NAME: EDUARDO HAZEL ADMIT DATE: 3 ACCOUNT NO: [id number] ROOM NO: ARNULFO AGE: 67 REPORT TYPE: 360 - QUERY RESPONSE DOCUMENT SEX: F ADMITTING PHYSICIAN:Ajit Carbajal MD ATTENDING PHYSICIAN:Ajit Carbajal MD Provider Query QUERY TEXT: Procedure Specificity General 360MD Query related questions should be directed to: Wade jermaine [facility] Coding Query Hotline Please provide clarification for the procedure p erformed: [Based on your clinical judgement, can you pleas e clarify whether LYSIS OF PELVIC ADHESIONS documented in OP NOTE 10/15 was CLINICALLY SIGNIFICANT, CLINICALLY INS IGNIFICANT OR OTHER MORE APPROPRIATE DIAGNOSIS .] The patient's Clinical Indicators include: Polypoid colon polyps.- OP NOTE 10/15 pelvic adhesions, which required lysis of pelvic adhesions.- OP NOTE 10/15 distorted the rectosigmoid anatomy - OP NOTE 09/19 8 adhesions were released outside of the planes of the dissection of the surgery.- OP NOTE 10/15 Options provided: -- Respond - Create new note now -- Dismiss - Not applicable / Not valid -- Dismiss - Clinically unable to determine / Un known -- Assign to another provider QUERY RESPONSE: clinically significant Query created by: RAYMOND FIGUEROA on 2022 10:12 PM Electronically Signed by Ajit Carbajal MD on 10/16 12/08 at 0809 PATIENT NAME: EDUARDO HAZEL [id number] 2022-10-26 17:51:00-00:00 [id number] [address] PATIENT NAME: EDUARDO HAZEL ADMIT DATE: 3 ACCOUNT NO: [id number] ROOM NO: ARNULFO AGE: 67 REPORT TYPE: OPERATIVE REPORT SEX: F ADMITTING PHYSICIAN:Ajit Carbajal MD ATTENDING PHYSICIAN:Ajit Carbajal MD OPERATION DATE: 10/15/2022 PREOPERATIVE DIAGNOSIS: Polypoid colon polyps. POSTOPERATIVE DIAGNOSES: 1. Colon polyps. 2. Intra-abdominal fluid and pelvic adhesions. PROCEDURES: 1. Laparoscopic-assisted robotic exploration wit h lysis of pelvic adhesions. 2. Aspiration of intraperitoneal fluid for cytol ogy. 3. Colonoscopy with the following procedures: Mejia bmucosal injection of [place] ink at level of large polypoid lesion, polypecto my of sigmoid polyp with hot snare technique, polypectomy of rectal polyp wit h hot forceps technique, and removal of diminutive polyps of the rectum using cold biopsy forceps. COLORECTAL SURGEON: Ajit Carbajal MD ANESTHESIA: General anesthesia. FIRE TOWER KEEPER: Dr. Marilyn Wiley. SPECIMENS: 1. Sigmoid polyp. 2. Rectal polyp x2. 3. Intraabdominal fluid for aspiration. INDICATIONS AND FINDINGS: The patient pr esents with a large polypoid lesion of the left colon and sigmoid colon and it could no t be removed and therefore a combined surgery with robotic and colono scopic technique was performed. First, the abdomen was explored robotically. There was intra-abdominal fluid, and in the background of the large polypoid lesion, asp iration of the fluid was performed for cytology to rule out malignant pro cess. In addition, there were pelvic adhesions, which required lysis o f pelvic adhesions. This had distorted the rectosigmoid anatomy. Th chris adhesions were released and this was outside of the planes of the dissection of the surgery. Next, a colonoscopy was performed to the cecum, confirmed with ileocecal valve and appendiceal orifice. A large polypoid lesion was identified in a very tortuous area of the sigmoid colon. We were able to add tattoo just distal to this with submucosal injection of [place] ink. How ever, due to the tortuosity, this could not be safely removed and con sideration of a sigmoid colectomy will need to be entertained. Ther e were, however, three other polyps identified, one PATIENT NAME: EDUARDO HAZEL [id number] of which was about 8 mm which was remove d with hot snare polypectomy technique in the sigmoid colon. In the rectum, there was a 6 mm polyp removed with hot forceps technique and there were a diminutive 2 mm polyps, which were removed with cold forceps. She tolerated the procedure well without complic ations. RECOMMENDATIONS: Based on the fact that this yair ypoid lesion was in the midst of severe diverticular disease, recommendation i s to consider performing a sigmoid resection to include the tattoo jluis, which represents where the polyp lesion was. DESCRIPTION OF PROCEDURE: Th e patient was taken to the operating room and after induction of anesthesia, felicity leela in modified lithotomy position. She was prepped and draped in sterile fashion. First, laparoscop ic access was gained with optical entry port. Three 8 mm ports were placed and the robot was docked. Lysis of pelvic adhesions was performed, which showed the rectosigmoid adhered to the gynecologic structures. Also, there was f ree fluid, we aspirated this and sent for cytology. Next, colonoscopy was performed to the cecum. Up on retraction, we identified the polypoid lesion in the sigmoid, it c annot be safely removed by colonoscopy and therefore submucosal inj ection of ink was placed to jluis where the area was. There was, however, an 8 mm polyp dista l to this. This was removed with snare technique using a hot snare. Snare polypectomy w as performed and the specimen was retrieved. In the rectum, there were additio nal polyps, one was 6 mm in length, sessile in nature, removed with hot forceps technique and there were a couple of diminutive 2 mm polyps in the lower re ctum, these were biopsied and removed with cold forceps. Final examina tion revealed no bleeding. The patient tolerated the procedure well without complicatio ns. Dictated By: Ajit Carbajal MD Date Dictated: 10/26/2022 17:51:01 Date Transcribed: 10/26/2022 23:27:01 [facility] Receipt ID: [id number] Authenticated by Ajit Carbajal MD On 10/28/2022 1 0:49:22 AM Electronically Signed by Ajit Carbajal MD on 10/16 11/07 at 1049 PATIENT NAME: EDUARDO HAZEL [id number] 2022-10-15 12:36:00-00:00 [facility] ([facility]) Med Order Sheet REPORT #: [id number] REPORT STATUS: Signed DATE: 10/15/22 TIME: 1236 PATIENT: EDUARDO HAZEL UNIT #: [id number] ROOM #: P.SHA BED: 01 : 54 AGE: 67 SEX: F ATTEND: Ajit Carbajal MD ADM AUTHOR: Jenny Garcia MD ATTENTION *EDITS and/or ADDENDA must be made in Patient [facility] for this note. * * Edits and ammendments created in [facility] are not visible * * in Patient Keeper or the legal medical record ([facility]). * Discharge Medication Reconciliation Hosp: traMADol Tab (Ultram Tab) Dose: 50 MG PO Q6H PRN pain scale 7-10 (use 1st ), dispense as written, Disp: 24 tablet, Refills: 0 Electronically Signed by Jenny Garcia MD on 0 10/15/22 at 1236 ATTENTION *EDITS and/or ADDENDA must be made in Patient [facility] for this note. * * Edits and ammendments created in [facility] are not visible * * in Patient Keeper or the legal medical record ([facility]). * RPT #: [id number] END OF REPORT 2022-10-15 12:30:00-00:00 [facility] ([facility]) General Surg. D/C Summary REPORT #: [id number] REPORT STATUS: Signed DATE: 10/15/22 TIME: 1230 PATIENT: EDUARDO HAZEL UNIT #: [id number] [facility] : [facility] AGE: 67 SEX: F ATTEND: Ajit Carbajal MD ADM AUTHOR: Chelsea Sauceda MD ATTENTION *EDITS and/or ADDENDA must be made in Patient [facility] for this note. * * Edits and ammendments created in [employer] are not visible * * in Patient Keeper or the legal medical record ([facility]). * -- HOSPITAL COURSE -- HOSPITAL COURSE: underwent laparoscopic exploration with aspiration of fluid for cytology. Same day discharge after surgery. Has follow up sched uled. -- DISCHARGE MEDICATIONS -- ALLERGIES: No Known Allergies (UNKNOWN - Allergy) Signed in PatientKeeper by Chelsea Sauceda MD on 11/29/22 at 10:36 Electronically Signed by MD solis Murphy 11/29/22 at 1036 ATTENTION *EDITS and/or ADDENDA must be made in Patient [facility] for this note. * * Edits and ammendments created in [employer] are not visible * * in Patient Keeper or the legal medical record ([facility]). * [facility] #: [id number] END OF REPORT 2022-10-15 12:06:00-00:00 [facility] ([facility]) Med Order Sheet REPORT #: [id number] REPORT STATUS: Signed DATE: 10/15/22 TIME: 1206 PATIENT: EDUARDO HAZEL UNIT #: [id number] ROOM #: PSYCHIATRIC BED: 01 : 54 AGE: 67 SEX: F ATTEND: Ajit Carbajal MD ADM AUTHOR: Jenny Garcia MD ATTENTION *EDITS and/or ADDENDA must be made in Patient Ke eper for this note. * * Edits and ammendments created in [facility] are not visible * * in Patient Keeper or the legal medical record ([facility]). * Discharge Medication Reconciliation Hosp: traMADol Tab (Ultram Tab) Dose: 50 MG PO Q6H PRN pain scale 7-10 (use 1st ), dispense as written, Disp: 24 tablet, Refills: 0 Electronically Signed by Jenny Garcia MD on 0 10/15/22 at 1206 ATTENTION *EDITS and/or ADDENDA must be made in Patient Ke eper for this note. * * Edits and ammendments created in [facility] are not visible * * in Patient Keeper or the legal medical record ([facility]). * [facility] #: [id number] END OF REPORT
[2023-02-07 15:05] LABS: AST/SGOT 11 U/L (15-37); Albumin 2.5 g/dL (3.4-5.0); Alkaline Phosphatase 98 U/L (45-117); BUN Blood Urea Nitrogen 86 mg/dL (7-18); Bicarbonate 13 mEq/L (21-32); Bilirubin Total 0.3 mg/dL (0.2-1.0); Glomerular Filtration Rate 16 ml/min (=/>90); Glucose Level 73 mg/dL (74-106); Protein, Total 6.8 g/dL (6.4-8.2)
[2023-02-07 15:06] LABS: ALT/SGPT < 10 U/L (13-56); Potassium 5.6 mEq/L (3.5-5.1)
[2023-02-07 15:08] LABS: Sodium Level 118 mEq/L (136-145)
[2023-02-07] MEDS ORDERED: NA CHLORIDE 0.9% 1,000 ML ONE ×2 (15:09→21:24)
[2023-02-07 15:10] LABS: Protime INR 1.17
--- NOTE | 2023-02-07 16:16 | RAD REPORT ---
EXAM DESCRIPTION: CT - Abdomen Pelvis Wo Contrast - 02/07/2023 4:07 pm CLINICAL HISTORY: Abdominal pain. hypotension, recent ostomy COMPARISON: Abdomen Pelvis Wo Contrast dated 09/26/2018 TECHNIQUE: CT imaging of the abdomen and pelvis was performed without contrast. Solid organ, bowel a nd vascular assessment is limited due to lack of IV and oral contrast. All CT scans are performed using dose optimization technique as appropriate and may include automated exposure control or mA/KV adjustment according to patient size. FINDINGS: The lower lung espinosa are clear.Cholelithiasis. The liver, spleen, pancreas, adrenal glands and left kidney are within normal limits for a limited no n-contrast examination.Small stones are present in the right kidney without hydronephrosis. No bowel obstruction, free air, free fluid or abscess. Postsurgical changes are seen in the pelvis. S everal fluid collections are present in the pelvis, the largest measuring 7 cm. Right lower quadrant ostomy. The appendix is normal. Moderate lumbar degenerative changes. IMPRESSION: Cholelithiasis. Small stones right kidney without hydronephrosis. Postsurgical changes are present in the pelvis. Several loculated fluid density collection in the pel vis are present, the largest measuring 7 cm. These are probably postsurgical nature. Sterility of the se collections is unknown. No bowel obstruction is seen. Right lower quadrant ostomy. A limited non-contrast examination was performed as detailed.
--- NOTE | 2023-02-07 16:53 | ER ---
Nurse's Notes [facility] Name: Veronica Mendoza Age: 67 yrs Sex: Female : 1955 Arrival Date: 02/07/2023 Time: 13:47 Bed 13 Private MD: Diagnosis: Acute kidney failure, unspecified;Hypo-osmolality and hyponatremia;Hypotension, unspecified;Intra-abdominal fluid collections Presentation: 02/07 13:51 Chief complaint: EMS states: Toned out for weakness and nausea x 1 month, BP 50/30 on jl7 EMS arrival. Coronavirus screen: At this time, the client does not indicate any symptoms associated with coronavirus-19. Ebola Screen: No symptoms or risks identified at this time. Initial Sepsis Screen: Does the patient meet any 2 criteria? Systolic BP < 90 mmHg. Mean Arterial Pressure (MAP) < 65. Does the patient have a suspected source of infection? No. Patient's initial sepsis screen is negative. Risk Assessment: Do you want to hurt yourself or someone else? Patient reports no desire to harm self or others. Onset of symptoms is unknown. 13:51 Method Of Arrival: EMS: [facility] 13:51 Acuity: TOBIAS 2 jl7 Triage Assessment: 13:51 General: Appears in no apparent distress. uncomfortable, slender, Behavior is calm, jl7 cooperative, appropriate for age. Pain: Denies pain. Neuro: Level of Consciousness is awake, alert, obeys commands, Oriented to person, place, time, situation. Cardiovascular: Patient's skin is warm and dry. Respiratory: Airway is patent Respiratory effort is even, unlabored, Respiratory pattern is regular, symmetrical. Derm: Skin is dry, Skin is pale, Skin temperature is cool. Historical: - Allergies: 14:53 No Known Allergies; jl7 - PMHx: 14:41 Hyperlipidemia; Hypertension; ld1 14:53 Diabetes - NIDDM; Controlled with diet; jl7 - Immunization history:: Adult Immunizations up to date. - Social history:: Smoking status: Patient denies any tobacco usage or history of. Patient/guardian denies using alcohol. - Family history:: not pertinent. - Hospitalizations: : No recent hospitalization is reported. Screenin:42 Abuse screen: Denies threats or abuse. Denies injuries from another. Nutritional ll3 screening: No deficits noted. Tuberculosis screening: No symptoms or risk factors identified. 22:44 [facility] ED Fall Risk Assessment (Adult) History of falling in the last 3 months, ll3 including since admission No falls in past 3 months (0 pts) Confusion or Disorientation No (0 pts) Intoxicated or Sedated No (0 pts) Impaired Gait No (0 pts) Mobility Assist Device Used No (0 pt) Altered Elimination No (0 pt) Score/Fall Risk Level 0 - 2 = Low Risk Oriented to surroundings, Maintained a safe environment, Educated pt \T\ family on fall prevention, incl call for assistance when getting out of bed. Assessment: 17:57 Reassessment: Patient appears in no apparent distress at this time. No changes from ld1 previously documented assessment. Patient and/or family updated on plan of care and expected duration. Pain level reassessed. Patient denies pain at this time. Vital Signs: 14:30 BP 84 / 48; Pulse 67; Resp 18; Temp 94.6(O); Pulse Ox 99% ; Weight 68.04 kg; Height 5 mm9 ft. 6 in. ; 14:50 BP 86 / 51; Pulse 68; Resp 18; Temp 97.6(A); Pulse Ox 100% on R/A; mm9 14:59 BP 91 / 52; Pulse 67; Resp 18; Pulse Ox 95% on R/A; ld1 15:53 BP 95 / 48; Pulse 77; Resp 18; Pulse Ox 100% on R/A; ld1 17:57 BP 94 / 47; Pulse 71; Resp 18; Pulse Ox 97% on R/A; ld1 19:00 BP 89 / 39; Pulse 67; Resp 16; Pulse Ox 99% on R/A; ll3 20:00 BP 87 / 49; Pulse 67; Resp 14; Pulse Ox 100% on R/A; ll3 20:43 BP 103 / 49; Pulse 65; Resp 14; Pulse Ox 100% on R/A; ll3 21:40 BP 97 / 54; Pulse 63; Resp 17; Pulse Ox 100% on R/A; ll3 22:20 BP 116 / 49; Pulse 67; Resp 18; Pulse Ox 100% on R/A; ll3 22:40 BP 116 / 49; Pulse 94; Resp 18; Pulse Ox 99% on R/A; ll3 23:00 BP 98 / 50; Pulse 73; Resp 18; Pulse Ox 100% on R/A; ll3 23:40 BP 95 / 53; Pulse 70; Resp 18; Pulse Ox 99% on R/A; ll3 02/08 00:00 BP 108 / 59; Pulse 66; Resp 15; Pulse Ox 99% on R/A; ll3 01:00 BP 117 / 64; Pulse 65; Resp 17; Pulse Ox 99% on R/A; ll3 02/07 14:30 Body Mass Index 24.21 (68.04 kg, 167.64 cm) mm9 ED Course: 02/07 13:51 Patient arrived in ED. em1 13:51 Marcello Saravia MD is Attending Physician. rn 13:51 Arm band placed on right wrist. jl7 14:02 Radiology exam delayed due to lab results not completed at this time. (BUN/Creatinine) jg10 IV insertion attempt and/or patient not having appropriate IV at this time. 14:07 Mukund Garcia, ILIANA is Primary Nurse. jl7 14:41 Blood Culture Adult (2) Sent. mm9 14:41 CBC with Diff Sent. mm9 14:41 CMP Sent. mm9 14:41 Lactate w/ 2H reflex if indic. Sent. mm9 14:41 Protime (+inr) Sent. mm9 14:41 Ptt, Activated Sent. mm9 14:41 Patient has correct armband on for positive identification. Placed in gown. Bed in low mm9 position. Call light in reach. Side rails up X2. Adult w/ patient. Warm blanket given. Pillow given. Client placed on continuous cardiac and pulse oximetry monitoring. NIBP monitoring applied. vehicle monitor technician on. Pulse ox on. NIBP on. 14:42 Initial lab(s) drawn, by me, sent to lab. EKG done, Flu and/or RSV swab sent to lab. mm9 Maintain EMS IV. Dressing intact. Good blood return noted. Site clean \T\ dry. 14:45 Chest Single View XRAY In Process Unspecified. EDMS 14:51 Triage completed. jl7 15:00 Lactate w/ 2H reflex if indic. Sent. ld1 15:00 Protime (+inr) Sent. ld1 15:00 Ptt, Activated Sent. ld1 15:00 CMP Sent. ld1 15:00 CBC with Diff Sent. ld1 16:07 Abdomen In Process Unspecified. EDMS 16:37 Transfer initiated with [facility] transfer center. em1 18:26 Attending Physician role handed off by Marcello Saravia MD rt 18:26 Emanuel Flores MD is Attending Physician. rt 19:57 Inserted saline lock: 22 gauge in right forearm, using aseptic technique. ll3 20:36 Initiated transfer with Clar[facility] at [facility]. rv1 20:39 Emanuel Flores MD is Attending Physician. rt 20:48 Attending Physician role handed off by Emanuel Flores MD sp4 20:48 Alan Oviedo MD is Attending Physician. sp4 22:13 Chest Single View XRAY In Process Unspecified. EDMS 22:41 Assisted provider with central line placement. Set up central line tray. Triple lumen ll3 line placed in left internal jugular. Line placed by Alan Oviedo MD Placement verified by CXR, blood return, Dressed with Tegaderm, Patient tolerated well. Before procedure, did Practitioner(s) obtain informed consent? Yes. Patient \T\ family education about procedure, CLABSI prevention and S/S of infection? Yes. Time-out/Briefing performed prior to start of procedure? Yes. Was handwashing/sanitizing done immediately prior to procedure? Yes. Was patient positioned to in a way to prevent air embolism? Yes. Was procedure site sterilized? Yes, with chlorhexidine. Was the site allowed to dry? Yes. Was local anesthetic and/or sedation utilized? Yes. During the procedure, did the Practitioner(s) maintain a sterile field? Yes. Were unused ports clamped during insertion? Yes. Was a 2nd qualified MD obtained after 3 unsuccessful insertion attempts? No. Was blood aspirated from each lumen? Yes. After the procedure, did the Practitioner(s) clean the site and apply a sterile dressing? Yes. 02/08 00:[address] Stone to [facility] to [facility] 6A bed 6. rv1 01:32 Patient transferred, IV remains in place. ll3 Administered Medications: 02/07 15:10 Drug: NS 0.9% IV 1000 ml Route: IV; Rate: 1000 ml; Site: right antecubital; ld1 20:55 Follow up: Response: No adverse reaction; IV Status: Completed infusion; IV Intake: ll3 1000ml 15:10 Drug: NS 0.9% IV 1000 ml Route: IV; Rate: 1000 ml; Site: right antecubital; ld1 20:54 Follow up: Response: No adverse reaction; IV Status: Completed infusion; IV Intake: ll3 1000ml 17:56 Drug: Piperacillin-Tazobactam IVPB 3.375 grams Route: IVPB; Infused Over: 60 mins; ld1 Site: right antecubital; 20:54 Follow up: Response: No adverse reaction; IV Status: Completed infusion; IV Intake: ll3 100ml 17:56 Drug: NS 0.9% IV 500 ml Route: IV; Rate: bolus; Site: right forearm; ld1 18:32 Drug: Calcium Gluconate IVPB 1 grams Route: IVPB; Infused Over: 60 mins; Site: right ld1 antecubital; 20:54 Follow up: Response: No adverse reaction; IV Status: Completed infusion; IV Intake: ll3 100ml 19:57 Drug: D5W IV 1000 ml, Sodium Bicarbonate IVP 150 mEq Route: IV; Rate: 150 ml/hr; Site: ll3 right forearm; 21:20 Drug: NS 0.9% IV 1000 ml Route: IV; Rate: 1 bolus; Site: right forearm; ll3 22:40 Follow up: Response: No adverse reaction; IV Status: Completed infusion; IV Intake: ll3 1000ml 22:02 Drug: Calcium Gluconate IVPB 1 grams Route: IVPB; Infused Over: 60 mins; Site: left ll3 jugular; 02/08 01:04 Follow up: Response: No adverse reaction; IV Status: Completed infusion; IV Intake: ll3 100ml 02/07 22:05 Drug: Albumin IVPB 25 grams Volume: 100 ml; Route: IVPB; Site: left jugular; [facility] 23:49 Not Given (Duplicate Order): Norepinephrine IV 0.1 mcg/kg/min IV at calculated rate See ll3 Administration Instructions; (Standard concentration 4 mg / 250 mL D5W); Recommended max rate 3 mcg/kg/min; Titrate 0.05 mcg/kg/min as often as every 5 minutes to achieve goal (see titration policy); Goal parameter MAP greater than 65 mmHg. 23:49 Drug: Norepinephrine IV 0.1 mcg/kg/min Route: IV; Rate: calculated rate; Site: left ll3 jugular; 02/08 00:45 Drug: Albumin IVPB 25 grams Volume: 100 ml; Route: IVPB; Site: left jugular; ll3 Medication: 02/07 22:44 VIS not applicable for this client. ll3 Intake: 20:54 IV: 100ml; Total: 100ml. ll3 20:54 IV: 100ml; Total: 200ml. ll3 20:54 IV: 1000ml; Total: 1200ml. ll3 20:55 IV: 1000ml; Total: 2200ml. ll3 22:40 IV: 1000ml; Total: 3200ml. ll3 02/08 01:04 IV: 100ml; Total: 3300ml. ll3 Outcome: 02/07 16:53 ER care complete, transfer ordered by . iliana 02/08 01:32 Transferred by ground EMS to [facility], Transfer form completed. ll3 X-rays sent w/ patient. Condition: stable Instructed on the need for transfer, Demonstrated understanding of instructions. 01:32 Patient left the ED. ll3 Signatures: Dispatcher [employer] EDMS Marcello Saravia MD MD rn Martinez, Alfred em1 Mukund Garcia RN RN jl7 Ariana Avina RN RN ld1 Arsh Toney RN RN ll3 Nitesh, Savannah mm9 Caorlann Collins jg10 Emanuel Flores MD MD rt Villegas, Rebecca rv1 Alan Oviedo MD MD sp4 Corrections: (The following items were deleted from the chart) 02/07 14:52 13:51 BP 86 / 51; Pulse 66bpm; Resp 15bpm; Pulse Ox 97%; Temp 97.3F; 61.23 kg; Height 5 jl7 ft. 6 in.; BMI: 21.7; Pain 0/10, Adult; jl7 14:53 13:51 General: Appears in no apparent distress. uncomfortable, Behavior is calm, jl7 cooperative, appropriate for age, jl7 14:55 14:50 BP 86 / 51; Pulse 68bpm; Resp 18bpm; Pulse Ox 100% RA; mm9 mm9 14:56 14:41 PMHx: Diabetes - NIDDM; ld1 jl7 02/08 00:29 00:05 COVID-19/FLU A+B+MOL.LAB.BRZ drawn and sent. rv1 EDMS
--- NOTE | 2023-02-07 16:53 | EDPHYS ---
Physician Documentation [facility] Name: Veronica Mendoza Age: 67 yrs Sex: Female : 1955 Arrival Date: 02/07/2023 Time: 13:47 Bed 13 Private MD: ED Physician Alan Oviedo HPI: 02/07 16:14 This 67 yrs old Female presents to ER via EMS with complaints of Nausea, Blood Pressure rn Problem. 16:14 The patient presents to the emergency department with nausea. Onset: The rn symptoms/episode began/occurred 1 month(s) ago. Possible causes: unknown. The symptoms are aggravated by nothing. The symptoms are alleviated by nothing. Associated signs and symptoms: Pertinent positives: nausea, Pertinent negatives: abdominal pain, fever, GI bleeding. Severity of symptoms: At their worst the symptoms were moderate in the emergency department the symptoms are unchanged. The patient has not experienced similar symptoms in the past. The patient has been recently seen by a physician:. Pt reports had ileostomy 1 month ago at outside hospital, has felt bad since then, + nausea but no vomiting. No fever. Reports decreased appetite. No blood in stool. Green stool. No change in meds recently. EMS reports low BP improving with fluids. . Historical: - Allergies: 14:53 No Known Allergies; jl7 - PMHx: 14:41 Hyperlipidemia; Hypertension; ld1 14:53 Diabetes - NIDDM; Controlled with diet; jl7 - Immunization history:: Adult Immunizations up to date. - Social history:: Smoking status: Patient denies any tobacco usage or history of. Patient/guardian denies using alcohol. - Family history:: not pertinent. - Hospitalizations: : No recent hospitalization is reported. ROS: 16:14 Constitutional: Negative for fever, chills Eyes: Negative for injury, pain, redness, rn and discharge, Cardiovascular: Negative for chest pain, palpitations, and edema, Respiratory: Negative for shortness of breath, cough, wheezing, and pleuritic chest pain, Abdomen/GI: + nausea MS/Extremity: Negative for injury and deformity, Skin: Negative for injury, rash, and discoloration, Neuro: + generalized weakness Exam: 16:14 Constitutional: This is a well developed, well nourished patient who is awake, alert, rn and in no acute distress. Head/Face: Normocephalic, atraumatic. ENT: dry MM Cardiovascular: Regular rate and rhythm. No pulse deficits. Respiratory: No increased work of breathing, no retractions or nasal flaring. Abdomen/GI: soft, non-tender, brown/green stool in ostomy, no peritoneal signs, no distension Skin: Warm, dry MS/ Extremity: Pulses equal, no cyanosis. Neuro: Awake and alert, GCS 15 17:48 ECG was reviewed by the Attending Physician. rn Vital Signs: 14:30 BP 84 / 48; Pulse 67; Resp 18; Temp 94.6(O); Pulse Ox 99% ; Weight 68.04 kg; Height 5 mm9 ft. 6 in. ; 14:50 BP 86 / 51; Pulse 68; Resp 18; Temp 97.6(A); Pulse Ox 100% on R/A; mm9 14:59 BP 91 / 52; Pulse 67; Resp 18; Pulse Ox 95% on R/A; ld1 15:53 BP 95 / 48; Pulse 77; Resp 18; Pulse Ox 100% on R/A; ld1 17:57 BP 94 / 47; Pulse 71; Resp 18; Pulse Ox 97% on R/A; ld1 19:00 BP 89 / 39; Pulse 67; Resp 16; Pulse Ox 99% on R/A; ll3 20:00 BP 87 / 49; Pulse 67; Resp 14; Pulse Ox 100% on R/A; ll3 20:43 BP 103 / 49; Pulse 65; Resp 14; Pulse Ox 100% on R/A; ll3 21:40 BP 97 / 54; Pulse 63; Resp 17; Pulse Ox 100% on R/A; ll3 22:20 BP 116 / 49; Pulse 67; Resp 18; Pulse Ox 100% on R/A; ll3 22:40 BP 116 / 49; Pulse 94; Resp 18; Pulse Ox 99% on R/A; ll3 23:00 BP 98 / 50; Pulse 73; Resp 18; Pulse Ox 100% on R/A; ll3 23:40 BP 95 / 53; Pulse 70; Resp 18; Pulse Ox 99% on R/A; ll3 02/08 00:00 BP 108 / 59; Pulse 66; Resp 15; Pulse Ox 99% on R/A; ll3 01:00 BP 117 / 64; Pulse 65; Resp 17; Pulse Ox 99% on R/A; ll3 02/07 14:30 Body Mass Index 24.21 (68.04 kg, 167.64 cm) mm9 Procedures: 02/07 21:40 Central Line: the site was prepped with in sterile fashion, Chlorhexidine prep, a sp4 triple lumen catheter was inserted, in the left internal jugular vein, in 1 attempts. placement was verified, by CXR, by blood return, Ultrasound-guided central line, the site was dressed with Tegaderm, the patient tolerated the procedure, well, Ultrasound-guided triple-lumen central venous line left internal jugular location no complications. MDM: 13:51 Patient medically screened. rn 16:49 Differential diagnosis: Nonspecific abd pain, diverticulitis, viral gastroenteritis, rn gastroenteritis, kidney failure, post-surgical complication, dehydration, hyperglycemia. Data reviewed: vital signs, nurses notes, lab test result(s), EKG, radiologic studies, CT scan, and as a result, I will admit patient. Consideration of Admission/Observation Patient was admitted/placed on observation. Escalation of care including admission/observation considered. Counseling: I had a detailed discussion with the patient and/or guardian regarding: the historical points, exam findings, and any diagnostic results supporting the discharge/admit diagnosis, lab results, radiology results, the need to transfer to another facility, for higher level of care, [facility] does not immediately have the required specialist. Response to treatment: the patient's symptoms have mildly improved after treatment, and as a result, I will admit patient. ED course: Pt with multiple loculated fluid collections on CT, elevated WBC, a month out of ostomy surgery, attempting to transfer back to [facility] given lack of bed availability here and continuity of care. Abx administered, fluids given. BP improving.. 21:40 ED course: Central line was placed for suboptimal blood pressure. Patient is pending sp4 transfer. 21:54 ED course: We spoke with accepting surgeon Dr. Escobar at [facility] sp4 and Dr. Escobar requested that we first speak with Dr. Alfred Carbajal the surgeon who did original partial colectomy with diversion colostomy at [facility] to make certain that patient goes to the right surgeon. We will call [facility] again and attempt to speak with Dr. Alfred Carbajal who performed partial colectomy with diversion colostomy on the patient 1 month ago.. 22:02 ED course: I spoke with [facility] transfer center and have verified that [facility] is declining sp4 transfer because they do not have a client development director on staff at this time at [facility]... 02/08 00:07 ED course: After several phone calls with [facility] and [facility] and personal conversation sp4 with Dr. Alfred Carbajal, patient was finally accepted to daly at [facility] to be seen by Dr. Alfred Carbajal and managed at surgical ICU.. ED course: Levophed was initiated for suboptimal blood pressures.. 02/07 13:52 Order name: Blood Culture Adult (2) rn 02/07 13:52 Order name: CBC with Diff; Complete Time: 15:09 02/07 13:52 Order name: CMP; Complete Time: 15:09 02/07 13:52 Order name: Lactate w/ 2H reflex if indic.; Complete Time: 15:09 02/07 13:52 Order name: Protime (+inr); Complete Time: 15:56 02/07 13:52 Order name: Ptt, Activated; Complete Time: 15:56 02/07 13:52 Order name: Flu; Complete Time: 16:19 02/07 13:52 Order name: Type And Screen; Complete Time: 16:49 02/07 21:39 Order name: BMP; Complete Time: 23:04 4 02/08 00:17 Order name: SARS-COV-2 Antigen Rapid; Complete Time: 00:34 EDDC 02/07 13:52 Order name: Chest Single View XRAY; Complete Time: 15:09 rn 02/07 16:06 Order name: Abdomen ; Complete Time: 16:19 EDDC 02/07 21:38 Order name: Chest Single View XRAY; Complete Time: 22:24 sp4 02/07 13:52 Order name: EKG; Complete Time: 13:53 rn 02/07 13:52 Order name: Accucheck; Complete Time: 14:59 rn 02/07 13:52 Order name: Cardiac monitoring; Complete Time: 14:41 rn 02/07 13:52 Order name: EKG - Nurse/Tech; Complete Time: 14:41 rn 02/07 13:52 Order name: IV Saline Lock - Large Bore; Complete Time: 14:41 rn 02/07 13:52 Order name: Labs collected and sent; Complete Time: 14:41 rn 02/07 13:52 Order name: O2 Per Protocol; Complete Time: 14:41 rn 02/07 13:52 Order name: O2 Sat Monitoring; Complete Time: 14:41 rn 02/07 13:52 Order name: Vital Signs; Complete Time: 14:59 rn EC/23 17:48 Rate is 68 beats/min. Rhythm is regular. QRS [place] is Normal. RI interval is normal. QRS rn interval is normal. QT interval is normal. No Q waves. T waves are Normal. No ST changes noted. Clinical impression: NSR w/ Non-specific ST/T Changes. Interpreted by me. Reviewed by me. Administered Medications: 15:10 Drug: NS 0.9% IV 1000 ml Route: IV; Rate: 1000 ml; Site: right antecubital; ld1 20:55 Follow up: Response: No adverse reaction; IV Status: Completed infusion; IV Intake: ll3 1000ml 15:10 Drug: NS 0.9% IV 1000 ml Route: IV; Rate: 1000 ml; Site: right antecubital; ld1 20:54 Follow up: Response: No adverse reaction; IV Status: Completed infusion; IV Intake: ll3 1000ml 17:56 Drug: Piperacillin-Tazobactam IVPB 3.375 grams Route: IVPB; Infused Over: 60 mins; ld1 Site: right antecubital; 20:54 Follow up: Response: No adverse reaction; IV Status: Completed infusion; IV Intake: ll3 100ml 17:56 Drug: NS 0.9% IV 500 ml Route: IV; Rate: bolus; Site: right forearm; ld1 18:32 Drug: Calcium Gluconate IVPB 1 grams Route: IVPB; Infused Over: 60 mins; Site: right ld1 antecubital; 20:54 Follow up: Response: No adverse reaction; IV Status: Completed infusion; IV Intake: ll3 100ml 19:57 Drug: D5W IV 1000 ml, Sodium Bicarbonate IVP 150 mEq Route: IV; Rate: 150 ml/hr; Site: ll3 right forearm; 21:20 Drug: NS 0.9% IV 1000 ml Route: IV; Rate: 1 bolus; Site: right forearm; ll3 22:40 Follow up: Response: No adverse reaction; IV Status: Completed infusion; IV Intake: ll3 1000ml 22:02 Drug: Calcium Gluconate IVPB 1 grams Route: IVPB; Infused Over: 60 mins; Site: left ll3 jugular; 02/08 01:04 Follow up: Response: No adverse reaction; IV Status: Completed infusion; IV Intake: ll3 100ml 02/07 22:05 Drug: Albumin IVPB 25 grams Volume: 100 ml; Route: IVPB; Site: left jugular; ll3 23:49 Not Given (Duplicate Order): Norepinephrine IV 0.1 mcg/kg/min IV at calculated rate See ll3 Administration Instructions; (Standard concentration 4 mg / 250 mL D5W); Recommended max rate 3 mcg/kg/min; Titrate 0.05 mcg/kg/min as often as every 5 minutes to achieve goal (see titration policy); Goal parameter MAP greater than 65 mmHg. 23:49 Drug: Norepinephrine IV 0.1 mcg/kg/min Route: IV; Rate: calculated rate; Site: left ll3 jugular; 02/08 00:45 Drug: Albumin IVPB 25 grams Volume: 100 ml; Route: IVPB; Site: left jugular; ll3 Disposition Summary: 02/07/23 16:53 Transfer Ordered Transfer Location: Other Acute Care Facility rn Reason: Higher level of care rn Condition: Fair rn Problem: new rn Symptoms: have improved rn Accepting Physician: (02/08/23 01:32) 3 Diagnosis - Acute kidney failure, unspecified rn - Hypo-osmolality and hyponatremia rn - Hypotension, unspecified rn - Intra-abdominal fluid collections rn Forms: - Medication Reconciliation Form rn - SBAR form 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 Total time: 45 rn minutes Signatures: Dispatcher [employer] Marcello Bright MD MD rn Attema, Lee, SALES REPRESENTATIVE [employer] SALES REPRESENTATIVE [employer]1 Mukund Garcia RN RN jl7 Ariana Avina RN RN [email or web address] Arsh Toney, RN RN ll3 Alan Oviedo MD MD sp4 Corrections: (The following items were deleted from the chart) 14:56 14:41 PMHx: Diabetes - NIDDM; ld1 norma 16:06 13:56 Abdomen Pelvis W Con+CT.RAD.CÉSAR ordered. EDMS EDMS 02/08 00:29 02/07 21:27 COVID-19/FLU A+B+MOL.LAB.CÉSAR ordered. EDMS EDMS 02/08 01:32 02/07 16:53 Dr. willis ll3
[2023-02-07] MEDS ORDERED: NA CHLORIDE 0.9% 500 ML ONE (17:48)
[2023-02-07] MEDS ORDERED: CALCIUM GLUCONATE 1 GM IVPB 1 GM/50 ML BAG IV ONE ×2 (17:49→21:53)
[2023-02-07] MEDS ORDERED: NA CHLORIDE 0.9% 100 ML ONE (17:49)
[2023-02-07] MEDS ORDERED: PIPERACIL/TAZO 3.375 GM VIAL IV ONE (17:49)
[2023-02-07] MEDS ORDERED: NOREPINEPHRINE BITARTRATE/D5W 4 MG/250 ML BAG IV ONE (19:31)
[2023-02-07] MEDS ORDERED: D5W 1,000 ML with NA BICARB 8.4% 150 MEQ IV SCH ×2 (20:00)
[2023-02-07] MEDS ORDERED: ALBUMIN HUMAN 25% 200 ML IV ONE (21:52)
--- NOTE | 2023-02-07 22:18 | RAD REPORT ---
EXAM DESCRIPTION: RAD - Chest Single View - 02/07/2023 10:11 pm CLINICAL HISTORY: central line placement Chest pain. COMPARISON: Chest Single View dated 02/07/2023; Chest Single View dated 02/20/2022; Chest Pa And Lat (2 Views) dated 10/06/2018; Chest Single View dated 10/01/2018 FINDINGS: Portable technique limits examination quality. The lungs are grossly clear. The heart is mildly prominent. Left-sided venous catheter has the tip in the SVC.No postprocedure pneumothorax. IMPRESSION: No postprocedure pneumothorax.
[2023-02-08 00:33] LABS: SARS-CoV-2 Antigen Rapid Res Negative (Negative)
[2023-02-08 02:07] VITALS: TEMP 97.6
[2023-02-08 02:21] VITALS: O2SAT 99
[2023-02-08 02:23] VITALS: BP 117/64
--- NOTE | 2023-02-09 14:25 | EKG ---
Test Date: 2023-02-07 Test Time: 15:05:43 Spinner Cap Frame: JC MEASUREMENT RESULTS: Intervals: Rate: 68 RI: 158 QRSD: 76 QT: 460 QTc: 489 [place]: P: 52 RI: 158 QRS: 60 T: 63 INTERPRETIVE STATEMENTS: Normal sinus rhythm Nonspecific T wave abnormality Prolonged QT Abnormal ECG Compared to ECG 02/20/2022 21:45:14 Prolonged QT interval now present Sinus bradycardia no longer present T-wave abnormality still present Electronically Signed On 02-09-23 14:22:26 CDT by [place]
== END 2023-02-08 01:32 ==
LOC: ER 13:47
PROC: 05HN33Z Insertion of Infusion Device into Left Internal Jugular Vein, Percutaneous Approach (ICD-10-PCS; principal; 2023-02-08)
PROC: B544ZZA Ultrasonography of Left Jugular Veins, Guidance (ICD-10-PCS; 2023-02-08)
DX: N17.9 Acute kidney failure, unspecified (principal); E87.1 Hypo-osmolality and hyponatremia; I95.9 Hypotension, unspecified; R19.00 Intra-abdominal and pelvic swelling, mass and lump, unspecified site; I10 Essential (primary) hypertension; E11.9 Type 2 diabetes mellitus without complications; Z20.822 Contact with and (suspected) exposure to COVID-19
CPT/HCPCS: 36556; 93005; 87040 ×2; 85025; 80048; 36415; 86900; 86850; 85610; 86901; 83605; 85730; 80053; 87804 ×2; 74176; 71045 ×2; 99285; 87811; J0612 ×2; J2543; P9047; J7040; J7030 ×3; 96361; 96365; 96367; 96368; 96375

== ENCOUNTER 2023-02-20 08:10 | Inpatient (IN) | payer OTHER ==
--- OUTSIDE RECORDS SUMMARY | 2023-02-20 08:13 | XMS REPORT | Clinical Summary ---
:[address] [facility] MD [facility] Address [address] [place] [address] Care Team Providers Name Role Phone Andrew Galan Unavailable Treasure Mckeon APRN,DRAINAGE DESIGN COORDINATOR Unavailable Ashley Aguayo MD Unavailable Best Stoddard [...] Vaccination (#1) 01/17/1956 Results Not on fileafter 02/20/2022 Insurance Payer Benefit Plan / Subscriber ID Effective Dates Phone Addre ss Type Group AET[employer] MANAGED AETNA O [id number] 2000-Present [id number] [place] [address] Care Teams Roof Slater Relationship Specialty Start Date End Date Best Stoddard MD PCP - General Internal Medicine 11/17/[address] [place] [phone] Andrew Galan PA Physician Feather Boner 10/25/15 [address] [place] [address] Treasure Mckeon, HOSPITAL WELLNESS COORDINATOR,DRAINAGE DESIGN COORDINATOR Nurse Practitioner 10/25/[address] [place] [id number] Ashley Aguayo MD Physician Breast Surgery 02/26/[address] [place] [address] [id number]
--- OUTSIDE RECORDS SUMMARY | 2023-02-20 08:17 | XMS REPORT | Continuity of Care Document ---
:1955 Author Organization [facility] t Address [address] [facility] [address] [place] [address] Care Team Providers Name Role Phone Best Stoddard MD Primary Care Physician BRIAN ORONA Attending Clinician Unavailable SYSTEM, PROVIDER NOT IN Attending Clinician Unavailable Ajit Carbajal MD Attending Clinician Kirsty Ochoa NP Attending Clinician ZACH GO Attending Clinician Unavailable Brian Orona MD Attending Clinician Mohamud Eason MD Attending Clinician Zach Go MD Attending Clinician ANNA JONES Attending Clinician Unavailable Anna Jones NP Attending Clinician Ajit Carbajal Attending Clinician Unavailable Kyra MICHELECEmily Attending Clinician + [phone] ELIF DENG Attending Clinician Unavailable Elif Deng MD Attending Clinician Doctor Unassigned, Brillion Attending Clinician Unavailable 1, [facility] Attending Clinician Unavailable BRIAN ORONA Admitting Clinician Unavailable Ajit Carbajal Admitting Clinician Unavailable Physician, No Primary or Family Admitting Clinician UnavailELIF Kemp Admitting Clinician Unavailable Elif Deng MD Admitting Clinician Payers Payer Name Policy Type Policy Number Effective Date Expiration Date S omar MEDICARE A B [id number] 2019 00:00:00 MEDICARE PART A \\T\\ [id number] 2019 B 00:00:00 CONTINENTAL [id number] 2019 BENEFITS 00:00:00 Problems Condition Condition Condition Status Onset Resolution Last Treating Co mments Source Name Details Category Date Date Treatment Clinician Date Intra-abdo Intra-abdo Disease Recurre [facility] abscess abscess 00:[facility]: [place] [address] Center Candidiasi Candidiasi Disease Active U [facility] s of skin s of skin 03-14 ity of 00:00: [place] 00 MD [facility] Allergies, Adverse Reactions, Alerts Allergy Allergy Status Severity Reaction(s) Onset Inactive Treating Comm ents Source Name Type Date Date Clinician No Known DA Active U [facility] Allergie 2-15 Malik s 00:00: Health 00 are [facility] NO KNOWN Drug Active Univers ALLERGIE Class ity of S [facility] NO KNOWN Allergy Active [facility] ALLERGIE S Social History Social Habit Start Date Stop Date Quantity Comments Source Gender identity [facility] Sexual orientation Method ist Hospital Sex Assigned At [address] [facility] 00:00[facility]00 [facility]00 [facility] Smoking Status Start Date Stop Date Source Tobacco smoking consumption unknown [facility] Medications Ordered Filled Start Stop Current Ordering Indication Dosage Frequency Signature Comments Components Source Medication Medication Date Date Medication? Clinician (SIG) Name Name magnesium Yes 400mg [id number] Take [address] [facility] oxide 6- [id number] tablet [facility] (MAG-OX) 00:00: 3D (400 mg Medica l 400 mg 00 total) by Center (241.3 mg mouth 3 magnesium) (three) tablet times daily. amoxicillin 2022-0 2023- Yes 1{tbl} Take [address] -clavulanat 6-28 07-12 tablet by Jeanine kes e 00:00: 23:59 mouth Medical (AUGMENTIN) 00 :00 every 12 Cent er 875-125 mg (twelve) per tablet hours for 14 days. pantoprazol 2022-0 Yes 40mg QD Take [address] [facility] e 6-04 tablet (40 [facility] (PROTONIX) 00:00: mg total) Me dical 40 MG 00 by mouth Center tablet every morning. gemfibroziL 2022-0 Yes 600mg Q.5D Take [address] [facility] (LOPID) 600 6-04 tablet [facility] MG tablet 00:00: (600 mg Medic al 00 total) by Center mouth 2 (two) times daily. traMADoL 0 Yes 50mg Take [address] [facility] (ULTRAM) 50 5-19 tablet (50 Jeanine kes mg tablet 00:00: mg total) Med ical 00 by mouth Center every 6 (six) hours as needed. Max Daily Amount: 200 mg rosuvastati 2022-0 Yes 10mg QD Take [address] [facility] n (CRESTOR) 5-12 tablet (10 Jeanine kes 10 MG 00:00: mg total) Medical tablet 00 by mouth Center daily. Farxiga 5 2022-0 Yes 5mg QD Take [address] [facility] mg tablet 4-28 tablet (5 [facility] 00:00: mg total) Medical 00 by mouth Center every morning. carvediloL 2022-0 Yes 6.25mg Q.5D Take [address] [facility] (COREG) 4-22 tablet [facility] 6.25 MG 00:00: (6.25 mg Medica l tablet 00 total) by Center mouth 2 (two) times daily. ramipriL 2022-0 Yes 10mg QD Take [address] [facility] (ALTACE) 10 4-20 capsule [facility] MG capsule 00:00: (10 mg Medic al 00 total) by Center mouth daily. aspirin 81 Yes 81mg Chew 81 mg U nivers mg chewable 8-01 daily. ity of tablet 14:22: Parmjit [facility] cloNIDine Yes .2mg Take 0.2 Univ ers HCl 8-01 mg by ity of (CATAPRES) 14:22: [place] 19 (three) MD tablet times a . [facility] cholecalcif Yes 1{capsu Take 1 U nivers puja, 8-01 le} capsule by ity of vitamin D3, 14:22: mouth [place] (VITAMIN 19 daily. D3) 5,000 Anderso units tab n tablet [facility] CYANOCOBALA Yes 1000mg Take 1,000 Univers MIN/COBAMAM 8-01 mg by ity of ELOISA (B12 14:22: mouth [place] SUBLINGUAL) 19 daily. [facility] docusate Yes 100mg Take 100 Univ ers sodium 8-01 mg by ity of (COLACE) 14:22: mouth [place] 100 mg 19 twice MD capsule daily. [facility] PSYLLIUM Yes 1{tbl} Take 1 Unive rs SEED, WITH 8-01 tablet by ity of DEXTROSE, 14:22: mouth [place] (FIBER 19 daily. ORAL) [facility] PSYLLIUM Yes 1{tbl} Take 1 Unive rs SEED, WITH 8-01 tablet by ity of DEXTROSE, 14:22: mouth [place] (FIBER 19 daily. ORAL) [facility] LACTOBACILL Yes 1{tbl} Take 1 Un heather US 8-01 tablet by ity of ACIDOPHILUS 14:22: mouth [place] (PROBIOTIC 19 daily. ORAL) [facility] rosuvastati Yes 10mg Take 10 mg Univers n (CRESTOR) 8-01 by mouth ity of 10 mg 14:22: at [place] tablet 19 bedtime. [facility] aspirin 81 Yes 81mg Chew 81 mg U nivers mg chewable 8- daily. ity of tablet 14:22: [place] 19 [facility] cloNIDine Yes .2mg Take 0.2 Univ ers HCl 8-01 mg by ity of (CATAPRES) 14:22: mouth [place] 0.2 mg 19 (three) MD tablet times a . [facility] cholecalcif Yes 1{capsu Take 1 U nivers puja, 8-01 le} capsule by ity of vitamin D3, 14:22: mouth [place] (VITAMIN 19 daily. D3) 5,000 Anderso units tab n tablet [facility] CYANOCOBALA Yes 1000mg Take 1,000 Univers MIN/COBAMAM 8-01 mg by ity of ELOISA (B12 14:22: mouth [place] SUBLINGUAL) 19 daily. MD Nancy whitman [facility] docusate Yes 100mg Take 100 Univ ers sodium 8-01 mg by ity of (COLACE) 14:22: mouth [place] 100 mg 19 twice MD capsule daily. [facility] LACTOBACILL Yes 1{tbl} Take 1 Un heather US 8-01 tablet by ity of ACIDOPHILUS 14:22: mouth [place] (PROBIOTIC 19 daily. ORAL) [facility] LACTOBACILL Yes 1{tbl} Take 1 Un heather US 8-01 tablet by ity of ACIDOPHILUS 14:22: mouth [place] (PROBIOTIC 19 daily. ORAL) [facility] rosuvastati Yes 10mg Take 10 mg Univers n (CRESTOR) 8-01 by mouth ity of 10 mg 14:22: at [place] tablet 19 bedtime. MD Nancy whitman [facility] rosuvastati Yes 10mg Take 10 mg Univers n (CRESTOR) 8-01 by mouth ity of 10 mg 14:22: at [place] tablet 19 bedtime. MD Nancy whitman [facility] aspirin 81 Yes 81mg Chew 81 mg U nivers mg chewable 8-01 daily. ity of tablet 14:22: [place] 19 MD Nancy whitman [facility] cloNIDine Yes .2mg Take 0.2 Univ ers HCl 8-01 mg by ity of (CATAPRES) 14:22: mouth [place] 0.[place] mg 19 (three) tablet times a . [facility] cholecalcif Yes 1{capsu Take 1 U nivers puja, 8-01 le} capsule by ity of vitamin D3, 14:22: mouth [place] (VITAMIN 19 daily. D3) 5,000 [place]o units tab n tablet [facility] CYANOCOBALA Yes 1000mg Take 1,000 Univers MIN/COBAMAM 8-01 mg by ity of ELOISA (B12 14:22: mouth [place] SUBLINGUAL) 19 daily. MD Nancy whitman [facility] docusate Yes 100mg Take 100 Univ ers sodium 8-01 mg by ity of (COLACE) 14:22: mouth [place] 100 mg 19 twice MD capsule daily. [facility] PSYLLIUM Yes 1{tbl} Take 1 Unive rs SEED, WITH 8-01 tablet by ity of DEXTROSE, 14:22: mouth [place] (FIBER 19 daily. ORAL) [facility] LACTOBACILL Yes 1{tbl} Take 1 Un heather US 8-01 tablet by ity of ACIDOPHILUS 14:22: mouth [place] (PROBIOTIC 19 daily. ORAL) [facility] rosuvastati Yes 10mg Take 10 mg Univers n (CRESTOR) 8- by mouth ity of 10 mg 14:22: at [place] tablet 19 bedtime. MD Nancy whitman [facility] aspirin 81 Yes 81mg Chew 81 mg U nivers mg chewable 8- daily. ity of tablet 14:22: [place] 19 [facility] cloNIDine Yes .2mg Take 0.2 Univ ers HCl 8-01 mg by ity of (CATAPRES) 14:22: mouth [place] 0.2 mg 19 (three) tablet times a Anderso day. [facility] cholecalcif Yes 1{capsu Take 1 U nivers puja, 8-01 le} capsule by ity of vitamin D3, 14:22: mouth [place] (VITAMIN 19 daily. D3) 5,000 [place]o units tab n tablet [facility] CYANOCOBALA Yes 1000mg Take 1,000 Univers MIN/COBAMAM 8-01 mg by ity of ELOISA (B12 14:22: mouth [place] SUBLINGUAL) 19 daily. MD Nancy whitman [facility] docusate Yes 100mg Take 100 Univ ers sodium 8-01 mg by ity of (COLACE) 14:22: mouth [place] 100 mg 19 twice MD capsule daily. [facility] PSYLLIUM Yes 1{tbl} Take 1 Unive rs SEED, WITH 8-01 tablet by ity of DEXTROSE, 14:22: mouth [place] (FIBER 19 daily. ORAL) [facility] aspirin 81 Yes 81mg Chew 81 mg U nivers mg chewable 8- daily. ity of tablet 14:22: [place] 19 MD Nancy whitman [facility] LACTOBACILL Yes 1{tbl} Take 1 Un heather US 8-01 tablet by ity of ACIDOPHILUS 14:22: mouth [place] (PROBIOTIC 19 daily. ORAL) [facility] rosuvastati Yes 10mg Take 10 mg Univers n (CRESTOR) 8 by mouth ity of 10 mg 14:22: at [place] tablet 19 [facility]. [facility] aspirin 81 Yes 81mg Chew 81 mg U nivers mg chewable 8- daily. ity of tablet 14:22: [place] 19 [facility] j carlos [facility] cloNIDine Yes .2mg Take 0.2 Univ ers HCl 8-01 mg by ity of (CATAPRES) 14:22: mouth [place] 0.2 mg 19 (three) MD tablet times a Anderso day. [facility] cloNIDine Yes .2mg Take 0.2 Univ ers HCl 8-01 mg by ity of (CATAPRES) 14:22: mouth 3 [place] 0.2 mg 19 (three) MD tablet times a And day. [facility] cholecalcif Yes 1{capsu Take 1 U nivers puja, 8-01 le} capsule by ity of vitamin D3, 14:22: mouth [place] (VITAMIN 19 daily. D3) 5,000 [place]o units tab n tablet [facility] CYANOCOBALA Yes 1000mg Take 1,000 Univers MIN/COBAMAM 8-01 mg by ity of ELOISA (B12 14:22: mouth [place] SUBLINGUAL) 19 daily. [facility] Yes 100mg Take 100 Univ ers sodium 8-01 mg by ity of (COLACE) 14:22: mouth [place] 100 mg 19 twice MD capsule daily. [facility] PSYLLIUM Yes 1{tbl} Take 1 Unive rs SEED, WITH 8- tablet by ity of DEXTROSE, 14:22: mouth [place] (FIBER 19 daily. ORAL) [facility] LACTOBACILL Yes 1{tbl} Take 1 Un heather US 8-01 tablet by ity of ACIDOPHILUS 14:22: mouth [place] (PROBIOTIC 19 daily. ORAL) [facility] rosuvastati Yes 10mg Take 10 mg Univers n (CRESTOR) 8-01 by mouth ity of 10 mg 14:22: at [place] tablet 19 [facility]. [facility] cholecalcif Yes 1{capsu Take 1 U nivers puja, 8-01 le} capsule by ity of vitamin D3, 14:22: mouth [place] (VITAMIN 19 daily. D3) 5,000 Anderso units tab n tablet [facility] aspirin 81 Yes 81mg Chew 81 mg U nivers mg chewable 8- daily. ity of tablet 14:22: [place] 19 [facility] cloNIDine Yes .2mg Take 0.2 Univ ers HCl 8-01 mg by ity of (CATAPRES) 14:22: mouth 3 [place] 0.2 mg 19 (three) MD tablet times a And. [facility] cholecalcif Yes 1{capsu Take 1 U nivers puja, 8-01 le} capsule by ity of vitamin D3, 14:22: mouth [place] (VITAMIN 19 daily. D3) 5,000 Anderso units tab n tablet [facility] CYANOCOBALA Yes 1000mg Take 1,000 Univers MIN/COBAMAM 8-01 mg by ity of ELOISA (B12 14:22: mouth [place] SUBLINGUAL) 19 daily. [facility] docusate Yes 100mg Take 100 Univ ers sodium 8-01 mg by ity of (COLACE) 14:22: mouth [place] 100 mg 19 twice MD capsule daily. [facility] PSYLLIUM Yes 1{tbl} Take 1 Unive rs SEED, WITH 8-01 tablet by ity of DEXTROSE, 14:22: mouth [place] (FIBER 19 daily. ORAL) [facility] CYANOCOBALA Yes 1000mg Take 1,000 Univers MIN/COBAMAM 8-01 mg by ity of ELOISA (B12 14:22: mouth [place] SUBLINGUAL) 19 daily. [facility] LACTOBACILL Yes 1{tbl} Take 1 Un heather US 8-01 tablet by ity of ACIDOPHILUS 14:22: mouth [place] (PROBIOTIC 19 daily. ORAL) [facility] rosuvastati Yes 10mg Take 10 mg Univers n (CRESTOR) 8-01 by mouth ity of 10 mg 14:22: at [place] tablet 19 bedtime. [facility] aspirin 81 Yes 81mg Chew 81 mg U nivers mg chewable 8-01 daily. ity of tablet 14:22: [place] 19 [facility] docusate Yes 100mg Take 100 Univ ers sodium 8-01 mg by ity of (COLACE) 14:22: mouth [place] 100 mg 19 twice MD capsule daily. [facility] cloNIDine Yes .2mg Take 0.2 Univ ers HCl 8-01 mg by ity of (CATAPRES) 14:22: mouth 3 [place] 0.2 mg 19 (three) MD tablet times a Anderso day. [facility] cholecalcif Yes 1{capsu Take 1 U nivers puja, 8-01 le} capsule by ity of vitamin D3, 14:22: mouth [place] (VITAMIN 19 daily. D3) 5,000 Anderso units tab n tablet [facility] CYANOCOBALA Yes 1000mg Take 1,000 Univers MIN/COBAMAM 8-01 mg by ity of ELOISA (B12 14:22: mouth [place] SUBLINGUAL) 19 daily. [facility] docusate Yes 100mg Take 100 Univ ers sodium 8-01 mg by ity of (COLACE) 14:22: mouth [place] 100 mg 19 twice MD capsule daily. [facility] PSYLLIUM Yes 1{tbl} Take 1 Unive rs SEED, WITH 8-01 tablet by ity of DEXTROSE, 14:22: mouth [place] (FIBER 19 daily. ORAL) [facility] LACTOBACILL Yes 1{tbl} Take 1 Un heather US 8-01 tablet by ity of ACIDOPHILUS 14:22: mouth [place] (PROBIOTIC 19 daily. ORAL) [facility] rosuvastati Yes 10mg Take 10 mg Univers n (CRESTOR) 8-01 by mouth ity of 10 mg 14:22: at [place] tablet 19 bedtime. MD Nancy whitman [facility] PSYLLIUM Yes 1{tbl} Take 1 Unive rs SEED, WITH 8-01 tablet by ity of DEXTROSE, 14:22: mouth [place] (FIBER 19 daily. ORAL) Nancy whitman [facility] nystatin Yes Candidiasis Apply U nivers (MYCOSTATIN 8-01 of skin topically ity of ) 100,000 00:00: to [place] units/g 00 affected MD powder area(s) Anderso twice n daily. [facility] nystatin Yes Candidiasis Apply U nivers (MYCOSTATIN 8-01 of skin topically ity of ) 100,000 00:00: to [place] units/g 00 affected MD powder area(s) [place] twice n daily. [facility] nystatin Yes Candidiasis Apply U nivers (MYCOSTATIN 8-01 of skin topically ity of ) 100,000 00:00: to [place] units/g 00 affected MD powder area(s) Anderso twice n daily. [facility] nystatin Yes Candidiasis Apply U nivers (MYCOSTATIN 8-01 of skin topically ity of ) 100,000 00:00: to [place] units/g 00 affected MD powder area(s) Anderso twice n daily. [facility] nystatin Yes Candidiasis Apply U nivers (MYCOSTATIN 8-01 of skin topically ity of ) 100,000 00:00: to [place] units/g 00 affected MD powder area(s) Anderso twice n daily. [facility] nystatin Yes Candidiasis Apply U nivers (MYCOSTATIN 8-01 of skin topically ity of ) 100,000 00:00: to [place] units/g 00 affected MD powder area(s) Anderso twice n daily. [facility] nystatin Yes Candidiasis Apply U nivers (MYCOSTATIN 8-01 of skin topically ity of ) 100,000 00:00: to [place] units/g 00 affected MD powder area(s) Anderso twice n daily. [facility] nystatin Yes Candidiasis Apply U nivers (MYCOSTATIN 8-01 of skin topically ity of ) 100,000 00:00: to [place] units/g 00 affected powder [facility]) [facility] carvedilol Yes twice Univer s (COREG) 7-18 daily. ity of 3.125 mg 00:00: [place] tablet 00 [facility] metFORMIN Yes 1{tbl} 1 tablet Un heather (GLUCOPHAGE 7-18 twice ity of ) 500 mg 00:00: daily. [place] tablet 00 MD Nancy whitman [facility] carvedilol Yes twice Univer s (COREG) 7-18 daily. ity of 3.125 mg 00:00: [place] tablet 00 [facility] metFORMIN 2017- Yes 1{tbl} 1 tablet Un heather (GLUCOPHAGE 7-18 twice ity of ) 500 mg 00:00: daily. [place] tablet 00 [facility] carvedilol Yes twice Univer s (COREG) 7-18 daily. ity of 3.125 mg 00:00: [place] tablet 00 [facility] metFORMIN 2017- Yes 1{tbl} 1 tablet Un heather (GLUCOPHAGE 7-18 twice ity of ) 500 mg 00:00: daily. [place] tablet 00 [facility] carvedilol Yes twice Univer s (COREG) 7-18 daily. ity of 3.125 mg 00:00: [place] tablet 00 [facility] metFORMIN 2017-0 Yes 1{tbl} 1 tablet Un heather (GLUCOPHAGE 7-18 twice ity of ) 500 mg 00:00: daily. [place] tablet 00 [facility] carvedilol Yes twice Univer s (COREG) 7-18 daily. ity of 3.125 mg 00:00: [place] tablet 00 [facility] metFORMIN 2017-0 Yes 1{tbl} 1 tablet Un heather (GLUCOPHAGE 7-18 twice ity of ) 500 mg 00:00: daily. [place] tablet 00 [facility] carvedilol Yes twice Univer s (COREG) 7-18 daily. ity of 3.125 mg 00:00: [place] tablet 00 [facility] metFORMIN 2018-0 Yes 1{tbl} 1 tablet Un heather (GLUCOPHAGE 7-18 twice ity of ) 500 mg 00:00: daily. [place] tablet 00 [facility] carvedilol 2018-0 Yes twice Univer s (COREG) 7-18 daily. ity of 3.125 mg 00:00: [place] tablet 00 [facility] metFORMIN 2018-0 Yes 1{tbl} 1 tablet Un heather (GLUCOPHAGE 7-18 twice ity of ) 500 mg 00:00: daily. [place] tablet 00 [facility] carvedilol 2017-0 Yes twice Univer s (COREG) 7-18 daily. ity of 3.125 mg 00:00: [place] tablet 00 [facility] metFORMIN 2017-0 Yes 1{tbl} 1 tablet Un heather (GLUCOPHAGE 7-18 twice ity of ) 500 mg 00:00: daily. [place] tablet 00 [facility] ferrous 2018-0 Yes 3 (three) Unive rs sulfate 325 3-17 times a ity o f mg (65 mg 00:00: day. elemental) [facility] tablet [facility] ferrous 2017-0 Yes 3 (three) Unive rs sulfate 325 3-17 times a ity o f mg (65 mg 00:00: day. elemental) [place] tablet n [facility] ferrous 2018-0 Yes 3 (three) Unive rs sulfate 325 3-17 times a ity o f mg (65 mg 00:00: day. Parmjit elemental) [place] tablet n [facility] ferrous 2018-0 Yes 3 (three) Unive rs sulfate 325 3-17 times a ity o f mg (65 mg 00:00: day. elemental) [place] tablet n [facility] ferrous 2018-0 Yes 3 (three) Unive rs sulfate 325 3-17 times a ity o f mg (65 mg 00:00: day. Parmjit elemental) [place] tablet n [facility] ferrous 2018-0 Yes 3 (three) Unive rs sulfate 325 3-17 times a ity o f mg (65 mg 00:00: day. Parmjit elemental) [place] tablet n [facility] ferrous 2018-0 Yes 3 (three) Unive rs sulfate 325 3-17 times a ity o f mg (65 mg 00:00: day. [place] [facility] Yes 3 (three) Unive rs sulfate 325 3-17 times a ity o f mg (65 mg 00:00: day. [place] as elemental) Anderso [facility] 2017-0 Yes twice Unive rs (LOPID) 600 3-13 daily. ity of mg tablet 00:00: [facility] 2017-0 Yes twice Unive rs (LOPID) 600 3-13 daily. ity of mg tablet 00:00: [facility] 2017-0 Yes twice Unive rs (LOPID) 600 3-13 daily. ity of mg tablet 00:00: [facility] 2017-0 Yes twice Unive rs (LOPID) 600 3-13 daily. ity of mg tablet 00:00: [facility] 2017-0 Yes twice Unive rs (LOPID) 600 3-13 daily. ity of mg tablet 00:00: [facility] 2017-0 Yes twice Unive rs (LOPID) 600 3-13 daily. ity of mg tablet 00:00: [facility] 2017-0 Yes twice Unive rs (LOPID) 600 3-13 daily. ity of mg tablet 00:00: [facility] 2017-0 Yes twice Unive rs (LOPID) 600 3-13 daily. ity of mg tablet 00:00: [facility] TRADJENTA 5 2018-0 Yes daily. Univ ers mg tab 3-07 ity of 00:00: [facility] TRADJENTA 5 2018-0 Yes daily. Univ ers mg tab 3-07 ity of 00:00: [facility] TRADJENT 5 2018-0 Yes daily. Univ ers mg tab 3-07 ity of 00:00: [place] 00 MD Nancy whitman [facility] 2018-0 Yes daily. Univ ers mg tab 3-07 ity of 00:00: [place] 00 MD Nancy whitman [facility] 2018-0 Yes daily. Univ ers mg tab 3-07 ity of 00:00: [place] 00 MD Nancy whitman [facility] 2018-0 Yes daily. Univ ers mg tab 3-07 ity of 00:00: [place] 00 MD Nancy whitman [facility] 2018-0 Yes daily. Univ ers mg tab 3-07 ity of 00:00: [place] 00 MD Nancy whitman [facility] 2018-0 Yes daily. Univ ers mg tab 3-07 ity [facility] 00:00: 00 [facility] Vital Signs Vital Name Observation Time Observation Value Comments Source HEIGHT 2023-02-08 05:00:00 165.1 cm WEIGHT 2023-02-08 05:00:00 63.277 kg HEIGHT 2023-02-08 05:00:00 165.1 cm WEIGHT 2023-02-08 05:00:00 63.277 kg HEIGHT 2023-02-08 05:00:00 165.1 cm WEIGHT 2023-02-08 05:00:00 63.277 kg Body height 2023-02-19 13:28:00 165.1 cm [facility] Body weight 2023-02-19 13:28:00 58.968 kg [facility] BMI 2023-02-19 13:28:00 21.63 kg/m2 [facility] Heart rate 2023-02-13 08:07:52 84 /min [facility] Respiratory rate 2023-02-13 08:07:52 18 /min [facility] Oxygen saturation in 2023-02-13 08:07:52 94 /min [facility] Arterial blood by Medical Ce nter Pulse oximetry Body temperature 2023-02-13 08:07:39 37.11 [facility] Systolic blood 2023-02-13 08:07:15 142 mm[Hg] [facility] Diastolic blood 2023-02-13 08:07:15 81 mm[Hg] [facility] Body height 2023-02-08 05:00:00 165.1 cm [facility] Body weight 2023-02-08 05:00:00 63.277 kg [facility] BMI 2023-02-08 05:00:00 23.21 kg/m2 [facility] Procedures Procedure Date / Time Performing Clinician Source Performed CT ABDOMEN PELVIS W 2023-02-19 15:20:00 Ajit Carbajal [facility] CONTRAST CBC (HEMOGRAM ONLY) 2023-02-13 03:52:00 [facility] BASIC METABOLIC PANEL 2023-02-13 03:52:00 [facility] MAGNESIUM 2023-02-13 03:52:00 [facility] PHOSPHORUS 2023-02-13 03:52:00 [facility] POCT-GLUCOSE METER 2023-02-12 20:14:00 Jenaro [facility] POCT-GLUCOSE METER 2023-02-12 15:35:00 Jenaro [facility] POCT-GLUCOSE METER 2023-02-12 11:23:00 Brian Orona [facility] POCT-GLUCOSE METER 2023-02-12 06:21:00 [facility] ONLY[facility] 2023-02-12 03:06:00 [facility] BASIC METABOLIC PANEL 2023-02-12 03:06:00 [facility] MAGNESIUM 2023-02-12 03:06:00 [facility] PHOSPHORUS 2023-02-12 03:06:00 [facility] POCT-GLUCOSE METER 2023-02-12 00:28:00 [facility] POCT-GLUCOSE METER 2023-02-11 16:05:00 Jignesh Oronaele [facility] POCT-GLUCOSE METER 2023-02-11 12:19:00 Adwoa Brian [facility] POCT-GLUCOSE METER 2023-02-11 06:35:00 Brian Orona [facility] CBC (HEMOGRAM ONLY) 2023-02-11 03:59:00 [facility] BASIC METABOLIC PANEL 2023-02-11 03:59:00 [facility] MAGNESIUM 2023-02-11 03:59:00 [facility] POCT-GLUCOSE METER 2023-02-10 23:57:00 Adwoa Brian [facility] POCT-GLUCOSE METER 2023-02-10 19:00:00 Jignesh Oronaele [facility] CT DRAINAGE PELVIS 2023-02-10 17:45:01 [facility] BODY FLUID CELL COUNT 2023-02-10 17:31:00 [facility] WITH DIFFERENTIAL [facility] ANAEROBIC CULTURE 2023-02-10 17:31:00 Deniz [facility] FUNGUS CULTURE + SMEAR 2023-02-10 17:31:00 [facility] WOUND CULTURE + GRAM 2023-02-10 17:31:00 Jadyn Guamansdrichie [facility] STAIN [facility] BASIC METABOLIC PANEL 2023-02-10 13:35:00 Catrachita Rutledge [facility] MAGNESIUM 2023-02-10 13:35:00 [facility] 2023-02-10 13:35:00 [facility] POCT-GLUCOSE METER 2023-02-10 11:27:00 Brian Orona [facility] POCT-GLUCOSE METER 2023-02-10 05:07:00 Brian Orona [facility] BASIC METABOLIC PANEL 2023-02-10 02:59:00 Eduin [facility] MAGNESIUM 2023-02-10 02:59:00 Eduin [facility] PHOSPHORUS 2023-02-10 02:59:00 Eduin [facility] CBC W/PLT COUNT & AUTO 2023-02-10 02:59:00 Eduin [facility] DIFFERENTIAL [facility] PREALBUMIN 2023-02-10 02:59:00 Deric [facility] FERRITIN 2023-02-10 02:59:00 Deric [facility] TRANSFERRIN 2023-02-10 02:59:00 Deric [facility] PROTHROMBIN TIME/INR 2023-02-10 02:59:00 Eduin [facility] APTT 2023-02-10 02:59:00 Eduin [facility] CBC W/PLT COUNT & AUTO 2023-02-10 02:59:[address] [facility] POCT-GLUCOSE METER 2023-02-10 00:15:00 Brian Orona [facility] POCT-GLUCOSE METER 2023-02-09 16:50:00 Brian Orona [facility] CT ABDOMEN/PELVIS WITH 2023-02-09 14:48:00 Deric [facility] CONTRAST Center POCT-GLUCOSE METER 2023-02-09 11:08:00 Brian Orona [facility] POCT-GLUCOSE METER 2023-02-09 07:13:00 Brian Orona [facility] POCT-GLUCOSE METER 2023-02-09 06:32:00 Brian Orona [facility] BASIC METABOLIC PANEL 2023-02-09 04:05:00 Eduin [facility] MAGNESIUM 2023-02-09 04:05:00 Terriyanelis [facility] PHOSPHORUS 2023-02-09 04:05:00 Eduin [facility] CBC W/PLT COUNT & AUTO 2023-02-09 04:05:00 Eduin [facility] DIFFERENTIAL [facility] CBC W/PLT COUNT & AUTO 2023-02-09 04:05:[address] [facility] POCT-GLUCOSE METER 2023-02-08 23:12:00 Brian Orona [facility] HEMOGLOBIN AND 2023-02-08 22:43:00 Eduin [facility] HEMATOCRIT [facility] POCT-GLUCOSE METER 2023-02-08 18:03:00 Brian Orona [facility] BASIC METABOLIC PANEL 2023-02-08 17:39:00 PrettyAnna keita Lianna [facility] CALCIUM, IONIZED 2023-02-08 17:39:00 Carlos joi [facility] POCT-GLUCOSE METER 2023-02-08 12:06:00 Brian Orona [facility] BASIC METABOLIC PANEL 2023-02-08 11:31:00 Anna Jones C [facility] MAGNESIUM 2023-02-08 11:31:00 [facility]ela [facility] PHOS[facility]US 2023-02-08 11:31:00 [facility] CALCIUM, IONIZED 2023-02-08 11:31:00 Carlos [facility] LACTIC ACID, ARTERIAL 2023-02-08 11:31:00 Anna Jones C [facility] CBC W/PLT COUNT & AUTO 2023-02-08 11:31:00 Carlos Jolynnbricesamra [facility] CBC W/PLT COUNT & AUTO 2023-02-08 11:31:00 Anna Jones [facility] POCT-GLUCOSE METER 2023-02-08 08:10:00 AdwoaBrianjo [facility] XR CHEST 1 VIEW 2023-02-08 06:24:14 Eduin [facility] PORTABLE / BEDSIDE [facility] POCT-GLUCOSE METER 2023-02-08 04:04:00 Adwoa Brian [facility] BASIC METABOLIC PANEL 2023-02-08 [place]:35[place]UM 2023-02-08 03:35:[facility] 2023-02-08 [place]:35[place] CBC W/PLT COUNT & AUTO 2023-02-08 03:35:00 [facility] DIFFERENTIAL [facility] CBC W/PLT COUNT & AUTO 2023-02-08 03:35:00 [facility] DIFFERENTIAL [facility] [id number] 2023-01-02 00:00:00 HAAER [facility] [id number] 2022-12-31 00:00:00 HAAER [facility] [id number] 2022-12-31 00:00:00 HAAER [facility] [id number] 2022-12-31 00:00:00 HAAER [facility] [id number] 2022-10-15 00:00:00 HAAER [facility] [id number] 2022-10-15 00:00:00 HAAER [facility] [id number] 2022-10-15 00:00:00 HAAER [facility] [id number] 2022-10-15 00:00:00 HAAER [facility] [id number] 2022-10-15 00:00:00 HAAER [facility] Plan of Care Planned Activity Planned Date Details Comments Source Future Scheduled 2023-04-18 Influenza Vaccine (#1) [facility] 00:[facility]:00 [code = Influenza Medical Ce nter Vaccine (#1)] Future Scheduled 2023-02-20 [facility] 02:20:14 malignant neoplasm of colon (procedure) [code = 983261623] Future Scheduled 2023-02-20 [facility] Test 02:20:14 malignant neoplasm of colon (procedure) [code = 703661924] Future Scheduled 2023-02-20 [facility] Test 02:20:14 malignant neoplasm of colon (procedure) [code = 271445615] Future Scheduled 2023-02-20 [facility] 02[facility]20:14 (procedure) [code = 401523598] Future Scheduled 2023-02-20 [facility] Test 02:20:14 malignant neoplasm of colon (procedure) [code = 549622214] Future Scheduled 2023-02-20 [facility] Test 02:20:14 malignant neoplasm of colon (procedure) [code = 370791437] Future Scheduled 2023-02-20 BREAST CANCER [facility] Test 02:20:14 SCREENING [code = BREAST CANCER SCREENING] Future Scheduled 2023-02-20 COVID-19 [facility]ACCINE ([facility] 02[facility]20[facility]14 Moderna series) [code = COVID-19 VACCINE (4 - Moderna series)] Future Scheduled 2023-02-20 [facility]ACCINE [facility] 02:20:14 [code = INFLUENZA VACCINE] Future Scheduled 2022-08-[address] [facility] Test 00:00:00 (12+) [code = Medical Center DEPRESSION SCREENING (12+)] Future Scheduled 2022-08-18 FALLS RISK SCREENING [facility] Test 00:00:00 [code = FALLS RISK Medical C enter SCREENING] Future Scheduled 2022-02-20 COVID-19 Vaccination [facility] Test 03:42:18 (#1) [code = COVID-19 And jaylen Cancer Vaccination (#1)] Center Future Scheduled 2022-02-20 COVID-19 Vaccination [facility] Test 03:42:18 (#1) [code = COVID-19 And erson Cancer Vaccination (#1)] Center Future [...] erson Cancer Vaccination (#1)] Center Future Scheduled [address] [facility] 00:[facility]:00 WELLNESS (YEAR 2 or Medical Center FIRST YEAR if no IPPE) [code = MEDICARE ANNUAL WELLNESS (YEAR 2 or FIRST YEAR if no IPPE)] Future Scheduled 2016-03-[address] [facility] 00:[facility]:00 malignant neoplasm of Medica l Center breast (procedure) [code = 293643659] Future Scheduled 2004 SHINGLES VACCINES ([address] [facility] Test 00:00:00 of 2) [code = SHINGLES Medic al Center VACCINES (1 of 2)] Future Scheduled 1973 DTAP/TDAP/TD VACCINES [facility] 00:00:00 (1 - Tdap) [code = Medical C enter DTAP/TDAP/TD VACCINES (1 - Tdap)] Future Scheduled 1972 HEPATITIS C [facility]CREENING [facility] 00:00:00 [code = HEPATITIS C Medical Center SCREENING] Future Scheduled [address] [facility] Test 00:00:00 Counseling and Medical Cente r Screening (12+) [code = Tobacco Cessation Counseling and Screening (12+)] Future Scheduled 1955-01-17 COVID-19 VACCINE (#1) [facility] 00:00:00 [code = COVID-[address] VACCINE (#1)] Future Scheduled [address] [facility] 00:00:00 (combo) [code = CT Medical C enter Colonography (combo)] Future Scheduled [address] [facility] Test 00:00:00 malignant neoplasm of Medica l Center colon (procedure) [code = 926092647] Future Scheduled [address] [facility] Test 00:00:00 malignant neoplasm of Medica l Center colon (procedure) [code = 260530991] Future Scheduled 1955 DXA SCAN [code = DXA [facility] Test 00:00:00 SCAN] [facility] Future Scheduled [address] [facility] Test 00:00:00 malignant neoplasm of Medica l Center colon (procedure) [code = 871811352] Future Scheduled [address] [facility] Test 00:00:00 malignant neoplasm of Medica l Center colon (procedure) [code = 654373560] Future Scheduled 1955 Sigmoidoscopy [code = [facility] S[facility]oscopy] Medical Cente r Encounters Start End Encounter Admission Attending Care Care Encounter Source Date/Time Date/Time Type Type Clinicians Facility Department ID 2023-02-08 Inpatient ER ADWOA [facility] [id number] [facility] 04:30:37 BRIAN 2020-06-08 Outpatient SYSTEM, [facility] DEVIKA [id number] 09:56:52 PROVIDER Wilberyousif whitman 2023-02-19 2023-02-19 [facility] Ajit Carbajal 1.2.840.1 [id number] Methodi 08:18:35 23:59:00 Encounter Nima 99944.1.1 360 s t 3.430.2.7 Hospit a .3.366236 l .8 2023-02-19 2023-02-19 Outpatient CARBAJAL, AJIT [facility] [id number] [place] 00:00:00 00:00:[address] 2023-02-14 2023-02-14 Orders Kirsty Ochoa 1.2.840.1 [id number] Methodi 00:00:00 00:00:00 Only Heather Gandara 19132.1.[address] 3.430.2.7 Hospit a .3.621503 l .8 2023-02-14 2023-02-14 Orders Kirsty Ochoa 1.2.840.1 [id number] 21 [id number] Methodi 00:00:00 00:00:00 Only Heather Gandara [address]4985.1.[address] 3.430.2.7 Hospit a .3.076257 l .8 2023-02-08 2023-02-13 [id number] [facility] 02:27:00 09:35:00 [facility] 2023-02-08 2023-02-13 [facility] [id number] [facility] 02:27:00 09:35:00 [facility]23-[facility]-10 2023-02-10 Inpatient ER [facility] [id number] SLE 16:19:09 23:59:00 [facility] 2023-02-10 2023-02-10 [facility] [id number] [facility] 15:25:00 23:59:00 Encounter [facility] 2023-02-09 2023-02-09 Inpatient ER [facility] [id number] SLE 14:37:45 00:00:00 BRIAN 2023-01-30 2023-01-30 Orders Kirsty Ochoa 1.2.840.1 [id number] Methodi 00:00:00 00:00:00 Only Heather Gandara 31240.1.[address] 3.430.2.7 Hospit a .3.168789 l .8 2023-01-162023-01-16 Orders Kirsty Ochoa 1.2.840.1 [id number] 21 [id number] Methodi 00:00:00 00:00:00 Only Heather Gandara [address]9992.1.[address] 3.430.2.7 Hospit a .3.462010 l .8 2022-12-31 2023-01-04 Inpatient MADIHA Carbajal [facility] MEDI.01 [id number] [facility] 16:43:00 15:56:00 70 [facility] 2022-12-31 2022-12-31 Outpatient Carbajal, [facility] REF BN02 [id number] [facility] 16:50:00 16:50:00 82 [facility] 2022-12-17 2022-12-17 Outpatient MADIHA Carbajal [facility] 3DAY BP00 [id number] [facility] 08:00:00 09:00:00 47 [facility] 2022-10-25 2022-10-25 Orders Luis Manueldeclan 1.2.840.1 [id number] 21 [id number] Methodi 00:00:00 00:00:00 Only addie 83694.1.[address] [place] 3.430.2.7 Hospi ta Lai .3.053499 l .8 2022-10-15 2022-10-15 Inpatient MADIHA Carbajal [facility] DAYS [id number] [facility] 01:27:00 17:00:00 66 [facility] 2022-10-02 2022-10-02 Outpatient MADIHA Carbajal [facility] 3DAY BP00 [id number] [facility] 08:00:00 09:00:00 03 [facility] are [facility] 2019-09-14 2019-09-14 [facility] PARVIN [id number] Univers 06:43:00 09:06:00 ELIF monahan [facility] 2019-09-14 2019-09-14 [facility] 1.2.840.114 [id number] 06:43:00 09:06:00 Encounter Elif Qiu [place] 350.1.13.10 Katherine 4.2.7.2.686 Surgical [id number] [place] 071 2019-09-14 2019-09-14 Orders Doctor SHELLEY 1.2.840.114 [id number] 00:00:00 00:00:00 Only Unassigned, SHARMAINE 350.1.13.10 Brillion [facility] 4.2.7.2.686 [id number] 2019-09-02 2019-09-02 Outpatient R SOWMYA, [facility] [id number] Univers 16:30:00 16:30:00 ELIF monahan [facility] 2019-09-02 2019-09-02 Toddler Nanny 1, Adc Lab [facility] 1.2.840.114 [id number] 15:30:20 16:23:19 Visit Jere 350.1.13.10 [place] 4.2.7.2.686 [place] [id number] Results Test Description Test Time Test Comments Results Result Comments Source WOUND CULTURE + GRAM STAIN 2023-02-14 10:23:54 Test Item Value Reference Range Interpretation Comme nts CULTURE (BEAKER) (test code = ESCHERICHIA COLI A 3+ Escherichia coli 1095) Amikacin (test code = 1) S Ampicillin + Sulbactam (test R code = 6) Aztreonam (test code = 32) S Cefepime (test code = 51) S Cefoxitin (test code = 68) S Ceftazidime (test code = 27) S Ceftriaxone (test code = 52) S Ertapenem (test code = 38) S Gentamicin (test code = 18) R Levofloxacin (test code = 22) S Meropenem (test code = 34) S Nitrofurantoin (test code = S 23) Piperacillin + Tazobactam S (test code = 29) Tetracycline (test code = 2) R Tobramycin (test code = 25) R Trimethoprim + R Sulfamethoxazole (test code = 47) CULTURE (BEAKER) (test code = ENTEROCOCCUS SPECIES A 4+ Enterococcus 1095) speciesMost renata sely resembles - Ent erococcus raffinosus Ampicillin (test code = 26) R Linezolid (test code = 40) S Vancomycin (test code = 13) S GRAM STAIN RESULT (BEAKER) 2+ WBCs (test code = 1123) GRAM STAIN RESULT (BEAKER) 4+ gram positive cocci in (test code = 868348) pairs GRAM STAIN RESULT (BEAKER) 1+ gram positive cocci in (test code = 266371) chains GRAM STAIN RESULT (BEAKER) 1+ gram variable rods (test code = 953662) CT DRAINAGE [id number] 08:56:59 [facility] EDU[facility] HAZEL : 1955 Sex: FPROCEDURE: Drainage catheter placementProcedural PersonnelAttending physician(s): Jeffery CerratoPre- procedure diagnosis: Presacral fluid collectionPost-procedure diagnosis: SameIndication: Presacral fluid collectionComplications: No immediate complications.IMPRESSION:Percutaneous placement of a 8 [place] Citizen drainage catheter into presacralcollection, yielding 40 mL of purulent fluid.Plan: Drain to BEAR bulb. PROCEDURE SUMMARY:- Presacral drainage catheter placement under CT guidance- Additional procedure(s): NonePROCEDURE DETAILS:Pre-procedureConsent: Informed consent for the procedure including risks, benefitsand alternatives was obtained and time- out was performed prior to theprocedure.Preparation: The site was prepared and draped using maximal sterilebarrier technique including cutaneous antisepsis.Anesthesia/sedationLevel of anesthesia/sedation: Moderate sedation (conscious sedation)Anesthesia/sedation administered by: Independent trained observer underattending supervision with continuous monitoring of the patient?s levelof consciousness and physiologic statusTotal intra-service sedation time (minutes): 40Drainage catheter placementThepatient was positioned prone. Initial imaging was performed. Localanesthesia was administered. The fluid collection was accessed using anaccess needle followed by wire insertion and serial dilation andadrainage catheter was placed. Position of the drainage catheter withinthe fluid collection was confirmed. - Initial imaging findings: Presacral fluid collection- Drainage catheter placed: Multipurposedrainage catheter- External catheter securement: Non-absorbable suture- Post-drainage imaging findings: Partial drainage of the fluidcollectionContrastContrast agent: NoneRadiation DoseCT dose length product (mGy-cm): 562 Additional DetailsAdditional description of procedure: NoneEquipment details: NoneSpecimens removed: Aspirated fluid was sent for analysis.Estimated blood loss (mL): Less than 5Electronically Signed By: Jeffery Cerrato02/14/2023 08:59 CDTWorkstation Name: [id number] 05:26:52 Test Item Value Reference Range Interpretation Comments MAGNESIUM (BEAKER) (test code = 1.4 mg/dL 1.6-2.6 L 627) Power Shovel Engineer ID - [id number] 05:26:52 Test Item Value Reference Range Interpretation Comments PHOSPHORUS (BEAKER) (test code = 2.7 mg/dL 2.3-4.7 604) Power Shovel Engineer ID - MMBASIC METABOLIC [id number] 05:26:51 Test Item Value Reference Range Interpretation Comments SODIUM (BEAKER) 137 meq/L 136-145 (test code = 381) POTASSIUM 4.3 meq/L 3.5-5.1 (BEAKER) (test code = 379) CHLORIDE (BEAKER) 105 meq/L 98-107 (test code = 382) CO2 (BEAKER) 24 meq/L 22-29 (test code = 355) BLOOD UREA 8 mg/dL 7-21 NITROGEN (BEAKER) (test code = 354) CREATININE 0.77 mg/dL 0.57-1.25 (BEAKER) (test code = 358) GLUCOSE RANDOM 94 mg/dL 70-105 (BEAKER) (test code = 652) CALCIUM (BEAKER) 9.3 mg/dL 8.4-10.2 (test code = 697) EGFR (BEAKER) 84 Interpretatio n of eGFR (test code = mL/min/1.73 values Stage De scription 1092) sq m Result G1 Alexa l or high >=90 G2 Mildly decreased 60-89 G3a Mildl y to moderately 45-5 9 G3b Moderately to s everely 30-44 G4 Severl y decreased 15-29 G5 Kidney failure <15Reported eGF R is based on the CKD-EPI 2020 equation that d oes not use a race coefficientEsti mated GFR is not as accur ate as Creatinine Marisela trey in predicting glom erular filtration rate . Estimated GFR is not appl icable for dialysis patien ts Power Shovel Engineer ID - [id number] (HEMOGRAM ONLY)2023-02-13 05:00:33 Test Item Value Reference Range Interpretation Comments WHITE BLOOD CELL COUNT (BEAKER) 3.7 K/ L 3.5-10.5 (test code = 775) RED BLOOD CELL COUNT (BEAKER) 2.61 M/ L 3.93-5.22 L (test code = 761) HEMOGLOBIN (BEAKER) (test code = 8.1 GM/DL 11.2-15.7 L 410) HEMATOCRIT (BEAKER) (test code = 24.8 % 34.1-44.9 L 411) MEAN CORPUSCULAR VOLUME (BEAKER) 95 fL 79-95 (test code = 753) MEAN CORPUSCULAR HEMOGLOBIN 31.0 pg 25.6-32.2 (BEAKER) (test code = 751) MEAN CORPUSCULAR HEMOGLOBIN CONC 32.7 GM/DL 32.2-35.5 (BEAKER) (test code = 752) RED CELL DISTRIBUTION WIDTH 13.7 % 11.7-14.4 (BEAKER) (test code = 412) PLATELET COUNT (BEAKER) (test 142 K/CU MM 150-450 L code = 756) MEAN PLATELET VOLUME (BEAKER) 10.4 fL 9.4-12.3 (test code = 754) NUCLEATED RED BLOOD CELLS 0 /100 WBC 0-0 (BEAKER) (test code = 413) POC-Glucose [id number] 20:26:14 Test Item Value Reference Range Interpretation Comments POC-Glucose Meter (test 180 mg/dL 70-110 H : TE STED AT [facility] code = 1538) [address] [facility] [place], 770 30: Power Shovel Engineer/Techni elizabeth ID = [id number] for Mary [facility] Interpretation (test Abnormal code = 53071-3) [facility] [id number] 20:26:14 Test Item Value Reference Range Interpretation Comments POC-GLUCOSE METER 180 mg/dL 70-110 H : TESTED A T [facility] 6720 (BEAKER) (test code = [facility], 153) [address]647: Power Shovel Engineer/Techni elizabeth ID = [id number] for Mary Jernigan POCT-GLUCOSE [id number] 15:46:24 Test Item Value Reference Range Interpretation Comments POC-GLUCOSE METER 117 mg/dL 70-110 H : TESTED A T [facility] 6720 (BEAKER) (test code = [facility], 153) 38234: Power Shovel Engineer/Techni elizabeth ID = [id number] for Anton Chen POCT-GLUCOSE [id number] 11:35:26 Test Item Value Reference Range Interpretation Comments POC-GLUCOSE METER 136 mg/dL 70-110 H : TESTED A T [facility] 6720 (BEAKER) (test code = [facility], 153) 25840: Power Shovel Engineer/Techni elizabeth ID = [id number] for JANELL MOROCHO POCT-GLUCOSE [id number] 06:37:43 Test Item Value Reference Range Interpretation Comments POC-GLUCOSE METER 99 mg/dL 70-110 : TESTED A T [facility] 6720 (BEAKER) (test code = [facility], 153) 41157: Power Shovel Engineer/Techni elizabeth ID = [id number] for Pradip Larkin BASIC METABOLIC [id number] 03:40:48 Test Item Value Reference Range Interpretation Comments SODIUM (BEAKER) 133 meq/L 136-145 L (test code = 381) POTASSIUM 3.9 meq/L 3.5-5.1 (BEAKER) (test code = 379) CHLORIDE (BEAKER) 105 meq/L 98-107 (test code = 382) CO2 (BEAKER) 19 meq/L 22-29 L (test code = 355) BLOOD UREA 7 mg/dL 7-21 NITROGEN (BEAKER) (test code = 354) CREATININE 0.72 mg/dL 0.57-1.25 (BEAKER) (test code = 358) GLUCOSE RANDOM 91 mg/dL 70-105 (BEAKER) (test code = 652) CALCIUM (BEAKER) 8.2 mg/dL 8.4-10.2 L (test code = 697) EGFR (BEAKER) 91 Interpretatio n of eGFR (test code = mL/min/1.73 values Stage De scription 1092) sq m Result G1 Alexa l or high >=90 G2 Mildly decreased 60-89 G3a Mildl y to moderately 45-5 9 G3b Moderately to s everely 30-44 G4 Severl y decreased 15-29 G5 Kidney failure <15Reported eGF R is based on the CKD-EPI 2020 equation that d oes not use a race coefficientEsti mated GFR is not as accur ate as Creatinine Marisela trey in predicting glom erular filtration rate . Estimated GFR is not appl icable for dialysis patien ts Power Shovel Engineer ID - [id number] 03:40:48 Test Item Value Reference Range Interpretation Comments MAGNESIUM (BEAKER) (test code = 1.6 mg/dL 1.6-2.6 627) Power Shovel Engineer ID - [id number] 03:40:48 Test Item Value Reference Range Interpretation Comments PHOSPHORUS (BEAKER) (test code = 1.6 mg/dL 2.3-4.7 L 604) Power Shovel Engineer ID - [id number] (HEMOGRAM ONLY)2023-02-12 03:23:33 Test Item Value Reference Range Interpretation Comments WHITE BLOOD CELL COUNT (BEAKER) 3.7 K/ L 3.5-10.5 (test code = 775) RED BLOOD CELL COUNT (BEAKER) 2.29 M/ L 3.93-5.22 L (test code = 761) HEMOGLOBIN (BEAKER) (test code = 7.3 GM/DL 11.2-15.7 L 410) HEMATOCRIT (BEAKER) (test code = 21.8 % 34.1-44.9 L 411) MEAN CORPUSCULAR VOLUME (BEAKER) 95 fL 79-95 (test code = 753) MEAN CORPUSCULAR HEMOGLOBIN 31.9 pg 25.6-32.2 (BEAKER) (test code = 751) MEAN CORPUSCULAR HEMOGLOBIN CONC 33.5 GM/DL 32.2-35.5 (BEAKER) (test code = 752) RED CELL DISTRIBUTION WIDTH 13.4 % 11.7-14.4 (BEAKER) (test code = 412) PLATELET COUNT (BEAKER) (test 128 K/CU MM 150-450 L code = 756) MEAN PLATELET VOLUME (BEAKER) 10.4 fL 9.4-12.3 (test code = 754) NUCLEATED RED BLOOD CELLS 0 /100 WBC 0-0 (BEAKER) (test code = 413) POCT-GLUCOSE [id number] 00:39:26 Test Item Value Reference Range Interpretation Comments POC-GLUCOSE METER 90 mg/dL 70-110 : TESTED A T [facility] 6720 (BEAKER) (test code = [facility]) [address]: Power Shovel Engineer/Techni elizabeth ID = [id number] for Pradip Larkin POCT-GLUCOSE [id number] 16:18:41 Test Item Value Reference Range Interpretation Comments POC-GLUCOSE METER 128 mg/dL 70-110 H : TESTED A T [facility] 6720 (BEAKER) (test code = [facility]) 98[address]: Power Shovel Engineer/Techni elizabeth ID = [id number] for Vi dina, Barbra POCT-GLUCOSE [id number] 12:30:56 Test Item Value Reference Range Interpretation Comments POC-GLUCOSE METER 225 mg/dL 70-110 H : TESTED A T [facility] 6720 (BEAKER) (test code = [facility], 153) 0[address]: Power Shovel Engineer/Techni elizabeth ID = [id number] for Vi dina, Barbra POCT-GLUCOSE [id number] 06:46:30 Test Item Value Reference Range Interpretation Comments POC-GLUCOSE METER 103 mg/dL 70-110 : TESTED A T [facility] 6720 (BEAKER) (test code = [facility], 1538) 10[address]: Power Shovel Engineer/Techni elizabeth ID = [id number] for Ig myra Noe BASIC METABOLIC [id number] 04:36:51 Test Item Value Reference Range Interpretation Comments SODIUM (BEAKER) 137 meq/L 136-145 (test code = 381) POTASSIUM 3.8 meq/L 3.5-5.1 (BEAKER) (test code = 379) CHLORIDE (BEAKER) 108 meq/L 98-107 H (test code = 382) CO2 (BEAKER) 20 meq/L 22-29 L (test code = 355) BLOOD UREA 6 mg/dL 7-21 L NITROGEN (BEAKER) (test code = 354) CREATININE 0.69 mg/dL 0.57-1.25 (BEAKER) (test code = 358) GLUCOSE RANDOM 101 mg/dL 70-105 (BEAKER) (test code = 652) CALCIUM (BEAKER) 8.0 mg/dL 8.4-10.2 L (test code = 697) EGFR (BEAKER) 94 Interpretatio n of eGFR (test code = mL/min/1.73 values Stage De scription 1092) sq m Result G1 Alexa l or high >=90 G2 Mildly decreased 60-89 G3a Mildl y to moderately 45-5 9 G3b Moderately to s everely 30-44 G4 Severl y decreased 15-29 G5 Kidney failure <15Reported eGF R is based on the CKD-EPI 2020 equation that d oes not use a race coefficientEsti mated GFR is not as accur ate as Creatinine Marisela trey in predicting glom erular filtration rate . Estimated GFR is not appl icable for dialysis patien ts Power Shovel Engineer ID - [id number] 04:36:51 Test Item Value Reference Range Interpretation Comments MAGNESIUM (BEAKER) (test code = 1.5 mg/dL 1.6-2.6 L 627) Power Shovel Engineer ID - ADMINCBC (HEMOGRAM ONLY)2023-02-11 04:23:25 Test Item Value Reference Range Interpretation Comments WHITE BLOOD CELL COUNT (BEAKER) 4.2 K/ L 3.5-10.5 (test code = 775) RED BLOOD CELL COUNT (BEAKER) 2.25 M/ L 3.93-5.22 L (test code = 761) HEMOGLOBIN (BEAKER) (test code = 7.2 GM/DL 11.2-15.7 L 410) HEMATOCRIT (BEAKER) (test code = 21.6 % 34.1-44.9 L 411) MEAN CORPUSCULAR VOLUME (BEAKER) 96 fL 79-95 H (test code = 753) MEAN CORPUSCULAR HEMOGLOBIN 32.0 pg 25.6-32.2 (BEAKER) (test code = 751) MEAN CORPUSCULAR HEMOGLOBIN CONC 33.3 GM/DL 32.2-35.5 (BEAKER) (test code = 752) RED CELL DISTRIBUTION WIDTH 13.3 % 11.7-14.4 (BEAKER) (test code = 412) PLATELET COUNT (BEAKER) (test 138 K/CU MM 150-450 L code = 756) MEAN PLATELET VOLUME (BEAKER) 10.1 fL 9.4-12.3 (test code = 754) NUCLEATED RED BLOOD CELLS 0 /100 WBC 0-0 (BEAKER) (test code = 413) POCT-GLUCOSE [id number] 00:09:24 Test Item Value Reference Range Interpretation Comments POC-GLUCOSE METER 111 mg/dL 70-110 H : TESTED A T [facility] 6720 (BEAKER) (test code = [facility] [place] [place], 1538) [address]: Power Shovel Engineer/Techni elizabeth ID = [id number] for Noe Harrison Body fluid cell count with [id number] 21:21:07 Test Item Value Reference Range Interpretation Comments Appearance (test code = Purulent Clear A 9335-1) Color (test code = Green Colorless, Straw A 6824-7) RBCs (test code = 180 See_Comment H [Automate d message] 51387-3) The system [employer] generated this result transmit brisa reference range : <=1 /cu mm. The reference range was not used to interpret this result as normal/abnormal . TNC Count (test code = 6289 See_Comment H [Aut omated message] 1442) The system [employer] generated this result transmit brisa reference range : <=5 /cu mm. The reference range was not used to interpret this result as normal/abnormal . Lining Cells/Other 0 Diff'd (test code = 1589) Adjusted WBC Count 6289 See_Comment H [Automat ed message] (test code = 14550-8) The sy stem which generated this result transmit brisa reference range : <=5 /cu mm. The reference range was not used to interpret this result as normal/abnormal . Adjusted lining 0 See_Comment [Automated message] cells/Others (test code The system which = 32821-6) generated this result transmit brisa reference range : <=1 /cu mm. The reference range was not used to interpret this result as normal/abnormal . % Segs (test code = 65 % 97612-7) % Lymphs (test code = 5 % 81121-6) % Monos (test code = 30 % 54552-9) % Eos (test code = 0 % 57219-6) % Baso (test code = 0 % 89789-5) Container Body Fluid EDTA Tube (test code = 2873) Lab Interpretation Abnormal (test code = 02336-8) [facility] [id number] 21:21:07 Test Item Value Reference Range Interpretation Comments APPEARANCE FLUID (BEAKER) (test Purulent Clear A code = 510) COLOR FLUID (BEAKER) (test code Green Colorless, Straw A = 511) RBC FLUID (BEAKER) (test code = 180 /cu mm <=1 H 513) TOTAL NUCLEATED CELL COUNT 6289 /cu mm <=5 H (BEAKER) (test code = 1442) LINING CELLS/OTHERS DIFF'D 0 (BEAKER) (test code = 1589) ADJUSTED WBC FLUID (BEAKER) 6289 /cu mm <=5 H (test code = 1691) LINING CELLS/OTHERS, CALCULATED 0 /cu mm <=1 (BEAKER) (test code = 1590) NEUTROPHILS FLUID (BEAKER) (test 65 % code = 1656) LYMPHS FLUID (BEAKER) (test code 5 % = 488) MONO/MACROPHAGE FLUID (BEAKER) 30 % (test code = 489) EOSINOPHILS FLUID (BEAKER) (test 0 % code = 491) BASO FLUID (BEAKER) (test code = 0 % 492) CONTAINER BODY FLUID (BEAKER) EDTA Tube (test code = 2873) POCT-GLUCOSE [id number] 19:19:09 Test Item Value Reference Range Interpretation Comments POC-GLUCOSE METER 105 mg/dL 70-110 : TESTED A T [facility] 6720 (BEAKER) (test code = [place], 1538) [address]: Power Shovel Engineer/Techni elizabeth ID = [id number] for Ch au, Beltran BASIC METABOLIC [id number] 14:12:40 Test Item Value Reference Range Interpretation Comments SODIUM (BEAKER) 137 meq/L 136-145 (test code = 381) POTASSIUM 3.8 meq/L 3.5-5.1 (BEAKER) (test code = 379) CHLORIDE (BEAKER) 107 meq/L 98-107 (test code = 382) CO2 (BEAKER) 20 meq/L 22-29 L (test code = 355) BLOOD UREA 10 mg/dL 7-21 NITROGEN (BEAKER) (test code = 354) CREATININE 0.77 mg/dL 0.57-1.25 (BEAKER) (test code = 358) GLUCOSE RANDOM 122 mg/dL 70-105 H (BEAKER) (test code = 652) CALCIUM (BEAKER) 8.5 mg/dL 8.4-10.2 (test code = 697) EGFR (BEAKER) 84 Interpretatio n of eGFR (test code = mL/min/1.73 values Stage De scription 1092) sq m Result G1 Alexa l or high >=90 G2 Mildly decreased 60-89 G3a Mildl y to moderately 45-5 9 G3b Moderately to s everely 30-44 G4 Severl y decreased 15-29 G5 Kidney failure <15Reported eGF R is based on the CKD-EPI 2020 equation that d oes not use a race coefficientEsti mated GFR is not as accur ate as Creatinine Marisela trey in predicting glom erular filtration rate . Estimated GFR is not appl icable for dialysis patien ts Power Shovel Engineer ID - [id number] 14:12:40 Test Item Value Reference Range Interpretation Comments MAGNESIUM (BEAKER) (test code = 1.7 mg/dL 1.6-2.6 627) Power Shovel Engineer ID - [id number] 14:12:40 Test Item Value Reference Range Interpretation Comments PHOSPHORUS (BEAKER) (test code = 2.1 mg/dL 2.3-4.7 L 604) Power Shovel Engineer ID - mmPOCT-GLUCOSE [id number] 11:39:05 Test Item Value Reference Range Interpretation Comments POC-GLUCOSE METER 126 mg/dL 70-110 H : [facility] ([facility] (test code = [place], 1538) [address]: Power Shovel Engineer/Techni elizabeth ID = [id number] for MADELINE SKY [id number] 05:39:08 Test Item Value Reference Range Interpretation Comments FERRITIN (BEAKER) (test code = 611.32 ng/mL 5.00-275.00 H 361) Power Shovel Engineer ID - mmPOCT-GLUCOSE [id number] 05:18:53 Test Item Value Reference Range Interpretation Comments POC-GLUCOSE METER 109 mg/dL 70-110 : TESTED A T [facility] 6720 (BEAKER) (test code = [place], 1538) 133[address]: Power Shovel Engineer/Techni elizabeth ID = [id number] for NO NORMAN CLEARY BASIC METABOLIC [id number] 03:48:37 Test Item Value Reference Range Interpretation Comments SODIUM (BEAKER) 134 meq/L 136-145 L (test code = 381) POTASSIUM 3.4 meq/L 3.5-5.1 L (BEAKER) (test code = 379) CHLORIDE (BEAKER) 106 meq/L 98-107 (test code = 382) CO2 (BEAKER) 18 meq/L 22-29 L (test code = 355) BLOOD UREA 16 mg/dL 7-21 NITROGEN (BEAKER) (test code = 354) CREATININE 0.86 mg/dL 0.57-1.25 (BEAKER) (test code = 358) GLUCOSE RANDOM 121 mg/dL 70-105 H (BEAKER) (test code = 652) CALCIUM (BEAKER) 8.3 mg/dL 8.4-10.2 L (test code = 697) EGFR (BEAKER) 74 Interpretatio n of eGFR (test code = mL/min/1.73 values Stage De scription 1092) sq m Result G1 Alexa l or high >=90 G2 Mildly decreased 60-89 G3a Mildl y to moderately 45-5 9 G3b Moderately to s everely 30-44 G4 Severl y decreased 15-29 G5 Kidney failure <15Reported eGF R is based on the CKD-EPI 2021 equation that d oes not use a race coefficientEsti mated GFR is not as accur ate as Creatinine Marisela yang in predicting glom erular filtration rate . Estimated GFR is not appl icable for dialysis patien ts Power Shovel Engineer ID - [id number] 03:48:37 Test Item Value Reference Range Interpretation Comments MAGNESIUM (BEAKER) (test code = 1.3 mg/dL 1.6-2.6 L 627) Power Shovel Engineer ID - [id number] 03:48:37 Test Item Value Reference Range Interpretation Comments PHOSPHORUS (BEAKER) (test code = 1.6 mg/dL 2.3-4.7 L 604) Power Shovel Engineer ID - [id number] 03:42:43 Test Item Value Reference Range Interpretation Comments PARTIAL THROMBOPLASTIN TIME 33.8 seconds 22.5-36.0 (BEAKER) (test code = 760) PROTHROMBIN TIME/[id number] 03:41:50 Test Item Value Reference Range Interpretation Comments PROTIME (BEAKER) (test code = 16.6 seconds 11.9-14.2 H 759) INR (BEAKER) (test code = 370) 1.43 <=5.90 RECOMMENDED COUMADIN/WARFARIN INR THERAPY RANGESSTANDARD DOSE: 2.0 - 3.0 Includes: PROPHYLAXIS for venous thrombosis, systemic embolization; TREATMENT for venous thrombosis and/or pulmonary embolus.HIGH RISK: Target INR is 2.5-3.5 for patients with mechanical heart valves.CBC W/PLT COUNT & AUTO [id number] 03:40:23 Test Item Value Reference Range Interpretation Comments WHITE BLOOD CELL COUNT (BEAKER) 6.1 K/ L 3.5-10.5 (test code = 775) RED BLOOD CELL COUNT (BEAKER) 2.28 M/ L 3.93-5.22 L (test code = 761) HEMOGLOBIN (BEAKER) (test code = 7.2 GM/DL 11.2-15.7 L 410) HEMATOCRIT (BEAKER) (test code = 21.3 % 34.1-44.9 L 411) MEAN CORPUSCULAR VOLUME (BEAKER) 93 fL 79-95 (test code = 753) MEAN CORPUSCULAR HEMOGLOBIN 31.6 pg 25.6-32.2 (BEAKER) (test code = 751) MEAN CORPUSCULAR HEMOGLOBIN CONC 33.8 GM/DL 32.2-35.5 (BEAKER) (test code = 752) RED CELL DISTRIBUTION WIDTH 13.6 % 11.7-14.4 (BEAKER) (test code = 412) PLATELET COUNT (BEAKER) (test 155 K/CU MM 150-450 code = 756) MEAN PLATELET VOLUME (BEAKER) 9.9 fL 9.4-12.3 (test code = 754) NUCLEATED RED BLOOD CELLS 0 /100 WBC 0-0 (BEAKER) (test code = 413) NEUTROPHILS RELATIVE PERCENT 80 % (BEAKER) (test code = 429) LYMPHOCYTES RELATIVE PERCENT 10 % (BEAKER) (test code = 430) MONOCYTES RELATIVE PERCENT 8 % (BEAKER) (test code = 431) EOSINOPHILS RELATIVE PERCENT 1 % (BEAKER) (test code = 432) BASOPHILS RELATIVE PERCENT 0 % (BEAKER) (test code = 437) NEUTROPHILS ABSOLUTE COUNT 4.91 K/ L 1.56-6.13 (BEAKER) (test code = 670) LYMPHOCYTES ABSOLUTE COUNT 0.59 K/ L 1.18-3.74 L (BEAKER) (test code = 414) MONOCYTES ABSOLUTE COUNT (BEAKER) 0.47 K/ L 0.24-0.36 H (test code = 415) EOSINOPHILS ABSOLUTE COUNT 0.07 K/ L 0.04-0.36 (BEAKER) (test code = 416) BASOPHILS ABSOLUTE COUNT (BEAKER) 0.02 K/ L 0.01-0.08 (test code = 417) IMMATURE GRANULOCYTES-RELATIVE 1.00 % 0.00-1.00 PERCENT (BEAKER) (test code = 2801) [id number] 03:33:53 Test Item Value Reference Range Interpretation Comments PREALBUMIN (BEAKER) (test code = 13 mg/dL 14-45 L 586) Power Shovel Engineer ID - [id number] 03:33:53 Test Item Value Reference Range Interpretation Comments TRANSFERRIN (BEAKER) (test code = 151 mg/dL 174-382 L 541) Power Shovel Engineer ID - ADMINPOCT-GLUCOSE [id number] 00:27:51 Test Item Value Reference Range Interpretation Comments POC-GLUCOSE METER 120 mg/dL 70-110 H : TESTED A T [facility] 6720 (BEAKER) (test code = [facility], 1538) [address]: Power Shovel Engineer/Techni elizabeth ID = [id number] for NO EL, NORMAN POCT-GLUCOSE [id number] 17:01:53 Test Item Value Reference Range Interpretation Comments POC-GLUCOSE METER 116 mg/dL 70-110 H : TESTED A T [facility] 6720 (BEAKER) (test code = [facility], 1538) 46667: Power Shovel Engineer/Techni elizabeth ID = [id number] for Ch au, Beltran CT ABDOMEN/PELVIS WITH IV [id number] 16:36:47 [facility] : 1955 Sex: FCT ABDOMEN WITH CONTRAST, CT PELVIS WITH CONTRASTHISTORY: DiverticulitisCOMPARISON: No prior comparison imaging of the abdomen or pelvis isavailableTECHNIQUE: CT of the abdomen and pelvis was performed with intravenouscontrast. The examination was performed to conform to our departmentaldose optimization program which includes automated exposure control,adjustment of the mA and/or kV according to patient sizeand/or use ofiterative reconstruction techniques.FINDINGS: There is left lower lobe airspace consolidation suggestive ofatelectasis or pneumonia. There is mild atelectatic change at the rightlung base.There is a calcified granuloma in the right lower lobe. Nopleural effusion.There is a calcified granuloma in the liver. Small gallstones layereddependently in the gallbladder. No gallbladder wall thickening isappreciated. No common bile duct dilatation.No abnormalities are visualized in the pancreas, spleen, or adrenalglands. There is a 2 mm nodule setting calculus in the mid right kidney.There is a 2 mm nodules are detected calculus in lower pole the rightkidney. Mild prominence of the right renal pelvis, likely just due to anormal variant extrarenal. No hydroureter. No ureteral calculi arevisualized. A Ramachandran catheter is present in the bladder.Evaluation of the alimentary tract is limited without gastrointestinalcontrast. A right lower quadrant ileostomy is present. No obstruction orabscess are seen in association with this. Several diverticula are notedin the large intestine.There is evidence of prior surgery at the rectosigmoid junction. Thereappears to be a fluid collection extending circumf erentially around therectum in the posterior pelvis, a portion of which is in the presacralregion. This is somewhat difficult to differentiate from adjacentunopacified bowel loops. It is concerning fora deep pelvic abscess.This fluid collection measures 7.1 cm AP by 6.7 cm width by 6.2 cmcraniocaudally. If desired, a follow-up CT of the pelvis after theadministration of gastrointestinal contrast maybe useful to furtherdefine this.No dilated loops of large or small bowel. No free air is visualized.Theappendix is not visualized.No uterine abnormalities are visualized. The adnexa are difficult tovisualize due to multiple bowel loops in this region and the adjacentcysts suspected deep pelvic abscess.No abdominal aortic aneurysm.No fracture or destructive bone lesions. Degenerative changes arepresent in the spine and sacroiliac joints.IMPRESSION:1. Suspected deep pelvic abscess extending circumferentially around therectum at and just distal to the level of a postoperative anastomosis atthe rectosigmoid junction. Evaluation somewhat limited by lack ofgastrointestinal contrast. No free air.2. Prior right lower quadrant ileostomy. No evidence of obstruction orabscess in association with this.3. Gal lstones in the gallbladder. No common bile duct dilatation.4. Nonobstructing right renal calculi.5. Left lower lobe atelectasis versus pneumonia.Electronically Signed By: Andrew Santillan02/09/2023 16:38 CDTWorkstation Name: [id number] 11:20:14 Test Item Value Reference Range Interpretation Comments POC-GLUCOSE METER 117 mg/dL 70-110 H : [facility] ([address] [employer] [address]) (test code = [facility], 1538) 97[address]: Power Shovel Engineer/Techni elizabeth ID = [id number] for Ch au, Beltran POCT-GLUCOSE [id number] 07:24:20 Test Item Value Reference Range Interpretation Comments POC-GLUCOSE METER 106 mg/dL 70-110 : TESTED A T [facility] 6720 ([address]) (test code = [facility], 1538) 687[address]: Power Shovel Engineer/Techni elizabeth ID = [id number] for An lani, Pradip POCT-GLUCOSE [id number] 06:43:47 Test Item Value Reference Range Interpretation Comments POC-GLUCOSE METER 67 mg/dL 70-110 L : [facility] (BEAKER) (test code = [place], 1538) [address]: Power Shovel Engineer/Techni elizabeth ID = [id number] for Noe Dubois [id number] 04:41:30 Test Item Value Reference Range Interpretation Comments MAGNESIUM (BEAKER) 1.5 mg/dL 1.6-2.6 L Specimen slightly (test code = 627) hemolyzed Power Shovel Engineer ID - [id number] 04:41:30 Test Item Value Reference Range Interpretation Comments PHOSPHORUS (BEAKER) 3.1 mg/dL 2.3-4.7 Specimen slightly (test code = 604) hemolyzed Power Shovel Engineer ID - mmBASIC METABOLIC [id number] 04:41:30 Test Item Value Reference Range Interpretation Comments SODIUM (BEAKER) 138 meq/L 136-145 (test code = 381) POTASSIUM 4.2 meq/L 3.5-5.1 Specimen slight ly (BEAKER) (test hemolyzed code = 379) CHLORIDE (BEAKER) 107 meq/L 98-107 (test code = 382) CO2 (BEAKER) 15 meq/L 22-29 L (test code = 355) BLOOD UREA 34 mg/dL 7-21 H NITROGEN (BEAKER) (test code = 354) CREATININE 1.10 mg/dL 0.57-1.25 Specimen slight ly (BEAKER) (test hemolyzed code = 358) GLUCOSE RANDOM 69 mg/dL 70-105 L (BEAKER) (test code = 652) CALCIUM (BEAKER) 8.8 mg/dL 8.4-10.2 (test code = 697) EGFR (BEAKER) 55 Interpretatio n of eGFR (test code = mL/min/1.73 values Stage De scription 1092) sq m Result G1 Alexa l or high >=90 G2 Mildly decreased 60-89 G3a Mildl y to moderately 45-5 9 G3b Moderately to s everely 30-44 G4 Severl y decreased 15-29 G5 Kidney failure <15Reported eGF R is based on the CKD-EPI 2020 equation that d oes not use a race coefficientEsti mated GFR is not as accur ate as Creatinine Marisela trey in predicting glom erular filtration rate . Estimated GFR is not appl icable for dialysis patien ts Power Shovel Engineer ID - mmCBC W/PLT COUNT & AUTO [id number] 04:27:08 Test Item Value Reference Range Interpretation Comments WHITE BLOOD CELL COUNT (BEAKER) 8.0 K/ L 3.5-10.5 (test code = 775) RED BLOOD CELL COUNT (BEAKER) 2.45 M/ L 3.93-5.22 L (test code = 761) HEMOGLOBIN (BEAKER) (test code = 7.9 GM/DL 11.2-15.7 L 410) HEMATOCRIT (BEAKER) (test code = 22.5 % 34.1-44.9 L 411) MEAN CORPUSCULAR VOLUME (BEAKER) 92 fL 79-95 (test code = 753) MEAN CORPUSCULAR HEMOGLOBIN 32.2 pg 25.6-32.2 (BEAKER) (test code = 751) MEAN CORPUSCULAR HEMOGLOBIN CONC 35.1 GM/DL 32.2-35.5 (BEAKER) (test code = 752) RED CELL DISTRIBUTION WIDTH 13.6 % 11.7-14.4 (BEAKER) (test code = 412) PLATELET COUNT (BEAKER) (test 186 K/CU MM 150-450 code = 756) MEAN PLATELET VOLUME (BEAKER) 10.4 fL 9.4-12.3 (test code = 754) NUCLEATED RED BLOOD CELLS 0 /100 WBC 0-0 (BEAKER) (test code = 413) NEUTROPHILS RELATIVE PERCENT 85 % (BEAKER) (test code = 429) LYMPHOCYTES RELATIVE PERCENT 6 % (BEAKER) (test code = 430) MONOCYTES RELATIVE PERCENT 7 % (BEAKER) (test code = 431) EOSINOPHILS RELATIVE PERCENT 0 % (BEAKER) (test code = 432) BASOPHILS RELATIVE PERCENT 0 % (BEAKER) (test code = 437) NEUTROPHILS ABSOLUTE COUNT 6.77 K/ L 1.56-6.13 H (BEAKER) (test code = 670) LYMPHOCYTES ABSOLUTE COUNT 0.50 K/ L 1.18-3.74 L (BEAKER) (test code = 414) MONOCYTES ABSOLUTE COUNT (BEAKER) 0.53 K/ L 0.24-0.36 H (test code = 415) EOSINOPHILS ABSOLUTE COUNT 0.03 K/ L 0.04-0.36 L (BEAKER) (test code = 416) BASOPHILS ABSOLUTE COUNT (BEAKER) 0.01 K/ L 0.01-0.08 (test code = 417) IMMATURE GRANULOCYTES-RELATIVE 1.50 % 0.00-1.00 H PERCENT (BEAKER) (test code = 2801) POCT-GLUCOSE [id number] 23:23:53 Test Item Value Reference Range Interpretation Comments POC-GLUCOSE METER 75 mg/dL 70-110 : TESTED A T [facility] 6720 (BEAKER) (test code = [facility], 1538) [address]: Power Shovel Engineer/Techni elizabeth ID = [id number] for Noe Dubois HEMOGLOBIN AND [id number] 22:49:15 Test Item Value Reference Range Interpretation Comments HEMOGLOBIN (BEAKER) (test code = 8.0 GM/DL 11.2-15.7 L 410) HEMATOCRIT (BEAKER) (test code = 23.3 % 34.1-44.9 L 411) Power Shovel Engineer ID - 6000POCT-GLUCOSE [id number] 18:14:22 Test Item Value Reference Range Interpretation Comments POC-GLUCOSE METER 82 mg/dL 70-110 : TESTED A T [facility] 6720 (BEAKER) (test code = [facility], 153) [address]: Power Shovel Engineer/Techni elizabeth ID = [id number] for Roberta Ganura BASIC METABOLIC [id number] 18:08:23 Test Item Value Reference Range Interpretation Comments SODIUM (BEAKER) 135 meq/L 136-145 L (test code = 381) POTASSIUM 4.8 meq/L 3.5-5.1 (BEAKER) (test code = 379) CHLORIDE (BEAKER) 106 meq/L 98-107 (test code = 382) CO2 (BEAKER) 15 meq/L 22-29 L (test code = 355) BLOOD UREA 46 mg/dL 7-21 H NITROGEN (BEAKER) (test code = 354) CREATININE 1.41 mg/dL 0.57-1.25 H (BEAKER) (test code = 358) GLUCOSE RANDOM 82 mg/dL 70-105 (BEAKER) (test code = 652) CALCIUM (BEAKER) 9.1 mg/dL 8.4-10.2 (test code = 697) EGFR (BEAKER) 41 Interpretatio n of eGFR (test code = mL/min/1.73 values Stage De scription 1092) sq m Result G1 Alexa l or high >=90 G2 Mildly decreased 60-89 G3a Mildl y to moderately 45-5 9 G3b Moderately to s everely 30-44 G4 Severl y decreased 15-29 G5 Kidney failure <15Reported eGF R is based on the CKD-EPI 2020 equation that d oes not use a race coefficientEsti mated GFR is not as accur ate as Creatinine Marisela trey in predicting glom erular filtration rate . Estimated GFR is not appl icable for dialysis patien ts Power Shovel Engineer ID - DEOCALCIUM, [id number] 17:53:03 Test Item Value Reference Range Interpretation Comments CALCIUM IONIZED (BEAKER) (test 1.09 mmol/L 1.12-1.27 L code = 698) PH, BLOOD (BEAKER) (test code = 7.38 1810) POCT-GLUCOSE [id number] 12:19:48 Test Item Value Reference Range Interpretation Comments POC-GLUCOSE METER 93 mg/dL 70-110 : TESTED A T [facility] (BEAKER) (test code = [place], 1538) [address]: Power Shovel Engineer/Techni elizabeth ID = [id number] for Roberta Ganura [id number] 12:01:19 Test Item Value Reference Range Interpretation Comments MAGNESIUM (BEAKER) (test code = 2.3 mg/dL 1.6-2.6 627) Power Shovel Engineer ID - [id number] 12:01:19 Test Item Value Reference Range Interpretation Comments PHOSPHORUS (BEAKER) (test code = 4.7 mg/dL 2.3-4.7 604) Power Shovel Engineer ID - MARCOBASIC METABOLIC [id number] 12:01:18 Test Item Value Reference Range Interpretation Comments SODIUM (BEAKER) 134 meq/L 136-145 L (test code = 381) POTASSIUM 3.6 meq/L 3.5-5.1 (BEAKER) (test code = 379) CHLORIDE (BEAKER) 103 meq/L 98-107 (test code = 382) CO2 (BEAKER) 15 meq/L 22-29 L (test code = 355) BLOOD UREA 56 mg/dL 7-21 H NITROGEN (BEAKER) (test code = 354) CREATININE 1.67 mg/dL 0.57-1.25 H (BEAKER) (test code = 358) GLUCOSE RANDOM 90 mg/dL 70-105 (BEAKER) (test code = 652) CALCIUM (BEAKER) 8.0 mg/dL 8.4-10.2 L (test code = 697) EGFR (BEAKER) 33 Interpretatio n of eGFR (test code = mL/min/1.73 values Stage De scription 1092) sq m Result G1 Alexa l or high >=90 G2 Mildly decreased 60-89 G3a Mildl y to moderately 45-5 9 G3b Moderately to s everely 30-44 G4 Severl y decreased 15-29 G5 Kidney failure <15Reported eGF R is based on the CKD-EPI 2020 equation that d oes not use a race coefficientEsti mated GFR is not as accur ate as Creatinine Marisela yang in predicting glom erular filtration rate . Estimated GFR is not appl icable for dialysis patien ts Power Shovel Engineer ID - MARCOLactic Acid, [id number] 11:56:15 Test Item Value Reference Range Interpretation Comments Lactate, Art (test code = 0.5 mmol/L 0.5-2.0 2873) CHRISTY (test code = CHRISTY) Power Shovel Engineer ID - DANTE Lab Interpretation (test Normal code = 70484-2) [facility], [id number] 11:56:15 Test Item Value Reference Range Interpretation Comments LACTATE BLOOD ARTERIAL (2) 0.5 mmol/L 0.5-2.0 (BEAKER) (test code = 2874) Power Shovel Engineer ID - MARCOCBC W/PLT COUNT & AUTO [id number] 11:44:47 Test Item Value Reference Range Interpretation Comments WHITE BLOOD CELL COUNT (BEAKER) 7.8 K/ L 3.5-10.5 (test code = 775) RED BLOOD CELL COUNT (BEAKER) 2.59 M/ L 3.93-5.22 L (test code = 761) HEMOGLOBIN (BEAKER) (test code = 8.3 GM/DL 11.2-15.7 L 410) HEMATOCRIT (BEAKER) (test code = 23.2 % 34.1-44.9 L 411) MEAN CORPUSCULAR VOLUME (BEAKER) 90 fL 79-95 (test code = 753) MEAN CORPUSCULAR HEMOGLOBIN 32.0 pg 25.6-32.2 (BEAKER) (test code = 751) MEAN CORPUSCULAR HEMOGLOBIN CONC 35.8 GM/DL 32.2-35.5 H (BEAKER) (test code = 752) RED CELL DISTRIBUTION WIDTH 13.2 % 11.7-14.4 (BEAKER) (test code = 412) PLATELET COUNT (BEAKER) (test 172 K/CU MM 150-450 code = 756) MEAN PLATELET VOLUME (BEAKER) 10.2 fL 9.4-12.3 (test code = 754) NUCLEATED RED BLOOD CELLS 0 /100 WBC 0-0 (BEAKER) (test code = 413) NEUTROPHILS RELATIVE PERCENT 90 % (BEAKER) (test code = 429) LYMPHOCYTES RELATIVE PERCENT 4 % (BEAKER) (test code = 430) MONOCYTES RELATIVE PERCENT 6 % (BEAKER) (test code = 431) EOSINOPHILS RELATIVE PERCENT 0 % (BEAKER) (test code = 432) BASOPHILS RELATIVE PERCENT 0 % (BEAKER) (test code = 437) NEUTROPHILS ABSOLUTE COUNT 6.95 K/ L 1.56-6.13 H (BEAKER) (test code = 670) LYMPHOCYTES ABSOLUTE COUNT 0.27 K/ L 1.18-3.74 L (BEAKER) (test code = 414) MONOCYTES ABSOLUTE COUNT (BEAKER) 0.45 K/ L 0.24-0.36 H (test code = 415) EOSINOPHILS ABSOLUTE COUNT 0.01 K/ L 0.04-0.36 L (BEAKER) (test code = 416) BASOPHILS ABSOLUTE COUNT (BEAKER) 0.01 K/ L 0.01-0.08 (test code = 417) IMMATURE GRANULOCYTES-RELATIVE 0.90 % 0.00-1.00 PERCENT (BEAKER) (test code = 2801) CALCIUM, [id number] 11:39:52 Test Item Value Reference Range Interpretation Comments CALCIUM IONIZED (BEAKER) (test 1.01 mmol/L 1.12-1.27 L code = 698) PH, BLOOD (BEAKER) (test code = 7.39 1810) XR CHEST 1 VIEW PORTABLE / [id number] 10:38:25 [facility] : 1955 Sex: FEXAMINATION: XR CHEST 1 VIEW PORTABLE / BEDSIDE.INDICATION: 67-year-old female with shortness of breath.COMPARISON: None.FINDINGS:A nontunneled central venous catheter is noted in the left neck with tipoverlying the cavoatrial junction. The cardiac silhouette is normal insize. Severe calcification of the thoracic aorta. No evidence ofconsolidation. No pleural effusion. No pneumothorax. Degenerativechanges of the left shoulder. Visualized soft tissues are unremarkable.IMPRESSION:No convincing evidence of pneumonia on this single frontal view.Electronically Signed By: Andrew Alvarado02/08/2023 10:40 CDTWorkstation Name: [id number] 08:21:01 Test Item Value Reference Range Interpretation Comments POC-GLUCOSE METER 90 mg/dL 70-110 : TESTED A T [facility] 6720 (BEAKER) (test code = [place], 1538) [address]: Power Shovel Engineer/Techni elizabeth ID = [id number] for CongBarbra brown BASIC METABOLIC [id number] 04:54:51 Test Item Value Reference Range Interpretation Comments SODIUM (BEAKER) 127 meq/L 136-145 L (test code = 381) POTASSIUM 3.8 meq/L 3.5-5.1 (BEAKER) (test code = 379) CHLORIDE (BEAKER) 97 meq/L 98-107 L (test code = 382) CO2 (BEAKER) 14 meq/L 22-29 L (test code = 355) BLOOD UREA 73 mg/dL 7-21 H NITROGEN (BEAKER) (test code = 354) CREATININE 2.07 mg/dL 0.57-1.25 H (BEAKER) (test code = 358) GLUCOSE RANDOM 91 mg/dL 70-105 (BEAKER) (test code = 652) CALCIUM (BEAKER) 7.6 mg/dL 8.4-10.2 L (test code = 697) EGFR (BEAKER) 26 Interpretatio n of eGFR (test code = mL/min/1.73 values Stage D escription 1092) sq m Result G1 Alexa l or high >=90 G2 Mildly decreased 60-89 G3a Mildl y to moderately 45-5 9 G3b Moderately to s everely 30-44 G4 Severl y decreased 15-29 G5 Kidney failure <15Reported eGF R is based on the CKD-EPI 2020 equation that d oes not use a race coefficientEsti mated GFR is not as accur ate as Creatinine Marisela trey in predicting glom erular filtration rate . Estimated GFR is not appl icable for dialysis patien ts Power Shovel Engineer ID - [id number] 04:54:43 Test Item Value Reference Range Interpretation Comments MAGNESIUM (BEAKER) (test code = 0.7 mg/dL 1.6-2.6 LL 627) Power Shovel Engineer ID - [id number] 04:50:38 Test Item Value Reference Range Interpretation Comments PHOSPHORUS (BEAKER) (test code = 5.3 mg/dL 2.3-4.7 H 604) Power Shovel Engineer ID - ADMINCBC W/PLT COUNT & AUTO [id number] 04:40:00 Test Item Value Reference Range Interpretation Comments WHITE BLOOD CELL COUNT (BEAKER) 7.6 K/ L 3.5-10.5 (test code = 775) RED BLOOD CELL COUNT (BEAKER) 2.44 M/ L 3.93-5.22 L (test code = 761) HEMOGLOBIN (BEAKER) (test code = 7.8 GM/DL 11.2-15.7 L 410) HEMATOCRIT (BEAKER) (test code = 22.0 % 34.1-44.9 L 411) MEAN CORPUSCULAR VOLUME (BEAKER) 90 fL 79-95 (test code = 753) MEAN CORPUSCULAR HEMOGLOBIN 32.0 pg 25.6-32.2 (BEAKER) (test code = 751) MEAN CORPUSCULAR HEMOGLOBIN CONC 35.5 GM/DL 32.2-35.5 (BEAKER) (test code = 752) RED CELL DISTRIBUTION WIDTH 13.2 % 11.7-14.4 (BEAKER) (test code = 412) PLATELET COUNT (BEAKER) (test 162 K/CU MM 150-450 code = 756) MEAN PLATELET VOLUME (BEAKER) 11.3 fL 9.4-12.3 (test code = 754) NUCLEATED RED BLOOD CELLS 0 /100 WBC 0-0 (BEAKER) (test code = 413) NEUTROPHILS RELATIVE PERCENT 88 % (BEAKER) (test code = 429) LYMPHOCYTES RELATIVE PERCENT 5 % (BEAKER) (test code = 430) MONOCYTES RELATIVE PERCENT 6 % (BEAKER) (test code = 431) EOSINOPHILS RELATIVE PERCENT 0 % (BEAKER) (test code = 432) BASOPHILS RELATIVE PERCENT 0 % (BEAKER) (test code = 437) NEUTROPHILS ABSOLUTE COUNT 6.64 K/ L 1.56-6.13 H (BEAKER) (test code = 670) LYMPHOCYTES ABSOLUTE COUNT 0.34 K/ L 1.18-3.74 L (BEAKER) (test code = 414) MONOCYTES ABSOLUTE COUNT (BEAKER) 0.44 K/ L 0.24-0.36 H (test code = 415) EOSINOPHILS ABSOLUTE COUNT 0.01 K/ L 0.04-0.36 L (BEAKER) (test code = 416) BASOPHILS ABSOLUTE COUNT (BEAKER) 0.01 K/ L 0.01-0.08 (test code = 417) IMMATURE GRANULOCYTES-RELATIVE 1.50 % 0.00-1.00 H PERCENT (BEAKER) (test code = 2801) POCT-GLUCOSE [id number] 04:16:10 Test Item Value Reference Range Interpretation Comments POC-GLUCOSE METER 84 mg/dL 70-110 : TESTED A T [facility] 6720 (BEAKER) (test code = [place], 1538) [address]: Power Shovel Engineer/Techni elizabeth ID = [id number] for MISBAH YVETTE HAMLIN [id number] 11:48:00 Test Item Value Reference Range Interpretation Comments GLUBED (test code = GLUBED) 112 MG/DL 70-105 H [id number] 07:44:00 Test Item Value Reference Range Interpretation Comments GLUBED (test code = GLUBED) 98 MG/DL 70-105 N [id number] 17:36:00 Test Item Value Reference Range Interpretation Comments SURGICAL (test code = SR) RUN DATE: 01/03/23 [facility] - LAB PAGE 1 RUN TIME: 1736 Specimen Inquiry RUN USER: INTERFACE LUZMA ENT: EDUARDO HAZEL LOC: P.9S POD C U #: [id number] AGE/SX: 67/F ROOM: [facility] RE12/31/22[facility] DR: Ajit Carbajal MD : 53 BED: 1 DIS: STATUS: ADM IN TLOC: SPEC #: [id number] RECD: 01/01/23 STATUS: SOUT REQ #: [id number] KEMI: 12/31/[address] [facility] [address]: Ajit Carbajal MD ENTERED: 01/01/23 SP TYPE: SURGICAL OTHR DR: No Primary or Family PhysicianORDERED: [id number], ANATOMIC SPEC HISTOLOGY: TISSUE ID BLK PCS [...] on the mucosal surface are 10 diverticula. Pediatric Genetic Counselor sections are submitted as follows: A1: Both ends; A2-3: Diverticula x2;A4-5: Polyp bisected; A6-7: Uninvolved mucosa; and A7: Mucosal rings x2. XZ/ml Technical component performed at [facility], [facility], [address] Immunohistochemistry: This test was developed and its performancecharacteristics determined by this laboratory. It has not been approved nordoes it need approval by the [place] FDA. Appropriate positive and negative controlsare reviewed and judged to be acceptable. This laboratory is certified underthe Clinical Laboratory Improvement Amendments (CLIA-88) as qualified toperform high complexity clinical laboratory testing. CONTINUED ON NEXT PAGE RUN DATE: 01/03/23 [facility] - LAB PAGE 2 RUN TIME: 1735 Specimen Inquiry RUN USER: INTERFACE SPEC #: [id number] PATIENT: EDUARDO HAZEL ANN #[id number] (Continued) ------- MICROSCOPIC DESCRIPTION Unless gross only, the diagnosis is based upon microscopic examination. CLINICAL INFORMATION Diverticulitis Signed SIGNATURE ON FILE Héctor Coelho Shahrzad 01/03/23 1736 END OF REPORT [id number] 16:21:00 Test Item Value Reference Range Interpretation Comments GLUBED (test code = GLUBED) 129 MG/DL 70-105 H [id number] 12:06:00 Test Item Value Reference Range Interpretation Comments GLUBED (test code = GLUBED) 108 MG/DL 70-105 H [id number] 07:22:00 Test Item Value Reference Range Interpretation Comments GLUBED (test code = GLUBED) 96 MG/DL 70-105 N BASIC METABOLIC [id number] 06:19:00 Test Item Value Reference Range Interpretation [...] code 9.2 mg/dL 8.7-10.4 N = CA) [id number] 06:19:00 Test Item Value Reference Range Interpretation Comments MAGNESIUM (test code = MAG) 1.8 mg/dL 1.6-2.6 N CBC W/AUTO [id number] 06:07:00 Test Item Value Reference Range Interpretation [...] = BA#) 0.01 x10 3/uL 0.0-0.20 N [id number] 21:24:00 Test Item Value Reference Range Interpretation Comments GLUBED (test code = GLUBED) 107 MG/DL 70-105 H [id number] 17:34:00 Test Item Value Reference Range Interpretation Comments GLUBED (test code = GLUBED) 112 MG/DL 70-105 H [id number] 11:47:00 Test Item Value Reference Range Interpretation Comments GLUBED (test code = GLUBED) 110 MG/DL 70-105 H [id number] 07:51:00 Test Item Value Reference Range Interpretation Comments GLUBED (test code = GLUBED) 102 MG/DL 70-105 N BASIC METABOLIC [id number] 04:48:00 Test Item Value Reference Range Interpretation [...] code 8.7 mg/dL 8.7-10.4 N = CA) [id number] 04:48:00 Test Item Value Reference Range Interpretation Comments MAGNESIUM (test code = MAG) 2.0 mg/dL 1.6-2.6 N CBC W/AUTO [id number] 04:47:00 Test Item Value Reference Range Interpretation [...] = BA#) 0.00 x10 3/uL 0.0-0.20 N [id number] 20:14:00 Test Item Value Reference Range Interpretation Comments GLUBED (test code = GLUBED) 101 MG/DL 70-105 N [id number] 16:44:00 Test Item Value Reference Range Interpretation Comments GLUBED (test code = GLUBED) 116 MG/DL 70-105 H [id number] 12:07:00 Test Item Value Reference Range Interpretation Comments GLUBED (test code = GLUBED) 112 MG/DL 70-105 H [id number] 07:47:00 Test Item Value Reference Range Interpretation Comments GLUBED (test code = GLUBED) 129 MG/DL 70-105 H CBC W/MANUAL [id number] 06:11:00 Test Item Value Reference Range Interpretation [...] code NORMAL NORMAL = PLTMORPH) BASIC METABOLIC [id number] 05:17:00 Test Item Value Reference Range Interpretation [...] code 8.1 mg/dL 8.7-10.4 L = CA) [id number] 05:17:00 Test Item Value Reference Range Interpretation Comments MAGNESIUM (test code = MAG) 1.5 mg/dL 1.6-2.6 L [id number] 22:42:00 Test Item Value Reference Range Interpretation Comments GLUBED (test code = GLUBED) 123 MG/DL 70-105 H [id number] 17:26:00 Test Item Value Reference Range Interpretation Comments GLUBED (test code = GLUBED) 135 MG/DL 70-105 H CBC W/AUTO [id number] 15:51:00 Test Item Value Reference Range Interpretation [...] 0.01 x10 3/uL 0.0-0.20 N BASIC METABOLIC [id number] 07:50:00 Test Item Value Reference Range Interpretation [...] the recommended for syeda for GFRby the [facility] on for Adults.The GFR will not calculate if th e sex is unknown or if thepatient's ag e is <18 years. CREATININE (test 1.20 mg/dL 0.55-1.02 H code = CREAT) CALCIUM (test code = 9.6 mg/dL 8.7-10.4 N CA) CBC W/O [id number] 07:31:00 Test Item Value Reference Range Interpretation [...] = 116 x10 3/uL 150-440 L PLT) [id number] 06:30:00 Test Item Value Reference Range Interpretation Comments GLUBED (test code = GLUBED) 132 MG/DL 70-105 H COMPREHENSIVE METABOLIC [id number] 14:43:00 Test Item Value Reference Range Interpretation [...] 46-116 N (test code = ALKP) PROTHROMBIN [id number] 14:27:00 Test Item Value Reference Range Interpretation [...] 2.5-3.5recurren t systemic emboli sm. THROMBOPLASTIN TIME [id number] 14:27:00 Test Item Value Reference Range Interpretation Comments THROMBOPLASTIN TIME 40.6 SECONDS 23.8-34.8 H INTERPRE TATIVE PARTIAL (test code = DATA: erapeutic PTT) range: Unfractionated heparin:55 - 80 seconds Argatroban:1.5 to 3 times the basel ine PTT CBC W/AUTO [id number] 14:19:00 Test Item Value Reference Range Interpretation [...] = BA#) 0.02 x10 3/uL 0.0-0.20 N [id number] 18:24:00 Test Item Value Reference Range Interpretation Comments SURGICAL (test code = SR) RUN DATE: 10/21/22 [facility] - LAB PAGE 1 RUN TIME: 1824 Specimen Inquiry RUN USER: INTERFACE LUZMA ENT: EDUARDO HAZEL LOC: ARNULFO U #: [id number] AGE/SX: 67/F ROOM: [facility] RE10/15/22REG DR: Ajit Carbajal MD : 53 BED: 01 DIS: 10/15/22 STATUS: DIS IN TLOC: SPEC #: [id number] RECD: 10/15/22 STATUS: BASILIA REQ #: [id number] KEMI: 10/15/[address] [facility] [address]: Ajit Carbajal MD ENTERED: 10/15/22 SP TYPE: SURGICAL OTHR DR: No Primary or Family PhysicianORDERED: 57270/2, 40490, ANATOMIC SPEC HISTOLOGY: TISSUE ID BLK PCS [...] of briceno cloudy fluid, which isforwarded to [facility] for processing including cytospin x2. XZ/ml CONTINUED ON NEXT PAGE RUN DATE: 10/21/22 [facility] - LAB PAGE 2 RUN TIME: 1823 Specimen Inquiry RUN USER: INTERFACE SPEC #: [id number] PATIENT: EDUARDO HAZEL #[id number] (Continued) ------- GROSS DESCRIPTION (Continued) Technical component performed at [facility], [facility], [address] Immunohistochemistry: This test was developed and its [...] Colon Polyp - Signed SIGNATURE ON FILE AlexTimothy tavarez 10/21/22 1824 END OF REPORT [id number] 12:15:00 Test Item Value Reference Range Interpretation Comments GLUBED (test code = GLUBED) 173 MG/DL 70-105 H [id number] 06:31:00 Test Item Value Reference Range Interpretation Comments GLUBED (test code = GLUBED) 159 MG/DL 70-105 H COMPREHENSIVE METABOLIC [id number] 14:09:00 Test Item Value Reference Range Interpretation [...] N PHOSPHATASE (test code = ALKP) PROTHROMBIN [id number] 13:49:00 Test Item Value Reference Range Interpretation [...] 2.5-3.5recurren t systemic emboli sm. THROMBOPLASTIN TIME [id number] 13:49:00 Test Item Value Reference Range Interpretation Comments THROMBOPLASTIN TIME 37.3 SECONDS 23.8-34.8 H INTERPRE TATIVE PARTIAL (test code = DATA: erapeutic PTT) range: Unfractionated heparin:55 - 80 seconds Argatroban:1.5 to 3 times the basel ine PTT CBC W/AUTO [id number] 13:43:00 Test Item Value Reference Range Interpretation [...] Notes Date/Time Note Provider Source 2023-01-04 12:10:00-00:00 [facility] ([facility]) Internal Med. Progress Note REPORT #: [id number] REPORT STATUS: Signed DATE: 01/04/23 TIME: 1210 PATIENT: EDUARDO HAZEL UNIT #: [id number] ROOM #: P0928 BED: 1 : 54 AGE: 67 SEX: F ATTEND: Ajit Carbajal MD ADM AUTHOR: Mario Alberto Mccrary MD ATTENTION *EDITS and/or ADDENDA must be made in Patient Ke eper for this note. * * Edits and ammendments created in [facility] are not visible * * [...] NECK: No masses, no thyromegaly, no abnormal ce rvical nodes, trachea midline. CHEST: Grossly normal appearance. LUNGS: Clear bilaterally with normal respiratory effort. HEART: Regular rate and rhythm, normal S1, S2, n o murmurs, no rubs, no gallops, no clicks. ABDOMEN: Soft, minimally tender, incisions marisela n and dry. ileostomy functioning MUSCULOSKELETAL: No deformity, no scoliosis note d of thoracic or lumbar spine, joint ROM grossly normal EXTREMITIES: No clubbing, no cyanosis, no edema. Right arm PICC NEUROLOGICAL: No focal deficits, cranial nerves II-XII grossly intact, normal sensation, normal coordination, normal m uscle strength, normal tone. PULSES: Pulses normal in all extremities. SKIN: Intact without significant lesions, or ra shes. LYMPH NODES: No significant node adenopathy. PSYCHIATRIC: Alert and oriented to time, person, place. Normal mood and affect, intact judgment and insight. REASON INNA CONTINUED: to facilitate nursing care -- DATA -- MEDICATIONS HEPARIN SODIUM,PORCINE 5000 UNIT SUBQ Q8HR CELECOXIB 200 MG PO Q12H PRN RINGERS, LACTATED 1000 ML IV .[id number] carvediloL 6.25 MG PO BID MEALS DAPAGLIFLOZIN [...] > 50% of time spent on Counseling/Care Coordi [facility] CARE ACTIVITIES / CARE COORDINATION: - I have seen and examined this patient - I have reviewed the progress in the clinical course since the last examination - I have discussed the luzma ent's condition with other members of the care team Signed in PatientKeeper by Mario Alberto Mccrary MD 01/04/23 at 12:11 at 1211 ATTENTION *EDITS and/or ADDENDA must be made in Patient Ke eper for this note. * * Edits and ammendments created in [facility] are not visible * * in Patient Keeper or the legal medical record ([facility]). * RPT #: [id number] END OF REPORT 2023-01-04 08:00:00-00:00 [facility] ([facility]) General Surg. Clinical Note REPORT #: [id number] REPORT STATUS: Signed DATE: 01/04/23 TIME: 0800 PATIENT: EDUARDO HAZEL UNIT #: [id number] ROOM #: P.0928 BED: 1 : 54 AGE: 67 SEX: F ATTEND: Ajit Carbajal MD ADM AUTHOR: Codi Jacob DO ATTENTION *EDITS and/or ADDENDA must be made in Patient Ke eper for this note. * * Edits and ammendments created in [facility] are not visible * * in Patient Keeper or the legal medical record ([facility]). * -- NOTATION -- NOTATION: She [...] * * Edits and ammendments created in [facility] are not visible * * in Patient Keeper or the legal medical record ([facility]). * [facility] #: [id number] END OF REPORT 2023-01-03 16:25:00-00:00 [facility] ([facility]) Internal Med. Progress Note REPORT #: [id number] REPORT STATUS: Signed DATE: 01/03/23 TIME: 1624 PATIENT: EDUARDO HAZEL UNIT #: [id number] ROOM #: [facility] BED: 1 : 54 AGE: 67 SEX: F ATTEND: Ajit Carbajal MD ADM AUTHOR: Bertin Ashton APRN ATTENTION *EDITS and/or ADDENDA must be made in Patient Ke eper for this note. * * Edits and ammendments created in [facility] are not visible * * in [...] ALBERTO MCCRARY MD o n 01/03/23 at 21:29 -- ASSESSMENT AND PLAN [...] no lesions. MOUTH: Oropharynx without deformities or lesion s, normal mucosa. NECK: No masses, no thyromegaly, [...] deferred SKIN: Intact without significant lesions, or ra shes. LYMPH NODES: No significant node adenopathy. PSYCHIATRIC: Alert and oriented to time, person, place. Normal mood and affect, intact judgment and insight. -- DATA -- MEDICATIONS HEPARIN SODIUM,PORCINE 5000 UNIT SUBQ Q8HR CELECOXIB 200 MG PO Q12H PRN RINGERS, LACTATED 1000 ML IV .H69B10N carvediloL 6.25 MG PO BID MEALS DAPAGLIFLOZIN [...] * * Edits and ammendments created in [facility] are not visible * * in Patient Keeper or the legal medical record ([facility]). * [facility] #: [id number] END OF REPORT 2023-01-03 12:34:00-00:00 [facility] ([facility]) Med Order Sheet REPORT #: [id number] REPORT STATUS: Signed DATE: 01/03/23 TIME: 1234 PATIENT: EDUARDO HAZEL UNIT #: [id number] ROOM #: P.0928 BED: 1 : 54 AGE: 67 SEX: F ATTEND: Ajit Carbajal MD ADM AUTHOR: Bertin Ashton APRN ATTENTION *EDITS and/or ADDENDA must be made in Patient Ke eper for this note. * * Edits and ammendments created in [facility] are not visible * * [...] Neb Soln (Duoneb Neb Soln) 3ML Neb [id number]: Celecoxib Cap (CeleBREX Cap) 200MG PO Q12H [...] Ondansetron Inj (Zofran Inj) 4MG IV Q8H UT N nausea and vomiting Electronically Signed by Bertin Ashton on 0 01/03/23 at 1234 ATTENTION *EDITS and/or ADDENDA must be made in Patient Ke eper for this note. * * Edits and ammendments created in [facility] are not visible * * in Patient Keeper or the legal medical record ([facility]). * RPT #: [id number] END OF REPORT 2023-01-03 10:13:00-00:00 [facility] ([facility]) Internal Med. D/C Summary REPORT #: [id number] REPORT STATUS: Signed DATE: 01/03/23 TIME: 1013 PATIENT: EDUARDO HAZEL UNIT #: [id number] ROOM #: P.0928 BED: 1 : 54 AGE: 67 SEX: F ATTEND: Ajit Carbajal MD ADM AUTHOR: Bertin Ashton APRN ATTENTION *EDITS and/or ADDENDA must be made in Patient Ke eper for this note. 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 Discussed with Dr. Drummond. Cortez for d ischarge. -- DISCHARGE MEDICATIONS -- ALLERGIES: No Known Allergies (UNKNOWN - Allergy) DISCHARGE MEDICATIONS: Acetaminophen Tab (Tylenol Tab) 650MG PO Q6HR UT N pain scale 1-3 Aspirin EC Tab [...] MD Consulting provider 1:: . Consult phone:: [phone] Consult follow up timeframe:: In 1-2 weeks [...] 500 -EXAM- GENERAL: alert and cooperative, appears comfort able. In no distress. HEAD: Normocephalic, atraumatic. EYES: [...] no clicks. ABDOMEN: Soft, minimally tender, incisions marisela n and dry. ileostomy functioning MUSCULOSKELETAL: No deformity, [...] PatientKeeper by Bertin Ashton APRN 01/03/23 at 12:34 Cosigned by MARIO ALBERTO MCCRARY MD on 01/03/23 at 2 1:26 Electronically Signed by Bertin Ashton on 0 01/03/23 at 2126 at 2126 ATTENTION *EDITS and/or ADDENDA must be made in Patient Ke [facility] for this note. * * Edits and ammendments created in [facility] are not visible * * in Patient Keeper or the legal medical record ([facility]). * RPT #: [id number] END OF REPORT 2023-01-03 07:19:00-00:00 [facility] ([facility]) Surgical Post Op Progress Note REPORT #: [id number] REPORT STATUS: Signed DATE: 01/03/23 TIME: 718 PATIENT: EDUARDO HAZEL UNIT #: [id number] ROOM #: P.0928 BED: 1 : 54 AGE: 67 SEX: F ATTEND: Ajit Carbajal MD ADM AUTHOR: Gagandeep Drummond MD ATTENTION *EDITS and/or ADDENDA must be made in Patient Ke [facility] for this note. * * Edits and ammendments created in [facility] are not visible * * in Patient Keeper or the legal medical record ([facility]). * -- ASSESSMENT AND PLAN -- [...] Q12H PRN RINGERS, LACTATED 1000 ML IV .[id number] carvediloL 6.25 MG PO BID MEALS DAPAGLIFLOZIN [...] * * Edits and ammendments created in [facility] are not visible * * in Patient Keeper or the legal medical record ([facility]). * RPT #: [id number] END OF REPORT 2023-01-02 15:07:00-00:00 [facility] ([facility]) Internal Med. Progress Note REPORT #: [id number] REPORT STATUS: Signed DATE: 01/02/23 TIME: 1506 PATIENT: EDUARDO HAZEL UNIT #: [id number] ROOM #: [id number] BED: 1 : 54 AGE: 67 SEX: F ATTEND: Ajit Carbajal MD ADM AUTHOR: Bertin Ashton APRN ATTENTION *EDITS and/or ADDENDA must be made in Patient Ke eper for this note. * * Edits and ammendments created in [facility] are not visible * * in Patient Keeper or the legal medical record (HPF). * -- CO-SIGNATURE -- COMMENTS: Patient seen and examined at bedside Plan of care discussed with patient, all questions answered to her satisfaction Monitor Hgb levels Agree with the findings as detailed by Bertin oh TUFTER OPERATOR Plans for the acute medical problems are [...] hearing. NOSE: No deformity, no discharge, no inflammati on, no lesions. MOUTH: Oropharynx without deformities or lesions , normal mucosa. NECK: No masses, no thyromegaly, no abnormal ce rvical nodes, trachea midline. CHEST: Grossly normal appearance. [...] Q12H PRN RINGERS, LACTATED 1000 ML IV .[id number] carvediloL 6.25 MG PO BID MEALS DAPAGLIFLOZIN [...] * * Edits and ammendments created in [facility] are not visible * * in Patient Keeper or the legal medical record (HPF). * RPT #: [id number] END OF REPORT 2023-01-02 08:13:00-00:00 [facility] ([facility]) Surgical Post Op Progress Note REPORT #: [id number] REPORT STATUS: Signed DATE: 01/02/23 TIME: 812 PATIENT: EDUARDO HAZEL UNIT #: [id number] ROOM #: P.0923 BED: 1 : 54 AGE: 67 SEX: F ATTEND: Ajit Carbajal MD ADM AUTHOR: Gagandeep Drummond MD ATTENTION *EDITS and/or ADDENDA must be made in Patient Ke eper for this note. * * Edits and ammendments created in [facility] are not visible * * in Patient [...] Q12H PRN RINGERS, LACTATED 1000 ML IV .[id number] carvediloL 6.25 MG PO BID MEALS DAPAGLIFLOZIN [...] * * Edits and ammendments created in [facility] are not visible * * in Patient Keeper or the legal medical record ([facility]). * RPT #: [id number] END OF REPORT 2023-01-01 10:10:00-00:00 [facility] ([facility]) Internal Med. Progress Note REPORT #: [id number] REPORT STATUS: Signed DATE: 01/01/23 TIME: 1010 PATIENT: EDUARDO HAZEL UNIT #: [id number] ROOM #: P.0923 BED: 1 : 54 AGE: 67 SEX: F ATTEND: Ajit Carbajal MD ADM AUTHOR: Bertin Ashton APRN ATTENTION *EDITS and/or ADDENDA must be made in Patient Nilson fernández for this note. * * Edits and ammendments created in [facility] are not visible * * in Patient Keeper or the legal medical record ([facility]). * -- CO-SIGNATURE -- COMMENTS: Patient seen and examined at bedside Plan of care discussed with patient, all questions answered to her satisfaction Agree with the findings as detailed by Bertin Will iams COMPOUNDING ASSISTANT Plans for the acute medical problems are [...] 930 -EXAM- GENERAL: alert and cooperative, appears comfort able. In no distress. HEAD: Normocephalic, atraumatic. EYES: [...] no clicks. ABDOMEN: Soft, appropriately tender, incisions clean and dry. ileostomy stoma pink with no gas in appliance. MUSCULOSKELETAL: No deformity, no scoliosis note d of thoracic or lumbar spine, joint ROM grossly normal EXTREMITIES: No clubbing, no cyanosis, no edema. NEUROLOGICAL: No focal deficits, cranial nerves II-XII [...] Q12H PRN RINGERS, LACTATED 1000 ML IV .[id number] carvediloL 6.25 MG PO BID MEALS DAPAGLIFLOZIN [...] ADDENDA must be made in Patient Nilson [facility] for this note. * * Edits and ammendments created in [facility] are not visible * * in Patient Keeper or the legal medical record ([facility]). * RPT #: [id number] END OF REPORT 2023-01-01 08:13:00-00:00 [facility] ([facility]) Surgical Post Op Progress Note REPORT #: [id number] REPORT STATUS: Signed DATE: 01/01/23 TIME: 812 PATIENT: EDUARDO HAZEL UNIT #: [id number] ROOM #: P.0923 BED: 1 : 54 AGE: 67 SEX: F ATTEND: Ajit Carbajal MD ADM AUTHOR: Gagandeep Drummond MD ATTENTION *EDITS and/or ADDENDA must be made in Patient Nilson [facility] for this note. * * Edits and ammendments created in [facility] are not visible * * in Patient Keeper or the legal medical record ([facility]). * -- ASSESSMENT AND PLAN -- GENERAL ASSESSMENT: Will wait for bowel function before advancing di et Continue clears DC Ramachandran catheter Out of bed ambulation Management of [...] Q12H PRN RINGERS, LACTATED 1000 ML IV .[id number] carvediloL 6.25 MG PO BID MEALS DAPAGLIFLOZIN [...] * * Edits and ammendments created in [facility] are not visible * * in Patient Keeper or the legal medical record (HPF). * [facility] #: [id number] END OF REPORT 2022-12-31 21:16:00-00:00 [id number] [facility] [address] [place] [address] PATIENT NAME: EDUARDO HAZEL ADMIT DATE: 3 ACCOUNT NO: [id number] ROOM NO: [facility] AGE: 67 REPORT TYPE: OPERATIVE REPORT SEX: [...] loop ileostomy. COLORECTAL SURGEON: Ajit Carbajal MD CARDIAC CARE NURSE: Marilyn Wiley. ADDITIONAL CAP INSPECTOR: Dr. Trejo ANESTHESIA: General endotracheal anesthesia. SPECIMEN: [...] ot of postinflammatory PATIENT NAME: EDUARDO HAZEL 9870 adhesions distorting the anatomy significantly. This required [...] and length y in nature Surgical first aid officer, Dr. Wilye, was required to complete the procedure safely. [...] allow for additional PATIENT NAME: EDUARDO HAZEL 9870 healing; therefore, we mobilized the ileocolic [...] Dictated: 12/31/2022 21:16:20 Date Transcribed: 12/31/2022 23:43:41 [facility] Receipt ID: [id number] Authenticated and Edited by Ajit Carbajal MD On 9:20:43 AM Electronically Signed by Ajit Carbajal MD on 12/17 12/08 at 0923 PATIENT NAME: EDUARDO HAZEL [id number] 2022-12-31 20:03:00-00:00 [facility] ([facility]) Med Order Sheet REPORT #: [id number] REPORT STATUS: Signed DATE: 12/31/22 TIME: 2002 PATIENT: EDUARDO HAZEL UNIT #: [id number] ROOM #: P0923 BED: 1 : 54 AGE: 67 SEX: F ATTEND: Ajit Carbajal MD ADM AUTHOR: Mario Alberto Mccrary MD ATTENTION *EDITS and/or ADDENDA must be made in Patient Ke eper for this note. * * Edits and ammendments created in [facility] are not visible * * [...] * * Edits and ammendments created in [employer] are not visible * * in Patient Keeper or the legal medical record (HPF). * [facility] #: [id number] END OF REPORT 2022-12-31 20:02:00-00:00 [id number] [facility] [address] [place] [address] PATIENT NAME: EDUARDO HAZEL ADMIT DATE: 3 ACCOUNT NO: [id number] ROOM NO: 0923 AGE: 67 REPORT TYPE: CONSULTATION SEX: F [...] O2 sat 97%, temperature 97.5. HEENT: Normocephalic. [place] conjunctivae. Anicter ic sclerae. Septum midline. Moist buccal mucosa. NECK: Supple. No thyromegaly. CHEST: Symmetric expansion. LUNGS: Clear breath sounds. PATIENT NAME: EDUADRO HAZEL 9870 CARDIOVASCULAR: S1, S2. ABDOMEN: Soft [...] Dictated: 12/31/2022 20:02:19 Date Transcribed: 12/31/2022 22:07:28 SALLY/ROBERT/KEVIN Receipt ID: [id number] Authenticated by Mario Alberto Mccrary MD On 01/01/2023 11:21:26 PM at 1121 PATIENT NAME: EDUARDO HAZEL [id number] 2022-10-29 08:09:00-00:00 [id number] [facility] [address] [place] [id number] PATIENT NAME: EDUARDO HAZEL ADMIT DATE: 3 ACCOUNT NO: [id number] ROOM NO: [place] AGE: 67 REPORT TYPE: 360 - QUERY RESPONSE DOCUMENT SEX: F ADMITTING PHYSICIAN:Ajit Carbajal MD ATTENDING PHYSICIAN:Ajit Carbajal MD Provider Query QUERY TEXT: Procedure Specificity General 360MD Query related questions should be directed to: Wade dean [facility] Coding Query Hotline Please provide clarification for [...] 10/16 12/08 at 0809 PATIENT NAME: EDUARDO HAZLE [id number] 2022-10-26 17:51:00-00:00 [id number] [facility] [address] [place] [address] PATIENT NAME: EDUARDO HAZEL ADMIT DATE: 3 ACCOUNT NO: [id number] ROOM NO: [place] AGE: 67 REPORT TYPE: [...] SURGEON: Ajit Carbajal MD ANESTHESIA: General anesthesia. TIME STUDY CLERK: Dr. Marilyn Wiley. SPECIMENS: 1. Sigmoid polyp. [...] Dictated: 10/26/2022 17:51:01 Date Transcribed: 10/26/2022 23:27:01 [facility] Receipt ID: [id number] Authenticated by Ajit Carbajal MD On 10/28/2022 1 0:49:22 AM Electronically Signed by Ajit Carbajal MD on 10/16 11/07 at 1049 PATIENT NAME: EDUARDO HAZEL [id number] 2022-10-15 12:36:00-00:00 [facility] ([facility]) Med Order Sheet REPORT #: [id number] REPORT STATUS: Signed DATE: 10/15/22 TIME: 1236 PATIENT: EDUARDO HAZEL UNIT #: [id number] [facility] : [facility] AGE: 67 SEX: F ATTEND: Ajit Carbajal MD ADM AUTHOR: Jenny Garcia MD ATTENTION *EDITS and/or ADDENDA must be made in Patient [facility] for this note. * * Edits and ammendments created in [facility] are not visible * * in Patient Keeper or the legal medical record ([facility]). * Discharge Medication Reconciliation Hosp: traMADol Tab (Ultram Tab) Dose: 50 MG PO Q6H PRN pain scale 7-10 (use 1st ), dispense as written, Disp: 24 tablet, Refills: 0 Electronically Signed by Jenny Garcia MD on 0 10/15/22 at 1236 ATTENTION *EDITS and/or ADDENDA must be made in Patient [facility] for this note. * * Edits and ammendments created in [facility] are not visible * * in Patient Keeper or the legal medical record ([facility]). * [facility] #: [id number] END OF REPORT 2022-10-15 12:30:00-00:00 [facility] ([facility]) General Surg. D/C Summary REPORT #: [id number] REPORT STATUS: Signed DATE: 10/15/22 TIME: 1230 PATIENT: EDUARDO HAZEL UNIT #: [id number] ROOM #: [facility] BED: 01 : 54 AGE: 67 SEX: F ATTEND: Ajit Carbajal MD ADM AUTHOR: Chelsea Sauceda MD ATTENTION *EDITS and/or ADDENDA must be made in Patient Ke eper for this note. * * Edits and ammendments created in [facility] are not visible * * in Patient Keeper or the legal medical record (HPF). * -- HOSPITAL COURSE -- HOSPITAL COURSE: underwent laparoscopic exploration with aspiration of fluid for cytology. Same day discharge after surgery. Has follow up sched uled. -- DISCHARGE MEDICATIONS -- ALLERGIES: No Known Allergies (UNKNOWN - Allergy) Signed in PatientKeeper by Chelsea Sauceda MD on 11/29/22 at 10:36 Electronically Signed by Chelsea Sauceda MD o n 11/29/22 at 1036 ATTENTION *EDITS and/or ADDENDA must be made in Patient Ke eper for this note. * * Edits and ammendments created in [facility] are [facility] * * in Patient Keeper or the legal medical record ([facility]). * [facility] #: [id number] END OF REPORT 2022-10-15 12:06:00-00:00 [facility] ([facility] Med Order Sheet REPORT #: [id number] REPORT STATUS: Signed DATE: 10/15/22 TIME: 1206 PATIENT: EDUARDO HAZEL UNIT #: [id number] [facility] 01 : [facility] AGE: 67 SEX: F ATTEND: Ajit Carbajal MD ADM AUTHOR: Jenny Garcia MD ATTENTION *EDITS and/or ADDENDA must be made in Patient Nilson fernández for this note. * * Edits and ammendments created in [facility] are not visible * * in Patient Keeper or the legal medical record ([facility]). * Discharge Medication Reconciliation Hosp: traMADol Tab (Ultram Tab) Dose: 50 MG PO Q6H PRN pain scale 7-10 (use 1s t), dispense as written, Disp: 24 tablet, Refills: 0 Electronically Signed by Jenny Garcia MD on 0 10/15/22 at 1206 ATTENTION *EDITS and/or ADDENDA must be made in Patient Ke eper for this note. * * Edits and ammendments created in [facility] are not [facility] * * in Patient Keeper or the legal medical record (HPF). * [facility] #: [id number] END OF REPORT
[2023-02-20 08:43] LABS: Absolute Lymphocytes (CBC) 0.9 K/uL (0.7-4.9); Hematocrit 31.7 % (36.0-45.0); Lymphocytes % 8.6 % (15.3-44.8); MCV 96.1 fL (80-100); MPV 10.1 fL (7.6-11.3); RBC Red Blood Cell Count 3.29 M/uL (3.86-4.86)
[2023-02-20] MEDS ORDERED: CEFTRIAXONE 1000 MG/VIAL ONE (08:45)
[2023-02-20] MEDS ORDERED: NA CHLORIDE 0.9% 1,000 ML ONE ×2 (08:45→13:23)
[2023-02-20 08:47] LABS: Protime INR 1.09
--- NOTE | 2023-02-20 08:53 | RAD REPORT ---
EXAM DESCRIPTION: CT - Abdomen Pelvis Wo Contrast - 02/20/2023 8:39 am CLINICAL HISTORY: Abdominal pain. ABD PAIN COMPARISON: Abdomen Pelvis Wo Contrast dated 02/07/2023 TECHNIQUE: CT imaging of the abdomen and pelvis was performed without contrast. Solid organ, bowel a nd vascular assessment is limited due to lack of IV and oral contrast. All CT scans are performed using dose optimization technique as appropriate and may include automated exposure control or mA/KV adjustment according to patient size. FINDINGS: The lower lung espinosa are clear.Cholelithiasis. The liver, spleen, pancreas, adrenal glands and kidneys are within normal limits for a limited non-co ntrast examination.Nonobstructing punctate right renal calculus. No bowel obstruction, free air, free fluid or abscess. Postsurgical changes of right lower quadrant i leostomy. Postsurgical changes also seen sigmoid colon. Diminishment in the pelvic fluid collection s een since prior examination. The appendix is normal. Aortoiliac atherosclerosis. [id number] degenerative changes are present lumbar spine. 6 mm degenerative anterolisthesis L4 on 5. IMPRESSION: No acute intra-abdominal or pelvic findings. Since prior study dated 02/07/2023, there has been deemed diminishment in the ill-defined the pelvic fluid collections since prior study. No new or progressive abnormality of concern seen. Cholelithiasis. A limited non-contrast examination was performed as detailed.
--- NOTE | 2023-02-20 08:59 | RAD REPORT ---
EXAM DESCRIPTION: RAD - Chest Single View - 02/20/2023 8:52 am CLINICAL HISTORY: ABDOMINAL DISTENTION Chest pain. COMPARISON: Chest Single View dated 02/07/2023; Chest Single View dated 02/07/2023; Chest Single View dated 02/20/2022; Chest Pa And Lat (2 Views) dated 10/06/2018 FINDINGS: Portable technique limits examination quality. The lungs are grossly clear. The heart is normal in size. No displaced fractures. IMPRESSION: No acute intrathoracic process suspected.
[2023-02-20 09:32] LABS: Specific Gravity 1.025 (1.005-1.030); Urine Bacteria <20 /HPF (<20); Urine Bilirubin NEGATIVE (Negative); Urine Blood 1+ (Negative); Urine Clarity Extremely Turbid (Clear); Urine Color Light-Yellow (Yellow); Urine Glucose NEGATIVE (Negative); Urine Mucus Slight /HPF (None Seen); Urine Protein 2+ (Negative); Urine Urobilinogen 1+ (Normal)
[2023-02-20] MEDS ORDERED: INSULIN -REGULAR HUMAN 50 UNIT/0.5 ML ML ONE (10:04)
[2023-02-20] MEDS ORDERED: SOD POLYSTYREN SUL 15 GM/60 ML UCUP ONE ×2 (10:04→12:02)
[2023-02-20] MEDS ORDERED: D10W 250 ML IV ONE (10:04)
[2023-02-20] MEDS ORDERED: CALCIUM GLUCONATE 1 GM IVPB 1 GM/50 ML BAG IV ONE (10:04)
[2023-02-20 10:47] LABS: Bilirubin Direct 0.1 mg/dL (0-0.2); Bilirubin Indirect, Calculated 0.2 mg/dL (0.2-0.8); Bilirubin Total 0.3 mg/dL (0.2-1.0); Magnesium 1.4 mg/dL (1.6-2.4); Protein, Total 7.3 g/dL (6.4-8.2); Troponin High Sensitivity 8.8 pg/mL (<58.9)
--- NOTE | 2023-02-20 10:51 | EDPHYS ---
Physician Documentation [facility] Name: Veronica Mendoza Age: 67 yrs Sex: Female : 1955 Arrival Date: 02/20/2023 Time: 08:10 Bed 7 Private MD: DONNIE Physician Rex Maloney HPI: 02/20 09:07 This 67 yrs old Female presents to ER via EMS with complaints of General jarod Weakness. 09:07 weak , no appetite since ileostomy, has left post pelvis drain. Onset: The jarod symptoms/episode began/occurred 14 day(s) ago. Severity of symptoms: At their worst the symptoms were mild in the emergency department the symptoms are unchanged. The patient has experienced similar episodes in the past, several times. Historical: - Allergies: 08:19 No Known Allergies; ld1 - PMHx: 08:19 Diabetes - NIDDM; Controlled with diet; Hyperlipidemia; Hypertension; ld1 - PSHx: 08:19 ileostomy; ld1 - Immunization history:: Adult Immunizations up to date, Client reports receiving the 2nd dose of the Covid vaccine. - Social history:: Smoking status: Patient reports the use of cigarette tobacco products, denies chronic smoking, but will smoke occasionally, Patient/guardian denies using alcohol. ROS: 09:08 Constitutional: Negative for fever, chills, and weight loss, Eyes: Negative for injury, jarod pain, redness, and discharge, ENT: Negative for injury, pain, and discharge, Neck: Negative for injury, pain, and swelling, Cardiovascular: Negative for chest pain, palpitations, and edema, Respiratory: Negative for shortness of breath, cough, wheezing, and pleuritic chest pain, Abdomen/GI: Negative for abdominal pain, nausea, vomiting, diarrhea, and constipation, Back: Negative for injury and pain, : Negative for injury, bleeding, discharge, and swelling, MS/Extremity: Negative for injury and deformity, Skin: Negative for injury, rash, and discoloration, Neuro: Negative for headache, weakness, numbness, tingling, and seizure, Psych: Negative for depression, anxiety, suicide ideation, homicidal ideation, and hallucinations, Allergy/Immunology: Negative for hives, rash, and allergies, Endocrine: Negative for neck swelling, polydipsia, polyuria, polyphagia, and marked weight changes, Hematologic/Lymphatic: Negative for swollen nodes, abnormal bleeding, and unusual bruising. 09:08 Back: Positive for left posterior pelvic drain. Exam: 09:08 Constitutional: This is a well developed, well nourished patient who is awake, alert, jarod and in no acute distress. Head/Face: Normocephalic, atraumatic. Eyes: Pupils equal round and reactive to light, extra-ocular motions intact. Lids and lashes normal. Conjunctiva and sclera are non-icteric and not injected. Cornea within normal limits. Periorbital areas with no swelling, redness, or edema. ENT: Nares patent. No nasal discharge, no septal abnormalities noted. Tympanic membranes are normal and external auditory canals are clear. Oropharynx with no redness, swelling, or masses, exudates, or evidence of obstruction, uvula midline. Mucous membranes moist. Neck: Trachea midline, no thyromegaly or masses palpated, and no cervical lymphadenopathy. Supple, full range of motion without nuchal rigidity, or vertebral point tenderness. No Meningismus. Chest/axilla: Normal chest wall appearance and motion. Nontender with no deformity. No lesions are appreciated. Cardiovascular: Regular rate and rhythm with a normal S1 and S2. No gallops, murmurs, or rubs. Normal PMI, no JVD. No pulse deficits. Respiratory: Lungs have equal breath sounds bilaterally, clear to auscultation and percussion. No rales, rhonchi or wheezes noted. No increased work of breathing, no retractions or nasal flaring. Abdomen/GI: Soft, non-tender, with normal bowel sounds. No distension or tympany. No guarding or rebound. No evidence of tenderness throughout. Back: No spinal tenderness. No costovertebral tenderness. Full range of motion. Female : Normal external genitalia. Skin: Warm, dry with normal turgor. Normal color with no rashes, no lesions, and no evidence of cellulitis. MS/ Extremity: Pulses equal, no cyanosis. Neurovascular intact. Full, normal range of motion. Psych: Awake, alert, with orientation to person, place and time. Behavior, mood, and affect are within normal limits. 09:08 Neuro: Orientation: is normal, appropriate for stated age, no acute changes, Mentation: is normal, appropriate for stated age, no acute changes, Memory: is normal, appropriate for stated age, no acute changes, Cranial nerves: grossly normal, is grossly normal based on the patient's age, no acute changes, Cerebellar function: is grossly normal, Motor: is normal, is grossly normal based on the patient's age, no acute changes, moves all fours, strength is normal, Sensation: is normal, no obvious gross deficits, appropriate Gait: not tested. seizure activity, is not displayed by the patient. 09:11 ECG was reviewed by the Attending Physician. [facility] Vital Signs: 08:18 Pulse 72; Resp 18; Temp 98.3(O); Pulse Ox 99% on R/A; Weight 58.97 kg; Height 5 ft. 6 ld1 in. ; Pain 0/10; 08:21 BP 92 / 60; ld1 09:12 BP 104 / 59; Pulse 74; Resp 18; Pulse Ox 100% on R/A; ld1 10:15 BP 96 / 54; Pulse 70; Resp 16; Pulse Ox 100% ; ko1 13:00 BP 89 / 46; Pulse 75; Resp 16; Pulse Ox 100% on R/A; cm10 13:20 BP 93 / 55; Pulse 71; Resp 18; Pulse Ox 100% on R/A; ld1 08:18 Body Mass Index 20.98 (58.97 kg, 167.64 cm) ld1 08:18 Pain Scale: Adult ld1 MDM: 08:13 Patient medically screened. [facility] 09:10 Differential Diagnosis altered mental status, sepsis, flu. Differential diagnosis: [facility] Nonspecific abd pain, gastritis, viral gastroenteritis, gastroenteritis, coronary artery disease, diverticulitis, gastritis, non-specific abd pain, pancreatitis, Peptic Ulcer Disease, Peritonitis, Ureterolithiasis, urinary tract infection. Data reviewed: vital signs, nurses notes, lab test result(s), EKG, radiologic studies, CT scan, plain films. Consideration of Admission/Observation Escalation of care including admission/observation considered. I considered the following discharge prescriptions or medication management in the emergency department Medications were administered in the Emergency Department. See MAR. Test considered but Not performed: MRI: no abd mri. 02/20 08:25 Order name: Basic Metabolic Panel; Complete Time: 10:51 [facility] 02/20 08:25 Order name: CBC with Diff; Complete Time: 09:37 [facility] 02/20 08:25 Order name: LFT's; Complete Time: 10:51 [facility] 02/20 08:25 Order name: Magnesium; Complete Time: 10:51 [facility] 02/20 08:25 Order name: NT PRO-BNP; Complete Time: 10:51 [facility] 02/20 08:25 Order name: PT-INR; Complete Time: 09:37 [facility] 02/20 08:25 Order name: Troponin HS; Complete Time: 10:51 [facility] 02/20 08:25 Order name: Lipase; Complete Time: 10:51 [facility] 02/20 08:25 Order name: Urinalysis w/ reflexes; Complete Time: 09:37 [facility] 02/20 08:25 Order name: Lactate w/ 2H reflex if indic.; Complete Time: 09:37 [facility] 02/20 08:53 Order name: Urine Sodium Random; Complete Time: 12:07 [facility] 02/20 08:53 Order name: Osmolality, Serum; Complete Time: 12:07 [facility] 02/20 08:53 Order name: Urine Osmolality; Complete Time: 10:22 [facility] 02/20 11:58 Order name: BMP [facility] 02/20 08:25 Order name: XRAY Chest (1 view); Complete Time: 09:37 [facility] 02/20 08:34 Order name: Abdomen ; Complete Time: 09:37 [facility] 02/20 08:25 Order name: EKG; Complete Time: 08:26 [facility] 02/20 12:20 Order name: CONS Physician Consult [facility] 02/20 08:25 Order name: Cardiac monitoring; Complete Time: 08:25 [facility] 02/20 08:25 Order name: EKG - Nurse/Tech; Complete Time: 08:36 [facility] 02/20 08:25 Order name: IV Saline Lock; Complete Time: 08:25 [facility] 02/20 08:25 Order name: Labs collected and sent; Complete Time: 08:25 [facility] 02/20 08:25 Order name: O2 Per Protocol; Complete Time: 08:25 [facility] 02/20 08:25 Order name: O2 Sat Monitoring; Complete Time: 08:25 [facility] 02/20 08:25 Order name: IV Saline Lock - Large Bore; Complete Time: 08:26 [facility] 02/20 09:28 Order name: Labs - recollect needed: recollect green top for K verification; Complete em1 Time: 10:04 02/20 09:40 Order name: Ramachandran; Complete Time: 10:27 [facility] EC:11 Rate is 72 beats/min. Rhythm is regular. QRS [place] is Normal. [place] interval is normal. QRS jarod interval is normal. QT interval is normal. No Q waves. T waves are Normal. No ST changes noted. Clinical impression: NSR w/ Non-specific ST/T Changes and No evidence of ischemia. Interpreted by me. Reviewed by me. Administered Medications: 08:26 Drug: NS 0.9% IV 1000 ml Route: IV; Rate: 1 bolus; Site: right antecubital; ld1 09:11 Drug: Rocephin IV 1 grams Route: IV; Rate: per protocol; Site: right antecubital; ld1 09:12 Drug: NS 0.9% IV 1000 ml Route: IV; Rate: 1 bolus; Site: right antecubital; ld1 10:52 Drug: D10 in Water IVP 250 ml Route: IVP; Site: left upper arm; ld1 12:16 Follow up: Response: No adverse reaction cm10 10:53 Drug: Kayexalate PO 30 grams Route: PO; ld1 12:16 Follow up: Response: No adverse reaction cm10 10:53 Drug: Insulin Regular Human IVP 10 units {Co-Signature: ko1 (Adelina Parks RN).} Route: ld1 IVP; Site: left upper arm; 12:16 Follow up: Response: No adverse reaction cm10 11:15 Drug: Calcium Gluconate IVPB 1 grams Route: IVPB; Infused Over: 15 mins; Site: left ld1 upper arm; 12:00 Follow up: Response: No adverse reaction; IV Status: Completed infusion cm10 12:15 Drug: Magnesium Sulfate IVPB 1 grams Route: IVPB; Infused Over: 1 hrs; Site: left cm10 antecubital; 12:15 Drug: Sodium Bicarbonate IVP 1 amp Route: IVP; Site: left antecubital; cm10 12:15 Drug: DuoNeb Nebulize (2.5 mg - 0.5 mg) 3 ml Route: Nebulizer; cm10 12:15 Drug: Kayexalate PO 30 grams Route: PO; cm10 13:22 Drug: NS 0.9% IV 1000 ml Route: IV; Rate: 125 ml/hr; Site: left upper arm; ld1 Disposition Summary: 02/20/23 12:01 Hospitalization Ordered Hospitalization Status: Inpatient Admission jarod Provider: Tien Stoddard cha Location: Intensive Care Unit jarod Condition: Serious(02/20/23 12:01) jarod Problem: new(02/20/23 12:01) jarod Symptoms: have improved(02/20/23 12:01) jarod Bed/Room Type: Standard jarod Room Assignment: 7-(02/20/23 12:57) em1 Diagnosis - Acute kidney failure, unspecified - ON CHRONIC(02/20/23 12:01) jarod - Hyperkalemia(02/20/23 12:01) jarod - Hypomagnesemia(02/20/23 12:01) jarod - Weakness(02/20/23 12:01) jarod - Anorexia(02/20/23 12:01) jarod - Anemia, unspecified(02/20/23 12:01) jarod - Hypotension, unspecified jarod Forms: - Medication Reconciliation Form jarod - SBAR form jarod Signatures: Dispatcher [employer] EDMS Rex Maloney MD MD cha Martinez, Eric em1 Ariana Avina RN RN ld1 Cris Dowling RN RN cm10 Adelina Parks RN ko1 Corrections: (The following items were deleted from the chart) 08:34 08:26 Abdomen Pelvis W Con+CT.RAD.BRZ ordered. EDOH EDMS 10:51 10:[address] ROLAND olivera jarod 10:52 10:[address] WATKINS jarod jarod :58 10:50 Other Acute Care Facility jarod jarod :58 10:50 Higher level of care jarod jarod 11:58 10:50 Serious jarod jarod 11:58 10:50 new jarod jarod 11:58 10:50 have worsened jarod jarod :58 10:50 Hyperkalemia jarod jarod 11:58 10:50 Weakness jarod jarod 11:58 10:50 Hypo-osmolality and hyponatremia jarod jarod 11:58 10:50 Anorexia jarod jarod 11:58 10:50 Anemia, unspecified jarod jarod 11:58 10:51 Acute kidney failure, unspecified - ON CHRONIC jarod jarod 11:58 10:[address] WATKINS jarod jarod 11:58 10:52 Hypomagnesemia jarod jarod 12:57 12:01 jarod em1
--- NOTE | 2023-02-20 10:51 | ER ---
Nurse's Notes [facility] Name: Veronica Mendoza Age: 67 yrs Sex: Female : 1955 Arrival Date: 02/20/2023 Time: 08:10 Bed 7 Private MD: Diagnosis: Acute kidney failure, unspecified-ON CHRONIC;Hyperkalemia;Hypomagnesemia;Weakness;Anorexia;Anemia, unspecified;Hypotension, unspecified Presentation: 02/20 08:18 Chief complaint: Patient states: Weakness since ileostomy procedure 12/2022. Coronavirus ld1 screen: At this time, the client does not indicate any symptoms associated with coronavirus-19. Ebola Screen: No symptoms or risks identified at this time. Initial Sepsis Screen: Does the patient meet any 2 criteria? No. Patient's initial sepsis screen is negative. Does the patient have a suspected source of infection? No. Patient's initial sepsis screen is negative. Risk Assessment: Do you want to hurt yourself or someone else? Patient reports no desire to harm self or others. Onset of symptoms was February 20, 2023. 08:18 Method Of Arrival: EMS: [facility] ld1 08:18 Acuity: TOBIAS 3 ld1 Triage Assessment: 08:19 General: Appears in no apparent distress. comfortable, Behavior is calm, cooperative, ld1 appropriate for age. Pain: Denies pain. EENT: No signs and/or symptoms were reported regarding the EENT system. Neuro: Level of Consciousness is awake, alert, obeys commands, Oriented to person, place, time, situation, Reports weakness. Cardiovascular: Capillary refill is > 3 seconds Patient's skin is warm and dry. Rhythm is sinus rhythm. Respiratory: Airway is patent Respiratory effort is even, unlabored. GI: Abdomen is flat, non-distended, Ileostomy site is clean and dry. Ostomy appliance is intact. : No signs and/or symptoms were reported regarding the genitourinary system. Derm: No signs and/or symptoms reported regarding the dermatologic system. Musculoskeletal: No signs and/or symptoms reported regarding the musculoskeletal system. Historical: - Allergies: 08:19 No Known Allergies; ld1 - PMHx: 08:19 Diabetes - NIDDM; Controlled with diet; Hyperlipidemia; Hypertension; ld1 - PSHx: 08:19 ileostomy; ld1 - Immunization history:: Adult Immunizations up to date, Client reports receiving the 2nd dose of the Covid vaccine. - Social history:: Smoking status: Patient reports the use of cigarette tobacco products, denies chronic smoking, but will smoke occasionally, Patient/guardian denies using alcohol. Screenin:12 [facility] ED Fall Risk Assessment (Adult) History of falling in the last 3 months, ld1 including since admission No falls in past 3 months (0 pts). Abuse screen: Denies threats or abuse. Denies injuries from another. Nutritional screening: No deficits noted. Tuberculosis screening: No symptoms or risk factors identified. Assessment: 08:21 Reassessment: See triage assessment. ERP at bedside assessing patient. ld1 09:45 Reassessment: Patient appears in no apparent distress at this time. No changes from ld1 previously documented assessment. Patient and/or family updated on plan of care and expected duration. Pain level reassessed. 10:50 Reassessment: No changes from previously documented assessment. Patient is alert, ld1 oriented x 3, equal unlabored respirations, skin warm/dry/pink. 12:45 Reassessment: No changes from previously documented assessment. Patient and/or family ld1 updated on plan of care and expected duration. Pain level reassessed. Patient is alert, oriented x 3, equal unlabored respirations, skin warm/dry/pink. 13:20 Reassessment: No changes from previously documented assessment. Patient and/or family ld1 updated on plan of care and expected duration. Pain level reassessed. Patient is alert, oriented x 3, equal unlabored respirations, skin warm/dry/pink. interventional radiology tech transporting patient upstairs to ICU. Pt family at bedside. Denies concerns at this time. Vital Signs: 08:18 Pulse 72; Resp 18; Temp 98.3(O); Pulse Ox 99% on R/A; Weight 58.97 kg; Height 5 ft. 6 ld1 in. ; Pain 0/10; 08:21 BP 92 / 60; ld1 09:12 BP 104 / 59; Pulse 74; Resp 18; Pulse Ox 100% on R/A; ld1 10:15 BP 96 / 54; Pulse 70; Resp 16; Pulse Ox 100% ; ko1 13:00 BP 89 / 46; Pulse 75; Resp 16; Pulse Ox 100% on R/A; cm10 13:20 BP 93 / 55; Pulse 71; Resp 18; Pulse Ox 100% on R/A; ld1 08:18 Body Mass Index 20.98 (58.97 kg, 167.64 cm) ld1 08:18 Pain Scale: Adult ld1 ED Course: 08:13 Patient arrived in ED. jarod 08:13 Rex Maloney MD is Attending Physician. jarod 08:18 Ariana Avina, ILIANA is Primary Nurse. ld1 08:19 Triage completed. ld1 08:19 Arm band placed on right wrist. ld1 08:20 Patient has correct armband on for positive identification. Placed in gown. Bed in low ld1 position. Call light in reach. Side rails up X2. web project manager on. Pulse ox on. NIBP on. Door closed. Noise minimized. Warm blanket given. 08:20 No provider procedures requiring assistance completed. Maintain EMS IV. Dressing ld1 intact. Good blood return noted. Site clean \T\ dry. Gauge \T\ site: 20G RAC. 08:38 Lactate w/ 2H reflex if indic. Sent. ko1 08:41 Abdomen In Process Unspecified. EDMS 08:54 XRAY Chest (1 view) In Process Unspecified. EDMS 09:12 Assisted to bedside commode. ld1 09:12 Urinalysis w/ reflexes Sent. ld1 10:48 Inserted MIDLINE 20 gauge, 10 cm POWERGLIDE to L upper arm using aseptic technique. Pt ss tolerated well. US GUIDED. Order given by Dr. Maloney. 10:57 Transfer initiated with [facility] transfer center ([phone]); rental coordinator to [facility] reach out to facility to ensure services needed are available. 11:30 Ramachandran cath inserted, using sterile technique, 16 Fr., by ED staff, balloon inflated, to ld1 gravity drainage, Patient tolerated well. 11:45 [facility] declines transfer due to unavailability of services. em1 11:58 Tien Stoddard MD is Hospitalizing Provider. jarod 13:11 Report given to ILIANA Mclaughlin in ICU. cm10 13:21 Patient admitted, IV remains in place. ld1 Administered Medications: 08:26 Drug: NS 0.9% IV 1000 ml Route: IV; Rate: 1 bolus; Site: right antecubital; ld1 09:11 Drug: Rocephin IV 1 grams Route: IV; Rate: per protocol; Site: right antecubital; ld1 09:12 Drug: NS 0.9% IV 1000 ml Route: IV; Rate: 1 bolus; Site: right antecubital; ld1 10:52 Drug: D10 in Water IVP 250 ml Route: IVP; Site: left upper arm; ld1 12:16 Follow up: Response: No adverse reaction cm10 10:53 Drug: Kayexalate PO 30 grams Route: PO; ld1 12:16 Follow up: Response: No adverse reaction cm10 10:53 Drug: Insulin Regular Human IVP 10 units {Co-Signature: ko1 (Adelina Parks RN).} Route: ld1 IVP; Site: left upper arm; 12:16 Follow up: Response: No adverse reaction cm10 11:15 Drug: Calcium Gluconate IVPB 1 grams Route: IVPB; Infused Over: 15 mins; Site: left ld1 upper arm; 12:00 Follow up: Response: No adverse reaction; IV Status: Completed infusion cm10 12:15 Drug: Magnesium Sulfate IVPB 1 grams Route: IVPB; Infused Over: 1 hrs; Site: left cm10 antecubital; 12:15 Drug: Sodium Bicarbonate IVP 1 amp Route: IVP; Site: left antecubital; cm10 12:15 Drug: DuoNeb Nebulize (2.5 mg - 0.5 mg) 3 ml Route: Nebulizer; cm10 12:15 Drug: Kayexalate PO 30 grams Route: PO; cm10 13:22 Drug: NS 0.9% IV 1000 ml Route: IV; Rate: 125 ml/hr; Site: left upper arm; ld1 Medication: 13:21 VIS not applicable for this client. ld1 Output: 13:26 Urine: 575ml (Ramachandran); Total: 575ml. ld1 Outcome: 10:50 ER care complete, transfer ordered by . jarod 12:01 Decision to Hospitalize by Provider. [facility] 13:21 Admitted to ICU accompanied by nurse, accompanied by lizy, room 7, Report called to ld1 ILIANA Mclaughlin 13:21 Condition: stable 13:21 Instructed on the need for admit. 13:42 Patient left the ED. ld1 Signatures: Dispatcher [employer] Rex Beaver MD MD cha Martinez, Eric em1 Cathy Corral RN RN ss Ariana Avina, RN RN ld1 Adelina Parks, RN RN ko1 Cris Dowling, RN RN cm10 Adelina Parks RN ko1
[2023-02-20] MEDS ORDERED: MAGNESIUM SULFATE 1 gm IVPB 1 GM/100 ML BAG IV ONE (12:02)
[2023-02-20] MEDS ORDERED: ALBUTEROL 2.5 MG/3 ML NEB SOL ONE (12:03)
[2023-02-20] MEDS ORDERED: IPRATROPIUM BROM 0.5MG/2.5ML ONE (12:04)
[2023-02-20] MEDS ORDERED: ONDANSETRON 4 MG/2 ML VIAL IV PRN (13:07)
[2023-02-20] MEDS ORDERED: ACETAMINOPHEN 325 MG TABLET PO PRN (13:07)
[2023-02-20] MEDS ORDERED: MORPHINE 2 MG/ML SYR IV PRN (13:07)
[2023-02-20 13:08] LABS: Potassium 5.3 mEq/L (3.5-5.1)
[2023-02-20] MEDS ORDERED: D5W 1,000 ML with NA BICARB 8.4% 100 MEQ IV SCH ×2 (13:30)
[2023-02-20] MEDS: ALBUTEROL 2.5 MG/3 ML NEB SOL NEB SCH ×2 (14:07→20:50)
[2023-02-20] MEDS: IPRATROPIUM BROM 0.5MG/2.5ML NEB SCH ×2 (14:07→20:50)
[2023-02-20] MEDS: NACHLORIDE 0.45% 1,000 ML with NA BICARB 8.4% 75 MEQ IV SCH ×2 (14:44)
[2023-02-20] MEDS ORDERED: NACHLORIDE IV SCH ×2 (15:00)
[2023-02-20] MEDS ORDERED: NA BICARB IV SCH ×2 (15:00)
[2023-02-20 15:13] LABS: Thyroid Stimulating Hormone 1.19 uIU/mL (0.358-3.740); Uric Acid 9.3 mg/dL (2.6-6.0)
--- NOTE | 2023-02-20 19:07 | RAD REPORT ---
EXAM DESCRIPTION: US - Renal Ultrasound-Complete - 02/20/2023 4:40 pm CLINICAL HISTORY: ARF COMPARISON: Abdomen Pelvis Wo Contrast dated 02/20/2023 TECHNIQUE: Sonographic grayscale and color flow images of the kidneys were obtained. FINDINGS: Both kidneys are normal in size, shape and echotexture. The right kidney measures 10.8 centimeter in length. Mild hydronephrosis. No echogenic calculi, focal mass or perinephric fluid. The left kidney measures 10.2 centimeter in length. Decreased penetration of the left-sided limits ev aluation. No hydronephrosis, focal mass or perinephric fluid. No echogenic calculi. The urinary bladder is suboptimally distended without gross abnormality seen. IMPRESSION: Mild right hydronephrosis. . No other suspicious findings.
--- NOTE | 2023-02-20 19:13 | CON ---
Date of Consultation: 02/20/2023 Reason For Consultation: Elevated BUN and creatinine, hyperkalemia. History Of Present Illness: This is a pleasant 67-year-old female well-known to me from the office w ith significant past medical history of diabetes since 2009 complicated with neuropathy, no retinopat hy, hypertension since 2004, hyperlipidemia, chronic kidney disease stage 4, baseline creatinine as o f January 2023 2.2 with GFR 23. The patient was in her regular state of health back in December. The patien t had a colostomy. The patient developed a cyst/abscess after. For that reason readmitted to the [facility] and transferred out to [facility]. At that time, the patient had IR drainage for the abscess. According to the patient, the patient had IV antibiotic while she was in the hospital, then was discharged on amoxicillin. The patient followed up with the surgeon yesterday. Repeated CT scan. According to her, the CAT scan was involved with contrast. The patient followed up with her primary doctor, Dr. Stoddard and came with weakness, found to have elevation in BUN and creatinine. For that reason, we have been consulted. The patient also found to have hyperkalemia. Patient denied ta bernarda any nonsteroidal. Again, patient had contrast. As home medication, the patient on ramipril. N o other insulting medication except the contrast. Past Medical History: 1.Diabetes. 2.Hypertension. 3.Colostomy. 4.Buttock abscess. 5.Chronic kidney disease stage 4 secondary to diabetes, nephropathy, hypertension, nephrosclerosis. Baseline creatinine 2.2 with GFR of 20 as of January 2023. Past Surgical History: Include: 1.I and D drainage for abscess. 2.Cataract surgery. 3.Thyroidectomy. 4.Right-sided thyroid cyst removal. Family History: Positive with hypertension. Social History: Ex-smoker. Occasional alcohol. Denied drugs abuse. Allergies: NO KNOWN DRUG ALLERGY. Review of Systems: Head and Neck: No red eye. No ear pain. GI: Has nausea, decreased intake. : No polyuria, no dysuria, no hematuria. Heat Engineering Teacher: No vaginal discharge. Respiratory: No shortness of breath. Cardiovascular: No chest pain. Endocrine: No polydipsia. Skin: No rash. Neuro: Has neuropathy. Musculoskeletal: Generalized fatigue and buttock pain. Physical Examination: Vital Signs: When I saw the patient: Blood pressure 90/60, pulse was 71. Chest: Clear to auscultation. Heart: S1, S2. Systolic murmur. Abdomen: Soft, nontender. Drainage from the abscess. No guarding or rebound. Extremities: No edema. Neurologic: Alert, oriented x3. No focal. Laboratory Data: Back in January 2023, sodium 126, potassium 4, bicarb 13, BUN 77, creatinine 2.2, calc ium of 7 yesterday. Today upon admission, sodium 125, potassium 7, bicarb 17, BUN 80, creatinine 3.9 , calcium 8.4. Repeated lab sodium 127, potassium 5.3, bicarb 20, BUN 73, creatinine 3.5, calcium 8. 6. WBC back in January, hematocrit 9.4. Currently, WBC 10.4, H and H 10.5/31.7. CT abdomen and pelvis done today without contrast: No hydronephrosis, showing renal calculi without any obstruction. Assessment And Plan: Acute kidney injury secondary to poor perfusion, acute tubular necrosis seconda ry to low blood pressure, superimposed with contrast-induced nephropathy on advanced chronic kidney d isease, superimposed with ARB complicated with hyperkalemia, nonoliguric, look hypovolemic. 1.I am going to go ahead and discontinue ramipril. 2.I am going to bolus the patient with 1 L of normal saline as a fluid resuscitation. The patient r eceived resuscitation also in the ER and obstructive uropathy has been ruled out. We will continue h ydration and we will use bicarb drip for correction and we will follow up. 3.Hypertension, currently blood pressure on the lower side. Hold all blood pressure medications. 4.Acidosis, non-anion gap, metabolic acidosis secondary to renal failure. I am going to start fluid resuscitation and we will follow up. 5.Hyperkalemia secondary to renal failure, superimposed with ARB. Discontinue all the blood pressur e medications, especially MICHAEL inhibitor and ARB. Start fluid resuscitation we will use bicarb drip t o establish more potassium diuresis and we will follow up. 6.Hyponatremia depletional. We will start hydration. 7.Diabetes as by primary. 8.Abscess with sepsis. Continue antibiotic. We will follow up. Thank you Dr. Stoddard for allowing us to participate in the care of your patient Time spent examining th e patient, [id number], reviewing data and lab and radiology, placing order, discussing the case wit h the patient, discussing the case with the instrument repairer steam plant including hospitalist and nursing in the ICU more than 75 minutes. NOEL Voice ID: [id number] Report ID: [id number]
[2023-02-20] MEDS: FAMOTIDINE 20 MG/2 ML VIAL IV SCH (20:51)
[2023-02-20] MEDS ORDERED: SOD POLYSTYREN SUL 15 GM/60 ML UCUP PO SCH (21:00)
[2023-02-20 21:50] LABS: UR PROTEIN 31.3 mg/dL (<11.9); Urine Protein/Creatinine Ratio 0.78 ratio (<0.15)
--- NOTE | 2023-02-20 22:46 | HP ---
Date of Admission: 02/20/2023 Chief Complaint: Feeling weak. History Of Present Illness: This is a 67-year-old very pleasant female patient who had a partial res ection of colon on 12/31/[address] [facility] and has ileostomy in place. Surgery was done by Dr. Alfred Carbajal. Patient had another admission about 3-4 weeks ago or so when she came in to our emergency room and had significant problem with hyponatremia and a CAT scan of the abdomen had shown areas of fluid collection in the intraabdominal and pelvis area and [facility] [place]. Patient says that she spent 5-7 days in the hospital and she had dr toledo tube placed and this is inserted through left buttock region and she is under care of Dr. Alfred Carbajal. Ever since she came home from the hospital about couple of weeks ago, she has been having inc reasing generalized weakness, feeling very weak and tired and today, she came into emergency room wit h these complaints and after she was evaluated in the ER, she was diagnosed as having acute kidney in jury and hyponatremia and hyperkalemia and she was admitted to the hospital with this problem. She w as treated for hyperkalemia in the emergency room. Her initial potassium was 7 and after hyperkalemi a was treated, her potassium level came down to 5.3. Patient was admitted to ICU and I saw her in IC U after she was admitted this evening. She denies any fever, chills, nausea, vomiting. The ER physi elizabeth who contacted me from emergency room also had contacted Dr. Carbajal, who suggested for her to be ad mitted to our hospital as at the hospital where he is, they do not have any beds available for her to be transferred there and they did not have nephrology service available as I was told. Allergies: NO KNOWN ALLERGIES. Medications: List reviewed. Review of Systems: Constitutional: As mentioned above. All other systems reviewed are negative. Past Medical History: Significant for type 2 diabetes mellitus, hypertension, mixed hyperlipidemia, nonalcoholic fatty liver disease, gallstones, anemia, thrombocytopenia. Past Surgical History: Cataract surgery, partial thyroidectomy due to thyroid cyst on the right side , partial resection of colon due to diverticulosis with ileostomy done on December 31, 2022. Family History: Father , details unknown. Mother is alive and well. Social History: Prior history of smoking, not at present time. Use of alcohol very rarely. She use s alcohol. Physical Examination: Vital Signs: Temperature 97.8, pulse 69, respiratory rate 20, blood pressure 96/54, oxygen saturatio n 100%. Height 5 feet 6 inches, weight 135 pounds. General: Awake, alert, oriented, not in distress. HEENT: Head atraumatic, normocephalic. Conjunctivae nonerythematous. Sclerae white. Mouth, no thr ush or edema noted. Ears/Nose, no mass, lesion, discharge noted. Neck: Supple. No JVD, lymph nodes, bruit, thyromegaly noted. Lungs: Bilateral good equal air entry. Clear to auscultation. No rhonchi. No rales. Heart: Normal heart sounds, no murmur or gallop. Abdomen: Right lower quadrant of abdomen has ileostomy with stoma bag present. Extremities: No leg edema. No calf tenderness. Skin: No rash, ulcer, cellulitis. Lymphatics: No lymph node enlargement in neck, supraclavicular, infraclavicular region. Neuro: No focal neurological deficit. Chest: Unremarkable. External Genitalia: Deferred. Rectal: Deferred. : Left buttock region has percutaneous drainage tube present draining clear yellowish colored liqu id. Laboratory Data: White count 10.4, hemoglobin 10.5, platelets 258. Initial sodium 125, potassium 7, chloride 99, bicarb 17, BUN 80, creatinine 3.99, glucose 99. Magnesium 1.4. Liver function tests n ormal. Lipase 163. TSH 1.19. After correction of potassium repeat chemistry: Sodium 127, potassiu m 5.3, chloride 99, bicarb 20, BUN 73, creatinine 3.57, glucose 131. Random serum cortisol level 18. 27. Urinalysis: 1+ blood, leukocyte esterase negative, less than 20 bacteria, 2+ protein, less than 5 wbc's. Chest x-ray, no acute cardiopulmonary changes. CAT scan of abdomen and pelvis shows no ac grayling intraabdominal finding, presence of gallstones, and there is reduction in ill-defined pelvic flui d collection since prior study. Impression: 1.Acute kidney injury. 2.Volume depletion. 3.Hyperkalemia. 4.Hyponatremia. 5.Anemia, unspecified. 6.Hypertension. 7.Mixed hyperlipidemia. 8.Type 2 diabetes mellitus. 9.Gallstones, asymptomatic. 10.Diverticulosis. Plan: Admit patient to hospital for further evaluation and management of this problem. Patient is a ppropriate for inpatient and is expected to spend 2 midnights in hospital. We will go ahead and cons t worm farm laborer and follow up with the worm farm laborer, Dr. Frederick, who has already evaluated the pat ient. We will repeat blood work tomorrow morning. Continue current maintenance IV fluid. Diabetes will be managed with sliding scale insulin per order. We will monitor blood pressure and consider us e of antihypertensive medication as it becomes necessary. We will see her tomorrow morning for david obrien and details and plan of treatment discussed with the patient. JAMES/MODL Voice ID: [id number]
[2023-02-21] MEDS: NACHLORIDE 0.45% 1,000 ML with NA BICARB 8.4% 75 MEQ IV SCH ×2 (01:05)
[2023-02-21] MEDS: IPRATROPIUM BROM 0.5MG/2.5ML NEB SCH ×4 (02:00→20:10)
[2023-02-21] MEDS: ALBUTEROL 2.5 MG/3 ML NEB SOL NEB SCH ×4 (02:00→20:10)
[2023-02-21 05:41] LABS: Absolute Lymphocytes (CBC) 0.5 K/uL (0.7-4.9); Hematocrit 23.8 % (36.0-45.0); Lymphocytes % 10.2 % (15.3-44.8); MCV 95.5 fL (80-100); MPV 9.9 fL (7.6-11.3); RBC Red Blood Cell Count 2.49 M/uL (3.86-4.86)
[2023-02-21 06:05] LABS: Albumin 2.8 g/dL (3.4-5.0); Phosphorus 6.9 mg/dL (2.5-4.9); Potassium 4.5 mEq/L (3.5-5.1); Thyroid Stimulating Hormone 0.743 uIU/mL (0.358-3.740); Uric Acid 9.2 mg/dL (2.6-6.0)
[2023-02-21 06:17] VITALS: BMI 23.1
[2023-02-21] MEDS ORDERED: GLUCAGON 1 MG/VIAL IM PRN (08:34)
[2023-02-21] MEDS ORDERED: D50W 25 GM/50 ML SYRINGE IV PRN (08:34)
[2023-02-21] MEDS ORDERED: D10W 125 ML IV PRN (08:39)
[2023-02-21] MEDS: GLUCERNA SHAKE 237 ML CAN PO SCH ×2 (09:00→21:28)
[2023-02-21] MEDS: FAMOTIDINE 20 MG/2 ML VIAL IV SCH ×2 (09:16→21:29)
[2023-02-21] MEDS: HEPARIN 5000 UNIT/ML 1 ML VIAL SQ SCH ×2 (09:16→21:27)
[2023-02-21] MEDS: NA CHLORIDE 0.9% 1,000 ML IV SCH (10:50)
[2023-02-21] MEDS: INSULIN -REGULAR HUMAN 50 UNIT/0.5 ML ML SQ SCH ×3 (11:30→21:00)
--- NOTE | 2023-02-21 13:21 | PN ---
Date of Progress Note: 02/21/2023 Subjective: Patient was seen this morning for followup. She was lying in bed in ICU, feeling overal l much better than before. She is not in any distress. Physical Examination: Vital Signs: Reviewed. This morning, her temperature was 97.2, pulse 81, respiratory rate 20, blood pressure 97/64, oxygen saturation 96% on room air. HEENT: Unremarkable. Lungs: Clear to auscultation. Heart: Sounds normal. Abdomen: Soft. Bowel sounds normal. No guarding, rigidity, tenderness, distention. Extremities: No leg edema. Laboratory Data: White count 4.6, hemoglobin 8.1, platelets 157. Sodium 135, potassium 4.5 chloride 105, bicarb 24, BUN 55, creatinine 2.04, glucose 88. Renal ultrasound from yesterday had shown mild right-sided hydronephrosis. No other suspicious findings. Impression: 1.Acute kidney injury. 2.Volume depletion. 3.Hyperkalemia. 4.Hyponatremia. 5.Anemia. 6.Diverticulosis. 7.Diabetes mellitus. 8.Hypertension. 9.Hyperlipidemia. Plan: For patient's anemia, we will monitor. No need for blood transfusion at this point. Patient' s hyperkalemia and hyponatremia problem has resolved. She is currently on IV fluids with bicarb drip , which we will go ahead and discontinue now and start her on IV fluid normal saline at 75 cc/hour. Her renal function looks lot better today than yesterday. Medically, she is stable for transfer out of ICU to regular room. She will not need any blood pressure medication at this point. We will not give her any cholesterol medication either. For diabetes, we will just manage it with sliding scale insulin. Nutritional supplement, Glucerna, was ordered. Physical therapy was ordered. Upon further questioning, patient reports that she only drinks about 8-16 ounces of water a day and I have encour aged her to drink about 50-60 ounces of water a day. I will see her tomorrow for followup. See copy of transfer order. JAMES/MODL Voice ID: [id number] Report ID: [id number]
--- NOTE | 2023-02-21 15:19 | P.PN ---
Subjective Date of Service: 02/21/23 Subjective: Other (No urinary complaints.) Physical Examination - Vital Signs Temperature: 97.3 F Blood Pressure: 97/54 Pulse: 89 Respirations: 21 Pulse Ox (%): 94 - Physical Exam General: In no apparent distress HEENT: Atraumatic, Normocephalic Neck: Supple, JVD not distended Respiratory: Other (symmetric chest expansion) Cardiovascular: No rubs, No murmurs Gastrointestinal: Soft and benign, No guarding Musculoskeletal: No clubbing Integumentary: No warmth Neurological: Normal speech, Normal tone Lymphatics: No axilla or inguinal lymphadenopathy Urinary: Other (no bladder distention) External genitalia: Deferred Rectal: Deferred Assessment And Plan - Plan # DIAZ 2/2 ATN Resolving, serum creatinine improved to 2.0 [place] po fluid intake Dc lazar Monitor renal panel # Htn BP borderline low currently TTE on 02/21/2023 showed normal LVEF at 60-65%, mild tricuspid regurgitation Afternoon serum cortisol within normal limits, adrenal insufficiency unlikely Monitor orthostatic vitals [place] by mouth fluid intake IV hydration when necessary # Acute diverticulitis complicated by pelvic abscess +drain in place, +ileostomy Abx Per other services # Hyponatremia Improved with IV fluids, monitor # Hyperkalemia Improved, monitor # Acidosis Improved, monitor # Hyperphosphatemia Monitor # Debility Out of bed with PT and OT # DM2 Mngt per primary team
[2023-02-22] MEDS: ALBUTEROL 2.5 MG/3 ML NEB SOL NEB SCH ×2 (02:00→08:00)
[2023-02-22] MEDS: IPRATROPIUM BROM 0.5MG/2.5ML NEB SCH ×2 (02:00→08:00)
[2023-02-22] MEDS: NA CHLORIDE 0.9% 1,000 ML IV SCH (04:23)
[2023-02-22 06:39] LABS: Absolute Lymphocytes (CBC) 0.6 K/uL (0.7-4.9); Hematocrit 22.4 % (36.0-45.0); Lymphocytes % 19.9 % (15.3-44.8); MCV 96.6 fL (80-100); MPV 9.8 fL (7.6-11.3); RBC Red Blood Cell Count 2.31 M/uL (3.86-4.86)
[2023-02-22 06:58] LABS: Potassium 4.4 mEq/L (3.5-5.1)
[2023-02-22] MEDS: INSULIN -REGULAR HUMAN 50 UNIT/0.5 ML ML SQ SCH (07:30)
[2023-02-22 08:35] VITALS: BP 97/54; TEMP 97.3
[2023-02-22] MEDS: GLUCERNA SHAKE 237 ML CAN PO SCH (09:00)
[2023-02-22] MEDS: HEPARIN 5000 UNIT/ML 1 ML VIAL SQ SCH (09:00)
[2023-02-22] MEDS: FAMOTIDINE 20 MG/2 ML VIAL IV SCH (09:00)
[2023-02-22 09:27] VITALS: O2SAT 93
--- NOTE | 2023-02-22 11:04 | DS ---
Date of Discharge: 02/22/2023 Disposition: Discharged to go home. Discharge Medications And Instructions: The patient was advised that she should not take any medicat ions when she goes home until I have chance to review her office medication based and then we will co ntact her this weekend and provide her necessary information and details about which medications to t brea. The patient to follow up at my office next week on , which is February 27, 2023, and come t o office day before appointment which is on Friday, February 26, 2023 for known fasting blood work and we will follow up on her CBC and Chem-7. Physical Examination: Vital Signs: This morning, temperature 96.8, pulse 74, respiratory rate 18, blood pressure 112/57, o xygen saturation 97% on room air. HEENT: Unremarkable. Lungs: Clear to auscultation. Heart: Sounds normal. Abdomen: Soft. Bowel sounds normal. No guarding, rigidity, tenderness, or distention. Extremities: No leg edema. Laboratory Data: Upon admission on 02/20/2023, white count 10.4, hemoglobin 10.5, platelets 258. Ye day, white count 4.6, hemoglobin 8.1, platelets 157. Today, white count 3.1, hemoglobin 7.6, felicity telets 137. Chemistry today; sodium 136, potassium 4.4, chloride 109, bicarb 23, BUN 34, creatinine 1.30, glucose 100, hemoglobin A1c is 5.9 done today. Upon admission on February 20, 2023, sodium was 125, potassium 7, chloride 99, bicarb 17, BUN 80, creatinine 3.99, glucose 99. Liver function test was unremarkable. Magnesium was low at 1.4. Hospital Course: This is a 67-year-old female patient admitted to the hospital with complaints of fe jam weak. Please see dictated H and P for more information. After patient was evaluated in the ER , she was admitted to the hospital. The patient had acute kidney injury with volume depletion and gallegos d hyperkalemia and hyponatremia. She was given treatment for hyperkalemia and IV fluid hydration was started for her hyponatremia and hypovolemia problem. Overall, her condition improved. She was adm itted to ICU. Nephrology consultation was requested from Dr. Frederick. The patient's potassium leve l came down to normal and renal function has improved significantly. Her hemoglobin has dropped down during this hospitalization, but this could be very well due to IV fluid causing hemodilution. She does not have any evidence of GI blood loss and we will definitely follow up on this blood work on ou tpatient basis. At home, she takes iron supplement and when I communicated with her over this weeken d, I will encourage her to continue to take her iron supplement at home. She was supposed to have a followup with her colorectal surgeon, Dr. Carbajal this week, but she ended up in our hospital, so I have encouraged her to follow up with him as he is going to communicate with her regarding reversal of he r ileostomy. The patient was drinking only 8-16 ounce of water a day and I have encouraged her to dr ink 60 ounce of water a day. The patient was transferred out of ICU to regular room where she has re mained stable. Today, she feels fine back to her normal self. Denies any complaints and medically s he is stable for discharge. Final Diagnoses: 1.Acute kidney injury. 2.Volume depletion. 3.Hyperkalemia. 4.Hyponatremia. 5.Anemia, unspecified. 6.Hypertension. 7.Mixed hyperlipidemia. 8.Type 2 diabetes mellitus. 9.Gallstones, asymptomatic. 10.Diverticulosis. JAMES/MODL Voice ID: [id number] Report ID: [id number]
--- NOTE | 2023-02-22 16:18 | EKG ---
Test Date: 2023-02-21 Test Time: 11:39:04 Vocational Teacher: SHANNON MEASUREMENT RESULTS: Intervals: Rate: 90 VA: 140 QRSD: 70 QT: 370 QTc: 452 [place]: P: 36 VA: 140 QRS: 14 T: 103 INTERPRETIVE STATEMENTS: Normal sinus rhythm Nonspecific ST and T wave abnormality Abnormal ECG Compared to ECG 02/20/2023 08:31:20 ST (T wave) deviation now present Electronically Signed On 02-22-23 16:16:52 CDT by River Bales
--- NOTE | 2023-02-22 16:25 | EKG ---
Test Date: 2023-02-20 Test Time: 08:31:20 Optical Glass Etcher: MARCO ANTONIO MEASUREMENT RESULTS: Intervals: Rate: 72 NM: 156 QRSD: 82 QT: 414 QTc: 453 [place]: P: 29 NM: 156 QRS: -1 T: 56 INTERPRETIVE STATEMENTS: Normal sinus rhythm Normal ECG Compared to ECG 02/07/2023 15:05:43 T-wave abnormality no longer present Prolonged QT interval no longer present Electronically Signed On 02-22-23 16:21:10 CDT by River Bales
[2023-02-24 12:36] LABS: Albumin, (SPE) 3.1 g/dL (3.8-4.8); Alpha-1-Globulins 0.4 g/dL (0.2-0.3); Gamma Globulins 0.7 g/dL (0.8-1.7); INTERPRETATION REPORT
== END 2023-02-22 10:45 | disposition home or self-care (01) | DRG 683 ==
LOC: ER 08:10 → ERHOLD 12:16 → 3RD-ICU 13:14 → 2ND 02-21 17:25
PROVIDERS: ADMIT Internal Medicine; ATTEND Internal Medicine
DX: N17.0 Acute kidney failure with tubular necrosis (principal); E87.1 Hypo-osmolality and hyponatremia; E87.20 Acidosis, unspecified; L02.31 Cutaneous abscess of buttock; N18.4 Chronic kidney disease, stage 4 (severe); I12.9 Hypertensive chronic kidney disease with stage 1 through stage 4 chronic kidney disease, or unspecified chronic kidney disease; E11.22 Type 2 diabetes mellitus with diabetic chronic kidney disease; E11.40 Type 2 diabetes mellitus with diabetic neuropathy, unspecified; D63.1 Anemia in chronic kidney disease; E87.5 Hyperkalemia; I95.9 Hypotension, unspecified; E83.42 Hypomagnesemia; E86.9 Volume depletion, unspecified; I07.1 Rheumatic tricuspid insufficiency; E78.2 Mixed hyperlipidemia; K80.20 Calculus of gallbladder without cholecystitis without obstruction; K57.90 Diverticulosis of intestine, part unspecified, without perforation or abscess without bleeding; E83.39 Other disorders of phosphorus metabolism; F17.210 Nicotine dependence, cigarettes, uncomplicated; Z93.2 Ileostomy status
CPT/HCPCS: 36415; 51702; 71045; 74176; 76770; 80048; 80069; 80076; 81001; 82533; 82550; 82570; 82947; 83036; 83605; 83690; 83735; 83880; 83930; 83935; 83970; 84156; 84165; 84300; 84443; 84484; 84550; 85025; 85610; 93005; 94640; 97161; 99285; J0612; J0696; J1644; J1815; J3475; J7030; J7613; J7644

== ENCOUNTER 2025-03-30 06:24 | Day surgery (SDC) | payer OTHER ==
[2025-03-29 15:55] LABS: Absolute Lymphocytes (CBC) 0.8 K/uL (0.7-4.9); Hematocrit 40.5 % (36.0-45.0); Hemoglobin 13.9 g/dL (12.0-15.0); MCH 32.8 pg (27.0-35.0); MCHC 34.4 g/dL (32.0-36.0); MCV 95.3 fL (80-100); MPV 9.0 fL (7.6-11.3); Nucleated RBC Absolute Count 0.0 (0-0); Nucleated Red Blood Cells % 0.0 % (0-0); RBC Red Blood Cell Count 4.25 M/uL (3.86-4.86); White Blood Count 5.70 thou/uL (4.3-10.9)
[2025-03-29 16:13] LABS: Anion Gap 12.1 mEq/L (5.0-15.0); BUN Blood Urea Nitrogen 24.0 mg/dL (7-18); Glucose Level 207.0 mg/dL (74-106); Potassium 4.1 mEq/L (3.5-5.1)
--- NOTE | 2025-03-29 23:58 | RAD REPORT ---
EXAMINATION: TWO VIEW CHEST XR CLINICAL INDICATION: Female, 69 years old. [facility] Pre-op pending breast lumpectomy. Hypertension TECHNIQUE: 2 view radiographs of the chest were performed. COMPARISON: 02/20/2023 FINDINGS: The lungs are well inflated and clear. No pneumothorax or sizable effusion. The heart is normal in si ze. Mediastinal contours are unremarkable. IMPRESSION: No acute or significant abnormalities.
[2025-03-30] MEDS ORDERED: NA CHLORIDE 0.9% 1,000 ML ONE (06:39)
[2025-03-30] MEDS ORDERED: SUGAMMADEX SODIUM 200 MG/2 ML VIAL IV ONE (07:16)
[2025-03-30] MEDS ORDERED: FENTANYL CITR 100 MCG/2 ML ONE (07:21)
[2025-03-30] MEDS ORDERED: ONDANSETRON 4 MG/2 ML VIAL ONE (07:21)
[2025-03-30] MEDS ORDERED: LIDOCAINE 2% MPF 5 ML VIAL ONE (07:21)
[2025-03-30] MEDS ORDERED: GLYCOPYRROLATE 0.2 MG/ML SYR ONE (07:42)
[2025-03-30] MEDS: CEFAZOLIN SODIUM 1 GM/VIAL ONE (07:45)
[2025-03-30] MEDS ORDERED: Mastisol Adhesive Liq ONE (08:06)
--- NOTE | 2025-03-30 08:18 | P.BOP ---
Preoperative diagnosis: Left breast palpable mass Postoperative diagnosis: same Primary procedure: Left breast lumpectomy Estimated blood loss: <10cc Specimen: mass Findings: mass Anesthesia: General Complications: None Transferred to: Recovery Room Condition: Good
--- NOTE | 2025-03-30 09:35 | OP ---
Date of Procedure: 03/30/2025 Surgeon: Jaden Dowling MD Preoperative Diagnosis: Left breast palpable mass, left inner upper quadrant. Postoperative Diagnosis: Left breast palpable mass, left inner upper quadrant. Procedure: Left breast lumpectomy. Estimated Blood Loss: Less than 10 cc. Anesthesia: General plus local. Finding: Palpable mass. Indications: This is a case of a 69-year-old patient who comes with a palpable mass in the location dictated above. The benefits, alternatives, and risks of lumpectomy were fully explained, which incl ude, but not limited to infection, bleeding, damage to adjacent structures, anesthesia complication, abscess, seroma, hematoma, VA, and even . She also understands this may not relieve the symptom s. She might need more than one surgical intervention. She understands the importance of following up with us, also her primary doctor for her yearly mammograms. Also, use some breast support. Also, importance of monthly self checkup. Description Of Procedure: The patient was brought to the operating room, placed in supine position. Anesthesia was induced without complication. The area of concern was previously marked by me and th e patient in the holding room. The area was prepped and draped in sterile fashion. After time-out, we injected local anesthetic, followed by incision in the skin. Incision was carried down to subcuta neous tissue. We noticed a mass present and carefully removed the mass in 1 entire unit. The mass g oes all the way down to fascia and the muscle, but does not involve the fascia or the muscle. The ma ss was completely excised. The area was irrigated and then we proceeded to close this with 3-0 chrom ic and then 4-0 Monocryl. Sponge count and instrument counts were correct. Steri-Strips was placed over the area. The patient tolerated the procedure well. Hemostasis was obtained before closure, a lso irrigation. The patient was sent to recovery in stable condition. HM/MODL Voice ID: [id number] Report ID: [id number]
[2025-03-30 09:57] VITALS: BP 140/59; TEMP 97.8; O2SAT 95
== END 2025-03-30 09:45 | disposition home or self-care (01) ==
LOC: OR 06:24
PROVIDERS: ATTEND Surgery
PROC: 0HBU0ZZ Excision of Left Breast, Open Approach (ICD-10-PCS; principal; 2025-03-30 07:30)
DX: L72.0 Epidermal cyst (principal)
CPT/HCPCS: 93005; 85025; 80048; 36415; 82947 ×2; 88304; 71046; 19301; J2704; J2003; J3010; J1100; J2405; J7030; J0690